=== PATIENT | male | born 1980 | race Caucasian/White ===

== ENCOUNTER 2019-03-19 00:14 | Inpatient (IN) ==
[2019-03-19] MEDS ORDERED: 0.9 % Sodium Chloride 1,000 ML IVC ONE ×4 (00:42→05:49)
[2019-03-19 00:51] LABS: Basophils # 0.1 K/mcL (0.0-0.2); Basophils % 0.8 %; Hematocrit 46.4 % (37.5-50.1); Hemoglobin 16.3 g/dL (12.9-16.9); Immature Granulocytes % 2.6 % (0-4); Lymphocytes % 26.9 %; Mean Corpuscular HGB Conc 35.1 g/dL (31.6-35.5); Mean Corpuscular Hemoglobin 32.4 pg (28.0-33.3); Mean Corpuscular Volume 92.2 fL (83.0-100.0); Mean Platelet Volume 10.6 fL (9.4-12.4); Monocytes # 0.4 K/mcL (0.0-1.3); Monocytes % 4.9 %; Neutrophils # 4.9 K/mcL (1.6-8.9); Nucleated Red Blood Cells 0.4 /100 WBC (0); Platelet Count 246 K/mcL (140-400); Red Blood Count 5.03 M/mcL (4.19-5.50); Red Cell Distribution Width 11.5 % (11.5-14.5); Segmented Neutrophils % 64.8 %; White Blood Count 7.6 K/mcL (4.3-11.1)
[2019-03-19 00:53] LABS: VBG HCO3 30 mEq/L (21-27); VBG PCO2 91 mmHg (41-51); VBG PH 7.13 pH Units (7.32-7.42); VBG PO2 37 mmHg (25-50)
[2019-03-19 01:00] LABS: INR 1.3; Prothrombin Time 15.3 Seconds (9.4-12.1)
[2019-03-19 01:03] LABS: Activated Partial Thrombo Time 28.6 Seconds (26.0-36.0)
[2019-03-19 01:26] LABS: Alanine Aminotransferase 102 Units/L (7-52); Albumin 5.1 g/dL (3.5-5.7); Albumin/Globulin Ratio 1.7 (1.1-2.2); Alkaline Phosphatase 82 Units/L (34-104); Aspartate Amino Transferase 135 Units/L (13-39); BUN/Creatinine Ratio 11 (6-26); Bilirubin,Direct 0.5 mg/dL (0.0-0.2); Bilirubin,Total 1.5 mg/dL (0.3-1.0); Blood Urea Nitrogen 25 mg/dL (6-20); Calcium 9.7 mg/dL (8.6-10.3); Carbon Dioxide 26 mEq/L (23-29); Chloride 100 mEq/L (98-107); Ethanol < 10 mg/dL (Less than 10); Glucose 50 mg/dL (70-105); Osmolality,Calculated 300 (280-300); Potassium 6.2 mEq/L (3.5-5.1); Sodium 144 mEq/L (136-145); Total Protein 8.1 g/dL (6.4-8.9); Troponin I 0.07 ng/mL (< 0.04); eGFR For African Americans 39 (> 60); eGFR For Non-African Americans 32 (> 60)
[2019-03-19 01:34] LABS: Creatine Kinase 2842 Units/L (30-223)
[2019-03-19] MEDS ORDERED: *HR* Rocuronium Bromide 50 MG/5 ML VIAL IVP ONE (01:34)
[2019-03-19] MEDS ORDERED: *HR* Etomidate 40 MG/20 ML VIAL IVP ONE (01:34)
[2019-03-19] MEDS ORDERED: *HR* Dextrose 50 % in Water (Syg) 50 ML SYRINGE IVP ONE ×2 (01:54→02:58)
--- NOTE | 2019-03-19 02:39 | Emergency Department Note ---
Disposition Clinical Impression: Cardiac arrest, Hyperthermia, Hyperkalemia, Acute kidney injury, Hypoglycemia, Seizure-like activity Drug overdose Qualifiers: Encounter type: initial encounter Injury intent: undetermined intent Qualified Code(s): T50.904A - Poisoning by unspecified drugs, medicaments and biological substances, undetermined, initial encounter Rhabdomyolysis Qualifiers: Rhabdomyolysis type: non-traumatic Qualified Code(s): M62.82 - Rhabdomyolysis Disposition: Admitted As Inpatient Condition: Critical Time of Disposition: 03:30 General Adult HPI - General Chief complaint: ED General Medical Stated complaint: overdose Time Seen by Provider: 03/19/19 00:33 Source: EMS Mode of arrival: EMS Limitations: altered mental status Nursing Notes Reviewed: Yes Vital Signs Reviewed: Yes - History of Present Illness HPI Narrative: Patient is a 38-year-old male he is brought in by squad for altered mental status. Squad states that they picked him up from the police station the police had picked him up prior to their arrival proximally 20 minutes for intoxication as he was sitting at the [facility] he became nonverbal and was leaned against a wall and unresponsive, EMS was called upon their arrival they placed the patient in the stretcher noticed that he was very stiff with his arms pulled inward eyes looking straight ahead and continue to be nonverbal. Initially admitted to methamphetamine use. He did have 100% on 4 L nasal cannula placed. Began foaming at the mouth. Upon arrival into the ED on initial assessment patient became apneic, bradied down and lost pulses. ALCS protocol was followed, chest compressions began, patient was intubated with a 6.0 ET tube with visualization of cords and this was later exchanged for a 7.5. After 1 round of compressions patient had pulses. Rhythm was sinus tachycardia. Hypotensive with MAP in the 40's. Prior to coding patient pupils were 4mm bilateral and non-reactive and patient eyes shifted down and to the left. Post-code oxygen saturation at 100%. Arterial line placed in right radial. Continued to be hypotensive. Patient very warm, rectal temp showed 107F. Cooling initiated with ice packs to bridge to [facility] [place]. Patient found to have peaked t-waves on rhythm strip with concerns for rhabdomyolsis given initial rigidity patient treated with 1 gram of calcium chloride through his IO in the right tibia. Initial VBG pH 7.13 and CO2 90's, vent settings VC-AC FiO2 50%, Vt 500, Ti 1.20, RR 14 PEEP 5. Right central femoral line placed after failed left IJ attempt. Good placement on XR. CT Head non-acute. Received a total of 3L NS Bolus. Repeat ABG showed improving pH 7.18 and pCO2 60's. Post-intubation patient had 4mm pupils bilateral and reactive to light. No epi given during code. No shocks administered. Active cooling temperature set to 68C for TTM post cardiac arrest care and hyperthermia. Initial DDx: Drug ingestion, ICH, seizure, sepsis. Patient temperature is improving with cooling currently 104F. Exam significant for multiple track church over extremities. Pain Scale: 0 - Related Data Previous Rx's Medication Instructions Recorded Hydrocodone/Acetaminophen [[place] 1 tab PO Q6H PRN #20 tab 07/12/15 5-325 Tablet] Sulfamethoxazole/Trimeth DS 1 each PO BID #20 tablet 07/12/15 [Bactrim DS] cephALEXin [Keflex] 500 mg PO QID #40 capsule 07/12/15 Ibuprofen [Motrin] 800 mg PO Q8HR #30 tablet 12/23/15 Allergies Allergy/AdvReac Type Severity Reaction Status Date / Time No Known Allergies Allergy Verified 03/19/19 01:04 Limitations: ROS unobtainable due to patients medical condition Past Medical History - Past Medical History Medical history: Reports: no medical history, other Psychiatric history: Reports: no psych history - Social History Smoking Status: Current every day smoker Smokeless Tobacco Status: No Alcohol use: Reports: occasionally Drug use: Reports: none Physical Exam - General Limitations: altered mental status General appearance: obtunded - Head Head exam: atraumatic, normocephalic, normal inspection - Eye Eye exam: Present: mydriasis. Absent: PERRL - ENT ENT exam: mucous membranes moist, TM's normal bilaterally - Neck Neck exam: Present: normal inspection, full ROM, trachea midline - Chest Chest inspection: Present: normal inspection, symmetric chest wall rise - Respiratory Respiratory exam: Present: respiratory distress - Cardiovascular Cardiovascular exam: Present: tachycardia, normal heart sounds - Abdominal Exam Abdominal exam: Present: soft - Extremities Exam Extremities exam: Present: other (extremities are dusky in appearance with several track church all over. ). Absent: normal capillary refill, pedal edema - Neurological Exam Neurological exam: Present: other (Rigid with arms flexed. No eye movement. Mydriasis. Cold and clammy. ) - Expanded Neurological Exam Coma Scale Eye Opening: None Coma Scale Motor Response: None Coma Scale Verbal Response: None Coma Scale Total: 3 - Skin Skin exam: Present: intact, diaphoresis, pallor Course Course Narrative: 3:01 - on reevaluation patient t-waves peaking, short run of V-tach, given amp of calcium with improvement in rhythm and improvement of MAP to 65. Due to improvement given additional amp of CaCl totaling 3. Sugar on arrival was in 60's. Given dextrose. On recheck remains low given an additional amp of D50. Patient MAP now >65 no pressors at this time. 15mg albuterol and Kayexalate ordered for potassium. Patient may need dialysis given continuation of no UOP. 3NS L bolus' since arrival. Head CT and chest x-ray unremarkable. Labs significant for rhabdomyolysis with hyperkalemia and acute renal failure. Patient will be admitted to the ICU for further management. Vital Signs Temperature 107.3 F H 03/19/19 00:20 Pulse Rate 133 03/19/19 00:20 Respiratory Rate 0 03/19/19 00:20 Blood Pressure 81/30 03/19/19 00:20 O2 Sat by Pulse Oximetry 46 03/19/19 00:20 Temperature 102.8 F H 03/19/19 03:01 Pulse Rate 97 03/19/19 03:01 Respiratory Rate 14 03/19/19 03:59 Blood Pressure 89/48 03/19/19 03:01 O2 Sat by Pulse Oximetry 96 03/19/19 03:59 Oxygen Delivery Oxygen Delivery Ventilator Procedures - Arterial Line Size (Gauge): 18 Technique Used: guide wire technique Post-Procedure: line sutured into place Patient Tolerated Procedure: well, no complications Complications: none Site: right, radial - Central Line Placement Right Femoral Central Line Inserted*: Yes Central Line Catheter Replacement*: Yes Central Line Insertion: emergent Patient Placed on Monitor/Pulse Ox: Yes During the Procedure: clinician is wearing sterile gloves, cap, mask,& gown during insertion, sterile field and sterile technique are maintained, patient's face is covered with drape or mask and wearing a cap, everyone in room is wearing a mask Central Line Prep: Chlorhexidine scrub Prep the Procedure Site: apply chloraprep to the skin using a back and forth scrubbing motion, apply chloraprep for 30 seconds (upper body), 1-2 min (femoral sites), drape the patient with a full body drape Ultrasound Used for Placement: Yes Central Line Lumen Inserted: triple Post Procedure: sutured in place, good blood return, all ports aspirated, flushe d, capped, sterile dressing applied, guide wire removed and visualized, dressing is dated Post Procedure X-Ray: tip of catheter in good position Patient Tolerated Procedure: well, no complications Complications: none - Intubation Time out performed: No (emergent; patient apneic) sedative: Etomidate Mg Given: 20 paralytic: Rocuronium Mg Given: 100 Laryngoscope: Emeli ET Tube Size: 6 ET Tube Uncuffed: Yes Tube Secured Depth (cm): 22 Tube Secured Location: teeth Tube Placement Confirmation: visualized tube passing through cords, equal breath sounds bilaterally, no breath sounds over epigastrium, confirmation by capnometry Patient Tolerated Procedure: other (air leak; tube exchanged with a bougie after confirming and bagging the patient. ) Intubation Complications: none Medical Decision Making - Medical Records Medical records reviewed: Yes I reviewed the patient's medical records. - Lab Data Lab results reviewed: Yes I reviewed the patient's lab results. Result diagrams: 03/19/19 04:30 03/19/19 04:00 Lab Results 03/19/19 03/19/19 03/19/19 Range/Units 00:33 00:33 00:33 WBC 7.6 (4.3-11.1) K/mcL RBC 5.03 (4.19-5.50) M/mcL Hgb 16.3 (12.9-16.9) g/dL Hct 46.4 (37.5-50.1) % MCV 92.2 (83.0-100.0) fL MCH 32.4 (28.0-33.3) pg MCHC 35.1 (31.6-35.5) g/dL RDW 11.5 (11.5-14.5) % Plt Count 246 (140-400) K/mcL MPV 10.6 (9.4-12.4) fL Immature Gran % 2.6 (0-4) % Seg Neutrophils % 64.8 % Lymphocytes % 26.9 % Monocytes % 4.9 % Eosinophils % 0.0 % Basophils % 0.8 % Neutrophils # 4.9 (1.6-8.9) K/mcL Lymphocytes # 2.0 (0.6-4.6) K/mcL Monocytes # 0.4 (0.0-1.3) K/mcL Eosinophils # 0.0 (0.0-0.6) K/mcL Basophils # 0.1 (0.0-0.2) K/mcL Nucleated RBCs/100 WBC 0.4 H (0) /100 WBC PT 15.3 H (9.4-12.1) Seconds INR 1.3 APTT 28.6 (26.0-36.0) Seconds Sample Site ABG pH (7.32-7.45) pH Units ABG pCO2 (35-45) mmHg ABG pO2 (85-104) mmHg ABG HCO3 (21-27) mEq/L ABG Total CO2 (20-26) mEq/L ABG O2 Saturation (95-98) % ABG Base Excess (-2 to 3) mEq/L VBG pH (7.32-7.42) pH Units VBG pCO2 (41-51) mmHg VBG pO2 (25-50) mmHg VBG HCO3 (21-27) mEq/L Respiration Rate Blood Gas Modality Inspired O2 (1-15=lpm [id number]=%) Tidal Volume cc PEEP cm H2O Sodium 144 (136-145) mEq/L Potassium 6.2 H (3.5-5.1) mEq/L Chloride 100 (98-107) mEq/L Carbon Dioxide 26 (23-29) mEq/L BUN 25 H (6-20) mg/dL Creatinine 2.33 H (0.70-1.30) mg/dL Est GFR ( Amer) 39 L (> 60) Est GFR (Non-Af Amer) 32 L (> 60) BUN/Creatinine Ratio 11 (6-26) Glucose 50 L (70-105) mg/dL POC Glucose (70-99) mg/dL Calculated Osmolality 300 (280-300) Lactic Acid (0.5-2.2) mmol/L Calcium 9.7 (8.6-10.3) mg/dL Total Bilirubin 1.5 H (0.3-1.0) mg/dL Direct Bilirubin 0.5 H (0.0-0.2) mg/dL Indirect Bilirubin 1.0 (0.0-1.2) mg/dL AST 135 H (13-39) Units/L ALT 102 H (7-52) Units/L Alkaline Phosphatase 82 (34-104) Units/L Creatine Kinase 2842 H (30-223) Units/L Troponin I 0.07 H* (< 0.04) ng/mL Serum Total Protein 8.1 (6.4-8.9) g/dL Albumin 5.1 (3.5-5.7) g/dL Globulin 3.0 (2.4-3.5) g/dL Albumin/Globulin Ratio 1.7 (1.1-2.2) Ethyl Alcohol < 10 (Less than 10) mg/dL Specimen Rejected Person Notif of Crit 03/19/19 03/19/19 03/19/19 Range/Units 00:33 00:35 00:48 WBC (4.3-11.1) K/mcL RBC (4.19-5.50) M/mcL Hgb (12.9-16.9) g/dL Hct (37.5-50.1) % MCV (83.0-100.0) fL MCH (28.0-33.3) pg MCHC (31.6-35.5) g/dL RDW (11.5-14.5) % Plt Count (140-400) K/mcL MPV (9.4-12.4) fL Immature Gran % (0-4) % Seg Neutrophils % % Lymphocytes % % Monocytes % % Eosinophils % % Basophils % % Neutrophils # (1.6-8.9) K/mcL Lymphocytes # (0.6-4.6) K/mcL Monocytes # (0.0-1.3) K/mcL Eosinophils # (0.0-0.6) K/mcL Basophils # (0.0-0.2) K/mcL Nucleated RBCs/100 WBC (0) /100 WBC PT (9.4-12.1) Seconds INR APTT (26.0-36.0) Seconds Sample Site ABG pH (7.32-7.45) pH Units ABG pCO2 (35-45) mmHg ABG pO2 (85-104) mmHg ABG HCO3 (21-27) mEq/L ABG Total CO2 (20-26) mEq/L ABG O2 Saturation (95-98) % ABG Base Excess (-2 to 3) mEq/L VBG pH 7.13 L* (7.32-7.42) pH Units VBG pCO2 91 H* (41-51) mmHg VBG pO2 37 (25-50) mmHg VBG HCO3 30 H (21-27) mEq/L Respiration Rate Blood Gas Modality Inspired O2 (1-15=lpm [id number]=%) Tidal Volume cc PEEP cm H2O Sodium (136-145) mEq/L Potassium (3.5-5.1) mEq/L Chloride (98-107) mEq/L Carbon Dioxide (23-29) mEq/L BUN (6-20) mg/dL Creatinine (0.70-1.30) mg/dL Est GFR ( Amer) (> 60) Est GFR (Non-Af Amer) (> 60) BUN/Creatinine Ratio (6-26) Glucose (70-105) mg/dL POC Glucose 64 L (70-99) mg/dL Calculated Osmolality (280-300) Lactic Acid 8.5 H* (0.5-2.2) mmol/L Calcium (8.6-10.3) mg/dL Total Bilirubin (0.3-1.0) mg/dL Direct Bilirubin (0.0-0.2) mg/dL Indirect Bilirubin (0.0-1.2) mg/dL AST (13-39) Units/L ALT (7-52) Units/L Alkaline Phosphatase (34-104) Units/L Creatine Kinase (30-223) Units/L Troponin I (< 0.04) ng/mL Serum Total Protein (6.4-8.9) g/dL Albumin (3.5-5.7) g/dL Globulin (2.4-3.5) g/dL Albumin/Globulin Ratio (1.1-2.2) Ethyl Alcohol (Less than 10) mg/dL Specimen Rejected Person Notif of Crit FRANK Flannery 03/19/19 03/19/19 03/19/19 Range/Units 02:41 02:50 02:53 WBC (4.3-11.1) K/mcL RBC (4.19-5.50) M/mcL Hgb (12.9-16.9) g/dL Hct (37.5-50.1) % MCV (83.0-100.0) fL MCH (28.0-33.3) pg MCHC (31.6-35.5) g/dL RDW (11.5-14.5) % Plt Count (140-400) K/mcL MPV (9.4-12.4) fL Immature Gran % (0-4) % Seg Neutrophils % % Lymphocytes % % Monocytes % % Eosinophils % % Basophils % % Neutrophils # (1.6-8.9) K/mcL Lymphocytes # (0.6-4.6) K/mcL Monocytes # (0.0-1.3) K/mcL Eosinophils # (0.0-0.6) K/mcL Basophils # (0.0-0.2) K/mcL Nucleated RBCs/100 WBC (0) /100 WBC PT (9.4-12.1) Seconds INR APTT (26.0-36.0) Seconds Sample Site Art Line ABG pH 7.19 L* (7.32-7.45) pH Units ABG pCO2 68 H (35-45) mmHg ABG pO2 80 L (85-104) mmHg ABG HCO3 26 (21-27) mEq/L ABG Total CO2 28 H (20-26) mEq/L ABG O2 Saturation 92 L (95-98) % ABG Base Excess -4 L (-2 to 3) mEq/L VBG pH (7.32-7.42) pH Units VBG pCO2 (41-51) mmHg VBG pO2 (25-50) mmHg VBG HCO3 (21-27) mEq/L Respiration Rate 14 Blood Gas Modality ASSIST CONTROL Inspired O2 50.0 (1-15=lpm [id number]=%) Tidal Volume 500 cc PEEP 5 cm H2O Sodium (136-145) mEq/L Potassium (3.5-5.1) mEq/L Chloride (98-107) mEq/L Carbon Dioxide (23-29) mEq/L BUN (6-20) mg/dL Creatinine (0.70-1.30) mg/dL Est GFR ( Amer) (> 60) Est GFR (Non-Af Amer) (> 60) BUN/Creatinine Ratio (6-26) Glucose (70-105) mg/dL POC Glucose 47 L* 47 L* (70-99) mg/dL Calculated Osmolality (280-300) Lactic Acid (0.5-2.2) mmol/L Calcium (8.6-10.3) mg/dL Total Bilirubin (0.3-1.0) mg/dL Direct Bilirubin (0.0-0.2) mg/dL Indirect Bilirubin (0.0-1.2) mg/dL AST (13-39) Units/L ALT (7-52) Units/L Alkaline Phosphatase (34-104) Units/L Creatine Kinase (30-223) Units/L Troponin I (< 0.04) ng/mL Serum Total Protein (6.4-8.9) g/dL Albumin (3.5-5.7) g/dL Globulin (2.4-3.5) g/dL Albumin/Globulin Ratio (1.1-2.2) Ethyl Alcohol (Less than 10) mg/dL Specimen Rejected Person Notif of Lyndsey FLEMING JENNIFER 03/19/19 03/19/19 Range/Units 03:06 03:26 WBC (4.3-11.1) K/mcL RBC (4.19-5.50) M/mcL Hgb (12.9-16.9) g/dL Hct (37.5-50.1) % MCV (83.0-100.0) fL MCH (28.0-33.3) pg MCHC (31.6-35.5) g/dL RDW (11.5-14.5) % Plt Count (140-400) K/mcL MPV (9.4-12.4) fL Immature Gran % (0-4) % Seg Neutrophils % % Lymphocytes % % Monocytes % % Eosinophils % % Basophils % % Neutrophils # (1.6-8.9) K/mcL Lymphocytes # (0.6-4.6) K/mcL Monocytes # (0.0-1.3) K/mcL Eosinophils # (0.0-0.6) K/mcL Basophils # (0.0-0.2) K/mcL Nucleated RBCs/100 WBC (0) /100 WBC PT (9.4-12.1) Seconds INR APTT (26.0-36.0) Seconds Sample Site ABG pH (7.32-7.45) pH Units ABG pCO2 (35-45) mmHg ABG pO2 (85-104) mmHg ABG HCO3 (21-27) mEq/L ABG Total CO2 (20-26) mEq/L ABG O2 Saturation (95-98) % ABG Base Excess (-2 to 3) mEq/L VBG pH (7.32-7.42) pH Units VBG pCO2 (41-51) mmHg VBG pO2 (25-50) mmHg VBG HCO3 (21-27) mEq/L Respiration Rate Blood Gas Modality Inspired O2 (1-15=lpm [id number]=%) Tidal Volume cc PEEP cm H2O Sodium (136-145) mEq/L Potassium (3.5-5.1) mEq/L Chloride (98-107) mEq/L Carbon Dioxide (23-29) mEq/L BUN (6-20) mg/dL Creatinine (0.70-1.30) mg/dL Est GFR ( Amer) (> 60) Est GFR (Non-Af Amer) (> 60) BUN/Creatinine Ratio (6-26) Glucose (70-105) mg/dL POC Glucose 114 H (70-99) mg/dL Calculated Osmolality (280-300) Lactic Acid (0.5-2.2) mmol/L Calcium (8.6-10.3) mg/dL Total Bilirubin (0.3-1.0) mg/dL Direct Bilirubin (0.0-0.2) mg/dL Indirect Bilirubin (0.0-1.2) mg/dL AST (13-39) Units/L ALT (7-52) Units/L Alkaline Phosphatase (34-104) Units/L Creatine Kinase (30-223) Units/L Troponin I (< 0.04) ng/mL Serum Total Protein (6.4-8.9) g/dL Albumin (3.5-5.7) g/dL Globulin (2.4-3.5) g/dL Albumin/Globulin Ratio (1.1-2.2) Ethyl Alcohol (Less than 10) mg/dL Specimen Rejected Contaminated Person Notif of Crit - Radiology Data Radiology results reviewed: Yes I reviewed the patient's radiology results. Head CT 03/19/19 01:42 IMPRESSION: No acute intracranial abnormality. D/ / Ja Dyer MD / Ja Dyer MD Interpreting Provider: Ja Dyer MD X-Ray 03/19/19 03:01 IMPRESSION: Satisfactory line and catheter placement. D/ / Ja Dyer MD / Ja Dyer MD Interpreting Provider: Ja Dyer MD Chest X-Ray 03/19/19 03:11 IMPRESSION: NG tube placement as above. Advancement by 10 cm recommended. D/ / Ja Dyer MD / Ja Dyer MD Interpreting Provider: Ja Dyer MD - EKG Data EKG #1 EKG attestation: Yes I reviewed and interpreted this EKG. EKG results narrative: EKG done at 00:23 shows sinus tachycardia with a regular rate and widened QRS peaked T waves. EKG #2 EKG attestation: Yes I reviewed and interpreted this EKG. EKG results narrative: EKG done at 00:27 shows sinus tachycardia at a rate of 1 33 bpm. Normal axis. QRS is improved and narrow. Q waves are still peaked. EKG #3 EKG attestation: Yes I reviewed and interpreted this EKG. EKG results narrative: EKG done at 1:24 shows sinus rhythm at a rate of 87 bpm. Normal axis. Peak T waves and widened QRS.
--- NOTE | 2019-03-19 02:46 | Emergency Department Note ---
Disposition Clinical Impression: Cardiac arrest, Hyperthermia, Hyperkalemia, Acute kidney injury, Hypoglycemia, Seizure-like activity Drug overdose Qualifiers: Encounter type: initial encounter Injury intent: undetermined intent Qualified Code(s): T50.904A - Poisoning by unspecified drugs, medicaments and biological substances, undetermined, initial encounter Rhabdomyolysis Qualifiers: Rhabdomyolysis type: non-traumatic Qualified Code(s): M62.82 - Rhabdomyolysis Disposition: Admitted As Inpatient Condition: Critical Time of Disposition: 03:30 General Adult HPI - General Chief complaint: ED General Medical Stated complaint: overdose Time Seen by Provider: 03/19/19 00:33 Source: EMS Mode of arrival: EMS Limitations: altered mental status Nursing Notes Reviewed: Yes Vital Signs Reviewed: Yes - History of Present Illness Pain Scale: 0 - Related Data Previous Rx's Medication Instructions Recorded Hydrocodone/Acetaminophen [[place] 1 tab PO Q6H PRN #20 tab 07/12/15 5-325 Tablet] Sulfamethoxazole/Trimeth DS 1 each PO BID #20 tablet 07/12/15 [Bactrim DS] cephALEXin [Keflex] 500 mg PO QID #40 capsule 07/12/15 Ibuprofen [Motrin] 800 mg PO Q8HR #30 tablet 12/23/15 Allergies Allergy/AdvReac Type Severity Reaction Status Date / Time No Known Allergies Allergy Verified 03/19/19 01:04 Past Medical History - Past Medical History Medical history: Reports: no medical history, other Psychiatric history: Reports: no psych history - Social History Smoking Status: Current every day smoker Smokeless Tobacco Status: No Alcohol use: Reports: occasionally Drug use: Reports: none Physical Exam - General Limitations: altered mental status Course Vital Signs Temperature 107.3 F H 03/19/19 00:20 Pulse Rate 133 03/19/19 00:20 Respiratory Rate 0 03/19/19 00:20 Blood Pressure 81/30 03/19/19 00:20 O2 Sat by Pulse Oximetry 46 03/19/19 00:20 Temperature 102.8 F H 03/19/19 03:01 Pulse Rate 97 03/19/19 03:01 Respiratory Rate 14 03/19/19 03:59 Blood Pressure 89/48 03/19/19 03:01 O2 Sat by Pulse Oximetry 96 03/19/19 03:59 Oxygen Delivery Oxygen Delivery Ventilator Medical Decision Making - Lab Data Lab results reviewed: Yes I reviewed the patient's lab results. Result diagrams: 03/19/19 04:30 03/19/19 04:00 Lab Results 03/19/19 03/19/19 03/19/19 Range/Units 00:33 00:33 00:33 WBC 7.6 (4.3-11.1) K/mcL RBC 5.03 (4.19-5.50) M/mcL Hgb 16.3 (12.9-16.9) g/dL Hct 46.4 (37.5-50.1) % MCV 92.2 (83.0-100.0) fL MCH 32.4 (28.0-33.3) pg MCHC 35.1 (31.6-35.5) g/dL RDW 11.5 (11.5-14.5) % Plt Count 246 (140-400) K/mcL MPV 10.6 (9.4-12.4) fL Immature Gran % 2.6 (0-4) % Seg Neutrophils % 64.8 % Lymphocytes % 26.9 % Monocytes % 4.9 % Eosinophils % 0.0 % Basophils % 0.8 % Neutrophils # 4.9 (1.6-8.9) K/mcL Lymphocytes # 2.0 (0.6-4.6) K/mcL Monocytes # 0.4 (0.0-1.3) K/mcL Eosinophils # 0.0 (0.0-0.6) K/mcL Basophils # 0.1 (0.0-0.2) K/mcL Nucleated RBCs/100 WBC 0.4 H (0) /100 WBC PT 15.3 H (9.4-12.1) Seconds INR 1.3 APTT 28.6 (26.0-36.0) Seconds Sample Site ABG pH (7.32-7.45) pH Units ABG pCO2 (35-45) mmHg ABG pO2 (85-104) mmHg ABG HCO3 (21-27) mEq/L ABG Total CO2 (20-26) mEq/L ABG O2 Saturation (95-98) % ABG Base Excess (-2 to 3) mEq/L VBG pH (7.32-7.42) pH Units VBG pCO2 (41-51) mmHg VBG pO2 (25-50) mmHg VBG HCO3 (21-27) mEq/L Respiration Rate Blood Gas Modality Inspired O2 (1-15=lpm [id number]=%) Tidal Volume cc PEEP cm H2O Sodium 144 (136-145) mEq/L Potassium 6.2 H (3.5-5.1) mEq/L Chloride 100 (98-107) mEq/L Carbon Dioxide 26 (23-29) mEq/L BUN 25 H (6-20) mg/dL Creatinine 2.33 H (0.70-1.30) mg/dL Est GFR ( Amer) 39 L (> 60) Est GFR (Non-Af Amer) 32 L (> 60) BUN/Creatinine Ratio 11 (6-26) Glucose 50 L (70-105) mg/dL POC Glucose (70-99) mg/dL Calculated Osmolality 300 (280-300) Lactic Acid (0.5-2.2) mmol/L Calcium 9.7 (8.6-10.3) mg/dL Total Bilirubin 1.5 H (0.3-1.0) mg/dL Direct Bilirubin 0.5 H (0.0-0.2) mg/dL Indirect Bilirubin 1.0 (0.0-1.2) mg/dL AST 135 H (13-39) Units/L ALT 102 H (7-52) Units/L Alkaline Phosphatase 82 (34-104) Units/L Creatine Kinase 2842 H (30-223) Units/L Troponin I 0.07 H* (< 0.04) ng/mL Serum Total Protein 8.1 (6.4-8.9) g/dL Albumin 5.1 (3.5-5.7) g/dL Globulin 3.0 (2.4-3.5) g/dL Albumin/Globulin Ratio 1.7 (1.1-2.2) Ethyl Alcohol < 10 (Less than 10) mg/dL Specimen Rejected Person Notif of Crit 03/19/19 03/19/19 03/19/19 Range/Units 00:33 00:35 00:48 WBC (4.3-11.1) K/mcL RBC (4.19-5.50) M/mcL Hgb (12.9-16.9) g/dL Hct (37.5-50.1) % MCV (83.0-100.0) fL MCH (28.0-33.3) pg MCHC (31.6-35.5) g/dL RDW (11.5-14.5) % Plt Count (140-400) K/mcL MPV (9.4-12.4) fL Immature Gran % (0-4) % Seg Neutrophils % % Lymphocytes % % Monocytes % % Eosinophils % % Basophils % % Neutrophils # (1.6-8.9) K/mcL Lymphocytes # (0.6-4.6) K/mcL Monocytes # (0.0-1.3) K/mcL Eosinophils # (0.0-0.6) K/mcL Basophils # (0.0-0.2) K/mcL Nucleated RBCs/100 WBC (0) /100 WBC PT (9.4-12.1) Seconds INR APTT (26.0-36.0) Seconds Sample Site ABG pH (7.32-7.45) pH Units ABG pCO2 (35-45) mmHg ABG pO2 (85-104) mmHg ABG HCO3 (21-27) mEq/L ABG Total CO2 (20-26) mEq/L ABG O2 Saturation (95-98) % ABG Base Excess (-2 to 3) mEq/L VBG pH 7.13 L* (7.32-7.42) pH Units VBG pCO2 91 H* (41-51) mmHg VBG pO2 37 (25-50) mmHg VBG HCO3 30 H (21-27) mEq/L Respiration Rate Blood Gas Modality Inspired O2 (1-15=lpm [id number]=%) Tidal Volume cc PEEP cm H2O Sodium (136-145) mEq/L Potassium (3.5-5.1) mEq/L Chloride (98-107) mEq/L Carbon Dioxide (23-29) mEq/L BUN (6-20) mg/dL Creatinine (0.70-1.30) mg/dL Est GFR ( Amer) (> 60) Est GFR (Non-Af Amer) (> 60) BUN/Creatinine Ratio (6-26) Glucose (70-105) mg/dL POC Glucose 64 L (70-99) mg/dL Calculated Osmolality (280-300) Lactic Acid 8.5 H* (0.5-2.2) mmol/L Calcium (8.6-10.3) mg/dL Total Bilirubin (0.3-1.0) mg/dL Direct Bilirubin (0.0-0.2) mg/dL Indirect Bilirubin (0.0-1.2) mg/dL AST (13-39) Units/L ALT (7-52) Units/L Alkaline Phosphatase (34-104) Units/L Creatine Kinase (30-223) Units/L Troponin I (< 0.04) ng/mL Serum Total Protein (6.4-8.9) g/dL Albumin (3.5-5.7) g/dL Globulin (2.4-3.5) g/dL Albumin/Globulin Ratio (1.1-2.2) Ethyl Alcohol (Less than 10) mg/dL Specimen Rejected Person Notif of Crit ER Lindsey Flannery 03/19/19 03/19/19 03/19/19 Range/Units 02:41 02:50 02:53 WBC (4.3-11.1) K/mcL RBC (4.19-5.50) M/mcL Hgb (12.9-16.9) g/dL Hct (37.5-50.1) % MCV (83.0-100.0) fL MCH (28.0-33.3) pg MCHC (31.6-35.5) g/dL RDW (11.5-14.5) % Plt Count (140-400) K/mcL MPV (9.4-12.4) fL Immature Gran % (0-4) % Seg Neutrophils % % Lymphocytes % % Monocytes % % Eosinophils % % Basophils % % Neutrophils # (1.6-8.9) K/mcL Lymphocytes # (0.6-4.6) K/mcL Monocytes # (0.0-1.3) K/mcL Eosinophils # (0.0-0.6) K/mcL Basophils # (0.0-0.2) K/mcL Nucleated RBCs/100 WBC (0) /100 WBC PT (9.4-12.1) Seconds INR APTT (26.0-36.0) Seconds Sample Site Art Line ABG pH 7.19 L* (7.32-7.45) pH Units ABG pCO2 68 H (35-45) mmHg ABG pO2 80 L (85-104) mmHg ABG HCO3 26 (21-27) mEq/L ABG Total CO2 28 H (20-26) mEq/L ABG O2 Saturation 92 L (95-98) % ABG Base Excess -4 L (-2 to 3) mEq/L VBG pH (7.32-7.42) pH Units VBG pCO2 (41-51) mmHg VBG pO2 (25-50) mmHg VBG HCO3 (21-27) mEq/L Respiration Rate 14 Blood Gas Modality ASSIST CONTROL Inspired O2 50.0 (1-15=lpm [id number]=%) Tidal Volume 500 cc PEEP 5 cm H2O Sodium (136-145) mEq/L Potassium (3.5-5.1) mEq/L Chloride (98-107) mEq/L Carbon Dioxide (23-29) mEq/L BUN (6-20) mg/dL Creatinine (0.70-1.30) mg/dL Est GFR ( Amer) (> 60) Est GFR (Non-Af Amer) (> 60) BUN/Creatinine Ratio (6-26) Glucose (70-105) mg/dL POC Glucose 47 L* 47 L* (70-99) mg/dL Calculated Osmolality (280-300) Lactic Acid (0.5-2.2) mmol/L Calcium (8.6-10.3) mg/dL Total Bilirubin (0.3-1.0) mg/dL Direct Bilirubin (0.0-0.2) mg/dL Indirect Bilirubin (0.0-1.2) mg/dL AST (13-39) Units/L ALT (7-52) Units/L Alkaline Phosphatase (34-104) Units/L Creatine Kinase (30-223) Units/L Troponin I (< 0.04) ng/mL Serum Total Protein (6.4-8.9) g/dL Albumin (3.5-5.7) g/dL Globulin (2.4-3.5) g/dL Albumin/Globulin Ratio (1.1-2.2) Ethyl Alcohol (Less than 10) mg/dL Specimen Rejected Person Notif of Lyndsey LONNIEUS RODRIGUEZ 03/19/19 03/19/19 Range/Units 03:06 03:26 WBC (4.3-11.1) K/mcL RBC (4.19-5.50) M/mcL Hgb (12.9-16.9) g/dL Hct (37.5-50.1) % MCV (83.0-100.0) fL MCH (28.0-33.3) pg MCHC (31.6-35.5) g/dL RDW (11.5-14.5) % Plt Count (140-400) K/mcL MPV (9.4-12.4) fL Immature Gran % (0-4) % Seg Neutrophils % % Lymphocytes % % Monocytes % % Eosinophils % % Basophils % % Neutrophils # (1.6-8.9) K/mcL Lymphocytes # (0.6-4.6) K/mcL Monocytes # (0.0-1.3) K/mcL Eosinophils # (0.0-0.6) K/mcL Basophils # (0.0-0.2) K/mcL Nucleated RBCs/100 WBC (0) /100 WBC PT (9.4-12.1) Seconds INR APTT (26.0-36.0) Seconds Sample Site ABG pH (7.32-7.45) pH Units ABG pCO2 (35-45) mmHg ABG pO2 (85-104) mmHg ABG HCO3 (21-27) mEq/L ABG Total CO2 (20-26) mEq/L ABG O2 Saturation (95-98) % ABG Base Excess (-2 to 3) mEq/L VBG pH (7.32-7.42) pH Units VBG pCO2 (41-51) mmHg VBG pO2 (25-50) mmHg VBG HCO3 (21-27) mEq/L Respiration Rate Blood Gas Modality Inspired O2 (1-15=lpm [id number]=%) Tidal Volume cc PEEP cm H2O Sodium (136-145) mEq/L Potassium (3.5-5.1) mEq/L Chloride (98-107) mEq/L Carbon Dioxide (23-29) mEq/L BUN (6-20) mg/dL Creatinine (0.70-1.30) mg/dL Est GFR ( Amer) (> 60) Est GFR (Non-Af Amer) (> 60) BUN/Creatinine Ratio (6-26) Glucose (70-105) mg/dL POC Glucose 114 H (70-99) mg/dL Calculated Osmolality (280-300) Lactic Acid (0.5-2.2) mmol/L Calcium (8.6-10.3) mg/dL Total Bilirubin (0.3-1.0) mg/dL Direct Bilirubin (0.0-0.2) mg/dL Indirect Bilirubin (0.0-1.2) mg/dL AST (13-39) Units/L ALT (7-52) Units/L Alkaline Phosphatase (34-104) Units/L Creatine Kinase (30-223) Units/L Troponin I (< 0.04) ng/mL Serum Total Protein (6.4-8.9) g/dL Albumin (3.5-5.7) g/dL Globulin (2.4-3.5) g/dL Albumin/Globulin Ratio (1.1-2.2) Ethyl Alcohol (Less than 10) mg/dL Specimen Rejected Contaminated Person Notif of Crit - Radiology Data Radiology results reviewed: Yes I reviewed the patient's radiology results. Head CT 03/19/19 01:42 IMPRESSION: No acute intracranial abnormality. D/ / Ja Dyer MD / Ja Dyer MD Interpreting Provider: Ja Dyer MD X-Ray 03/19/19 03:01 IMPRESSION: Satisfactory line and catheter placement. D/ / Ja Dyer MD / Ja Dyer MD Interpreting Provider: Ja Dyer MD Chest X-Ray 03/19/19 03:11 IMPRESSION: NG tube placement as above. Advancement by 10 cm recommended. D/ / Ja Dyer MD / Ja Dyer MD Interpreting Provider: Ja Dyer MD Critical Care Time Critical Care Time: Yes Total Critical Care Time: 120 Attestation: Critical care performed: Time is exclusive of separately billable procedures. Time includes: direct patient care, patient reassessment, coordination of patient care, interpretation of data (laboratory data, radiology data, and respiratory data), review of patient's medical records, medical consultation and documentation of patient care. Procedures included in critical care time: Procedures excluded from critical care time: Central venous catheter placement, arterial line placement, endotracheal intubation, CPR. Attestation Statement - Attestation Attestation: IWander MD, personally evaluated this patient and discussed their management with the resident physician. I reviewed the resident's note and agree with the documented findings, medical decision making, and plan of care. I reviewed the residents documentation and agree with the residents assessment and plan of care. I have personally had face to face time with the patient. I personally supervised and was present for the ventura/critical portions of the following procedures completed by the resident: EKG interpretation, CPR, endotracheal intubation, femoral central venous line placement, right radial arterial line placement. 38-year-old male presents to the emergency department by EMS from the local longterm. Patient was apparently arrested for intoxication and about 20 minutes later he became diaphoretic and unresponsive. EMS reports on their arrival patient was unresponsive and was profusely diaphoretic. He was rigid with some intermittent posturing. On arrival here in the emergency department the patient was profusely diaphoretic. He was on oxygen by nasal cannula. EMS had placed a face mask on patient as they reported that in route here he started foaming at the mouth and spitting. He apparently admitted to police he had used methamphetamine. On examination patient is a well-developed well-nourished male. As noted above patient profusely diaphoretic. Unresponsive to painful stimuli. Patient is rigid with intermittent decerebrate posturing. Pupils are midrange and nonreactive. Breath sounds are equal bilaterally. No wheezes noted. Heart regular with a marked tachycardia. Abdomen is firm with present bowel sounds. Shortly after arrival patient developed increased posturing and appeared to have seizure-like activity. He then became at neck and we started bagging him with a mask. Patient then became bradycardic and developed asystole with no pulse. Chest compressions were started. A pulse was regained at the first pulse check. He did not receive any medications during the cardiac arrest. Patient was intubated orally by Dr. Rodriguez. He received etomidate 20 mg IV and rocuronium 100 mg IV. A [place] catheter was placed. Orogastric tube placed. A right femoral central venous catheter was placed after unsuccessful left IJ attempt. A right radial arterial line placed. Patient was hypotensive. He had multiple changes in his EKG morphology on the monitor. Multiple EKGs obtained. He developed widened QRS complexes and peaked T waves. He was found to have hyperkalemia and acute kidney injury. He was also hypoglycemic and received D50 IV twice. Rectal temperature was 107.3. Patient was placed under a cooling blanket with continuous temperature monitoring. The hospitalist, Dr. Barrow, was consulted and accepted admission of the patient.
[2019-03-19 02:47] LABS: ABG Base Excess -4 mEq/L (-2 to 3); ABG HCO3 26 mEq/L (21-27); ABG Oxygen Saturation 92 % (95-98); ABG PCO2 68 mmHg (35-45); ABG PH 7.19 pH Units (7.32-7.45); ABG PO2 80 mmHg (85-104); ABG TCO2 28 mEq/L (20-26); Blood Gas Modality ASSIST CONTROL; Blood Gas PEEP 5 cm H2O; Blood Gas VT 500 cc
[2019-03-19] MEDS ORDERED: Naloxone 0.4 MG/ML INJ IVP PRN (02:49)
--- NOTE | 2019-03-19 02:54 | Internal Med History&Physical ---
<Jass Gomez - Last Filed: 03/19/19 05:56> Date of Encounter: 03/19/19 Time of Encounter: 02:53 Internal Medicine - H&P: HPI Chief complaint: Unresponsiveness, overdose Admitted From: Emergency Dept History of present illness: Mr. Castaneda is a 38 year old male with an unknown past medical history who is brought in by EMS today due to altered mental status. EMS states that they picked up the patient the police station after he was arrested for intoxication with patient admitting to methamphetamine use. EMS states that the patient was in police custody for approximately 20 minutes when he became nonverbal and unresponsive. Patient given Narcan by Police with little effect. There was noted to be flexor contractions with Reiger's and DECEREBRATE posturing plus diaphoresis while in route. Upon arrival in the ED the patient became pulseless and Chest compressions were initiated and patient was intubated by resident ph ysician and underwent one round of CPR before return of spontaneous circulation was obtained. Patient was then noted be hypotensive and thus right femoral central line was placed. Emergency department physician's note that the patient's pupils have been midline approximately 4 mm and fixed during the duration of his ED stay but at one point they noticed that he did have a down and out appearance to his gaze which was concerning for intracranial pathology. Patient's CT of the head showed no intracranial pathology. Patient was noted to have an initial rectal temperature of 107 with this plus ROSC protocol the patient was initiated on cooling protocol to maintain a core temperature of 36 degrees Celsius. Patient was noted to have hyperkalemia with potassium value of 6.2 with peaked T waves on rhythm strip was given 1 g of calcium chloride plus albuterol, he is also noted to have respiratory acidosis on ABG. Patient's lactic acid is elevated 8.5, his acute kidney injury with creatinine of 2.33, creatine kinase is 2842 with an elevated troponin of 0.07. Upon my initial examination in the emergency department the patient is intubated, chemically sedated and mechanically ventilated. His eyes are open with pupils that are fixed and midrange approximate 4 mm. He does not respond to verbal or painful stimuli there is no posturing present at this time. I am unable to detect a peripheral pulse in the radial or distalis pedis, however the patient is noted to have bounding femoral pulses, cardio pulmonary auscultation is unremarkable abdomen is soft nondistended there are no signs of trauma. Skin is warm, dry and intact. No signs of pedal edema. Patient will be admitted to ICU for further evaluation and management. Assessment and plan: Drug overdose: Pending urine drug screening - Patient has had no urine output to this point. Altered mental status: Patient is sedated, intubated and mechanically ventilated Continue propofol drip Neurology consult placed. Seizures: See above: Ativan 2 mg IVP every hour when necessary for the management of seizure. Continue to monitor closely. Hypotension: Central venous catheter placed in the right femoral vein. Continue Levophed drip to maintain map of 65 or greater. Continue IV fluids. Hyperkalemia: Peaked T waves noted on EKG tracing. Patient given albuterol, calcium chloride, Kayexalate. Continue to monitor with every 2 hour BMP. Rhabdomyolysis: Patient's creatine kinase is 2842 Currently has received 3 L IV fluids Continue to monitor closely Lactic acidemia: See above White blood cell count within normal range Blood/urine cultures placed Initiated vancomycin/Zosyn antibiotic coverage Continue to monitor every 2 hours Elevated troponin: Initial troponin 0.07 without acute ischemic changes noted on EKG. Continue to trend every 3 hours 2. Respiratory acidosis: Continue to monitor closely Past Med Surg Social Fam HX - Past Medical History Medical history: no medical history, other Additional medical history: concussion, broken ribs Psychiatric history: no psych history - Social History Smoking Status: Current every day smoker Smokeless Tobacco Status: No Alcohol use: occasionally Drug use: none Internal Medicine - H&P: Meds Hydrocodone/Acetaminophen [[place] 5-325 Tablet] 1 tab PO Q6H PRN #20 tab 07/12/15 [Rx] Sulfamethoxazole/Trimeth DS [Bactrim DS] 1 each PO BID #20 tablet 07/12/15 [Rx] cephALEXin [Keflex] 500 mg PO QID #40 capsule 07/12/15 [Rx] Ibuprofen [Motrin] 800 mg PO Q8HR #30 tablet 12/23/15 [Rx] Allergy/AdvReac Type Severity Reaction Status Date / Time No Known Allergies Allergy Verified 03/19/19 01:04 ROS unobtainable: due to endotracheal tube, due to mental status All Systems PM: A 10-system review of systems was performed and is negative for pertinent findings except as documented above in the HPI. - Constitutional Vitals: Temp Pulse Resp BP Pulse Ox 104.2 F H 85 14 71/39 95 03/19/19 02:14 03/19/19 02:14 03/19/19 02:14 03/19/19 02:14 03/19/19 02:14 General appearance: Present: A&O X 0 Exam: as per HPI - Head Head exam: Present: atraumatic - Eye Pupils: Present: fixed - Neck Neck exam general surgery: Present: supple, trachea midline - Respiratory Respiratory exam: Present: CTAB (Patient is intubated and mechanically ventilated) - Cardiovascular Cardiovascular exam: Present: RRR, +S1, +S2. Absent: clicks, diastolic murmur, distant heart sounds, gallop, irregular rhythm, JVD, rubs, +S3, +S4, systolic murmur - GI/Abdominal GI/Abdominal exam: Present: normal bowel sounds, soft. Absent: diminished bowel sounds, distended, firm, mass, rigid - Extremities Exam Extremities exam: Present: warm. Absent: cyanotic - Skin Skin exam: Present: dry, intact, normal color. Absent: cyanosis Internal Med - H&P Results - Labs CBC & Chem 7: 03/19/19 04:30 03/19/19 04:00 Labs: Short CBC 03/19/19 Range/Units 00:33 WBC 7.6 (4.3-11.1) K/mcL Hgb 16.3 (12.9-16.9) g/dL Hct 46.4 (37.5-50.1) % Plt Count 246 (140-400) K/mcL Neutrophils # 4.9 (1.6-8.9) K/mcL BMP 03/19/19 00:33 Sodium 144 Potassium 6.2 H Chloride 100 Carbon Dioxide 26 BUN 25 H Creatinine 2.33 H Glucose 50 L Calcium 9.7 Cardiac Enzymes 03/19/19 Range/Units 00:33 Troponin I 0.07 H* (< 0.04) ng/mL Liver Function 03/19/19 Range/Units 00:33 Total Bilirubin 1.5 H (0.3-1.0) mg/dL Direct Bilirubin 0.5 H (0.0-0.2) mg/dL AST 135 H (13-39) Units/L ALT 102 H (7-52) Units/L Alkaline Phosphatase 82 (34-104) Units/L Albumin 5.1 (3.5-5.7) g/dL - ABG Interpretation ABG results: 03/19/19 03/19/19 00:48 02:41 ABG pH 7.19 L* ABG pCO2 68 H ABG pO2 80 L ABG HCO3 26 ABG Total CO2 28 H ABG O2 Saturation 92 L ABG Base Excess -4 L VBG pH 7.13 L* VBG pCO2 91 H* VBG pO2 37 VBG HCO3 30 H - Impressions ITS Impressions Chest X-Ray 03/19/19 00:55 IMPRESSION: No acute pulmonary process. D/ / Ja Dyer MD / Ja Dyer MD Interpreting Provider: Ja Dyer MD Head CT 03/19/19 01:42 IMPRESSION: No acute intracranial abnormality. D/ / Ja Dyer MD / Ja Dyer MD Interpreting Provider: Ja Dyer MD - Time Spent With Patient Total time spent is greater than 50% in coordination of care (as documented) at patient's floor/unit and/or counseling patient: <Daniel Redding A - Last Filed: 03/19/19 07:07> Date of Encounter: 03/19/19 Internal Medicine - H&P: HPI History of present illness: Mr. Castaneda is a 38 year old male All Systems PM: A 10-system review of systems was performed and is negative for pertinent findings except as documented above in the HPI. - Constitutional Vitals: Temp Pulse Resp BP Pulse Ox 102.8 F H 97 14 89/48 96 03/19/19 03:01 03/19/19 03:01 03/19/19 03:59 03/19/19 03:01 03/19/19 03:59 Internal Med - H&P Results - Labs CBC & Chem 7: 03/19/19 04:30 03/19/19 04:00 Labs: Short CBC 03/19/19 03/19/19 Range/Units 00:33 04:30 WBC 7.6 15.0 H D (4.3-11.1) K/mcL Hgb 16.3 16.2 (12.9-16.9) g/dL Hct 46.4 46.2 (37.5-50.1) % Plt Count 246 140 (140-400) K/mcL Neutrophils # 4.9 10.9 H (1.6-8.9) K/mcL BMP 03/19/19 03/19/19 00:33 04:00 Sodium 144 138 Potassium 6.2 H 8.4 H* D Chloride 100 104 Carbon Dioxide 26 17 L BUN 25 H 33 H Creatinine 2.33 H 3.33 H Glucose 50 L 65 L Calcium 9.7 8.6 Cardiac Enzymes 03/19/19 03/19/19 Range/Units 00:33 04:00 Troponin I 0.07 H* 0.24 H* (< 0.04) ng/mL Liver Function 03/19/19 Range/Units 00:33 Total Bilirubin 1.5 H (0.3-1.0) mg/dL Direct Bilirubin 0.5 H (0.0-0.2) mg/dL AST 135 H (13-39) Units/L ALT 102 H (7-52) Units/L Alkaline Phosphatase 82 (34-104) Units/L Albumin 5.1 (3.5-5.7) g/dL Urine 03/19/19 Range/Units 03:55 Urine Color [place] A (Yellow) Urine Clarity Cloudy A (Clear) Urine pH 6.0 (5.0-8.0) pH Units Ur Specific [place] 1.025 (1.010-1.025) Urine Protein >=300 H (Neg-Trace) mg/dL Urine Glucose (UA) Normal (Normal) mg/dL - ABG Interpretation ABG results: 03/19/19 03/19/19 03/19/19 00:48 02:41 05:19 ABG pH 7.19 L* 7.14 L* ABG pCO2 68 H 56 H ABG pO2 80 L 84 L ABG HCO3 26 19 L ABG Total CO2 28 H 21 ABG O2 Saturation 92 L 92 L ABG Base Excess -4 L -11 L VBG pH 7.13 L* VBG pCO2 91 H* VBG pO2 37 VBG HCO3 30 H - Impressions ITS Impressions Chest X-Ray 03/19/19 00:55 IMPRESSION: No acute pulmonary process. D/ / Ja Dyer MD / Ja Dyer MD Interpreting Provider: Ja Dyer MD Head CT 03/19/19 01:42 IMPRESSION: No acute intracranial abnormality. D/ / Ja Dyer MD / Ja Dyer MD Interpreting Provider: Ja Dyer MD X-Ray 03/19/19 03:01 IMPRESSION: Satisfactory line and catheter placement. D/ / Ja Dyer MD / Ja Dyer MD Interpreting Provider: Ja Dyer MD Chest X-Ray 03/19/19 03:11 IMPRESSION: NG tube placement as above. Advancement by 10 cm recommended. D/ / Ja Dyer MD / Ja Dyer MD Interpreting Provider: Ja Dyer MD - Time Spent With Patient Total time spent is greater than 50% in coordination of care (as documented) at patient's floor/unit and/or counseling patient: - Attending Attestation I performed a history and physical examination of the patient and discussed their management with the resident. I reviewed the resident's note and agree with the documented plan of care. In short patient is a 38-year-old male br ought in by squad after patient became unresponsive 20 minutes after being taken into custody concerning for drug overdose. Per EMS, Patient noted to be very stiff displaying decorticate posturing and was unresponsive. Upon arrival into the ED on initial assessment patient became apneic, bradied down and lost pulses. ALCS protocol was followed, chest compressions began, and patient was intubated. Patient remained hypotensive with a systolic blood pressure in the 70s to 80s. 2 I/O lines were placed bilaterally in each lower extremity and patient received 3 L of fluid boluses. Patient was also hypothermic with a temperature of 107.3. Labs significant for leukocytosis, rhabdomyolysis with hyperkalemia initially of 6.2, troponin of 0.07 and acute renal failure. Patient additionally received Kayexalate 30 g via OG tube. Right central femoral line placed after failed left IJ attempt. Initial VBG pH 7.13 and CO2 90's, vent settings VC-AC FiO2 50%, Vt 500, Ti 1.20, RR 14 PEEP 5. Repeat ABG showed improving pH 7.18 and pCO2 60's. Urine toxicology positive for methamphetamines, benzodiazepines, marijuana and Buprenorphine. Etiology of patient's current presentation presumed to be secondary to drug ingestion, though cannot rule out seizure or sepsis. On my assessment, right pupillary reflex minimal. Absent pupillary reflex in the left eye. Continue aggressive fluid hydration in the setting of possible sepsis and rhabdomyolysis. Continue calcium gluconate, albuterol and dextrose insulin as needed. We will start patient on broad-spectrum antibiotics coverage. Addendum: Repeat potassium 8.4. We will place consult to nephrology for emergent dialysis. In the interim continue calcium gluconate, albuterol and insulin/dextrose. Additionally we will give 60 mg of Kayexalate rectally. Over 30 minutes of critical care time was spent in the management of this patient.
[2019-03-19] MEDS ORDERED: Albuterol 2.5 MG/3 ML NEBULIZER IH ONE (03:00)
[2019-03-19] MEDS ORDERED: Dextrose 50 % in Water (Vial) 50 ML in D5% in 0.2% NACL 500 ML IVC SCH (03:15)
[2019-03-19] MEDS ORDERED: Artificial Tears SOLN 15 ML BOTTLE BOTH EYES PRN (03:21)
[2019-03-19] MEDS: Norepinephrine 4 MG in 0.9 % Sodium Chloride 250 ML IVC SCH ×2 (04:00→09:59)
[2019-03-19] MEDS ORDERED: Vancomycin (wt based) 1,000 MG VIAL IVPB SCH (04:00)
[2019-03-19 04:30] LABS: Amphetamine Screen,Urine Positive ng/mL (Cutoff=1000); Barbiturate Screen,Urine Negative ng/mL (Cutoff=200); Benzodiazepines Screen,Urine Positive ng/mL (Cutoff=200); Cannabinoid Screen,Urine Positive ng/mL (Cutoff = 50); Cocaine Screen,Urine Negative ng/mL (Cutoff= 300); Opiate Screen,Urine Negative ng/mL (Cutoff=300); Phencyclidine Screen,Urine Negative ng/mL (Cutoff=25)
[2019-03-19 04:44] LABS: Bilirubin,Urine Small (Negative); Blood,Urine Large (Negative); Clarity,Urine Cloudy (Clear); Color,Urine Orange (Yellow); Glucose,Urine (UA) Normal (Normal); Ketones,Urine Trace mg/dL (Negative); Leukocyte Esterase,Urine Negative (Negative); Nitrite,Urine Negative (Negative); Protein,Urine >=300 mg/dL (Neg-Trace); Specific Gravity,Urine 1.025 (1.010-1.025); Urobilinogen,Urine Normal (Normal)
[2019-03-19 04:48] LABS: Bacteria,Urine Many per hpf (None-Few); Hyaline Casts,Urine Few per lpf (None-Few); Sperm,Urine Present; WBC,Urine 0-3 per hpf (0-3)
[2019-03-19 04:49] LABS: Basophils # 0.1 K/mcL (0.0-0.2); Basophils % 0.3 %; Hematocrit 46.2 % (37.5-50.1); Hemoglobin 16.2 g/dL (12.9-16.9); Immature Granulocytes % 1.7 % (0-4); Lymphocytes # 1.4 K/mcL (0.6-4.6); Lymphocytes % 9.3 %; Mean Corpuscular HGB Conc 35.1 g/dL (31.6-35.5); Mean Corpuscular Volume 91.1 fL (83.0-100.0); Mean Platelet Volume 10.1 fL (9.4-12.4); Monocytes # 2.4 K/mcL (0.0-1.3); Monocytes % 16.2 %; Platelet Count 140 K/mcL (140-400); Red Blood Count 5.07 M/mcL (4.19-5.50); Red Cell Distribution Width 11.9 % (11.5-14.5); Segmented Neutrophils % 72.5 %
[2019-03-19 04:50] LABS: RBC,Urine 50-100 per hpf (0-3)
[2019-03-19] MEDS ORDERED: Insulin Human Regular 5 UNIT, Sodium Bicarbonate 50 MEQ in D10% in Water 500 ML IVC ONE (04:51)
[2019-03-19 04:52] LABS: Neutrophils # 10.9 K/mcL (1.6-8.9)
[2019-03-19 04:52] LABS: BUN/Creatinine Ratio 10 (6-26); Blood Urea Nitrogen 33 mg/dL (6-20); Calcium 8.6 mg/dL (8.6-10.3); Carbon Dioxide 17 mEq/L (23-29); Chloride 104 mEq/L (98-107); Glucose 65 mg/dL (70-105); Osmolality,Calculated 291 (280-300); Potassium 8.4 mEq/L (3.5-5.1); Sodium 138 mEq/L (136-145); eGFR For African Americans 26 (> 60); eGFR For Non-African Americans 21 (> 60)
[2019-03-19 04:53] LABS: Troponin I 0.24 ng/mL (< 0.04)
[2019-03-19] MEDS ORDERED: *HR* Dextrose 50 % in Water (Syg) 50 ML SYRINGE IVP STA (04:55)
[2019-03-19] MEDS ORDERED: D10 IVC ONE ×2 (04:55→05:30)
[2019-03-19] MEDS ORDERED: SODIUM BICARBONATE IVC ONE ×2 (04:55→05:30)
[2019-03-19] MEDS ORDERED: INSULIN HUMAN REGULAR IVC ONE (04:55)
[2019-03-19] MEDS ORDERED: WATER IVC ONE ×10 (04:55→13:10)
[2019-03-19] MEDS ORDERED: Calcium Gluconate 2,000 MG in 0.9 % Sodium Chloride 100 ML IVPB ONE ×2 (05:02→21:36)
[2019-03-19] MEDS: Artificial Tears SOLN 15 ML BOTTLE BOTH EYES SCH ×5 (05:09→20:13)
[2019-03-19 05:17] LABS: Creatine Kinase > 20000 Units/L (30-223)
[2019-03-19 05:22] LABS: Platelet Estimate Normal (Normal)
[2019-03-19 05:29] LABS: ABG Base Excess -11 mEq/L (-2 to 3); ABG HCO3 19 mEq/L (21-27); ABG Oxygen Saturation 92 % (95-98); ABG PCO2 56 mmHg (35-45); ABG PH 7.14 pH Units (7.32-7.45); ABG PO2 84 mmHg (85-104); ABG TCO2 21 mEq/L (20-26); Blood Gas Modality ASSIST CONTROL; Blood Gas PEEP 5 cm H2O; Blood Gas VT 550 cc
[2019-03-19] MEDS ORDERED: Insulin LISPRO 300 UNITS/3 ML VIAL SQ ONE (05:30)
[2019-03-19] MEDS ORDERED: Insulin Human Regular 10 UNIT in 0.9 % Sodium Chloride 10 ML IV ONE (05:48)
[2019-03-19] MEDS ORDERED: ACETYLCYSTEINE IVC ONE ×8 (07:13→13:10)
[2019-03-19] MEDS ORDERED: D5 IVC ONE ×8 (07:13→13:10)
[2019-03-19 07:28] LABS: VBG Ionized Calcium 0.87 mmol/L (1.15-1.35)
[2019-03-19] MEDS ORDERED: Sodium Bicarbonate 150 MEQ in D5% in Water 1,000 ML IVC SCH (07:30)
[2019-03-19] MEDS ORDERED: Calcium Gluconate 1gm/50mL 1 GM/50 ML BAG IVPB ONE (07:32)
[2019-03-19] MEDS ORDERED: *HR* Heparin 5,000 UNIT/ML VIAL ONE (07:48)
[2019-03-19 07:50] LABS: ABG Base Excess -13 mEq/L (-2 to 3); ABG HCO3 17 mEq/L (21-27); ABG Oxygen Saturation 93 % (95-98); ABG PCO2 51 mmHg (35-45); ABG PH 7.13 pH Units (7.32-7.45); ABG PO2 87 mmHg (85-104); ABG TCO2 18 mEq/L (20-26); Blood Gas PEEP 5 cm H2O; Blood Gas VT 500 cc
--- NOTE | 2019-03-19 07:50 | Pulmonology Consult Note ---
<Giorgi Valdovinos W - Last Filed: 03/19/19 11:00> Date of Encounter: 03/19/19 Medications and Allergies Hydrocodone/Acetaminophen [[place] 5-325 Tablet] 1 tab PO Q6H PRN #20 tab 07/12/15 [Rx] Sulfamethoxazole/Trimeth DS [Bactrim DS] 1 each PO BID #20 tablet 07/12/15 [Rx] cephALEXin [Keflex] 500 mg PO QID #40 capsule 07/12/15 [Rx] Ibuprofen [Motrin] 800 mg PO Q8HR #30 tablet 12/23/15 [Rx] Allergy/AdvReac Type Severity Reaction Status Date / Time No Known Allergies Allergy Verified 03/19/19 01:04 All Systems: The remainder of the systems were reviewed and are negative Physical Examination Vital Signs: Vital Signs, Last 4 Hours Temp Pulse Resp BP Pulse Ox 03/19/19 10:30 90/63 03/19/19 10:15 94/66 03/19/19 10:00 107 31 90/64 03/19/19 09:45 90/63 03/19/19 09:44 28 95/67 96 03/19/19 09:30 88/60 03/19/19 09:15 99.3 F 25 93/64 03/19/19 09:05 111 03/19/19 09:00 111 25 91/63 95 03/19/19 08:23 110 23 94/66 93 03/19/19 07:32 98.5 F 03/19/19 07:11 21 93 03/19/19 07:02 105 17 86/62 95 03/19/19 06:45 16 94 Ventilator Settings Ventilator Settings: Ventilator Settings, Last 8 Hours Ventilator Tidal Volume 500 Setting Ventilator Tidal Volume 500 Setting Ventilator Tidal Volume 500 Setting Ventilator Tidal Volume 500 Setting Ventilator Tidal Volume 500 Setting Ventilator Tidal Volume 500 Setting Ventilator Tidal Volume 550 Setting Ventilator Tidal Volume 550 Setting Ventilator Tidal Volume 550 Setting Ventilator Tidal Volume 550 Setting Ventilator Tidal Volume 500 Setting Ventilator Respiratory Rate 22 Setting Ventilator Respiratory Rate 22 Setting Ventilator Respiratory Rate 22 Setting Ventilator Respiratory Rate 22 Setting Ventilator Respiratory Rate 20 Setting Ventilator Respiratory Rate 20 Setting Ventilator Respiratory Rate 14 Setting Ventilator Respiratory Rate 14 Setting Ventilator Respiratory Rate 14 Setting Ventilator Respiratory Rate 14 Setting Actual Respiratory Rate 31 Actual Respiratory Rate 28 Actual Respiratory Rate 25 Actual Respiratory Rate 23 Actual Respiratory Rate 21 Actual Respiratory Rate 17 Actual Respiratory Rate 16 Actual Respiratory Rate 14 Positive End Expiratory 5 Pressure Positive End Expiratory 5 Pressure Positive End Expiratory 5 Pressure Positive End Expiratory 5 Pressure Positive End Expiratory 5 Pressure Positive End Expiratory 5 Pressure Positive End Expiratory 5 Pressure Positive End Expiratory 5 Pressure Positive End Expiratory 5 Pressure Positive End Expiratory 5 Pressure Peak Inspiratory Airway 26 Pressure Peak Inspiratory Airway 19 Pressure Peak Inspiratory Airway 19 Pressure Peak Inspiratory Airway 21 Pressure Peak Inspiratory Airway 19 Pressure Peak Inspiratory Airway 21 Pressure Peak Inspiratory Airway 20 Pressure Peak Inspiratory Airway 21 Pressure Results - Laboratory Findings CBC and BMP: 03/19/19 04:30 03/19/19 09:35 ABG ABG pH 7.13 pH Units (7.32-7.45) L* 03/19/19 07:44 ABG pCO2 51 mmHg (35-45) H 03/19/19 07:44 ABG pO2 87 mmHg (85-104) 03/19/19 07:44 ABG O2 Saturation 93 % (95-98) L 03/19/19 07:44 PT/INR, D-dimer PT 15.3 Seconds (9.4-12.1) H 03/19/19 00:33 Abnormal lab findings: Abnormal lab results WBC 15.0 K/mcL (4.3-11.1) H D 03/19/19 04:30 Neutrophils # 10.9 K/mcL (1.6-8.9) H 03/19/19 04:30 Monocytes # 2.4 K/mcL (0.0-1.3) H 03/19/19 04:30 Nucleated RBCs/100 WBC 0.4 /100 WBC (0) H 03/19/19 00:33 PT 15.3 Seconds (9.4-12.1) H 03/19/19 00:33 ABG pH 7.13 pH Units (7.32-7.45) L* 03/19/19 07:44 ABG pCO2 51 mmHg (35-45) H 03/19/19 07:44 ABG pO2 84 mmHg (85-104) L 03/19/19 05:19 ABG HCO3 17 mEq/L (21-27) L 03/19/19 07:44 ABG Total CO2 18 mEq/L (20-26) L 03/19/19 07:44 ABG O2 Saturation 93 % (95-98) L 03/19/19 07:44 ABG Base Excess -13 mEq/L (-2 to 3) L 03/19/19 07:44 VBG pH 7.13 pH Units (7.32-7.42) L* 03/19/19 00:48 VBG pCO2 91 mmHg (41-51) H* 03/19/19 00:48 VBG HCO3 30 mEq/L (21-27) H 03/19/19 00:48 Potassium 8.4 mEq/L (3.5-5.1) H* D 03/19/19 04:00 Chloride 109 mEq/L (98-107) H 03/19/19 09:35 Carbon Dioxide 19 mEq/L (23-29) L 03/19/19 09:35 BUN 37 mg/dL (6-20) H 03/19/19 09:35 Creatinine 3.04 mg/dL (0.70-1.30) H 03/19/19 09:35 Est GFR ( Amer) 28 (> 60) L 03/19/19 09:35 Est GFR (Non-Af Amer) 23 (> 60) L 03/19/19 09:35 Glucose 127 mg/dL (70-105) H 03/19/19 09:35 POC Glucose 114 mg/dL (70-99) H 03/19/19 03:26 Calculated Osmolality 306 (280-300) H 03/19/19 07:04 Lactic Acid 3.2 mmol/L (0.5-2.2) H 03/19/19 07:04 Calcium 6.4 mg/dL (8.6-10.3) L 03/19/19 09:35 Venous Ioniz Calcium 0.89 mmol/L (1.15-1.35) L 03/19/19 09:59 Phosphorus 6.3 mg/dL (2.7-4.5) H 03/19/19 09:35 Magnesium 3.9 mg/dL (1.6-2.6) H 03/19/19 07:04 Total Bilirubin 1.5 mg/dL (0.3-1.0) H 03/19/19 00:33 Direct Bilirubin 0.5 mg/dL (0.0-0.2) H 03/19/19 00:33 AST 135 Units/L (13-39) H 03/19/19 00:33 ALT 102 Units/L (7-52) H 03/19/19 00:33 Creatine Kinase > 81678 Units/L (30-223) H 03/19/19 09:35 Troponin I 0.41 ng/mL (< 0.04) H* 03/19/19 09:35 Ur Specimen Adequacy See below A 03/19/19 03:55 Urine Color [place] (Yellow) A 03/19/19 03:55 Urine Clarity Cloudy (Clear) A 03/19/19 03:55 Urine Protein >=300 mg/dL (Neg-Trace) H 03/19/19 03:55 Urine Ketones Trace mg/dL (Negative) H 03/19/19 03:55 Urine Blood Large (Negative) H 03/19/19 03:55 Urine Bilirubin Small (Negative) H 03/19/19 03:55 Urine Microscopic RBC 50-100 per hpf (0-3) H 03/19/19 03:55 Urine Bacteria Many per hpf (None-Few) H 03/19/19 03:55 Ur Culture Indicated? YES (NO) A 03/19/19 03:55 Salicylates < 2.5 mg/dL (15.0-30.0) L 03/19/19 08:20 Ur Buprenorphine Scrn Positive ng/mL (Cutoff=5) H 03/19/19 03:55 Acetaminophen < 10 mcg/mL (10-20) L 03/19/19 08:20 Ur Amphetamines Screen Positive ng/mL (Jzxery=9876) H 03/19/19 03:55 U Benzodiazepines Scrn Positive ng/mL (Throwk=116) H 03/19/19 03:55 U Marijuana (THC) Screen Positive ng/mL (Cutoff = 50) H 03/19/19 03:55 Hep Bs Antibody < 3.10 mIU/mL (10.00-) L 03/19/19 08:20 - Microbiology Findings Microbiology Findings: Microbiology, Last 48 Hours 03/19/19 03:55 Urine Culture - Preliminary Urine,Catheterized (Straight) Culture is incubating. 03/19/19 00:33 Blood Culture - Preliminary Peripheral Venipuncture Culture is incubating and being continuously monitored for growth. Final report to follow. 03/19/19 00:52 Blood Culture - Preliminary Peripheral Venipuncture Culture is incubating and being continuously monitored for growth. Final report to follow. - Clinical Findings Intake & Output: Intake & Output 03/18/19 03/19/19 03/19/19 23:59 07:59 15:59 Intake Total 1999 / 3766 1766 / 3766 Output Total 350 / 350 Balance 1650 / 3416 1766 / 3416 Weight 87.7 kg Consult Discharge Plan - Plan Referrals: NONE,PCP [Primary Care Provider] - - Attending Attestation I examined this patient and my medical decision-making was reviewed with the Resident Physician. I agree with the documented findings, disposition and treatment plan as described except to the extent set forth below. We independently had [id number] contact with the patient I spent 40min of Critical Care time with this patient. It involved decision making of high complexity to assess, manipulate, and support vital organ system failure and/or to prevent further life threatening deterioration of the patient's condition. The time involved in the performance of separately reportable procedures was not counted toward critical care time. Patient seen and examined at bedside Labs, radiology, chart personally reviewed. Management was reviewed during multidisciplinary critical care rounds. 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 He is currently not a candidate for spontaneous breathing trial because of critical illness Cards: Shock likely cardiogenic after cardiac arrest limited echo pending troponin elevation likely demand ischemia may need formal cardiology consultation you vasopressor for goal map around 65 GI: GI prophylaxis given; 24hr NAC protocol given for multidrug overdose. Nutrition: Nothing by mouth for now Renal: Acute kidney injury likely secondary to pigment-induced nephropathy and hypotension complicated by mixed metabolic acidosis and rhabdomyolysis and life- threatening hyperkalemia patient will need to the emergent renal replacement therapy nephrology consult. We will start bicarbonate infusion. UOP Monitored, Cont to Trend sCr and monitor Electrolytes. ID: Leukocytosis likely reactionary we will culture patient at this time low threshold for initiation of antibiotics as patient has had aspiration respiratory no clear evidence of this at this time Heme/Onc: DVT prophylaxis given Endo: Glucose Monitored his been persistently hypoglycemic and we will continue glucose infusion for this reason with hourly glucose checks Integ/MSK: Skin Care per routine ICU Nursing Protocol to prevent ulcers. No evidence of compartment syndrome on examination Lines: All lines examined without evidence of infection : Dispo: Monitor in ICU for critical illness CODE: Patient is currently full code. ICU team has been in contact with YAHAIRAK his father and brother. We will plan on no formal up-to-date with family once they arrived to the hospital. Will likely benefit from palliative care consultation if no improvement or worsening over the next 24 hours <Julian Bear - Last Filed: 03/19/19 14:50> Date of Encounter: 03/19/19 Time of Encounter: 07:50 Assessment and Plan (1) Encephalopathy Current Visit: Yes Status: Acute Acute toxic encephalopathy/toxidrome with suspected anoxic brain injury in context of cardiac arrest. Suspected etiology due to drug overdose and metabolic disturbances including hyperkalemia. Currently intubated/sedated on fentanyl/propofol/Precedex. UDS pos for amphetamines, bzds, MJ, buprenorphine. Plan: - Neurology consulted, EEG shows no epileptiform activity - Cont to monitor neuro function and mental status - Started NAC protocol empirically for possible tylenol overdose - Likely will need palliative c/s if no improvement for 24 hours (2) Acute respiratory failure with hypoxia Current Visit: Yes Status: Acute Respiratory failure with respiratory acidosis. Likely with anoxic brain injury. Currently intubated/sedated. Not stable enough to attempt SBT. Plan: - Daily ABGs - Cont to monitor respiratory function and status (3) Hyperkalemia Current Visit: Yes Status: Acute Noted to have potassium of 8.4. Was treated in the ED with albuterol, Ca, insulin, and kayexalate. Plan: - Nephro consulted for emergent hemodialysis - Cont fluids, bicarb gtt and trending BMP every 4 hours - Monitor for EKG changes (4) Cardiac arrest Current Visit: Yes Status: Acute Likely due to metabolic disturbances and potential drug overdose. ROSC achieved after one round of CPR. Plan: - Cont to monitor vitals - Trend troponins, echo ordered for possible ischemic damage (5) Shock Current Visit: Yes Status: Acute Shock likely d/t hypoperfusion in context of metabolic disturbance and poss drug OD. KIEL with elevated LFTs and troponins. Initial WBC of 15. Likely reactive d/t cardiac arrest. Also elevated CK d/t rhabdo. Plan: - Cont to monitor WBCs, Cr, LFTs, and trops - Supportive care with fluids, bicarb gtt, levophed - On empiric abx vanc and zosyn (6) Drug overdose Current Visit: Yes Status: Acute Possible drug OD at presentation. Hx of meth abuse. UDS positive for bup, amphetamines, MJ, bzds. Plan: - Cont to monitor - On NAC protocol for possible APAP OD Qualifiers: Encounter type: initial encounter Injury intent: undetermined intent Qualified Code(s): T50.904A - Poisoning by unspecified drugs, medicaments and biological substances, undetermined, initial encounter (7) Acute kidney injury Current Visit: Yes Status: Acute Likely d/t shock and hypoperfusion. Also with rhabdo and hyperK. Plan: - Nephro consulted for hyperK, will cont with emergent dialysis - Cont MIVFs and monitor UOP - Trend renal function with BMPs - Trend CK (8) Rhabdomyolysis Current Visit: Yes Status: Acute Elevated CK. Currently >20,000. Plan: - Cont fluids - Cont trending CK Qualifiers: Rhabdomyolysis type: non-traumatic Qualified Code(s): M62.82 - Rhabdomyolysis (9) Seizure-like activity Current Visit: Yes Status: Acute Noted seizure-like activity in the ED. Likely due to metabolic disturbances. The patient is not showing myoclonic jerking, but does have oral sucking motion. CT head did not show any acute process. Plan: - Neuro consulted, recommended supportive care, no indications for LP - No seizure activity noted on EEG (10) DVT prophylaxis Current Visit: Yes Status: Acute DVT PPX: hep SQ Analgesia: fentanyl gtt Sedation: propofol and precedex gtt SBT: none Glycemic control: none Bowl regimen: none Activity: none Fluids: MIVF with bicarb gtt Electrolytes: replete as necessary Nutrition: NPO GI ppx: PPI Lines: ET, OG, james, dialysis cath, CVC, art line, 2x PIV Consults: pulm, neuro, nephro, IR Code: FULL Dispo: ICU History of Present Illness Consult date: 03/19/19 Requesting physician: Abdon Lucio Reason for consult: dyspnea Chief complaint: cardiac arrest History of present illness: Patient is a 38-year-old male with no known past medical history who presents with altered mental status. Patient was brought to the emergency department by EMS after he was arrested and taken to the police station for intoxication. He endorsed methamphetamine use. Patient was in police custody for approximately 20 minutes before he became nonverbal and unresponsive. Naloxone was given given but had no effect. In the ED, he appeared to be in decerebrate posturing, and then became pulseless with asystole. Chest compressions were initiated and patient underwent one round of CPR before ROSC was obtained. He was also intubated. Initial vitals were significant for a temperature of 107, labs significant for potassium of 6.2 with peaked T waves. He was given albuterol, calcium, insulin, Kayexalate. Lactic acid of 8.5, KIEL with creatinine of 2.33, creatinine kinase 2842, troponin of 0.07. This morning, patient is unresponsive and intubated/sedated. He is on fentanyl/propofol/Precedex. He does not respond to any verbal or painful stimuli. Patient is hypotensive with systolic blood pressure in the 90s, supported with norepinephrine drip. Was started on vanc/zosyn for empiric coverage. EKG at bedside does not show any changes suggestive of hyperkalemia. Received 3 L of IV fluids for rhabdomyolysis. Patient still had a potassium of 8.4. IR was emergently consulted to place a temporary dialysis catheter. Hemodialysis was started after nephrology was consulted. Past Med Surg Social Fam HX - Past Medical History Medical history: no medical history, other Additional medical history: concussion, broken ribs Psychiatric history: no psych history - Social History Smoking Status: Current every day smoker Smokeless Tobacco Status: No Alcohol use: occasionally Drug use: none ROS unobtainable: due to endotracheal tube, due to mental status All Systems: The remainder of the systems were reviewed and are negative Physical Examination Vital Signs: Vital Signs, Last 4 Hours Temp Pulse Resp BP Pulse Ox 03/19/19 07:32 98.5 F 03/19/19 07:11 21 93 03/19/19 07:02 105 17 86/62 95 03/19/19 06:45 16 94 03/19/19 03:59 14 96 General appearance: no acute distress Eyes: nonicteric ENT: oropharynx moist Neck: supple Effort: normal Inspection: normal Auscultation: bilateral: clear Cardiovascular: regular rate and rhythm Gastrointestinal: normoactive bowel sounds, non-distended Integumentary: normal Extremities: no cyanosis, no edema, no clubbing Musculoskeletal: no deformities, ROM normal unable to assess due to mental status affect normal Ventilator Settings Ventilator Settings: Ventilator Settings, Last 8 Hours Ventilator Tidal Volume 500 Setting Ventilator Tidal Volume 500 Setting Ventilator Tidal Volume 550 Setting Ventilator Tidal Volume 550 Setting Ventilator Tidal Volume 550 Setting Ventilator Tidal Volume 550 Setting Ventilator Tidal Volume 500 Setting Ventilator Tidal Volume 500 Setting Ventilator Tidal Volume 500 Setting Ventilator Respiratory Rate 20 Setting Ventilator Respiratory Rate 20 Setting Ventilator Respiratory Rate 14 Setting Ventilator Respiratory Rate 14 Setting Ventilator Respiratory Rate 14 Setting Ventilator Respiratory Rate 14 Setting Ventilator Respiratory Rate 16 Setting Ventilator Respiratory Rate 14 Setting Actual Respiratory Rate 21 Actual Respiratory Rate 17 Actual Respiratory Rate 16 Actual Respiratory Rate 14 Actual Respiratory Rate 14 Positive End Expiratory 5 Pressure Positive End Expiratory 5 Pressure Positive End Expiratory 5 Pressure Positive End Expiratory 5 Pressure Positive End Expiratory 5 Pressure Positive End Expiratory 5 Pressure Positive End Expiratory 5 Pressure Positive End Expiratory 5 Pressure Peak Inspiratory Airway 19 Pressure Peak Inspiratory Airway 21 Pressure Peak Inspiratory Airway 20 Pressure Peak Inspiratory Airway 21 Pressure Peak Inspiratory Airway 21 Pressure Results - Laboratory Findings CBC and BMP: 03/19/19 04:30 03/19/19 13:25 ABG ABG pH 7.13 pH Units (7.32-7.45) L* 03/19/19 07:44 ABG pCO2 51 mmHg (35-45) H 03/19/19 07:44 ABG pO2 87 mmHg (85-104) 03/19/19 07:44 ABG O2 Saturation 93 % (95-98) L 03/19/19 07:44 PT/INR, D-dimer PT 15.3 Seconds (9.4-12.1) H 03/19/19 00:33 Abnormal lab findings: Abnormal lab results WBC 15.0 K/mcL (4.3-11.1) H D 03/19/19 04:30 Neutrophils # 10.9 K/mcL (1.6-8.9) H 03/19/19 04:30 Monocytes # 2.4 K/mcL (0.0-1.3) H 03/19/19 04:30 Nucleated RBCs/100 WBC 0.4 /100 WBC (0) H 03/19/19 00:33 PT 15.3 Seconds (9.4-12.1) H 03/19/19 00:33 ABG pH 7.13 pH Units (7.32-7.45) L* 03/19/19 07:44 ABG pCO2 51 mmHg (35-45) H 03/19/19 07:44 ABG pO2 84 mmHg (85-104) L 03/19/19 05:19 ABG HCO3 17 mEq/L (21-27) L 03/19/19 07:44 ABG Total CO2 18 mEq/L (20-26) L 03/19/19 07:44 ABG O2 Saturation 93 % (95-98) L 03/19/19 07:44 ABG Base Excess -13 mEq/L (-2 to 3) L 03/19/19 07:44 VBG pH 7.13 pH Units (7.32-7.42) L* 03/19/19 00:48 VBG pCO2 91 mmHg (41-51) H* 03/19/19 00:48 VBG HCO3 30 mEq/L (21-27) H 03/19/19 00:48 Potassium 8.4 mEq/L (3.5-5.1) H* D 03/19/19 04:00 Carbon Dioxide 17 mEq/L (23-29) L 03/19/19 04:00 BUN 33 mg/dL (6-20) H 03/19/19 04:00 Creatinine 3.33 mg/dL (0.70-1.30) H 03/19/19 04:00 Est GFR ( Amer) 26 (> 60) L 03/19/19 04:00 Est GFR (Non-Af Amer) 21 (> 60) L 03/19/19 04:00 Glucose 65 mg/dL (70-105) L 03/19/19 04:00 POC Glucose 114 mg/dL (70-99) H 03/19/19 03:26 Lactic Acid 3.2 mmol/L (0.5-2.2) H 03/19/19 07:04 Venous Ioniz Calcium 0.87 mmol/L (1.15-1.35) L 03/19/19 07:25 Total Bilirubin 1.5 mg/dL (0.3-1.0) H 03/19/19 00:33 Direct Bilirubin 0.5 mg/dL (0.0-0.2) H 03/19/19 00:33 AST 135 Units/L (13-39) H 03/19/19 00:33 ALT 102 Units/L (7-52) H 03/19/19 00:33 Creatine Kinase > 40113 Units/L (30-223) H 03/19/19 04:00 Troponin I 0.24 ng/mL (< 0.04) H* 03/19/19 04:00 Ur Specimen Adequacy See below A 03/19/19 03:55 Urine Color [place] (Yellow) A 03/19/19 03:55 Urine Clarity Cloudy (Clear) A 03/19/19 03:55 Urine Protein >=300 mg/dL (Neg-Trace) H 03/19/19 03:55 Urine Ketones Trace mg/dL (Negative) H 03/19/19 03:55 Urine Blood Large (Negative) H 03/19/19 03:55 Urine Bilirubin Small (Negative) H 03/19/19 03:55 Urine Microscopic RBC 50-100 per hpf (0-3) H 03/19/19 03:55 Urine Bacteria Many per hpf (None-Few) H 03/19/19 03:55 Ur Culture Indicated? YES (NO) A 03/19/19 03:55 Ur Buprenorphine Scrn Positive ng/mL (Cutoff=5) H 03/19/19 03:55 Ur Amphetamines Screen Positive ng/mL (Woextr=8605) H 03/19/19 03:55 U Benzodiazepines Scrn Positive ng/mL (Nhcssd=144) H 03/19/19 03:55 U Marijuana (THC) Screen Positive ng/mL (Cutoff = 50) H 03/19/19 03:55 - Microbiology Findings Microbiology Findings: Microbiology, Last 48 Hours 03/19/19 03:55 Urine Culture - Preliminary Urine,Catheterized (Straight) Culture is incubating. 03/19/19 00:33 Blood Culture - Preliminary Peripheral Venipuncture Culture is incubating and being continuously monitored for growth. Final report to follow. 03/19/19 00:52 Blood Culture - Preliminary Peripheral Venipuncture Culture is incubating and being continuously monitored for growth. Final report to follow. - Clinical Findings Intake & Output: Intake & Output 03/18/19 03/18/19 03/19/19 15:59 23:59 07:59 Intake Total 1999 Output Total 350 / 350 Balance 1650 / 1650 Weight 87.7 kg
[2019-03-19] MEDS ORDERED: Piperacillin/Tazobactam 3.375 GM in 0.9 % Sodium Chloride Mini Bag 100 ML IVPB SCH (08:00)
[2019-03-19] MEDS ORDERED: 0.9 % Sodium Chloride 250 ML IVC PRN (08:04)
[2019-03-19] MEDS ORDERED: 0.9 % Sodium Chloride 1,000 ML PRIME SCH (08:15)
[2019-03-19 08:31] LABS: BUN/Creatinine Ratio 11 (6-26); Blood Urea Nitrogen 39 mg/dL (6-20); Calcium 6.7 mg/dL (8.6-10.3); Carbon Dioxide 19 mEq/L (23-29); Chloride 105 mEq/L (98-107); Glucose 154 mg/dL (70-105); Magnesium 3.9 mg/dL (1.6-2.6); Osmolality,Calculated 306 (280-300); Potassium 5.1 mEq/L (3.5-5.1); Sodium 142 mEq/L (136-145); Troponin I 0.32 ng/mL (< 0.04); eGFR For African Americans 24 (> 60); eGFR For Non-African Americans 20 (> 60)
[2019-03-19] MEDS: Chlorhexidine Rinse 15 ML MOUTHWASH MM SCH ×2 (08:39→20:12)
[2019-03-19] MEDS: Pantoprazole 40 MG VIAL IVP SCH (08:39)
[2019-03-19 08:55] LABS: Acetaminophen < 10 mcg/mL (10-20); Salicylate < 2.5 mg/dL (15.0-30.0)
--- NOTE | 2019-03-19 08:58 | Nephrology Consult Note ---
Date of Encounter: 03/19/19 Time of Encounter: 08:55 Assessment and Plan (1) Acute kidney injury Current Visit: Yes Status: Acute The patient has multifactorial acute kidney injury with shock, drug overdose, likely volume depletion, and significant rhabdomyolysis. Fortunately he is making some urine and does not appear to be oliguric at this time. He has severe hyperkalemia and hemodialysis will be initiated emergently for life- threatening hyperkalemia and acute kidney injury. We will need to assess if he has ongoing need for renal replacement therapy. For his rhabdomyolysis I agree with aggressive hydration as he has metabolic acidosis the use of sodium carbonate and his intravenous fluid will be beneficial. The patient metabolic acidosis as well as hyperkalemia will be addressed with hemodialysis. Avoid unnecessary nephrotoxic agents. Adjust medications for renal function. Negative for this consult we will continue to follow with you. 37 minutes spent in the care of this critically patient. The patient was seen while on dialysis. (2) Drug overdose Current Visit: Yes Status: Acute Patient has multiple substances within his drug screen. We will defer m anagement to primary team and a critical care consultants. Qualifiers: Encounter type: initial encounter Injury intent: undetermined intent Qualified Code(s): T50.904A - Poisoning by unspecified drugs, medicaments and biological substances, undetermined, initial encounter (3) Hyperkalemia Current Visit: Yes Status: Acute (4) Rhabdomyolysis Current Visit: Yes Status: Acute Patient with drug overdose hyperthermia and now rhabdomyolysis. Continue with aggressive hydration. Qualifiers: Rhabdomyolysis type: non-traumatic Qualified Code(s): M62.82 - Rhabdomyolysis (5) Shock Current Visit: Yes Status: Acute Hypovolemic and cardiogenic. His leukocytosis is likely reactive, but will need to evaluate for infectious source as well. Agree with empiric antibiotics as his history is unknown. Patient with drug induced hyperthermia that is improved. Continue with volume replacement along with vasopressors for blood pressure support. (6) Multiple organ failure Current Visit: Yes Status: Acute Patient with acute kidney injury, elevated troponin, seizure like activity and elevated liver enzymes. (7) Hypocalcemia Current Visit: Yes Status: Acute (8) Acidemia Current Visit: Yes Status: Acute Patient with Acidemia with respiratory and metabolic acidosis. Adjust vent settings for the respiratory acidosis and provide bicarbonate either intravenously or via dialysis for the metabolic acidosis. History of Present Illness - Reason for Consult Consult date: 03/19/19 Acute Kidney Injury, hyperkalemia - Chief Complaint KIEL - History of Present Illness Mr. Castaneda is a 38-year-old man with an unknown medical history other than costochondritis in 2016 who presents unresponsive. The patient is currently int ubated, sedated and critically ill. His history was obtained from the admission H&P and ER records. Please refer to them for further details regarding his presentation. [facility] was consulted secondary to severe hyperkalemia and acute kidney injury. His potassium was 8 with EKG changes. Past Med Surg Social Fam HX - Past Medical History Medical history: no medical history, other Additional medical history: concussion, broken ribs Psychiatric history: no psych history - Social History Smoking Status: Current every day smoker Smokeless Tobacco Status: No Alcohol use: occasionally Drug use: none Medications and Allergies Hydrocodone/Acetaminophen [[place] 5-325 Tablet] 1 tab PO Q6H PRN #20 tab 07/12/15 [Rx] Sulfamethoxazole/Trimeth DS [Bactrim DS] 1 each PO BID #20 tablet 07/12/15 [Rx] cephALEXin [Keflex] 500 mg PO QID #40 capsule 07/12/15 [Rx] Ibuprofen [Motrin] 800 mg PO Q8HR #30 tablet 12/23/15 [Rx] Allergy/AdvReac Type Severity Reaction Status Date / Time No Known Allergies Allergy Verified 03/19/19 01:04 Review of Systems ROS unobtainable: due to endotracheal tube, due to mental status Exam - Vital Signs Vital signs: Initial Vital Signs Temp Pulse Resp BP Pulse Ox 107.3 F H 133 0 81/30 46 03/19/19 00:20 03/19/19 00:20 03/19/19 00:20 03/19/19 00:20 03/19/19 00:20 Vital Signs - Last 8 Hours Temp Pulse Resp BP Pulse Ox 03/19/19 08:23 110 23 94/66 93 03/19/19 07:32 98.5 F 03/19/19 07:11 21 93 03/19/19 07:02 105 17 86/62 95 03/19/19 06:45 16 94 03/19/19 03:59 14 96 03/19/19 03:20 14 99 03/19/19 03:01 102.8 F H 97 16 89/48 100 09/17/19 02:45 14 99 03/19/19 02:14 104.2 F H 85 14 71/39 95 03/19/19 01:59 104.3 F H 91 14 76/40 94 03/19/19 01:28 89 14 82/37 96 Intake and Output 03/18/19 03/19/19 03/19/19 23:59 07:59 15:59 Intake Total 1999 Output Total 350 / 350 Balance 1650 / 1650 Intake: IV Fluids 1999 0.9 % Sodium Chloride 1,000 ML 1999 @ 999 mls/hr IVC .Q1H1M ONE Rx# :[id number] Output: Catheter 200 / 200 Gastric Drainage 150 / 150 Other: Weight 87.7 kg Blood Glucose* 114 Patient Weight 03/19/19 23:59 Weight 87.7 kg - General Appearance General appearance: well-developed, well-nourished, sedated on ventilator, intubated EENT: ATNC Neck: supple Respiratory: course breath sounds Additional Comments: Tachycardic, but regular. - Dialysis Access Dialysis Vascular Access: Venous Catheter (Non-tunneled dialysis catheter in the left femoral vein.) Gastrointestinal: normoactive bowel sounds, no tenderness Integumentary: warm and dry Neurologic: obtunded Musculoskeletal: no cyanosis Additional Comments: Unobtainable as the patient is intubated and sedated. Results - Lab Results 03/19/19 04:30 03/19/19 07:04 Most recent lab results 03/19/19 03/19/19 03/19/19 00:33 02:41 04:00 ABG pH 7.19 L* ABG pCO2 68 H ABG pO2 80 L ABG HCO3 26 ABG O2 Saturation 92 L Calcium 9.7 8.6 Magnesium 03/19/19 03/19/19 03/19/19 05:19 07:04 07:44 ABG pH 7.14 L* 7.13 L* ABG pCO2 56 H 51 H ABG pO2 84 L 87 ABG HCO3 19 L 17 L ABG O2 Saturation 92 L 93 L Calcium 6.7 L Magnesium 3.9 H Consult Discharge Plan - Plan Referrals: NONE,PCP [Primary Care Provider] -
[2019-03-19 09:09] LABS: Creatine Kinase > 20000 Units/L (30-223)
--- NOTE | 2019-03-19 09:41 | Event Note ---
Date of Encounter: 03/19/19 Time of Encounter: 07:00 I saw and examined patient early this morning independently and summoned support urgently from interventional radiology and nephrology for emergency dialysis. I discussed the case and reevaluated the patient in collaboration with Dr. Valdovinos. Patient was in local correction and reportedly ingested and/or injected an unknown quantity and type of drugs. He later collapsed about 20 minutes later and EMS was called. He received Narcan at the correction without effect. He was brought to ER where he lost his pulse shortly after arrival. He was resuscitated and ROSC was achieved. However, he exhibited no purposeful neurologic activity. Since then, he has developed rhabdomyolysis, acute kidney failure, hyperkalemia, and exhibits no evidence of purposeful neurologic activity on exam. Currently he is mechanically ventilated, receiving supportive fluid measures, and in the midst of emergency dialysis. Nephrology, neurology, and pulmonology have all been consulted to assist with comanagement of the patient. I have spoken with family member by phone this morning and updated on his status. Exam: General: Intubated, not sedated; no purposeful neurologic activity appreciated HEENT: ETT/OG in place; neck supple Chest: CTA B, NO WRR, Tachycardic, regular rhythm; no appreciable MTR Abdomen: soft, NT, ND, no HSMG; Ext: no CCE; equal pulses; no calf swelling Neuro: absent corneal, gag, and pupillary reflex on my exam Skin: warm and dry Labs reviewed and discussed with Dr. Valdovinos Imp/Plan: 1. Acute Drug overdose: Continue full life-supportive measures; consult pulmonary, nephrology, and neurology. Vent support per pulmonary; dialysis per nephrology; neurology following for assessment of neurologic activity. 2. Hyperkalemia: Emergency dialysis as above. 3. Rhabdomylosis: IVF, bicarb drip, dialysis, nephrology following. 4. Elevated troponin: Likely due to overdose with subsequent arrest; continue supportive measures; trend tropnins; ECHO ordered.
--- NOTE | 2019-03-19 09:47 | Neurology - Consult Note ---
Date of Encounter: 03/19/19 Time of Encounter: 09:10 Assessment and Plan (1) Encephalopathy Current Visit: Yes Status: Acute - Patient presents with unresponsive episode followed by cardiac arrest - Etiology is likely multifactorial including drug overdose, Acute renal failure, hyperkalemia, metabolic acidosis - Also patient was reported to have seizure-like activity in the emergency room which may be result of his metabolic derangements, also consider something like a serotonin syndrome - Currently, patient is not exhibiting myoclonic jerking but does have a oral sucking motion - Nephrology has been consulted for acute renal failure, plan for CRRT - Critical care managing overdose and ventilator settings - Patient also was noted to be tachycardic, febrile at 107 on presentation. WBC of 15 which may be reactive and secondary to drug use. Empiric antibiotics started by primary team. - Lower suspicion for TEST DESK SUPERVISOR infection at this time. - CT head does not show acute process - Patient was in cardiac arrest for approximately 1 min 30 sec which makes me less suspicious of an anoxic brain injury. Still in the differential but metabolic is more likely. Plan - Will obtain EEG today - Recommend continuing supportive care of underlying metabolic problems. - Will not order spinal tap unless continuing to be febrile or worsening leukocytosis - Further recommendations pending EEG and from Dr. Corral - Prognosis appears guarded. (2) Seizure-like activity Current Visit: Yes Status: Acute - Likely secondary to metabolic reasons as above - Not currently demonstrating any seizure-like activity on my examination - We will obtain EEG as above (3) Drug overdose Current Visit: Yes Status: Acute - Management per primary team Qualifiers: Encounter type: initial encounter Injury intent: undetermined intent Qualified Code(s): T50.904A - Poisoning by unspecified drugs, medicaments and biological substances, undetermined, initial encounter History of Present Illness Chief complaint: ams, cardiac arrest HPI: Mr. Castaneda is a 38 year old male with unclear PMHx presents to ED with altered mental status and subsequent cardiac arrest s/p ROSC. Patient was reportedly arrested by the police for suspected intoxication and while at the police station, patient had an episode of decreased consciousness, he became nonverbal and unresponsive, he was leaning against a wall. He was given Narcan by law- enforcement without any improvement of symptoms. He was brought to the emergency room where he subsequently had a cardiac arrest after becoming increasingly bradycardic. Return of spontaneous circulation was achieved after 1 round of CPR and patient was intubated and transferred to intensive care unit. There is no family present at bedside at this time. Vital signs are significant for an initial temperature of 107.3 rectal, heart rate 133, blood pressure 81/30. He was placed on vasopressors, cooling blanket and mechanical ventilation. Patient's laboratory results were initially significant for acute renal failure with potassium as high as 8.4, creatinine of 3.52 and bicarbonate of 19. Lactic acid was elevated at 8.5, creatinine kinase of greater than 20,000, troponin was trended to a high of 0.41. Urine drug screen was positive for buprenorphine, amphetamines, benzodiazepines, marijuana. Head CT showed no acute intracranial abnormality. Chest x-ray and KUB were also appropriate for mechanical support devices. At time of my interview, patient remains intubated and unresponsive on no sedation. Past medical history: Unknown Past surgical history: Unknown Social history: UDS positive for multiple substances Family history: Unknown Past Med Surg Social Fam HX - Past Medical History Medical history: no medical history, other Additional medical history: concussion, broken ribs Psychiatric history: no psych history - Social History Smoking Status: Current every day smoker Smokeless Tobacco Status: No Alcohol use: occasionally Drug use: none Medications and Allergies Hydrocodone/Acetaminophen [[place] 5-325 Tablet] 1 tab PO Q6H PRN #20 tab 07/12/15 [Rx] Sulfamethoxazole/Trimeth DS [Bactrim DS] 1 each PO BID #20 tablet 07/12/15 [Rx] cephALEXin [Keflex] 500 mg PO QID #40 capsule 07/12/15 [Rx] Ibuprofen [Motrin] 800 mg PO Q8HR #30 tablet 12/23/15 [Rx] Allergy/AdvReac Type Severity Reaction Status Date / Time No Known Allergies Allergy Verified 03/19/19 01:04 ROS unobtainable: due to endotracheal tube, due to mental status All Systems: The remainder of the systems were reviewed and are negative Physical Examination - Vital Signs Vital Signs: Initial Vital Signs Temp Pulse Resp BP Pulse Ox 107.3 F H 133 0 81/30 46 03/19/19 00:20 03/19/19 00:20 03/19/19 00:20 03/19/19 00:20 03/19/19 00:20 - Constitutional General appearance: other (Intubated, unresponsive) - Neurologic Sensorimotor examination: other (Unable to determine) Detailed motor examination: other (Unable to determine) Detailed sensory examination: other (Unable to determine) Posture: other (None) Reflexes: Biceps: 1+, Brachioradialis: 1+, Patella: 1+ Mental Status Examination: does not follow commands, cognitive impairment (sucking motion to mouth. otherwise no motor function apprecited. ) Cranial nerve examination: PERRL (2mm, sluggish to react minimally), gag d iminished Cranial Nerve Exam: pupil sluggish to react to light: Left (bilateral ) Results - Laboratory Findings CBC and BMP: 03/19/19 04:30 03/19/19 09:35 Abnormal lab findings: Abnormal lab results WBC 15.0 K/mcL (4.3-11.1) H D 03/19/19 04:30 Neutrophils # 10.9 K/mcL (1.6-8.9) H 03/19/19 04:30 Monocytes # 2.4 K/mcL (0.0-1.3) H 03/19/19 04:30 Nucleated RBCs/100 WBC 0.4 /100 WBC (0) H 03/19/19 00:33 PT 15.3 Seconds (9.4-12.1) H 03/19/19 00:33 ABG pH 7.13 pH Units (7.32-7.45) L* 03/19/19 07:44 ABG pCO2 51 mmHg (35-45) H 03/19/19 07:44 ABG pO2 84 mmHg (85-104) L 03/19/19 05:19 ABG HCO3 17 mEq/L (21-27) L 03/19/19 07:44 ABG Total CO2 18 mEq/L (20-26) L 03/19/19 07:44 ABG O2 Saturation 93 % (95-98) L 03/19/19 07:44 ABG Base Excess -13 mEq/L (-2 to 3) L 03/19/19 07:44 VBG pH 7.13 pH Units (7.32-7.42) L* 03/19/19 00:48 VBG pCO2 91 mmHg (41-51) H* 03/19/19 00:48 VBG HCO3 30 mEq/L (21-27) H 03/19/19 00:48 Potassium 8.4 mEq/L (3.5-5.1) H* D 03/19/19 04:00 Carbon Dioxide 19 mEq/L (23-29) L 03/19/19 07:04 BUN 39 mg/dL (6-20) H 03/19/19 07:04 Creatinine 3.52 mg/dL (0.70-1.30) H 03/19/19 07:04 Est GFR ( Amer) 24 (> 60) L 03/19/19 07:04 Est GFR (Non-Af Amer) 20 (> 60) L 03/19/19 07:04 Glucose 154 mg/dL (70-105) H 03/19/19 07:04 POC Glucose 114 mg/dL (70-99) H 03/19/19 03:26 Calculated Osmolality 306 (280-300) H 03/19/19 07:04 Lactic Acid 3.2 mmol/L (0.5-2.2) H 03/19/19 07:04 Calcium 6.7 mg/dL (8.6-10.3) L 03/19/19 07:04 Venous Ioniz Calcium 0.87 mmol/L (1.15-1.35) L 03/19/19 07:25 Magnesium 3.9 mg/dL (1.6-2.6) H 03/19/19 07:04 Total Bilirubin 1.5 mg/dL (0.3-1.0) H 03/19/19 00:33 Direct Bilirubin 0.5 mg/dL (0.0-0.2) H 03/19/19 00:33 AST 135 Units/L (13-39) H 03/19/19 00:33 ALT 102 Units/L (7-52) H 03/19/19 00:33 Creatine Kinase > 40384 Units/L (30-223) H 03/19/19 07:04 Troponin I 0.32 ng/mL (< 0.04) H* 03/19/19 07:04 Ur Specimen Adequacy See below A 03/19/19 03:55 Urine Color [place] (Yellow) A 03/19/19 03:55 Urine Clarity Cloudy (Clear) A 03/19/19 03:55 Urine Protein >=300 mg/dL (Neg-Trace) H 03/19/19 03:55 Urine Ketones Trace mg/dL (Negative) H 03/19/19 03:55 Urine Blood Large (Negative) H 03/19/19 03:55 Urine Bilirubin Small (Negative) H 03/19/19 03:55 Urine Microscopic RBC 50-100 per hpf (0-3) H 03/19/19 03:55 Urine Bacteria Many per hpf (None-Few) H 03/19/19 03:55 Ur Culture Indicated? YES (NO) A 03/19/19 03:55 Salicylates < 2.5 mg/dL (15.0-30.0) L 03/19/19 08:20 Ur Buprenorphine Scrn Positive ng/mL (Cutoff=5) H 03/19/19 03:55 Acetaminophen < 10 mcg/mL (10-20) L 03/19/19 08:20 Ur Amphetamines Screen Positive ng/mL ([place]=8100) H 03/19/19 03:55 U Benzodiazepines Scrn Positive ng/mL ([place]=969) H 03/19/19 03:55 U Marijuana (THC) Screen Positive ng/mL (Cutoff = 50) H 03/19/19 03:55 Consult Discharge Plan - Plan Referrals: NONE,PCP [Primary Care Provider] -
[2019-03-19 09:52] LABS: Hepatitis B Surface Antibody < 3.10 mIU/mL
[2019-03-19 10:02] LABS: VBG Ionized Calcium 0.89 mmol/L (1.15-1.35)
[2019-03-19 10:03] LABS: Hepatitis B Surface Antigen Nonreactive (Nonreactive)
[2019-03-19 10:20] LABS: Sodium, Urine 71.3 mEq/L
[2019-03-19 10:26] LABS: Albumin 3.5 g/dL (3.5-5.7); Calcium 6.4 mg/dL (8.6-10.3); Phosphorous 6.3 mg/dL (2.7-4.5); Potassium 3.7 mEq/L (3.5-5.1); Troponin I 0.41 ng/mL (< 0.04)
[2019-03-19 11:12] LABS: Complement C3 90 mg/dL (87-200)
--- NOTE | 2019-03-19 11:45 | EEG/EMG/Oth Biometrics Report ---
EEG Procedure Report Date of procedure: 03/19/19 EEG Procedure: Routine EEG Procedure Note: Report: This EEG was acquired with standard international 10-20 electrode placement system with EKG recording. The background activity during this EEG was replaced by low amplitude fast activity intermixed with intermittent high amplitude delta activity likely contaminated by motion artifact. The background activity was reactive to movements. Sleep stages were not identified during this tracing. Excessive EMG activity noted throughout the tracing. There are no electrographic seizures identified during this tracing. There are no epileptiform discharges noted during this tracing. No focal slowing identified. Photic stimulation produced no abnormalities. HV not performed during this study. EKG tracing showed no significant cardiac dysarrhythmia. Impression: This is an abnormal EEG due to presence of mild diffuse background slowing. Clinical Correlation: This EEG is consistent with mild diffuse cerebral dysfunction that can be seen in patients with mild encephalopathy, metabolic/toxic, inflammatory, electrolyte derangement or anoxic/ischemic, or medication effects Clinical correlation suggested.
[2019-03-19 12:00] LABS: Thyroid Stimulating Hormone 1.335 mcIU/mL (0.340-5.600)
[2019-03-19] MEDS: FentaNYL (PF) 1,000 MCG in 0.9 % Sodium Chloride 80 ML IVC SCH ×3 (12:12→22:02)
[2019-03-19] MEDS: Calcium Gluconate 1gm/50mL 1 GM/50 ML BAG IVPB SCH ×4 (12:12→16:15)
[2019-03-19] MEDS: Dexmedetomidine HCl 400 MCG/100 ML MLS IVC SCH ×4 (12:13→23:47)
[2019-03-19 13:17] LABS: ABG Base Excess -5 mEq/L (-2 to 3); ABG HCO3 21 mEq/L (21-27); ABG Oxygen Saturation 95 % (95-98); ABG PCO2 38 mmHg (35-45); ABG PH 7.34 pH Units (7.32-7.45); ABG PO2 80 mmHg (85-104); ABG TCO2 22 mEq/L (20-26); Blood Gas PEEP 8 cm H2O; Blood Gas VT 450 cc
[2019-03-19 13:56] LABS: VBG Ionized Calcium 0.86 mmol/L (1.15-1.35)
[2019-03-19 14:34] LABS: BUN/Creatinine Ratio 12 (6-26); Blood Urea Nitrogen 31 mg/dL (6-20); Calcium 6.9 mg/dL (8.6-10.3); Carbon Dioxide 23 mEq/L (23-29); Chloride 101 mEq/L (98-107); Creatine Kinase > 20000 Units/L (30-223); Glucose 191 mg/dL (70-105); Osmolality,Calculated 302 (280-300); Potassium 3.1 mEq/L (3.5-5.1); Sodium 140 mEq/L (136-145); eGFR For African Americans 33 (> 60); eGFR For Non-African Americans 27 (> 60)
[2019-03-19] MEDS: *HR* Heparin 5,000 UNIT/ML VIAL SQ SCH ×2 (14:37→20:12)
[2019-03-19] MEDS ORDERED: Potassium Chloride 40 MEQ, Lidocaine 1% 2 ML in 0.9 % Sodium Chloride 500 ML IVPB ONE (15:00)
[2019-03-19 15:27] LABS: Albumin 3.7 g/dL (3.5-5.7); Phosphorous 5.1 mg/dL (2.7-4.5)
--- NOTE | 2019-03-19 15:58 | Electrocardiograph Report ---
[address] [place], [place] [address] Test Date: 2019-03-19 Pat Name: Daniel Castaneda Department: 109 Room: [facility] Gender: M Staffing Assistant: LOGAN : [id number] Requested By: Ze Rebolledo Order Number: [id number] Reading MD: Janeen Parish Measurements Intervals [place] Rate: 105 P: 77 WI: 122 QRS: 84 QRSD: 94 T: 55 QT: 333 QTc: 394 Interpretive Statements SINUS TACHYCARDIA ABNORMAL RHYTHM ECG Electronically Signed On 03-19-2019 15:57:02 EDT by Janeen Parish
[2019-03-19] MEDS: Ringers Solution, Lactated 1,000 ML IVC SCH (16:16)
[2019-03-19 17:01] LABS: ABG Base Excess -8 mEq/L (-2 to 3); ABG HCO3 17 mEq/L (21-27); ABG Oxygen Saturation 95 % (95-98); ABG PCO2 32 mmHg (35-45); ABG PH 7.33 pH Units (7.32-7.45); ABG PO2 77 mmHg (85-104); ABG TCO2 18 mEq/L (20-26); Blood Gas PEEP 8 cm H2O; Blood Gas VT 500 cc
[2019-03-19 17:19] LABS: VBG Ionized Calcium 0.95 mmol/L (1.15-1.35)
[2019-03-19 17:55] LABS: BUN/Creatinine Ratio 12 (6-26); Blood Urea Nitrogen 35 mg/dL (6-20); Calcium 7.4 mg/dL (8.6-10.3); Carbon Dioxide 20 mEq/L (23-29); Chloride 103 mEq/L (98-107); Creatine Kinase > 20000 Units/L (30-223); Glucose 193 mg/dL (70-105); Magnesium 2.5 mg/dL (1.6-2.6); Osmolality,Calculated 297 (280-300); Phosphorous 6.2 mg/dL (2.7-4.5); Potassium 3.3 mEq/L (3.5-5.1); Sodium 137 mEq/L (136-145); eGFR For African Americans 29 (> 60); eGFR For Non-African Americans 24 (> 60)
[2019-03-19] MEDS: Piperacillin/Tazobactam 3.375 GM in 0.9 % Sodium Chloride Mini Bag 100 ML IVPB SCH (20:12)
[2019-03-20] MEDS: Ringers Solution, Lactated 1,000 ML IVC SCH ×3 (00:36→20:11)
[2019-03-20] MEDS: Artificial Tears SOLN 15 ML BOTTLE BOTH EYES SCH ×7 (00:38→23:53)
[2019-03-20] MEDS: Norepinephrine 4 MG in 0.9 % Sodium Chloride 250 ML IVC SCH ×2 (00:39→21:58)
--- NOTE | 2019-03-20 02:38 | Event Note ---
Date of Encounter: 03/20/19 Time of Encounter: 01:15 Notified by patient's nurse regarding a new left sided mass developing on the patient's neck that was not present prior to taking the patient down to the CT of his abdomen. On physical exam the mass is soft, seems fluid filled. Bedside ultrasound was performed and was inconclusive. Stat CT soft tissue neck was then ordered. Results showed: IMPRESSION: Asymmetrically enlarged, heterogeneous left sternocleidomastoid muscle with surrounding inflammatory, overall suspicious for intramuscular abscess formation. If there is a history of trauma, intramuscular hematoma would be a consideration. Consider CT neck with contrast for further evaluation. Mild interval worsening of the imaged right apical airspace disease. terminal operations manager surgery was contacted, and results of the imaging were discussed. Concluded that though he does have a developing hematoma/abscess emergent management was not warranted. Patient has a secure airway, and has already been started on antibiotics. Hemoglobin levels have also been stable. Patient's other vital signs are stable. Recommended contacting ENT in the morning for possible drainage. I spoke with the patient's mother regarding our findings. Discussed that we could transfer the patient to a larger facility if required, however at this time, we do not feel this is necessary. Family was comfortable keeping the patient here. We will follow up recommendations from ENT in the morning, and continue to monitor closely.
[2019-03-20] MEDS: Dexmedetomidine HCl 400 MCG/100 ML MLS IVC SCH ×5 (03:40→21:55)
[2019-03-20 04:19] LABS: VBG Ionized Calcium 0.82 mmol/L (1.15-1.35)
[2019-03-20] MEDS ORDERED: Calcium Gluconate 2,000 MG in 0.9 % Sodium Chloride 100 ML IVPB ONE (04:23)
[2019-03-20 04:24] LABS: ABG Base Excess -11 mEq/L (-2 to 3); ABG HCO3 14 mEq/L (21-27); ABG Oxygen Saturation 99 % (95-98); ABG PCO2 30 mmHg (35-45); ABG PH 7.28 pH Units (7.32-7.45); ABG PO2 161 mmHg (85-104); ABG TCO2 15 mEq/L (20-26); Blood Gas Modality ASSIST CONTROL; Blood Gas PEEP 8 cm H2O; Blood Gas VT 500 cc
[2019-03-20 04:42] LABS: Troponin I 0.89 ng/mL (< 0.04)
[2019-03-20 04:45] LABS: Alanine Aminotransferase 1449 Units/L (7-52); Albumin 3.3 g/dL (3.5-5.7); Albumin/Globulin Ratio 1.5 (1.1-2.2); Alkaline Phosphatase 84 Units/L (34-104); Aspartate Amino Transferase > 3000 Units/L (13-39); BUN/Creatinine Ratio 11 (6-26); Bilirubin,Total 1.7 mg/dL (0.3-1.0); Blood Urea Nitrogen 44 mg/dL (6-20); Calcium 6.8 mg/dL (8.6-10.3); Carbon Dioxide 20 mEq/L (23-29); Chloride 99 mEq/L (98-107); Creatine Kinase > 20000 Units/L (30-223); Globulin 2.2 g/dL (2.4-3.5); Glucose 167 mg/dL (70-105); Magnesium 2.6 mg/dL (1.6-2.6); Osmolality,Calculated 295 (280-300); Phosphorous 7.5 mg/dL (2.7-4.5); Potassium 4.5 mEq/L (3.5-5.1); Sodium 135 mEq/L (136-145); Total Protein 5.5 g/dL (6.4-8.9); eGFR For African Americans 20 (> 60); eGFR For Non-African Americans 17 (> 60)
[2019-03-20] MEDS: FentaNYL (PF) 1,000 MCG in 0.9 % Sodium Chloride 80 ML IVC SCH ×4 (04:45→22:59)
[2019-03-20 04:51] LABS: Basophils % 0.2 %; Red Cell Distribution Width 11.9 % (11.5-14.5)
[2019-03-20 04:53] LABS: Hematocrit 47.4 % (37.5-50.1); Hemoglobin 16.7 g/dL (12.9-16.9); Immature Granulocytes % 0.6 % (0-4); Immature Platelets 14.9 % (1.1-6.1); Lymphocytes # 1.2 K/mcL (0.6-4.6); Lymphocytes % 9.3 %; Mean Corpuscular HGB Conc 35.2 g/dL (31.6-35.5); Mean Corpuscular Hemoglobin 31.9 pg (28.0-33.3); Mean Corpuscular Volume 90.5 fL (83.0-100.0); Mean Platelet Volume 12.3 fL (9.4-12.4); Monocytes # 0.9 K/mcL (0.0-1.3); Monocytes % 6.9 %; Red Blood Count 5.24 M/mcL (4.19-5.50); White Blood Count 13.2 K/mcL (4.3-11.1)
[2019-03-20 04:56] LABS: Platelet Count 45 K/mcL (140-400)
[2019-03-20 05:19] LABS: Platelet Estimate Decreased (Normal); Reactive Lymphocytes Present (Not Present)
[2019-03-20] MEDS: *HR* Heparin 5,000 UNIT/ML VIAL SQ SCH (05:32)
--- NOTE | 2019-03-20 06:43 | Pulmonology Progress Note ---
Date of Encounter: 03/20/19 Time of Encounter: 06:45 Assessment and Plan (1) Multiple organ failure Current Visit: Yes Status: Acute I spent 60min of Critical Care time with this patient. It involved decision making of high complexity to assess, manipulate, and support vital organ system failure and/or to prevent further life threatening deterioration of the patient's condition. The time involved in the performance of separately reportable procedures was not counted toward critical care time. Patient seen and examined at bedside Labs, radiology, chart personally reviewed. Management was reviewed during multidisciplinary critical care rounds. CARPET BINDER: Patient presented with metabolic encephalopathy and is post cardiac arrest with the possibility of underlying anoxic brain injury. EEG yesterday was actually notable for only diffuse slowing which may be just related to drug intoxication. I believe it is too early to prognosticate about his CARPET BINDER status but would repeat CT scan of the head today to evaluate for any evidence of anoxic injury. Neurology is following and we appreciate their recommendations. Initial hyperthermia has resolved Pulm: Acute hypoxic respiratory failure intubated on the ventilator he has acceptable gas exchange today and has increased respiratory drive which is likely multifactorial including possibly CARPET BINDER mediated given axonal injury combination of drug intoxication metabolic acidosis and possibly also felt to be less likely pain. We will continue sedation to decrease respiratory rate to prevent alkalosis as well as to facilitate comfort in the event the patient is experiencing pain HEENT: I reviewed the results of CT scan of the neck which shows small fluid collection possibly abscess or hematoma. I consulted the packaging manager on- call doctor Jem and personally discussed the case with him. He favors underlying abscess with myositis possibly related to injection of drugs. Given the clinical situation options include a percutaneous drainage versus surgery although he is unlikely to be a great candidate for either given critical illness. He recommended contrasted CT scan and neck for further evaluation our services will cont to colloaborate on the case and make recommendations as upon emerging evidence. In the short-term will continue antimicrobials including anaerobic coverage Cards: Patient had to cardiogenic shock yesterday but has been able to be weaned off vasopressors a formal echocardiogram has been ordered but is pending review. He is tachycardic which is multifactorial including his underlying acidosis and possible fracture of drug intoxication GI: GI prophylaxis been given while he is on the ventilator. He has a small amount of biliary pneumatosis and evidence of possible ischemic colitis this would fit with the clinical picture of ischemia and will need to be treated conservatively for now if clinical course worsens may need surgery consult. He has evidence of ischemic hepatitis and will need to trend his liver function. There is some possible concern of air around the esophagus I did curbside consult our drastic surgeon who felt that this was more of an incidental finding and not reflect perforation did not advise any further workup. Nutrition: Nothing by mouth for now Renal: Remains Anuric KIEL with ATN s/t Hypotension and pigment induced injury. Persistent metabolic acidosis will require LEAVE COORDINATOR again today. HyperK+ has improved. Nephrology following. UOP Monitored, Cont to Trend sCr and monitor Electrolytes. ID: Patient is on broad-spectrum antibiotics for concern of aspiration pneumonia and possible neck abscess as well as injection with drugs and MRSA infection cultures have been obtained and we will continue to monitor. Will repeat lactate today Heme/Onc: Acute thrombocytopenia which is multifactorial including effects of toxic ingestion dialysis and multiorgan system failure/critical illness cannot rule out low-grade of DIC will need to check fibrinogen. Would continue subcutaneous heparin for now but may need to stop based upon results of indication for transfusions patient is not actively hemorrhaging. Endo: Glucose Monitored and hypo glycemia has improved he is able to be weaned off dextrose infusion Integ/MSK: Skin Care per routine ICU Nursing Protocol to prevent ulcers. He d oes have evidence of rhabdomyolysis which is likely related to amphetamine use but cannot eat exclude myositis from the neck mass. There is no evidence of compartment syndrome on examination. Cont to trend CPK. Lines: All lines examined without evidence of infection : Dispo: Monitor in ICU for critical illness CODE: Full code. I did update several of his family members yesterday including his aunt and cousin and uncle. Plan to discuss case with his mother and father today who should be coming in from out of town.. Overall prognosis is guarded to poor which in large part will be related to underlying neurological function/axonal injury (2) Toxic encephalopathy Current Visit: Yes Status: Acute (3) Anoxic brain injury Current Visit: Yes Status: Suspected (4) Neck mass Current Visit: Yes Status: Acute (5) Drug overdose Current Visit: Yes Status: Acute Qualifiers: Encounter type: initial encounter Injury intent: undetermined intent Qualified Code(s): T50.904A - Poisoning by unspecified drugs, medicaments and biological substances, undetermined, initial encounter (6) Cardiac arrest Current Visit: Yes Status: Acute (7) Acute kidney injury Current Visit: Yes Status: Acute (8) Rhabdomyolysis Current Visit: Yes Status: Acute Qualifiers: Rhabdomyolysis type: non-traumatic Qualified Code(s): M62.82 - Rhabdomyolysis (9) Acute respiratory failure with hypoxia Current Visit: Yes Status: Acute (10) Ischemic hepatitis Current Visit: Yes Status: Acute Subjective Principal diagnosis: Cardiac Arrest Interval history: Overnight and enlarging neck mass was noted by the covering team/nursing staff. This prompted a series of investigations including a CT scan of his neck chest and abdomen with notable features of a fluid collection in the left sternocleidomastoid. Patient remains on the vent and has been generally breathing over the vent but respiratory rate has decreased with increased sedation. There has been no purposeful movements from the patient. He remains and uric but vasopressor requirements have been removed entirely. In fact, has been at times he is hypertensive and tachycardic. Objective PUL Vital signs: Last Vital Signs Temp 97.9 F 03/20/19 04:30 Pulse 105 03/20/19 06:00 Resp 25 03/20/19 06:00 BP 132/105 03/20/19 06:00 Pulse Ox 99 03/20/19 06:00 GEN: The patient is intubated and sedated. HEENT: There is a soft tissue swelling noted in the left neck region there is no surrounding erythema there is some distal track church present below the level of the soft tissue enlargement. There is no bleeding or hematoma/bruising noted in that region. The right side is otherwise normal. Endotracheal tube is noted in satisfactory position Resp: Patient has bilateral breath sounds there is some coarse adventitious sounds noted bilaterally Cardio: Rapid rate but regular rhythm no audible murmur appreciated. Patient has intact distal pulses in all extremities which are easily palpable GI: The abdomen is distended and somewhat firm however is not rigid. No appreciable bowel sounds are present Ext: The feet are cool bilaterally but there is no purplish discoloration and pulses are palpable otherwise all extremities are warm there is symmetric anatomic features in all extremities without any evidence of abnormal swelling Skin: There is some minor superficial scrapes on the lower extremities bilaterally. 2 indwelling central venous catheters are noted in the groin on either side there there does not appear to Be Any Palpable Cord or Superficial Erythema Neuro: The patient does not have any spontaneous movement and there is no response to painful stimuli. He does have pupillary light reflex bilaterally although sluggish it is present and symmetric. There is no corneal reflex present and no gag reflex appreciated. Psych: Sedated Ventilator Settings Ventilator Settings: Ventilator Settings, Last 8 Hours Ventilator Tidal Volume 500 Setting Ventilator Tidal Volume 500 Setting Ventilator Tidal Volume 500 Setting Ventilator Tidal Volume 500 Setting Ventilator Tidal Volume 500 Setting Ventilator Tidal Volume 500 Setting Ventilator Tidal Volume 500 Setting Ventilator Tidal Volume 500 Setting Ventilator Tidal Volume 500 Setting Ventilator Tidal Volume 500 Setting Ventilator Tidal Volume 500 Setting Ventilator Tidal Volume 500 Setting Ventilator Respiratory Rate 24 Setting Ventilator Respiratory Rate 24 Setting Ventilator Respiratory Rate 24 Setting Ventilator Respiratory Rate 24 Setting Ventilator Respiratory Rate 24 Setting Ventilator Respiratory Rate 24 Setting Ventilator Respiratory Rate 24 Setting Ventilator Respiratory Rate 24 Setting Ventilator Respiratory Rate 24 Setting Ventilator Respiratory Rate 24 Setting Ventilator Respiratory Rate 24 Setting Ventilator Respiratory Rate 24 Setting Actual Respiratory Rate 26 Actual Respiratory Rate 25 Actual Respiratory Rate 24 Actual Respiratory Rate 25 Positive End Expiratory 8 Pressure Positive End Expiratory 8 Pressure Positive End Expiratory 8 Pressure Positive End Expiratory 8 Pressure Positive End Expiratory 8 Pressure Positive End Expiratory 8 Pressure Positive End Expiratory 8 Pressure Positive End Expiratory 8 Pressure Positive End Expiratory 8 Pressure Positive End Expiratory 8 Pressure Positive End Expiratory 8 Pressure Positive End Expiratory 8 Pressure Peak Inspiratory Airway 15 Pressure Peak Inspiratory Airway 23 Pressure Peak Inspiratory Airway 19 Pressure Peak Inspiratory Airway 22 Pressure Results - Laboratory Findings CBC and BMP: 03/20/19 11:52 03/20/19 03:45 ABG ABG pH 7.28 pH Units (7.32-7.45) L 03/20/19 04:19 ABG pCO2 30 mmHg (35-45) L 03/20/19 04:19 ABG pO2 161 mmHg (85-104) H 03/20/19 04:19 ABG O2 Saturation 99 % (95-98) H 03/20/19 04:19 PT/INR, D-dimer PT 15.3 Seconds (9.4-12.1) H 03/19/19 00:33 Abnormal lab findings: Abnormal lab results WBC 13.2 K/mcL (4.3-11.1) H 03/20/19 04:18 Plt Count 45 K/mcL (140-400) L D 03/20/19 04:18 Neutrophils # 11.0 K/mcL (1.6-8.9) H 03/20/19 04:18 Monocytes # 2.4 K/mcL (0.0-1.3) H 03/19/19 04:30 Nucleated RBCs/100 WBC 0.4 /100 WBC (0) H 03/19/19 00:33 Reactive Lymphocytes Present (Not Present) A 03/20/19 04:18 Platelet Estimate Decreased (Normal) L 03/20/19 04:18 Immature Plt Fraction 14.9 % (1.1-6.1) H 03/20/19 04:18 PT 15.3 Seconds (9.4-12.1) H 03/19/19 00:33 ABG pH 7.28 pH Units (7.32-7.45) L 03/20/19 04:19 ABG pCO2 30 mmHg (35-45) L 03/20/19 04:19 ABG pO2 161 mmHg (85-104) H 03/20/19 04:19 ABG HCO3 14 mEq/L (21-27) L 03/20/19 04:19 ABG Total CO2 15 mEq/L (20-26) L 03/20/19 04:19 ABG O2 Saturation 99 % (95-98) H 03/20/19 04:19 ABG Base Excess -11 mEq/L (-2 to 3) L 03/20/19 04:19 VBG pH 7.13 pH Units (7.32-7.42) L* 03/19/19 00:48 VBG pCO2 91 mmHg (41-51) H* 03/19/19 00:48 VBG HCO3 30 mEq/L (21-27) H 03/19/19 00:48 Sodium 135 mEq/L (136-145) L 03/20/19 03:45 Potassium 3.3 mEq/L (3.5-5.1) L 03/19/19 16:56 Chloride 109 mEq/L (98-107) H 03/19/19 09:35 Carbon Dioxide 20 mEq/L (23-29) L 03/20/19 03:45 BUN 44 mg/dL (6-20) H 03/20/19 03:45 Creatinine 4.08 mg/dL (0.70-1.30) H 03/20/19 03:45 Est GFR ( Amer) 20 (> 60) L 03/20/19 03:45 Est GFR (Non-Af Amer) 17 (> 60) L 03/20/19 03:45 Glucose 167 mg/dL (70-105) H 03/20/19 03:45 POC Glucose 189 mg/dL (70-99) H 03/19/19 22:59 Calculated Osmolality 302 (280-300) H 03/19/19 13:25 Lactic Acid 3.2 mmol/L (0.5-2.2) H 03/19/19 07:04 Calcium 6.8 mg/dL (8.6-10.3) L 03/20/19 03:45 Venous Ioniz Calcium 0.82 mmol/L (1.15-1.35) L 03/20/19 04:08 Phosphorus 7.5 mg/dL (2.7-4.5) H 03/20/19 03:45 Magnesium 3.9 mg/dL (1.6-2.6) H 03/19/19 07:04 Total Bilirubin 1.7 mg/dL (0.3-1.0) H 03/20/19 03:45 Direct Bilirubin 0.5 mg/dL (0.0-0.2) H 03/19/19 00:33 AST > 3000 Units/L (13-39) H 03/20/19 03:45 ALT 1449 Units/L (7-52) H 03/20/19 03:45 Creatine Kinase > 03815 Units/L (30-223) H 03/20/19 03:45 Troponin I 0.89 ng/mL (< 0.04) H* 03/20/19 03:45 Serum Total Protein 5.5 g/dL (6.4-8.9) L 03/20/19 03:45 Albumin 3.3 g/dL (3.5-5.7) L 03/20/19 03:45 Globulin 2.2 g/dL (2.4-3.5) L 03/20/19 03:45 Ur Specimen Adequacy See below A 03/19/19 03:55 Urine Color [place] (Yellow) A 03/19/19 03:55 Urine Clarity Cloudy (Clear) A 03/19/19 03:55 Urine Protein >=300 mg/dL (Neg-Trace) H 03/19/19 03:55 Urine Ketones Trace mg/dL (Negative) H 03/19/19 03:55 Urine Blood Large (Negative) H 03/19/19 03:55 Urine Bilirubin Small (Negative) H 03/19/19 03:55 Urine Microscopic RBC 50-100 per hpf (0-3) H 03/19/19 03:55 Urine Bacteria Many per hpf (None-Few) H 03/19/19 03:55 Ur Culture Indicated? YES (NO) A 03/19/19 03:55 Salicylates < 2.5 mg/dL (15.0-30.0) L 03/19/19 08:20 Ur Buprenorphine Scrn Positive ng/mL (Cutoff=5) H 03/19/19 03:55 Acetaminophen < 10 mcg/mL (10-20) L 03/19/19 08:20 Ur Amphetamines Screen Positive ng/mL ([id number]=[id number]) H 03/19/19 03:55 U Benzodiazepines Scrn Positive ng/mL (Gctqph=521) H 03/19/19 03:55 U Marijuana (THC) Screen Positive ng/mL (Cutoff = 50) H 03/19/19 03:55 Hep Bs Antibody < 3.10 mIU/mL (10.00-) L 03/19/19 08:20 - Microbiology Findings Microbiology Findings: Microbiology, Last 48 Hours 03/19/19 03:55 Urine Culture - Preliminary Urine,Catheterized (Straight) Culture is incubating. 03/19/19 00:33 Blood Culture - Preliminary Peripheral Venipuncture Culture is incubating and being continuously monitored for growth. Final report to follow. 03/19/19 00:52 Blood Culture - Preliminary Peripheral Venipuncture Culture is incubating and being continuously monitored for growth. Final report to follow. - Diagnostic Findings Chest x-ray: report reviewed, image reviewed CT scan - chest: report reviewed, image reviewed - Clinical Findings Intake & Output: Intake & Output 03/19/19 03/19/19 03/20/19 15:59 23:59 07:59 Intake Total 3313 / 7992 1309 / 7992 1300 / 1300 Output Total 1050 / 1500 100 / 1500 0 / 0 Balance 2263 / 6492 1209 / 6492 1300 / 1300 Weight 92.5 kg Consult Discharge Plan - Plan Referrals: NONE,PCP [Primary Care Provider] -
[2019-03-20] MEDS ORDERED: Isovue-370 500 ML BOTTLE IVP ONE (08:05)
[2019-03-20 08:19] LABS: INR 2.3; Prothrombin Time 25.9 Seconds (9.4-12.1)
--- NOTE | 2019-03-20 09:25 | Neurology Progress Note ---
Date of Encounter: 03/20/19 Time of Encounter: 09:42 Assessment and Plan (1) Encephalopathy Current Visit: Yes Status: Acute - Patient presents with unresponsive episode followed by cardiac arrest - Etiology is likely multifactorial including drug overdose, Acute renal failure, hyperkalemia, metabolic acidosis - Also patient was reported to have seizure-like activity in the emergency room which may be result of his metabolic derangements. - Noted overnight was a possible intramuscular abscess in the SCM which may explain his septic shock/lactic acidosis - Labs appear to be worsening including renal function, new hepatic failure. - Currently, patient is not exhibiting myoclonic jerking but does have a oral sucking motion - Nephrology has been consulted for acute renal failure, underwent HD yesterday - Critical care managing overdose and ventilator settings - Patient also was noted to be tachycardic, febrile at 107 on presentation. WBC of 15 which may be reactive and secondary to drug use. Empiric antibiotics started by primary team. - Lower suspicion for WOMEN'S HEALTH C[employer] NURSE PRACTITIONER infection at this time. - CT head does not show acute process - CT repeats currently pending - EEG shows mild diffuse cerebral dysfunction that can be seen in patients with mild encephalopathy, metabolic/toxic, inflammatory, electrolyte derangement or anoxic/ischemic, or medication effects. Appears consistent with metabolic nature of injury - Patient was in cardiac arrest for approximately 1 min 30 sec which makes me less suspicious of an anoxic brain injury. Still in the differential but metabolic is more likely. Plan - Recommend continuing supportive care of underlying metabolic problems. - Consider repeat EEG in near future to assess for progress. Will not order today as his metabolic derangements do not appear to be improving and EEG will provide little diagnostic value. - Will not order spinal tap unless continuing to be febrile or worsening leukocytosis - Further recommendations from Dr. Corral - Prognosis appears guarded. (2) Seizure-like activity Current Visit: Yes Status: Acute - Likely secondary to metabolic reasons as above - Not currently demonstrating any seizure-like activity on my examination - No evidence of epilepsy on EEG yesterday but this does not exclude - Will continue to monitor (3) Drug overdose Current Visit: Yes Status: Acute - Management per primary team Qualifiers: Encounter type: initial encounter Injury intent: undetermined intent Qualified Code(s): T50.904A - Poisoning by unspecified drugs, medicaments and biological substances, undetermined, initial encounter Subjective Principal diagnosis: Cardiac Arrest Interval history: Patient seen and examined this morning at bedside. He remains intubated and unable to participate in interview. Overnight, mass in neck was noticed and CT scan shows inflammatory changes surrounding SCM suspicious for intramuscular abscess. Objective - Constitutional Vitals: Temp Pulse Resp BP Pulse Ox 100.2 F H 108 24 125/99 98 03/20/19 07:16 03/20/19 09:00 03/20/19 09:10 03/20/19 09:10 03/20/19 09:10 - Head Head exam: Present: atraumatic - Eye Pupils: Present: fixed (minimally reactive to light) - Neurological Exam Sensorimotor examination: Present: other (Unable to determine) Motor Examination: Present: other (Unable to determine) Sensation intact: Present: other (Unable to determine) Posture: Present: other (None) Reflexes: Brachioradialis: 1+, Patella: 0, Achilles: 0 Mental Status Examination: Present: does not follow commands, cognitive impairme nt (sucking motion to mouth. otherwise no motor function apprecited. ) Cranial nerve examination: Present: PERRL (2mm, sluggish to react minimally), gag diminished Cranial Nerve Exam: pupil sluggish to react to light: Left (bilateral ) Results - Laboratory Findings CBC and BMP: 03/20/19 04:18 03/20/19 03:45 Abnormal lab findings: Abnormal lab results WBC 13.2 K/mcL (4.3-11.1) H 03/20/19 04:18 Plt Count 45 K/mcL (140-400) L D 03/20/19 04:18 Neutrophils # 11.0 K/mcL (1.6-8.9) H 03/20/19 04:18 Monocytes # 2.4 K/mcL (0.0-1.3) H 03/19/19 04:30 Nucleated RBCs/100 WBC 0.4 /100 WBC (0) H 03/19/19 00:33 Reactive Lymphocytes Present (Not Present) A 03/20/19 04:18 Platelet Estimate Decreased (Normal) L 03/20/19 04:18 Immature Plt Fraction 14.9 % (1.1-6.1) H 03/20/19 04:18 PT 25.9 Seconds (9.4-12.1) H D 03/20/19 07:35 ABG pH 7.28 pH Units (7.32-7.45) L 03/20/19 04:19 ABG pCO2 30 mmHg (35-45) L 03/20/19 04:19 ABG pO2 161 mmHg (85-104) H 03/20/19 04:19 ABG HCO3 14 mEq/L (21-27) L 03/20/19 04:19 ABG Total CO2 15 mEq/L (20-26) L 03/20/19 04:19 ABG O2 Saturation 99 % (95-98) H 03/20/19 04:19 ABG Base Excess -11 mEq/L (-2 to 3) L 03/20/19 04:19 VBG pH 7.13 pH Units (7.32-7.42) L* 03/19/19 00:48 VBG pCO2 91 mmHg (41-51) H* 03/19/19 00:48 VBG HCO3 30 mEq/L (21-27) H 03/19/19 00:48 Sodium 135 mEq/L (136-145) L 03/20/19 03:45 Potassium 3.3 mEq/L (3.5-5.1) L 03/19/19 16:56 Chloride 109 mEq/L (98-107) H 03/19/19 09:35 Carbon Dioxide 20 mEq/L (23-29) L 03/20/19 03:45 BUN 44 mg/dL (6-20) H 03/20/19 03:45 Creatinine 4.08 mg/dL (0.70-1.30) H 03/20/19 03:45 Est GFR ( Amer) 20 (> 60) L 03/20/19 03:45 Est GFR (Non-Af Amer) 17 (> 60) L 03/20/19 03:45 Glucose 167 mg/dL (70-105) H 03/20/19 03:45 POC Glucose 189 mg/dL (70-99) H 03/19/19 22:59 Calculated Osmolality 302 (280-300) H 03/19/19 13:25 Lactic Acid 2.6 mmol/L (0.5-2.2) H 03/20/19 08:25 Calcium 6.8 mg/dL (8.6-10.3) L 03/20/19 03:45 Venous Ioniz Calcium 0.82 mmol/L (1.15-1.35) L 03/20/19 04:08 Phosphorus 7.5 mg/dL (2.7-4.5) H 03/20/19 03:45 Magnesium 3.9 mg/dL (1.6-2.6) H 03/19/19 07:04 Total Bilirubin 1.7 mg/dL (0.3-1.0) H 03/20/19 03:45 Direct Bilirubin 0.5 mg/dL (0.0-0.2) H 03/19/19 00:33 AST > 3000 Units/L (13-39) H 03/20/19 03:45 ALT 1449 Units/L (7-52) H 03/20/19 03:45 Creatine Kinase > 67965 Units/L (30-223) H 03/20/19 03:45 Troponin I 0.89 ng/mL (< 0.04) H* 03/20/19 03:45 Serum Total Protein 5.5 g/dL (6.4-8.9) L 03/20/19 03:45 Albumin 3.3 g/dL (3.5-5.7) L 03/20/19 03:45 Globulin 2.2 g/dL (2.4-3.5) L 03/20/19 03:45 Ur Specimen Adequacy See below A 03/19/19 03:55 Urine Color [place] (Yellow) A 03/19/19 03:55 Urine Clarity Cloudy (Clear) A 03/19/19 03:55 Urine Protein >=300 mg/dL (Neg-Trace) H 03/19/19 03:55 Urine Ketones Trace mg/dL (Negative) H 03/19/19 03:55 Urine Blood Large (Negative) H 03/19/19 03:55 Urine Bilirubin Small (Negative) H 03/19/19 03:55 Urine Microscopic RBC 50-100 per hpf (0-3) H 03/19/19 03:55 Urine Bacteria Many per hpf (None-Few) H 03/19/19 03:55 Ur Culture Indicated? YES (NO) A 03/19/19 03:55 Salicylates < 2.5 mg/dL (15.0-30.0) L 03/19/19 08:20 Ur Buprenorphine Scrn Positive ng/mL (Cutoff=5) H 03/19/19 03:55 Acetaminophen < 10 mcg/mL (10-20) L 03/19/19 08:20 Ur Amphetamines Screen Positive ng/mL (Clcrkq=4068) H 03/19/19 03:55 U Benzodiazepines Scrn Positive ng/mL (Ygqhyv=848) H 03/19/19 03:55 U Marijuana (THC) Screen Positive ng/mL (Cutoff = 50) H 03/19/19 03:55 Hep Bs Antibody < 3.10 mIU/mL (10.00-) L 03/19/19 08:20 Consult Discharge Plan - Plan Referrals: NONE,PCP [Primary Care Provider] -
[2019-03-20] MEDS ORDERED: Ringers Solution, Lactated 1,000 ML IVC ONE (10:05)
[2019-03-20] MEDS: Piperacillin/Tazobactam 3.375 GM in 0.9 % Sodium Chloride Mini Bag 100 ML IVPB SCH ×2 (10:15→20:12)
[2019-03-20] MEDS: Chlorhexidine Rinse 15 ML MOUTHWASH MM SCH ×2 (10:15→20:12)
[2019-03-20] MEDS: Pantoprazole 40 MG VIAL IVP SCH (10:16)
[2019-03-20] MEDS ORDERED: 0.9 % Sodium Chloride 250 ML ONE (11:13)
[2019-03-20 12:05] LABS: Mean Corpuscular Volume 89.3 fL (83.0-100.0); Red Cell Distribution Width 11.9 % (11.5-14.5)
[2019-03-20 12:07] LABS: Hematocrit 42.6 % (37.5-50.1); Hemoglobin 15.5 g/dL (12.9-16.9); Immature Platelets 19.9 % (1.1-6.1); Mean Corpuscular HGB Conc 36.4 g/dL (31.6-35.5); Mean Corpuscular Hemoglobin 32.5 pg (28.0-33.3); Red Blood Count 4.77 M/mcL (4.19-5.50); White Blood Count 11.3 K/mcL (4.3-11.1)
[2019-03-20 12:08] LABS: Platelet Count 40 K/mcL (140-400)
[2019-03-20 12:21] LABS: INR 2.5; Prothrombin Time 28.8 Seconds (9.4-12.1)
--- NOTE | 2019-03-20 12:22 | Internal Med Progress Note ---
Hospitalist Progress Note - Encounter Date of Encounter: 03/20/19 Time of Encounter: 08:10 - Subjective Interval History: I saw and examined patient independently and discussed aptient collaboratively with Dr. Valdovinos and MDR team. He is intubated, sedated. On my exam, he has no corneal and no gag reflex. Labs reviewed and discussed during MDR rounds. We also discussed with ENT. Head and soft tissue neck CT ordered for ENT review as he may need surgical intervention. We are transfusing platelets, FFP, and administering Vitamin K in preparation for possible surgery. - Exam Vitals: Temp Pulse Resp BP Pulse Ox 97.3 F L 98 24 117/86 99 03/20/19 12:00 03/20/19 12:00 03/20/19 12:00 03/20/19 12:00 03/20/19 12:00 Exam: General: intubated, sedated HEENT: subtle, sluggish pupil response, ETT/OG in place Chest: Coarse rhonchi, rare wheezes, basilar crackles; RRR Abdomen: distended; hypoactive BS; no HSMG Ext: no CCE; pulses 1+; no calf swelling Neuro: absent gag, absent corneal reflexes Skin: dry, intact - Assessment and Plan (1) Multiple organ failure Current Visit: Yes Status: Acute Assessment and Plan: 1. Critical care management per and in collaboration with Dr. Valdovinos. 2. Dialysis per nephrology, vent management per pulmonary, neurology following. 3. Continue life supportive measures. 4. Family meeting today with Dr. Valdovinos to discuss the current/critical status. (2) Toxic encephalopathy Current Visit: Yes Status: Acute Assessment and Plan: 1. Neurology following. 2. Repeat Head CT today; repeat EEG per neurology. 3. Currently sedated on ventilator. (3) Anoxic brain injury Current Visit: Yes Status: Suspected Assessment and Plan: 1. As above. 2. Neurology following. (4) Neck mass Current Visit: Yes Status: Acute Assessment and Plan: 1. ENT consult. 2. CT head and neck. (5) Drug overdose Current Visit: Yes Status: Acute Assessment and Plan: 1. Full support for now as above. (6) Cardiac arrest Current Visit: Yes Status: Acute Assessment and Plan: 1. ROSC achieved in ER. 2. Continue supportive measures for multi-organ failure. 3. Concern for anoxic brain injury; neurology following. (7) Acute kidney injury Current Visit: Yes Status: Acute Assessment and Plan: 1. Nephrology following. 2. HD per nephrology. 3. Hyperkalemia resolved from yesterday. (8) Rhabdomyolysis Current Visit: Yes Status: Acute Assessment and Plan: 1. Trend CK and monitor for compartment syndrome. 2. Dialysis per nephrology. (9) Ischemic hepatitis Current Visit: Yes Status: Acute Assessment and Plan: 1. Trend LFT's. 2. Acetadate infusion complete per protocol. DVT Prophylaxis: EPCD's - Time Spent with Patient Total time spent is greater than 50% in coordination of care (as documented) at patient's floor/unit and/or counseling patient: Plan of Care Discussed with: other (MDR team, Dr. Valdovinos, ENT, Neurology) Internal Medicine: Result - Labs CBC & Chem 7: 03/20/19 11:52 03/20/19 03:45 Labs: Short CBC 03/20/19 03/20/19 Range/Units 04:18 11:52 WBC 13.2 H 11.3 H (4.3-11.1) K/mcL Hgb 16.7 15.5 (12.9-16.9) g/dL Hct 47.4 42.6 (37.5-50.1) % Plt Count 45 L D 40 L (140-400) K/mcL Neutrophils # 11.0 H (1.6-8.9) K/mcL BMP 03/19/19 03/19/19 03/20/19 13:25 16:56 03:45 Sodium 140 137 135 L Potassium 3.1 L 3.3 L 4.5 D Chloride 101 103 99 Carbon Dioxide 23 20 L 20 L BUN 31 H 35 H 44 H Creatinine 2.65 H 2.95 H 4.08 H Glucose 191 H 193 H 167 H Calcium 6.9 L 7.4 L 6.8 L Cardiac Enzymes 03/20/19 Range/Units 03:45 Troponin I 0.89 H* (< 0.04) ng/mL Liver Function 03/19/19 03/20/19 Range/Units 13:25 03:45 Total Bilirubin 1.7 H (0.3-1.0) mg/dL AST > 3000 H (13-39) Units/L ALT 1449 H (7-52) Units/L Alkaline Phosphatase 84 (34-104) Units/L Albumin 3.7 3.3 L (3.5-5.7) g/dL - ABG Interpretation ABG results: ABG ABG pH 7.28 pH Units (7.32-7.45) L 03/20/19 04:19 ABG pCO2 30 mmHg (35-45) L 03/20/19 04:19 ABG pO2 161 mmHg (85-104) H 03/20/19 04:19 ABG O2 Saturation 99 % (95-98) H 03/20/19 04:19 PT/INR, D-dimer PT 25.9 Seconds (9.4-12.1) H D 03/20/19 07:35 - Impressions Impressions Guidance Ultrasound 03/19/19 12:49 FINDINGS/IMPRESSION: Successful ultrasound-guided placement of a left common femoral temporary dialysis catheter as described above. Post procedure abdominal radiograph to follow. D/ / Bryce Baires Interpreting Provider: Bryce Baires Insertion Non-Tunneled Catheter 03/19/19 12:49 FINDINGS/IMPRESSION: Successful ultrasound-guided placement of a left common femoral temporary dialysis catheter as described above. Post procedure abdominal radiograph to follow. D/ / Bryce Baires / Bryce Baires Interpreting Provider: Bryce Baires Abdomen/Pelvis CT 03/20/19 00:17 IMPRESSION: Small and large bowel air-fluid levels suggesting an enterocolitis/diarrheal illness, probably with a component of reactive ileus. No bowel wall thickening or obstruction. Bibasilar airspace disease suspicious for aspiration pneumonitis given dependent distribution. Urinary bladder gas is presumably related to [place] catheterization. Appropriately positioned left femoral approach central venous catheter. D/ / Kervin Yu / Kervin Yu Interpreting Provider: Kervin Yu Chest CT 03/20/19 00:29 IMPRESSION: Bilateral airspace disease consistent with pneumonia, to include aspiration. Portal venous gas in the liver likely due to pneumatosis. Trace focus of gas adjacent to the esophagus favored to represent a small esophageal diverticulum over perforation. If there is clinical concern, consider esophagram with water-soluble contrast when the patient is able to tolerate. Multiple nondisplaced anterior rib fractures bilaterally. D/ / Emmanuel Ponce MD / Emmanuel Ponce MD Interpreting Provider: Emmanuel Ponce MD Soft Tissue Neck CT 03/20/19 02:03 IMPRESSION: Asymmetrically enlarged, heterogeneous left sternocleidomastoid muscle with surrounding inflammatory, overall suspicious for intramuscular abscess formation. If there is a history of trauma, intramuscular hematoma would be a consideration. Consider CT neck with contrast for further evaluation. Mild interval worsening of the imaged right apical airspace disease. D/ / Kervin Yu / Kervin Yu Interpreting Provider: Kervin Yu Soft Tissue Neck CT 03/20/19 10:08 IMPRESSION: Diffuse enlargement of the left sternocleidomastoid muscle with minimal surrounding reticulation of the subcutaneous tissues. This finding most likely represents either an intramuscular hematoma or a diffuse myositis which may be infectious. No focal abscess formation is appreciated. Malignancy is unlikely. Follow-up examination in 4 weeks is suggested to ensure resolution. Bilateral upper lung infiltrates are identified greater on the right likely representing multifocal pneumonia versus inflammatory process. D/ / 03/20/2019 10:23:24 Jony Ye MD / deisy Interpreting Provider: Jony Ye MD Head CT 03/20/19 10:14 IMPRESSION: No acute intracranial abnormality. D/ / 03/20/2019 10:25:38 Ligia Roberson MD / aashish Interpreting Provider: Ligia Roberson MD Consult Discharge Plan - Plan Referrals: NONE,PCP [Primary Care Provider] - __ (5) Drug overdose Qualifiers: Encounter type: initial encounter Injury intent: undetermined intent Qualified Code(s): T50.904A - Poisoning by unspecified drugs, medicaments and biological substances, undetermined, initial encounter (8) Rhabdomyolysis Qualifiers: Rhabdomyolysis type: non-traumatic Qualified Code(s): M62.82 - Rhabdomyolysis
--- NOTE | 2019-03-20 12:45 | ENT - Consult Note ---
Date of Encounter: 03/20/19 Time of Encounter: 12:38 Assessment and Plan (1) Myositis Current Visit: Yes Status: Acute After review of the contrast CT scan, it is likely the patient is experiencing a hematoma versus, more likely, myositis of the left sternocleidomastoid muscle. At this time the patient is currently being treated with IV antibiotics as stated above in the history of present illness, would recommend continuation. I do believe the most likely diagnosis is myositis. However, if the patient's clinical presentation changes, and hematoma is favored, given the patient's current clinical picture (i.e. Thrombocytopenia), would recommend either observation or percutaneous drainage under ultrasound or CT guidance as opposed to surgical evacuation of the hematoma. Since no immediate surgical intervention is indicated at this time, ENT will sign off, but will be available for further evaluation if needed. This plan was discussed with the dictating transcribing machine servicer and the hospitalist. Qualifiers: Myositis type: unspecified type Laterality: left Code(s): M60.9 - Myositis, unspecified History of Present Illness Consult date: 03/20/19 Reason for ENT Consult: neck mass Requesting physician: Giorgi Valdovinos History of present illness: This is a 38-year-old gentleman who was admitted to the ICU after being brought to the emergency department by the EMS after being found unresponsive while under the custody of the police. The patient was brought into the hospital in asystole and underwent CPR and intubation. ENT is being consult for left neck mass, possible abscess of the left sternocleidomastoid. Currently, the patient is unresponsive and is intubated and sedated. History was obtained through chart review. The patient has a known history of methamphetamine abuse, however is unknown at the patient attempted to inject IV drugs into his internal jugular vein. A noncontrast CT was obtained after admission and demonstrated left 2.4 cm fluid collection that was concerning for either hematoma or possible abscess. Urine opiate screen was negative. The patient is hypotensive, thrombocytopenic with platelet level in the 40s, is in acute renal failure, experiencing rhabdomyolysis, and has had fever up to 107.3F, however temperature has also been as low as 95F. The patient has a white blood count at 15. Patient was placed on Vancomycin and Zosyn. Past Med Surg Social Fam HX - Past Medical History Source: old records reviewed Medical history: no medical history, other Additional medical history: concussion, broken ribs Psychiatric history: no psych history - Social History Smoking Status: Current every day smoker Smokeless Tobacco Status: No Alcohol use: occasionally Drug use: none Medications and Allergies Hydrocodone/Acetaminophen [[place] 5-325 Tablet] 1 tab PO Q6H PRN #20 tab 07/12/15 [Rx] Sulfamethoxazole/Trimeth DS [Bactrim DS] 1 each PO BID #20 tablet 07/12/15 [Rx] cephALEXin [Keflex] 500 mg PO QID #40 capsule 07/12/15 [Rx] Ibuprofen [Motrin] 800 mg PO Q8HR #30 tablet 12/23/15 [Rx] Allergy/AdvReac Type Severity Reaction Status Date / Time No Known Allergies Allergy Verified 03/19/19 01:04 ENT - ROS ROS unobtainable: due to endotracheal tube, due to mental status ENT Exam Initial Vital Signs Temp Pulse Resp BP Pulse Ox 107.3 F H 133 0 81/30 46 03/19/19 00:20 03/19/19 00:20 03/19/19 00:20 03/19/19 00:20 03/19/19 00:20 - General physical appearance well developed, well nourished, other (Intubated and sedated) - ENT normal pinna, normal nares, normal mucosa, deviated nasal septum - Neck trachea midline, other (The left sternocleidomastoid muscle is enlarged, there is no palpable fluctuance noted in the skin, there is no significant erythema overlying the sternal cleidomastoid.) - Respiratory other (On mechanical ventilation) - Integumentary other (There are 2 small puncture wounds in the skin overlying the inferior portion of the sternomastoid on the left.) Exam Initial Vital Signs Temp Pulse Resp BP Pulse Ox 107.3 F H 133 0 81/30 46 03/19/19 00:20 03/19/19 00:20 03/19/19 00:20 03/19/19 00:20 03/19/19 00:20 Results - Labs 03/20/19 11:52 03/20/19 11:52 Abnormal lab results WBC 11.3 K/mcL (4.3-11.1) H 03/20/19 11:52 MCHC 36.4 g/dL (31.6-35.5) H 03/20/19 11:52 Plt Count 40 K/mcL (140-400) L 03/20/19 11:52 MPV 13.0 fL (9.4-12.4) H 03/20/19 11:52 Neutrophils # 11.0 K/mcL (1.6-8.9) H 03/20/19 04:18 Monocytes # 2.4 K/mcL (0.0-1.3) H 03/19/19 04:30 Nucleated RBCs/100 WBC 0.4 /100 WBC (0) H 03/19/19 00:33 Reactive Lymphocytes Present (Not Present) A 03/20/19 04:18 Platelet Estimate Decreased (Normal) L 03/20/19 04:18 Immature Plt Fraction 19.9 % (1.1-6.1) H 03/20/19 11:52 PT 28.8 Seconds (9.4-12.1) H 03/20/19 11:52 ABG pH 7.28 pH Units (7.32-7.45) L 03/20/19 04:19 ABG pCO2 30 mmHg (35-45) L 03/20/19 04:19 ABG pO2 161 mmHg (85-104) H 03/20/19 04:19 ABG HCO3 14 mEq/L (21-27) L 03/20/19 04:19 ABG Total CO2 15 mEq/L (20-26) L 03/20/19 04:19 ABG O2 Saturation 99 % (95-98) H 03/20/19 04:19 ABG Base Excess -11 mEq/L (-2 to 3) L 03/20/19 04:19 VBG pH 7.13 pH Units (7.32-7.42) L* 03/19/19 00:48 VBG pCO2 91 mmHg (41-51) H* 03/19/19 00:48 VBG HCO3 30 mEq/L (21-27) H 03/19/19 00:48 Sodium 135 mEq/L (136-145) L 03/20/19 03:45 Potassium 3.3 mEq/L (3.5-5.1) L 03/19/19 16:56 Chloride 109 mEq/L (98-107) H 03/19/19 09:35 Carbon Dioxide 20 mEq/L (23-29) L 03/20/19 03:45 BUN 44 mg/dL (6-20) H 03/20/19 03:45 Creatinine 4.08 mg/dL (0.70-1.30) H 03/20/19 03:45 Est GFR ( Amer) 20 (> 60) L 03/20/19 03:45 Est GFR (Non-Af Amer) 17 (> 60) L 03/20/19 03:45 Glucose 167 mg/dL (70-105) H 03/20/19 03:45 POC Glucose 189 mg/dL (70-99) H 03/19/19 22:59 Calculated Osmolality 302 (280-300) H 03/19/19 13:25 Lactic Acid 2.8 mmol/L (0.5-2.2) H 03/20/19 11:52 Calcium 6.8 mg/dL (8.6-10.3) L 03/20/19 03:45 Venous Ioniz Calcium 0.80 mmol/L (1.15-1.35) L 03/20/19 12:08 Phosphorus 7.5 mg/dL (2.7-4.5) H 03/20/19 03:45 Magnesium 3.9 mg/dL (1.6-2.6) H 03/19/19 07:04 Total Bilirubin 1.7 mg/dL (0.3-1.0) H 03/20/19 03:45 Direct Bilirubin 0.5 mg/dL (0.0-0.2) H 03/19/19 00:33 AST > 3000 Units/L (13-39) H 03/20/19 03:45 ALT 1449 Units/L (7-52) H 03/20/19 03:45 Creatine Kinase > 74611 Units/L (30-223) H 03/20/19 03:45 Troponin I 0.89 ng/mL (< 0.04) H* 03/20/19 03:45 Serum Total Protein 5.5 g/dL (6.4-8.9) L 03/20/19 03:45 Albumin 3.3 g/dL (3.5-5.7) L 03/20/19 03:45 Globulin 2.2 g/dL (2.4-3.5) L 03/20/19 03:45 Ur Specimen Adequacy See below A 03/19/19 03:55 Urine Color Sparkill (Yellow) A 03/19/19 03:55 Urine Clarity Cloudy (Clear) A 03/19/19 03:55 Urine Protein >=300 mg/dL (Neg-Trace) H 03/19/19 03:55 Urine Ketones Trace mg/dL (Negative) H 03/19/19 03:55 Urine Blood Large (Negative) H 03/19/19 03:55 Urine Bilirubin Small (Negative) H 03/19/19 03:55 Urine Microscopic RBC 50-100 per hpf (0-3) H 03/19/19 03:55 Urine Bacteria Many per hpf (None-Few) H 03/19/19 03:55 Ur Culture Indicated? YES (NO) A 03/19/19 03:55 Salicylates < 2.5 mg/dL (15.0-30.0) L 03/19/19 08:20 Ur Buprenorphine Scrn Positive ng/mL (Cutoff=5) H 03/19/19 03:55 Acetaminophen < 10 mcg/mL (10-20) L 03/19/19 08:20 Ur Amphetamines Screen Positive ng/mL (Jdyfbi=1849) H 03/19/19 03:55 U Benzodiazepines Scrn Positive ng/mL (Ryvtoy=557) H 03/19/19 03:55 U Marijuana (THC) Screen Positive ng/mL (Cutoff = 50) H 03/19/19 03:55 Hep Bs Antibody < 3.10 mIU/mL (10.00-) L 03/19/19 08:20 Diabetes panel 03/19/19 03/19/19 03/20/19 Range/Units 13:25 16:56 03:45 Sodium 140 137 135 L (136-145) mEq/L Potassium 3.1 L 3.3 L 4.5 D (3.5-5.1) mEq/L Chloride 101 103 99 (98-107) mEq/L Carbon Dioxide 23 20 L 20 L (23-29) mEq/L BUN 31 H 35 H 44 H (6-20) mg/dL Creatinine 2.65 H 2.95 H 4.08 H (0.70-1.30) mg/dL Glucose 191 H 193 H 167 H (70-105) mg/dL Calcium 6.9 L 7.4 L 6.8 L (8.6-10.3) mg/dL AST > 3000 H (13-39) Units/L ALT 1449 H (7-52) Units/L Alkaline Phosphatase 84 (34-104) Units/L Albumin 3.7 3.3 L (3.5-5.7) g/dL Calcium panel 03/19/19 03/19/19 03/20/19 Range/Units 13:25 16:56 03:45 Calcium 6.9 L 7.4 L 6.8 L (8.6-10.3) mg/dL Phosphorus 5.1 H 6.2 H 7.5 H (2.7-4.5) mg/dL Albumin 3.7 3.3 L (3.5-5.7) g/dL Pituitary panel 03/19/19 03/19/19 03/20/19 Range/Units 13:25 16:56 03:45 Sodium 140 137 135 L (136-145) mEq/L Potassium 3.1 L 3.3 L 4.5 D (3.5-5.1) mEq/L Chloride 101 103 99 (98-107) mEq/L Carbon Dioxide 23 20 L 20 L (23-29) mEq/L BUN 31 H 35 H 44 H (6-20) mg/dL Creatinine 2.65 H 2.95 H 4.08 H (0.70-1.30) mg/dL Glucose 191 H 193 H 167 H (70-105) mg/dL Calcium 6.9 L 7.4 L 6.8 L (8.6-10.3) mg/dL Adrenal panel 03/19/19 03/19/19 03/20/19 Range/Units 13:25 16:56 03:45 Sodium 140 137 135 L (136-145) mEq/L Potassium 3.1 L 3.3 L 4.5 D (3.5-5.1) mEq/L Chloride 101 103 99 (98-107) mEq/L Carbon Dioxide 23 20 L 20 L (23-29) mEq/L BUN 31 H 35 H 44 H (6-20) mg/dL Creatinine 2.65 H 2.95 H 4.08 H (0.70-1.30) mg/dL Glucose 191 H 193 H 167 H (70-105) mg/dL Calcium 6.9 L 7.4 L 6.8 L (8.6-10.3) mg/dL Total Bilirubin 1.7 H (0.3-1.0) mg/dL AST > 3000 H (13-39) Units/L ALT 1449 H (7-52) Units/L Alkaline Phosphatase 84 (34-104) Units/L Albumin 3.7 3.3 L (3.5-5.7) g/dL All other labs normal. - Imaging Additional studies: The noncontrasted CT scan of the neck was reviewed. Impression is as follows: Asymmetrically enlarged, heterogeneous left sternocleidomastoid muscle with surrounding inflammatory, overall suspicious for intramuscular abscess formation. If there is a history of trauma, intramuscular hematoma would be a consideration. Consider CT neck with contrast for further evaluation. Following this a contrasted CT scan of the neck was obtained and this was reviewed as well. Impression is as follows: Diffuse enlargement of the left sternocleidomastoid muscle with minimal surrounding reticulation of the subcutaneous tissues. This finding most likely represents either an intramuscular hematoma or a diffuse myositis which may be infectious. No focal abscess formation is appreciated. Malignancy is unlikely. Follow-up examination in 4 weeks is suggested to ensure resolution. Consult Discharge Plan - Plan Referrals: NONE,PCP [Primary Care Provider] -
[2019-03-20 12:46] LABS: Lymphocytes # 1.5 K/mcL (0.6-4.6); Monocytes # 0.7 K/mcL (0.0-1.3); Neutrophils # 8.7 K/mcL (1.6-8.9)
[2019-03-20 12:47] LABS: Platelet Estimate Marked Decrease (Normal)
[2019-03-20 12:59] LABS: Alanine Aminotransferase 1480 Units/L (7-52); Albumin 2.8 g/dL (3.5-5.7); Albumin/Globulin Ratio 1.5 (1.1-2.2); Alkaline Phosphatase 79 Units/L (34-104); Aspartate Amino Transferase > 3000 Units/L (13-39); BUN/Creatinine Ratio 12 (6-26); Bilirubin,Direct 1.2 mg/dL (0.0-0.2); Bilirubin,Indirect 0.8 mg/dL (0.0-1.2); Blood Urea Nitrogen 51 mg/dL (6-20); Calcium 6.5 mg/dL (8.6-10.3); Carbon Dioxide 22 mEq/L (23-29); Chloride 98 mEq/L (98-107); Creatine Kinase > 20000 Units/L (30-223); Globulin 1.9 g/dL (2.4-3.5); Glucose 120 mg/dL (70-105); Magnesium 2.4 mg/dL (1.6-2.6); Osmolality,Calculated 293 (280-300); Potassium 5.6 mEq/L (3.5-5.1); Sodium 134 mEq/L (136-145); Total Protein 4.7 g/dL (6.4-8.9); eGFR For African Americans 19 (> 60); eGFR For Non-African Americans 15 (> 60)
[2019-03-20 13:02] LABS: ABG Base Excess -10 mEq/L (-2 to 3); ABG HCO3 15 mEq/L (21-27); ABG Oxygen Saturation 99 % (95-98); ABG PCO2 32 mmHg (35-45); ABG PH 7.29 pH Units (7.32-7.45); ABG PO2 132 mmHg (85-104); ABG TCO2 16 mEq/L (20-26); Blood Gas PEEP 8 cm H2O; Blood Gas VT 500 cc
[2019-03-20 13:51] LABS: Acinetobacter baumannii by PCR Not Detected (Not Detect); Candida albicans by PCR Not Detected (Not Detect); Candida glabrata by PCR Not Detected (Not Detect); Candida krusei by PCR Not Detected (Not Detect); Candida parapsilosis by PCR Not Detected (Not Detect); Candida tropicalis by PCR Not Detected (Not Detect); Enterobacter cloacae Cmplx PCR Not Detected (Not Detect); Enterobacteriaceae by PCR Not Detected (Not Detect); Enterococcus by PCR Not Detected (Not Detect); Escherichia coli by PCR Not Detected (Not Detect); Klebsiella oxytoca by PCR Not Detected (Not Detect); Klebsiella pneumoniae by PCR Not Detected (Not Detect); Proteus by PCR Not Detected (Not Detect); Pseudomonas aeruginosa by PCR Not Detected (Not Detect); Serratia marcescens by PCR Not Detected (Not Detect); Staphylococcus aureus by PCR Not Detected (Not Detect); Staphylococcus by PCR DETECTED (Not Detect); Streptococcus agalactiae(B)PCR Not Detected (Not Detect); Streptococcus by PCR Not Detected (Not Detect); Streptococcus pneumoniae PCR Not Detected (Not Detect); Streptococcus pyogenes (A) PCR Not Detected (Not Detect); blaKPC Carbapenem-Resist Gene Not Detected (Not Detect); mecA Methicillin-Resist Gene Not Detected (Not Detect); vanA/B Vancomycin-Resist Genes Not Detected (Not Detect)
[2019-03-20] MEDS ORDERED: 0.9 % Sodium Chloride 250 ML IVC PRN (14:01)
[2019-03-20] MEDS ORDERED: *HR* Heparin 10,000 UNIT/10 ML VIAL IV PRN ×2 (14:01)
[2019-03-20] MEDS ORDERED: 0.9 % Sodium Chloride 1,000 ML PRIME SCH (14:15)
[2019-03-20] MEDS: Calcium Gluconate 1gm/50mL 1 GM/50 ML BAG IVPB SCH ×2 (14:29→15:06)
--- NOTE | 2019-03-20 17:23 | Nephrology Progress Note ---
Date of Encounter: 03/20/19 Time of Encounter: 12:00 - Assessment and Plan (1) Acute kidney injury Current Visit: Yes Status: Acute The patient has multifactorial acute kidney injury with shock, drug overdose, likely volume depletion, and significant rhabdomyolysis. SCr worsening today and given exposure to iv contrast, will proceed with HD today Continue to avoid nephrotoxins if possible Need to establish goals of care with family (2) Drug overdose Current Visit: Yes Status: Acute Qualifiers: Encounter type: initial encounter Injury intent: undetermined intent Qualified Code(s): T50.904A - Poisoning by unspecified drugs, medicaments and biological substances, undetermined, initial encounter (3) Hyperkalemia Current Visit: Yes Status: Acute (4) Rhabdomyolysis Current Visit: Yes Status: Acute Qualifiers: Rhabdomyolysis type: non-traumatic Qualified Code(s): M62.82 - Rhabdomyolysis (5) Shock Current Visit: Yes Status: Acute (6) Multiple organ failure Current Visit: Yes Status: Acute (7) Hypocalcemia Current Visit: Yes Status: Acute (8) Acidemia Current Visit: Yes Status: Acute Subjective Principal diagnosis: Cardiac Arrest Interval history: Interim noted with KIEL, HD dependent, Pt seen and examined intubated and sedated s/p CT with contrast of head and neck for bulging L neck mass Objective - Vital Signs Vital signs: Vital Signs Temp Pulse Resp BP Pulse Ox 03/20/19 17:10 103/78 03/20/19 17:00 110 26 97/76 99 03/20/19 16:55 97/76 03/20/19 16:40 100/74 03/20/19 16:25 103/72 03/20/19 16:10 103/71 03/20/19 16:00 110 26 99/80 99 03/20/19 15:55 110/77 03/20/19 15:40 100.7 F H 23 117/80 03/20/19 15:37 24 110/82 99 03/20/19 15:00 110 26 115/81 98 03/20/19 14:42 100.2 F H 03/20/19 14:11 99.3 F 109 26 114/87 98 03/20/19 14:00 109 26 114/87 98 03/20/19 13:00 104 26 121/92 99 03/20/19 12:40 24 106/82 98 03/20/19 12:11 97.7 F 101 26 117/89 98 03/20/19 12:00 97.3 F L 98 24 117/86 99 03/20/19 11:56 97.3 F L 98 24 110/86 99 03/20/19 11:02 24 109/85 94 03/20/19 11:00 95 26 112/88 99 03/20/19 10:59 97.7 F 03/20/19 10:00 99 24 116/91 100 03/20/19 09:25 25 100 03/20/19 09:10 24 125/99 98 03/20/19 09:00 108 26 130/96 98 03/20/19 08:00 97 25 137/107 97 03/20/19 07:16 100.2 F H 03/20/19 07:13 26 129/103 97 03/20/19 06:00 105 25 132/105 99 03/20/19 05:08 26 129/105 99 03/20/19 05:00 101 24 131/106 98 03/20/19 04:40 101 03/20/19 04:30 97.9 F 03/20/19 04:00 98 24 120/100 97 03/20/19 03:53 25 128/98 96 03/20/19 03:00 97 24 125/101 98 03/20/19 02:00 103 24 129/107 100 03/20/19 01:10 24 117/96 96 03/20/19 01:00 106 24 116/95 98 03/20/19 00:50 106 03/20/19 00:00 108 24 115/93 97 03/19/19 23:57 99.4 F 03/19/19 23:01 25 127/101 99 03/19/19 21:08 26 128/97 98 03/19/19 21:00 97 24 126/103 98 03/19/19 20:51 95.4 F L 03/19/19 20:31 94 03/19/19 20:00 90 24 118/98 98 03/19/19 19:42 26 128/102 95 03/19/19 19:00 85 24 119/99 98 03/19/19 18:11 98.3 F 84 24 120/98 99 Intake and Output 03/20/19 03/20/19 03/20/19 07:59 15:59 23:59 Intake Total 1520 / 6189.5 4489.5 / 6189.5 180 / 6189.5 Output Total 60 / 60 0 / 60 Balance 1460 / 6129.5 4489.5 / 6129.5 180 / 6129.5 Intake: IV Fluids 1520 / 5344.5 3644.5 / 5344.5 180 / 5344.5 Acetadote 8,800 MG In Dextrose 1044 / 1044 5% 1,000 ML @ 64.8 mls/hr IVC ONCE ONE Rx#:[id number] Precedex Premix 400 mcg In 100 200 / 430 200 / 430 30 / 430 ml @ 0.2 MCG/KG/HR 4.385 mls/hr IVC .[id number] [facility] Rx#: [id number] FentaNYL (PF) 1,000 MCG In 0.9 100 / 300 100 / 300 100 / 300 % Sodium Chloride 80 ML @ 50 MCG/HR 5 mls/hr IVC CONT [facility] Rx #:[id number] Diprivan 1,000 mg In 100 ml @ 5 100 / 100 MCG/KG/MIN 2.517 mls/hr IVC . Q24H [facility] Rx#:[id number] Lactated Ringers 1,000 ML @ 999 1000 / 3000 2000 / 3000 mls/hr IVC .Q1H1M ONE Rx#: [id number] Calcium Gluconate 2,000 MG In 0 120 / 120 .9 % Sodium Chloride 100 ML @ 220 mls/hr IVPB ONCE ONE Rx#: [id number] Calcium Gluconate 1gm/50mL 1 gm 50 / 100 50 / 100 In 50 ml @ 100 mls/hr IVPB Q30MIN [facility] Rx#:[id number] AquaMephyton 5 MG In 0.9 % 50.5 / 50.5 Sodium Chloride 50 ML @ 100 mls /hr IVPB ONCE ONE Rx#: [id number] Zosyn 3.375 GM In 0.9 % Sodium 100 / 200 100 / 200 Chloride (Mini-Bag +) 100 ML @ 25 mls/hr IVPB Q12H [facility] Rx#: [id number] Oral 0 / 0 Blood Product 345 / 345 Platelet Ph Acd-A Pasc Lp 1 345 / 345 Unit [id number] Intake, Rinseback and Flushes 500 / 500 Output: Catheter 10 / 10 0 / 10 Gastric Drainage 50 / 50 0 / 50 Other: Blood Glucose* 139 94 Hemodialysis Net Fluid Removed 129 506 (mL) - General Appearance General appearance: Present: well-developed, well-nourished, sedated on ventilator, intubated EENT: Present: ATNC, mucous membranes moist Neck: Present: no JVD, supple (L mass, soft) Respiratory: Present: course breath sounds Cardiology: Present: edema, normal S1, normal S2 Dialysis Vascular Access: Venous Catheter Gastrointestinal: Present: no tenderness, no guarding Integumentary: Present: warm and dry Additional Comments: sedated Musculoskeletal: Present: no deformities Additional Comments: sedated - Lab 03/20/19 11:52 03/20/19 11:52 Most recent lab results 03/20/19 03/20/19 11:52 12:57 ABG pH 7.29 L ABG pCO2 32 L ABG pO2 132 H ABG HCO3 15 L ABG O2 Saturation 99 H Calcium 6.5 L Magnesium 2.4 Consult Discharge Plan - Plan Referrals: NONE,PCP [Primary Care Provider] -
--- NOTE | 2019-03-20 17:50 | Electrocardiograph Report ---
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
--- NOTE | 2019-03-20 17:50 | Electrocardiograph Report ---
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
[2019-03-20 20:24] LABS: Basophils % 0.2 %; Hematocrit 42.1 % (37.5-50.1); Hemoglobin 15.2 g/dL (12.9-16.9); Immature Granulocytes % 1.8 % (0-4); Lymphocytes % 9.6 %; Mean Corpuscular HGB Conc 36.1 g/dL (31.6-35.5); Mean Corpuscular Hemoglobin 32.3 pg (28.0-33.3); Mean Corpuscular Volume 89.6 fL (83.0-100.0); Monocytes # 0.7 K/mcL (0.0-1.3); Monocytes % 6.7 %; Neutrophils # 8.7 K/mcL (1.6-8.9); Red Cell Distribution Width 11.9 % (11.5-14.5); Segmented Neutrophils % 81.7 %; White Blood Count 10.7 K/mcL (4.3-11.1)
[2019-03-20 20:26] LABS: Platelet Count 65 K/mcL (140-400)
[2019-03-20 20:51] LABS: INR 2.3; Prothrombin Time 26.5 Seconds (9.4-12.1)
[2019-03-20 21:01] LABS: Alanine Aminotransferase 1554 Units/L (7-52)
[2019-03-20 21:03] LABS: Platelet Estimate Decreased (Normal)
[2019-03-20 21:24] LABS: VBG Ionized Calcium 0.83 mmol/L (1.15-1.35)
[2019-03-20 21:24] LABS: VBG Ionized Calcium 0.86 mmol/L (1.15-1.35)
[2019-03-20] MEDS: 0.9 % Sodium Chloride 1,000 ML IVC SCH (21:54)
[2019-03-20 22:03] LABS: Albumin 2.8 g/dL (3.5-5.7); Albumin/Globulin Ratio 1.4 (1.1-2.2); Alkaline Phosphatase 81 Units/L (34-104); Aspartate Amino Transferase > 3000 Units/L (13-39); BUN/Creatinine Ratio 11 (6-26); Bilirubin,Direct 1.3 mg/dL (0.0-0.2); Bilirubin,Total 2.3 mg/dL (0.3-1.0); Blood Urea Nitrogen 36 mg/dL (6-20); Calcium 7.1 mg/dL (8.6-10.3); Carbon Dioxide 26 mEq/L (23-29); Chloride 98 mEq/L (98-107); Creatine Kinase > 20000 Units/L (30-223); Glucose 85 mg/dL (70-105); Osmolality,Calculated 288 (280-300); Potassium 4.3 mEq/L (3.5-5.1); Sodium 135 mEq/L (136-145); Total Protein 4.8 g/dL (6.4-8.9); eGFR For African Americans 25 (> 60); eGFR For Non-African Americans 20 (> 60)
[2019-03-21 04:11] LABS: ABG Base Excess -5 mEq/L (-2 to 3); ABG HCO3 19 mEq/L (21-27); ABG Oxygen Saturation 98 % (95-98); ABG PCO2 31 mmHg (35-45); ABG PH 7.39 pH Units (7.32-7.45); ABG PO2 105 mmHg (85-104); ABG TCO2 20 mEq/L (20-26); Blood Gas Modality ASSIST CONTROL; Blood Gas PEEP 8 cm H2O; Blood Gas VT 500 cc
[2019-03-21 04:20] LABS: Hematocrit 39.4 % (37.5-50.1); Hemoglobin 14.5 g/dL (12.9-16.9); Immature Platelets 13.8 % (1.1-6.1); Mean Corpuscular HGB Conc 36.8 g/dL (31.6-35.5); Mean Corpuscular Hemoglobin 32.2 pg (28.0-33.3); Mean Corpuscular Volume 87.4 fL (83.0-100.0); Mean Platelet Volume 12.4 fL (9.4-12.4); Red Blood Count 4.51 M/mcL (4.19-5.50); Red Cell Distribution Width 12.1 % (11.5-14.5); White Blood Count 10.4 K/mcL (4.3-11.1)
[2019-03-21 04:21] LABS: VBG Ionized Calcium 0.77 mmol/L (1.15-1.35)
[2019-03-21 04:23] LABS: Platelet Count 80 K/mcL (140-400)
[2019-03-21 04:25] LABS: Prothrombin Time 22.8 Seconds (9.4-12.1)
[2019-03-21] MEDS: Artificial Tears SOLN 15 ML BOTTLE BOTH EYES SCH ×6 (05:08→23:43)
[2019-03-21 05:17] LABS: Lymphocytes # 0.8 K/mcL (0.6-4.6); Monocytes # 0.4 K/mcL (0.0-1.3); Neutrophils # 8.9 K/mcL (1.6-8.9); Platelet Estimate Decreased (Normal)
[2019-03-21 05:18] LABS: Reactive Lymphocytes Present (Not Present); Toxic Granulation Present (Not Present)
[2019-03-21 05:27] LABS: Alanine Aminotransferase 1492 Units/L (7-52); Albumin 2.7 g/dL (3.5-5.7); Albumin/Globulin Ratio 1.3 (1.1-2.2); Alkaline Phosphatase 72 Units/L (34-104); Aspartate Amino Transferase 2951 Units/L (13-39); BUN/Creatinine Ratio 10 (6-26); Bilirubin,Direct 1.5 mg/dL (0.0-0.2); Bilirubin,Total 2.5 mg/dL (0.3-1.0); Blood Urea Nitrogen 42 mg/dL (6-20); Calcium 6.4 mg/dL (8.6-10.3); Carbon Dioxide 22 mEq/L (23-29); Chloride 99 mEq/L (98-107); Creatine Kinase > 20000 Units/L (30-223); Globulin 2.1 g/dL (2.4-3.5); Glucose 103 mg/dL (70-105); Osmolality,Calculated 291 (280-300); Sodium 135 mEq/L (136-145); Total Protein 4.8 g/dL (6.4-8.9); eGFR For African Americans 19 (> 60); eGFR For Non-African Americans 16 (> 60)
[2019-03-21] MEDS: 0.9 % Sodium Chloride 1,000 ML IVC SCH ×3 (05:52→22:09)
[2019-03-21] MEDS: Dexmedetomidine HCl 400 MCG/100 ML MLS IVC SCH (06:19)
[2019-03-21] MEDS ORDERED: Calcium Gluconate 1gm/50mL 1 GM/50 ML BAG IVPB ONE (06:30)
--- NOTE | 2019-03-21 06:45 | Pulmonology Progress Note ---
Date of Encounter: 03/21/19 Time of Encounter: 06:45 Assessment and Plan (1) Multiple organ failure Current Visit: Yes Status: Acute I spent 60min of Critical Care time with this patient. It involved decision making of high complexity to assess, manipulate, and support vital organ system failure and/or to prevent further life threatening deterioration of the patient's condition. The time involved in the performance of separately reportable procedures was not counted toward critical care time. Patient seen and examined at bedside Labs, radiology, chart personally reviewed. Management was reviewed during multidisciplinary critical care rounds. 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 EEG yesterday was actually notable for only diffuse slowing which may be just related to drug intoxication. I believe it is too early to prognosticate about his STENCIL CUTTER MACHINE status but would repeat CT scan of the head today to evaluate for any evidence of anoxic injury. Neurology is following and we appreciate their recommendations. Initial hyperthermia has resolved Pulm: Acute hypoxic respiratory failure intubated on the ventilator he has acceptable gas exchange today and has increased respiratory drive which is likely multifactorial including possibly STENCIL CUTTER MACHINE mediated given axonal injury combination of drug intoxication metabolic acidosis and possibly also felt to be less likely pain. We will continue sedation to decrease respiratory rate to prevent alkalosis as well as to facilitate comfort in the event the patient is experiencing pain HEENT: I reviewed the results of CT scan of the neck which shows small fluid collection possibly abscess or hematoma. I consulted the general administrator on- call doctor Jem and personally discussed the case with him. He favors underlying abscess with myositis possibly related to injection of drugs. Given the clinical situation options include a percutaneous drainage versus surgery although he is unlikely to be a great candidate for either given critical illness. He recommended contrasted CT scan and neck for further evaluation our services will cont to colloaborate on the case and make recommendations as upon emerging evidence. In the short-term will continue antimicrobials including anaerobic coverage Cards: Patient had to cardiogenic shock yesterday but has been able to be weaned off vasopressors a formal echocardiogram has been ordered but is pending review. He is tachycardic which is multifactorial including his underlying acidosis and possible fracture of drug intoxication GI: GI prophylaxis been given while he is on the ventilator. He has a small amount of biliary pneumatosis and evidence of possible ischemic colitis this would fit with the clinical picture of ischemia and will need to be treated conservatively for now if clinical course worsens may need surgery consult. He has evidence of ischemic hepatitis and will need to trend his liver function. There is some possible concern of air around the esophagus I did curbside consult our drastic surgeon who felt that this was more of an incidental finding and not reflect perforation did not advise any further workup. Nutrition: Nothing by mouth for now Renal: Remains Anuric KIEL with ATN s/t Hypotension and pigment induced injury. 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 HyperK+ has improved. Nephrology following. UOP Monitored, Cont to Trend sCr and monitor Electrolytes. ID: Patient is on broad-spectrum antibiotics for concern of aspiration pneumonia and possible neck abscess as well as injection with drugs and MRSA infection cultures have been obtained and we will continue to monitor. Will repeat lactate today Heme/Onc: Acute thrombocytopenia which is multifactorial including effects of toxic ingestion dialysis and multiorgan system failure/critical illness cannot rule out low-grade of DIC will need to check fibrinogen. Would continue subcutaneous heparin for now but may need to stop based upon results of indication for transfusions patient is not actively hemorrhaging. Endo: Glucose Monitored and hypo glycemia has improved he is able to be weaned off dextrose infusion Integ/MSK: Skin Care per routine ICU Nursing Protocol to prevent ulcers. He d oes have evidence of rhabdomyolysis which is likely related to amphetamine use but cannot eat exclude myositis from the neck mass. There is no evidence of compartment syndrome on examination. Cont to trend CPK. Lines: All lines examined without evidence of infection : Dispo: Monitor in ICU for critical illness CODE: Full code. I did update several of his family members yesterday including his aunt and cousin and uncle. Plan to discuss case with his mother and father today who should be coming in from out of town.. Overall prognosis is guarded to poor which in large part will be related to underlying neurological function/axonal injury (2) Toxic encephalopathy Current Visit: Yes Status: Acute (3) Anoxic brain injury Current Visit: Yes Status: Suspected (4) Neck mass Current Visit: Yes Status: Acute (5) Drug overdose Current Visit: Yes Status: Acute Qualifiers: Encounter type: initial encounter Injury intent: undetermined intent Qualified Code(s): T50.904A - Poisoning by unspecified drugs, medicaments and biological substances, undetermined, initial encounter (6) Cardiac arrest Current Visit: Yes Status: Acute (7) Acute kidney injury Current Visit: Yes Status: Acute (8) Rhabdomyolysis Current Visit: Yes Status: Acute Qualifiers: Rhabdomyolysis type: non-traumatic Qualified Code(s): M62.82 - Rhabdomyolysis (9) Acute respiratory failure with hypoxia Current Visit: Yes Status: Acute (10) Ischemic hepatitis Current Visit: Yes Status: Acute Subjective Principal diagnosis: Cardiac Arrest Interval history: Overnight and enlarging neck mass was noted by the covering team/nursing staff. This prompted a series of investigations including a CT scan of his neck chest and abdomen with notable features of a fluid collection in the left sternocleidomastoid. Patient remains on the vent and has been generally breathing over the vent but respiratory rate has decreased with increased sedation. There has been no purposeful movements from the patient. He remains and uric but vasopressor requirements have been removed entirely. In fact, has been at times he is hypertensive and tachycardic. Objective PUL Vital signs: Last Vital Signs Temp 100.3 F H 03/21/19 04:39 Pulse 99 03/21/19 06:00 Resp 24 03/21/19 06:00 BP 127/76 03/21/19 06:00 Pulse Ox 100 03/21/19 06:00 Ventilator Settings Ventilator Settings: Ventilator Settings, Last 8 Hours Ventilator Tidal Volume 500 Setting Ventilator Tidal Volume 500 Setting Ventilator Tidal Volume 500 Setting Ventilator Tidal Volume 500 Setting Ventilator Tidal Volume 500 Setting Ventilator Tidal Volume 500 Setting Ventilator Tidal Volume 500 Setting Ventilator Tidal Volume 500 Setting Ventilator Tidal Volume 500 Setting Ventilator Tidal Volume 500 Setting Ventilator Tidal Volume 500 Setting Ventilator Tidal Volume 500 Setting Ventilator Tidal Volume 500 Setting Ventilator Respiratory Rate 24 Setting Ventilator Respiratory Rate 24 Setting Ventilator Respiratory Rate 24 Setting Ventilator Respiratory Rate 24 Setting Ventilator Respiratory Rate 24 Setting Ventilator Respiratory Rate 24 Setting Ventilator Respiratory Rate 24 Setting Ventilator Respiratory Rate 24 Setting Ventilator Respiratory Rate 24 Setting Ventilator Respiratory Rate 24 Setting Ventilator Respiratory Rate 24 Setting Ventilator Respiratory Rate 24 Setting Ventilator Respiratory Rate 24 Setting Actual Respiratory Rate 24 Actual Respiratory Rate 24 Actual Respiratory Rate 24 Actual Respiratory Rate 24 Actual Respiratory Rate 25 Actual Respiratory Rate 25 Actual Respiratory Rate 24 Actual Respiratory Rate 24 Actual Respiratory Rate 24 Actual Respiratory Rate 24 Actual Respiratory Rate 24 Actual Respiratory Rate 24 Positive End Expiratory 8 Pressure Positive End Expiratory 8 Pressure Positive End Expiratory 8 Pressure Positive End Expiratory 8 Pressure Positive End Expiratory 8 Pressure Positive End Expiratory 8 Pressure Positive End Expiratory 8 Pressure Positive End Expiratory 8 Pressure Positive End Expiratory 8 Pressure Positive End Expiratory 8 Pressure Positive End Expiratory 8 Pressure Positive End Expiratory 8 Pressure Positive End Expiratory 8 Pressure Peak Inspiratory Airway 22 Pressure Peak Inspiratory Airway 23 Pressure Peak Inspiratory Airway 24 Pressure Peak Inspiratory Airway 23 Pressure Peak Inspiratory Airway 22 Pressure Peak Inspiratory Airway 22 Pressure Peak Inspiratory Airway 21 Pressure Peak Inspiratory Airway 20 Pressure Peak Inspiratory Airway 21 Pressure Peak Inspiratory Airway 21 Pressure Peak Inspiratory Airway 21 Pressure Peak Inspiratory Airway 20 Pressure Results - Laboratory Findings CBC and BMP: 03/21/19 04:00 03/21/19 04:00 ABG ABG pH 7.39 pH Units (7.32-7.45) 03/21/19 04:08 ABG pCO2 31 mmHg (35-45) L 03/21/19 04:08 ABG pO2 105 mmHg (85-104) H 03/21/19 04:08 ABG O2 Saturation 98 % (95-98) 03/21/19 04:08 PT/INR, D-dimer PT 22.8 Seconds (9.4-12.1) H 03/21/19 04:00 Abnormal lab findings: Abnormal lab results WBC 11.3 K/mcL (4.3-11.1) H 03/20/19 11:52 MCHC 36.8 g/dL (31.6-35.5) H 03/21/19 04:00 Plt Count 80 K/mcL (140-400) L 03/21/19 04:00 MPV 13.0 fL (9.4-12.4) H 03/20/19 20:09 Band Neutrophils % 24.0 % (0-4) H 03/21/19 04:00 Metamyelocytes % 4.0 % (0) H 03/20/19 11:52 Myelocytes % 2.0 % (0) H 03/21/19 04:00 Neutrophils # 11.0 K/mcL (1.6-8.9) H 03/20/19 04:18 Monocytes # 2.4 K/mcL (0.0-1.3) H 03/19/19 04:30 Nucleated RBCs/100 WBC 0.4 /100 WBC (0) H 03/19/19 00:33 Reactive Lymphocytes Present (Not Present) A 03/21/19 04:00 Toxic Granulation Present (Not Present) A 03/21/19 04:00 Platelet Estimate Decreased (Normal) L 03/21/19 04:00 Immature Plt Fraction 13.8 % (1.1-6.1) H 03/21/19 04:00 PT 22.8 Seconds (9.4-12.1) H 03/21/19 04:00 Fibrinogen 532 mg/dL (169-393) H 03/21/19 04:00 ABG pH 7.29 pH Units (7.32-7.45) L 03/20/19 12:57 ABG pCO2 31 mmHg (35-45) L 03/21/19 04:08 ABG pO2 105 mmHg (85-104) H 03/21/19 04:08 ABG HCO3 19 mEq/L (21-27) L 03/21/19 04:08 ABG Total CO2 16 mEq/L (20-26) L 03/20/19 12:57 ABG O2 Saturation 99 % (95-98) H 03/20/19 12:57 ABG Base Excess -5 mEq/L (-2 to 3) L 03/21/19 04:08 VBG pH 7.13 pH Units (7.32-7.42) L* 03/19/19 00:48 VBG pCO2 91 mmHg (41-51) H* 03/19/19 00:48 VBG HCO3 30 mEq/L (21-27) H 03/19/19 00:48 Sodium 135 mEq/L (136-145) L 03/21/19 04:00 Potassium 5.6 mEq/L (3.5-5.1) H 03/20/19 11:52 Chloride 109 mEq/L (98-107) H 03/19/19 09:35 Carbon Dioxide 22 mEq/L (23-29) L 03/21/19 04:00 BUN 42 mg/dL (6-20) H 03/21/19 04:00 Creatinine 4.32 mg/dL (0.70-1.30) H 03/21/19 04:00 Est GFR ( Amer) 19 (> 60) L 03/21/19 04:00 Est GFR (Non-Af Amer) 16 (> 60) L 03/21/19 04:00 Glucose 120 mg/dL (70-105) H 03/20/19 11:52 POC Glucose 102 mg/dL (70-99) H 03/20/19 11:01 Calculated Osmolality 302 (280-300) H 03/19/19 13:25 Lactic Acid 2.4 mmol/L (0.5-2.2) H 03/21/19 04:00 Calcium 6.4 mg/dL (8.6-10.3) L 03/21/19 04:00 Venous Ioniz Calcium 0.77 mmol/L (1.15-1.35) L 03/21/19 04:18 Phosphorus 7.5 mg/dL (2.7-4.5) H 03/20/19 03:45 Magnesium 3.9 mg/dL (1.6-2.6) H 03/19/19 07:04 Total Bilirubin 2.5 mg/dL (0.3-1.0) H 03/21/19 04:00 Direct Bilirubin 1.5 mg/dL (0.0-0.2) H 03/21/19 04:00 AST 2951 Units/L (13-39) H 03/21/19 04:00 ALT 1492 Units/L (7-52) H 03/21/19 04:00 Creatine Kinase > 44294 Units/L (30-223) H 03/21/19 04:00 Troponin I 0.89 ng/mL (< 0.04) H* 03/20/19 03:45 Serum Total Protein 4.8 g/dL (6.4-8.9) L 03/21/19 04:00 Albumin 2.7 g/dL (3.5-5.7) L 03/21/19 04:00 Globulin 2.1 g/dL (2.4-3.5) L 03/21/19 04:00 Ur Specimen Adequacy See below A 03/19/19 03:55 Urine Color [place] (Yellow) A 03/19/19 03:55 Urine Clarity Cloudy (Clear) A 03/19/19 03:55 Urine Protein >=300 mg/dL (Neg-Trace) H 03/19/19 03:55 Urine Ketones Trace mg/dL (Negative) H 03/19/19 03:55 Urine Blood Large (Negative) H 03/19/19 03:55 Urine Bilirubin Small (Negative) H 03/19/19 03:55 Urine Microscopic RBC 50-100 per hpf (0-3) H 03/19/19 03:55 Urine Bacteria Many per hpf (None-Few) H 03/19/19 03:55 Ur Culture Indicated? YES (NO) A 03/19/19 03:55 Salicylates < 2.5 mg/dL (15.0-30.0) L 03/19/19 08:20 Ur Buprenorphine Scrn Positive ng/mL (Cutoff=5) H 03/19/19 03:55 Acetaminophen < 10 mcg/mL (10-20) L 03/19/19 08:20 Ur Amphetamines Screen Positive ng/mL (Ielhpq=3087) H 03/19/19 03:55 U Benzodiazepines Scrn Positive ng/mL (Hzyuid=096) H 03/19/19 03:55 U Marijuana (THC) Screen Positive ng/mL (Cutoff = 50) H 03/19/19 03:55 Hep Bs Antibody < 3.10 mIU/mL (10.00-) L 03/19/19 08:20 Staphylococcus sp PCR DETECTED (Not Detect) A 03/19/19 00:52 - Microbiology Findings Microbiology Findings: Microbiology, Last 48 Hours 03/19/19 00:52 Blood Culture - Preliminary Peripheral Venipuncture Gram Positive Cocci 03/19/19 03:55 Urine Culture - Final Urine,Catheterized (Straight) No growth. - Clinical Findings Intake & Output: Intake & Output 03/20/19 03/20/19 03/21/19 15:59 23:59 07:59 Intake Total 4489.5 / 7701.5 1692 / 7701.5 1301.4 / 1301.4 Output Total 0 / 641 531 / 641 55 / 55 Balance 4489.5 / 7060.5 1161 / 7060.5 1246.4 / 1246.4 Weight 101 kg - VTE Documentation of Mechanical Device: Intermittent pneumatic compression device Consult Discharge Plan - Plan Referrals: NONE,PCP [Primary Care Provider] -
--- NOTE | 2019-03-21 07:49 | Pulmonology Progress Note ---
<Julian Bear - Last Filed: 03/21/19 11:20> Date of Encounter: 03/21/19 Time of Encounter: 07:48 Assessment and Plan (1) Encephalopathy Current Visit: Yes Status: Acute Acute toxic encephalopathy/toxidrome with likely anoxic brain injury in context of cardiac arrest. Suspected etiology due to drug overdose and metabolic disturbances including hyperkalemia. Currently intubated/sedated on fentanyl/propofol/Precedex. UDS pos for amphetamines, bzds, MJ, buprenorphine. Plan: - Neurology consulted, EEG shows no epileptiform activity, cont supportive care - Cont to monitor neuro function and mental status - Started NAC protocol empirically for possible tylenol overdose (2) Acute respiratory failure with hypoxia Current Visit: Yes Status: Acute Respiratory failure with respiratory acidosis. Likely anoxic brain injury. Currently intubated/sedated. Not stable enough to attempt SBT. Plan: - Daily ABGs - Cont to monitor respiratory function and status (3) Hyperkalemia Current Visit: Yes Status: Acute Noted to have initial potassium of 8.4. Was treated in the ED with albuterol, Ca, insulin, and kayexalate. Plan: - Nephro consulted for emergent hemodialysis - Cont fluids, bicarb gtt and trending BMP every 8 hours - Monitor for EKG changes (4) Cardiac arrest Current Visit: Yes Status: Acute Likely due to metabolic disturbances and potential drug overdose. ROSC achieved after one round of CPR. Plan: - Cont to monitor vitals - Trend troponins, echo ordered for possible ischemic damage (5) Shock Current Visit: Yes Status: Acute Shock likely d/t hypoperfusion in context of metabolic disturbance and poss drug OD. KIEL with elevated LFTs and troponins. Initial WBC of 15. Likely reactive d/t cardiac arrest. Also elevated CK d/t rhabdo. CT also shows signs of ischemic colitis, biliary pneumatosis. Plan: - Cont to monitor WBCs, Cr, LFTs, and trops - Supportive care with fluids, bicarb gtt, levophed - On empiric abx vanc and zosyn (6) Drug overdose Current Visit: Yes Status: Acute Possible drug OD at presentation. Hx of meth abuse. UDS positive for bup, amphetamines, MJ, bzds. Plan: - Cont to monitor - On NAC protocol for possible APAP OD Qualifiers: Encounter type: initial encounter Injury intent: undetermined intent Qualified Code(s): T50.904A - Poisoning by unspecified drugs, medicaments and biological substances, undetermined, initial encounter (7) Acute kidney injury Current Visit: Yes Status: Acute Likely d/t shock and hypoperfusion. Also with rhabdo and hyperK. Plan: - Nephro consulted for hyperK, will cont with emergent dialysis - Cont MIVFs and monitor UOP - Trend renal function with BMPs - Trend CK (8) Rhabdomyolysis Current Visit: Yes Status: Acute Elevated CK. Currently >20,000. Noted to have neck mass with concern fro hematoma/abscess vs. myositis. CT of the neck was obtained. Plan: - Measurement of intraabdominal pressures - CPK has been persistently elevated despite fluids - Cont fluids - Cont trending CK Qualifiers: Rhabdomyolysis type: non-traumatic Qualified Code(s): M62.82 - Rhabdomyolysis (9) Seizure-like activity Current Visit: Yes Status: Acute Noted seizure-like activity in the ED. Likely due to metabolic disturbances. The patient is not showing myoclonic jerking, but does have oral sucking motion. CT head did not show any acute process. Plan: - Neuro consulted, recommended supportive care, no indications for LP - No seizure activity noted on EEG (10) DVT prophylaxis Current Visit: Yes Status: Acute DVT PPX: hep SQ Analgesia: fentanyl gtt Sedation: propofol and precedex gtt SBT: none Glycemic control: none Bowl regimen: none Activity: none Fluids: MIVF Electrolytes: replete as necessary Nutrition: NPO GI ppx: PPI Lines: ET, OG, james, dialysis cath, CVC, art line, 2x PIV Consults: pulm, neuro, nephro, IR, ENT Code: FULL Dispo: ICU Subjective Principal diagnosis: Cardiac Arrest Interval history: Patient was seen and examined at bedside. No acute events overnight. Patient's ionized calcium was low, and was repleted. Patient is unresponsive to stimuli and does not have any purposeful movements. He continues to have very low urine output. Of note, patient was noted to have a stable hematoma on the left side of his neck. ENT states no intervention necessary at this time. Objective PUL Vital signs: Last Vital Signs Temp 100.3 F H 03/21/19 04:39 Pulse 99 03/21/19 06:00 Resp 24 03/21/19 06:00 BP 127/76 03/21/19 06:00 Pulse Ox 100 03/21/19 06:00 General appearance: no acute distress Eyes: nonicteric ENT: oropharynx moist Neck: supple Effort: normal Auscultation: bilateral: clear Cardiovascular: regular rate and rhythm Gastrointestinal: normoactive bowel sounds, non-distended Integumentary: normal Extremities: no cyanosis, no edema, no clubbing Musculoskeletal: no deformities, ROM normal unable to assess due to mental status (No spontaneous movements, no response painful stimuli, pupillary light reflex bilaterally. No corneal reflex or gag reflex.) Ventilator Settings Ventilator Settings: Ventilator Settings, Last 8 Hours Ventilator Tidal Volume 500 Setting Ventilator Tidal Volume 500 Setting Ventilator Tidal Volume 500 Setting Ventilator Tidal Volume 500 Setting Ventilator Tidal Volume 500 Setting Ventilator Tidal Volume 500 Setting Ventilator Tidal Volume 500 Setting Ventilator Tidal Volume 500 Setting Ventilator Tidal Volume 500 Setting Ventilator Tidal Volume 500 Setting Ventilator Tidal Volume 500 Setting Ventilator Respiratory Rate 24 Setting Ventilator Respiratory Rate 24 Setting Ventilator Respiratory Rate 24 Setting Ventilator Respiratory Rate 24 Setting Ventilator Respiratory Rate 24 Setting Ventilator Respiratory Rate 24 Setting Ventilator Respiratory Rate 24 Setting Ventilator Respiratory Rate 24 Setting Ventilator Respiratory Rate 24 Setting Ventilator Respiratory Rate 24 Setting Ventilator Respiratory Rate 24 Setting Actual Respiratory Rate 24 Actual Respiratory Rate 24 Actual Respiratory Rate 24 Actual Respiratory Rate 24 Actual Respiratory Rate 25 Actual Respiratory Rate 25 Actual Respiratory Rate 24 Actual Respiratory Rate 24 Actual Respiratory Rate 24 Actual Respiratory Rate 24 Positive End Expiratory 8 Pressure Positive End Expiratory 8 Pressure Positive End Expiratory 8 Pressure Positive End Expiratory 8 Pressure Positive End Expiratory 8 Pressure Positive End Expiratory 8 Pressure Positive End Expiratory 8 Pressure Positive End Expiratory 8 Pressure Positive End Expiratory 8 Pressure Positive End Expiratory 8 Pressure Positive End Expiratory 8 Pressure Peak Inspiratory Airway 22 Pressure Peak Inspiratory Airway 23 Pressure Peak Inspiratory Airway 24 Pressure Peak Inspiratory Airway 23 Pressure Peak Inspiratory Airway 22 Pressure Peak Inspiratory Airway 22 Pressure Peak Inspiratory Airway 21 Pressure Peak Inspiratory Airway 20 Pressure Peak Inspiratory Airway 21 Pressure Peak Inspiratory Airway 21 Pressure Results - Laboratory Findings CBC and BMP: 03/21/19 04:00 03/21/19 04:00 ABG ABG pH 7.39 pH Units (7.32-7.45) 03/21/19 04:08 ABG pCO2 31 mmHg (35-45) L 03/21/19 04:08 ABG pO2 105 mmHg (85-104) H 03/21/19 04:08 ABG O2 Saturation 98 % (95-98) 03/21/19 04:08 PT/INR, D-dimer PT 22.8 Seconds (9.4-12.1) H 03/21/19 04:00 Abnormal lab findings: Abnormal lab results WBC 11.3 K/mcL (4.3-11.1) H 03/20/19 11:52 MCHC 36.8 g/dL (31.6-35.5) H 03/21/19 04:00 Plt Count 80 K/mcL (140-400) L 03/21/19 04:00 MPV 13.0 fL (9.4-12.4) H 03/20/19 20:09 Band Neutrophils % 24.0 % (0-4) H 03/21/19 04:00 Metamyelocytes % 4.0 % (0) H 03/20/19 11:52 Myelocytes % 2.0 % (0) H 03/21/19 04:00 Neutrophils # 11.0 K/mcL (1.6-8.9) H 03/20/19 04:18 Monocytes # 2.4 K/mcL (0.0-1.3) H 03/19/19 04:30 Nucleated RBCs/100 WBC 0.4 /100 WBC (0) H 03/19/19 00:33 Reactive Lymphocytes Present (Not Present) A 03/21/19 04:00 Toxic Granulation Present (Not Present) A 03/21/19 04:00 Platelet Estimate Decreased (Normal) L 03/21/19 04:00 Immature Plt Fraction 13.8 % (1.1-6.1) H 03/21/19 04:00 PT 22.8 Seconds (9.4-12.1) H 03/21/19 04:00 Fibrinogen 532 mg/dL (169-393) H 03/21/19 04:00 ABG pH 7.29 pH Units (7.32-7.45) L 03/20/19 12:57 ABG pCO2 31 mmHg (35-45) L 03/21/19 04:08 ABG pO2 105 mmHg (85-104) H 03/21/19 04:08 ABG HCO3 19 mEq/L (21-27) L 03/21/19 04:08 ABG Total CO2 16 mEq/L (20-26) L 03/20/19 12:57 ABG O2 Saturation 99 % (95-98) H 03/20/19 12:57 ABG Base Excess -5 mEq/L (-2 to 3) L 03/21/19 04:08 VBG pH 7.13 pH Units (7.32-7.42) L* 03/19/19 00:48 VBG pCO2 91 mmHg (41-51) H* 03/19/19 00:48 VBG HCO3 30 mEq/L (21-27) H 03/19/19 00:48 Sodium 135 mEq/L (136-145) L 03/21/19 04:00 Potassium 5.6 mEq/L (3.5-5.1) H 03/20/19 11:52 Chloride 109 mEq/L (98-107) H 03/19/19 09:35 Carbon Dioxide 22 mEq/L (23-29) L 03/21/19 04:00 BUN 42 mg/dL (6-20) H 03/21/19 04:00 Creatinine 4.32 mg/dL (0.70-1.30) H 03/21/19 04:00 Est GFR ( Amer) 19 (> 60) L 03/21/19 04:00 Est GFR (Non-Af Amer) 16 (> 60) L 03/21/19 04:00 Glucose 120 mg/dL (70-105) H 03/20/19 11:52 POC Glucose 102 mg/dL (70-99) H 03/20/19 11:01 Calculated Osmolality 302 (280-300) H 03/19/19 13:25 Lactic Acid 2.4 mmol/L (0.5-2.2) H 03/21/19 04:00 Calcium 6.4 mg/dL (8.6-10.3) L 03/21/19 04:00 Venous Ioniz Calcium 0.77 mmol/L (1.15-1.35) L 03/21/19 04:18 Phosphorus 7.5 mg/dL (2.7-4.5) H 03/20/19 03:45 Magnesium 3.9 mg/dL (1.6-2.6) H 03/19/19 07:04 Total Bilirubin 2.5 mg/dL (0.3-1.0) H 03/21/19 04:00 Direct Bilirubin 1.5 mg/dL (0.0-0.2) H 03/21/19 04:00 AST 2951 Units/L (13-39) H 03/21/19 04:00 ALT 1492 Units/L (7-52) H 03/21/19 04:00 Creatine Kinase > 12611 Units/L (30-223) H 03/21/19 04:00 Troponin I 0.89 ng/mL (< 0.04) H* 03/20/19 03:45 Serum Total Protein 4.8 g/dL (6.4-8.9) L 03/21/19 04:00 Albumin 2.7 g/dL (3.5-5.7) L 03/21/19 04:00 Globulin 2.1 g/dL (2.4-3.5) L 03/21/19 04:00 Ur Specimen Adequacy See below A 03/19/19 03:55 Urine Color [place] (Yellow) A 03/19/19 03:55 Urine Clarity Cloudy (Clear) A 03/19/19 03:55 Urine Protein >=300 mg/dL (Neg-Trace) H 03/19/19 03:55 Urine Ketones Trace mg/dL (Negative) H 03/19/19 03:55 Urine Blood Large (Negative) H 03/19/19 03:55 Urine Bilirubin Small (Negative) H 03/19/19 03:55 Urine Microscopic RBC 50-100 per hpf (0-3) H 03/19/19 03:55 Urine Bacteria Many per hpf (None-Few) H 03/19/19 03:55 Ur Culture Indicated? YES (NO) A 03/19/19 03:55 Salicylates < 2.5 mg/dL (15.0-30.0) L 03/19/19 08:20 Ur Buprenorphine Scrn Positive ng/mL (Cutoff=5) H 03/19/19 03:55 Acetaminophen < 10 mcg/mL (10-20) L 03/19/19 08:20 Ur Amphetamines Screen Positive ng/mL (Pezxto=0924) H 03/19/19 03:55 U Benzodiazepines Scrn Positive ng/mL (Xjsxmm=631) H 03/19/19 03:55 U Marijuana (THC) Screen Positive ng/mL (Cutoff = 50) H 03/19/19 03:55 Hep Bs Antibody < 3.10 mIU/mL (10.00-) L 03/19/19 08:20 Staphylococcus sp PCR DETECTED (Not Detect) A 03/19/19 00:52 - Microbiology Findings Microbiology Findings: Microbiology, Last 48 Hours 03/19/19 00:52 Blood Culture - Preliminary Peripheral Venipuncture Gram Positive Cocci 03/19/19 03:55 Urine Culture - Final Urine,Catheterized (Straight) No growth. - Clinical Findings Intake & Output: Intake & Output 03/20/19 03/20/19 03/21/19 15:59 23:59 07:59 Intake Total 4489.5 / 7701.5 1692 / 7701.5 1427.4 / 1427.4 Output Total 0 / 641 531 / 641 55 / 55 Balance 4489.5 / 7060.5 1161 / 7060.5 1372.4 / 1372.4 Weight 101 kg - VTE Documentation of Mechanical Device: Intermittent pneumatic compression device Consult Discharge Plan - Plan Referrals: NONE,PCP [Primary Care Provider] - <Giorgi Valdovinos - Last Filed: 03/21/19 12:40> Date of Encounter: 03/21/19 Assessment and Plan (1) Multiple organ failure Current Visit: Yes Status: Acute (2) Toxic encephalopathy Current Visit: Yes Status: Acute (3) Anoxic brain injury Current Visit: Yes Status: Suspected (4) Neck mass Current Visit: Yes Status: Acute (5) Drug overdose Current Visit: Yes Status: Acute Qualifiers: Encounter type: initial encounter Injury intent: undetermined intent Qualified Code(s): T50.904A - Poisoning by unspecified drugs, medicaments and biological substances, undetermined, initial encounter (6) Cardiac arrest Current Visit: Yes Status: Acute (7) Acute kidney injury Current Visit: Yes Status: Acute (8) Rhabdomyolysis Current Visit: Yes Status: Acute Qualifiers: Rhabdomyolysis type: non-traumatic Qualified Code(s): M62.82 - Rhabdomyolysis (9) Acute respiratory failure with hypoxia Current Visit: Yes Status: Acute (10) Ischemic hepatitis Current Visit: Yes Status: Acute Objective PUL Vital signs: Last Vital Signs Temp 99.9 F H 03/21/19 12:21 Pulse 108 03/21/19 12:00 Resp 24 03/21/19 12:00 BP 148/85 03/21/19 12:00 Pulse Ox 99 03/21/19 12:00 Ventilator Settings Ventilator Settings: Ventilator Settings, Last 8 Hours Ventilator Tidal Volume 500 Setting Ventilator Tidal Volume 500 Setting Ventilator Tidal Volume 500 Setting Ventilator Tidal Volume 500 Setting Ventilator Tidal Volume 500 Setting Ventilator Tidal Volume 500 Setting Ventilator Tidal Volume 500 Setting Ventilator Tidal Volume 500 Setting Ventilator Tidal Volume 500 Setting Ventilator Tidal Volume 500 Setting Ventilator Tidal Volume 500 Setting Ventilator Respiratory Rate 18 Setting Ventilator Respiratory Rate 18 Setting Ventilator Respiratory Rate 18 Setting Ventilator Respiratory Rate 18 Setting Ventilator Respiratory Rate 24 Setting Ventilator Respiratory Rate 24 Setting Ventilator Respiratory Rate 24 Setting Ventilator Respiratory Rate 24 Setting Ventilator Respiratory Rate 24 Setting Ventilator Respiratory Rate 24 Setting Ventilator Respiratory Rate 24 Setting Actual Respiratory Rate 24 Actual Respiratory Rate 28 Actual Respiratory Rate 18 Actual Respiratory Rate 18 Actual Respiratory Rate 24 Actual Respiratory Rate 24 Actual Respiratory Rate 24 Actual Respiratory Rate 24 Actual Respiratory Rate 24 Actual Respiratory Rate 24 Actual Respiratory Rate 24 Positive End Expiratory 8 Pressure Positive End Expiratory 8 Pressure Positive End Expiratory 8 Pressure Positive End Expiratory 8 Pressure Positive End Expiratory 8 Pressure Positive End Expiratory 8 Pressure Positive End Expiratory 8 Pressure Positive End Expiratory 8 Pressure Positive End Expiratory 8 Pressure Positive End Expiratory 8 Pressure Positive End Expiratory 8 Pressure Peak Inspiratory Airway 9 Pressure Peak Inspiratory Airway 9 Pressure Peak Inspiratory Airway 18 Pressure Peak Inspiratory Airway 18 Pressure Peak Inspiratory Airway 9 Pressure Peak Inspiratory Airway 24 Pressure Peak Inspiratory Airway 21 Pressure Peak Inspiratory Airway 22 Pressure Peak Inspiratory Airway 22 Pressure Peak Inspiratory Airway 23 Pressure Peak Inspiratory Airway 24 Pressure Results - Laboratory Findings CBC and BMP: 03/21/19 04:00 03/21/19 04:00 ABG ABG pH 7.39 pH Units (7.32-7.45) 03/21/19 04:08 ABG pCO2 31 mmHg (35-45) L 03/21/19 04:08 ABG pO2 105 mmHg (85-104) H 03/21/19 04:08 ABG O2 Saturation 98 % (95-98) 03/21/19 04:08 PT/INR, D-dimer PT 22.8 Seconds (9.4-12.1) H 03/21/19 04:00 Abnormal lab findings: Abnormal lab results WBC 11.3 K/mcL (4.3-11.1) H 03/20/19 11:52 MCHC 36.8 g/dL (31.6-35.5) H 03/21/19 04:00 Plt Count 80 K/mcL (140-400) L 03/21/19 04:00 MPV 13.0 fL (9.4-12.4) H 03/20/19 20:09 Band Neutrophils % 24.0 % (0-4) H 03/21/19 04:00 Metamyelocytes % 4.0 % (0) H 03/20/19 11:52 Myelocytes % 2.0 % (0) H 03/21/19 04:00 Neutrophils # 11.0 K/mcL (1.6-8.9) H 03/20/19 04:18 Monocytes # 2.4 K/mcL (0.0-1.3) H 03/19/19 04:30 Nucleated RBCs/100 WBC 0.4 /100 WBC (0) H 03/19/19 00:33 Reactive Lymphocytes Present (Not Present) A 03/21/19 04:00 Toxic Granulation Present (Not Present) A 03/21/19 04:00 Platelet Estimate Decreased (Normal) L 03/21/19 04:00 Immature Plt Fraction 13.8 % (1.1-6.1) H 03/21/19 04:00 PT 22.8 Seconds (9.4-12.1) H 03/21/19 04:00 Fibrinogen 532 mg/dL (169-393) H 03/21/19 04:00 ABG pH 7.29 pH Units (7.32-7.45) L 03/20/19 12:57 ABG pCO2 31 mmHg (35-45) L 03/21/19 04:08 ABG pO2 105 mmHg (85-104) H 03/21/19 04:08 ABG HCO3 19 mEq/L (21-27) L 03/21/19 04:08 ABG Total CO2 16 mEq/L (20-26) L 03/20/19 12:57 ABG O2 Saturation 99 % (95-98) H 03/20/19 12:57 ABG Base Excess -5 mEq/L (-2 to 3) L 03/21/19 04:08 VBG pH 7.13 pH Units (7.32-7.42) L* 03/19/19 00:48 VBG pCO2 91 mmHg (41-51) H* 03/19/19 00:48 VBG HCO3 30 mEq/L (21-27) H 03/19/19 00:48 Sodium 135 mEq/L (136-145) L 03/21/19 04:00 Potassium 5.6 mEq/L (3.5-5.1) H 03/20/19 11:52 Chloride 109 mEq/L (98-107) H 03/19/19 09:35 Carbon Dioxide 22 mEq/L (23-29) L 03/21/19 04:00 BUN 42 mg/dL (6-20) H 03/21/19 04:00 Creatinine 4.32 mg/dL (0.70-1.30) H 03/21/19 04:00 Est GFR ( Amer) 19 (> 60) L 03/21/19 04:00 Est GFR (Non-Af Amer) 16 (> 60) L 03/21/19 04:00 Glucose 120 mg/dL (70-105) H 03/20/19 11:52 POC Glucose 102 mg/dL (70-99) H 03/20/19 11:01 Calculated Osmolality 302 (280-300) H 03/19/19 13:25 Lactic Acid 2.4 mmol/L (0.5-2.2) H 03/21/19 04:00 Calcium 6.4 mg/dL (8.6-10.3) L 03/21/19 04:00 Venous Ioniz Calcium 0.77 mmol/L (1.15-1.35) L 03/21/19 04:18 Phosphorus 7.5 mg/dL (2.7-4.5) H 03/20/19 03:45 Magnesium 3.9 mg/dL (1.6-2.6) H 03/19/19 07:04 Total Bilirubin 2.5 mg/dL (0.3-1.0) H 03/21/19 04:00 Direct Bilirubin 1.5 mg/dL (0.0-0.2) H 03/21/19 04:00 AST 2951 Units/L (13-39) H 03/21/19 04:00 ALT 1492 Units/L (7-52) H 03/21/19 04:00 Creatine Kinase > 81173 Units/L (30-223) H 03/21/19 04:00 Troponin I 0.89 ng/mL (< 0.04) H* 03/20/19 03:45 Serum Total Protein 4.8 g/dL (6.4-8.9) L 03/21/19 04:00 Albumin 2.7 g/dL (3.5-5.7) L 03/21/19 04:00 Globulin 2.1 g/dL (2.4-3.5) L 03/21/19 04:00 Ur Specimen Adequacy See below A 03/19/19 03:55 Urine Color [place] (Yellow) A 03/19/19 03:55 Urine Clarity Cloudy (Clear) A 03/19/19 03:55 Urine Protein >=300 mg/dL (Neg-Trace) H 03/19/19 03:55 Urine Ketones Trace mg/dL (Negative) H 03/19/19 03:55 Urine Blood Large (Negative) H 03/19/19 03:55 Urine Bilirubin Small (Negative) H 03/19/19 03:55 Urine Microscopic RBC 50-100 per hpf (0-3) H 03/19/19 03:55 Urine Bacteria Many per hpf (None-Few) H 03/19/19 03:55 Ur Culture Indicated? YES (NO) A 03/19/19 03:55 Salicylates < 2.5 mg/dL (15.0-30.0) L 03/19/19 08:20 Ur Buprenorphine Scrn Positive ng/mL (Cutoff=5) H 03/19/19 03:55 Acetaminophen < 10 mcg/mL (10-20) L 03/19/19 08:20 Ur Amphetamines Screen Positive ng/mL (Nubrzv=5179) H 03/19/19 03:55 U Benzodiazepines Scrn Positive ng/mL (Olugqr=176) H 03/19/19 03:55 U Marijuana (THC) Screen Positive ng/mL (Cutoff = 50) H 03/19/19 03:55 Hep Bs Antibody < 3.10 mIU/mL (10.00-) L 03/19/19 08:20 Staphylococcus sp PCR DETECTED (Not Detect) A 03/19/19 00:52 - Microbiology Findings Microbiology Findings: Microbiology, Last 48 Hours 03/19/19 00:52 Blood Culture - Preliminary Peripheral Venipuncture Gram Positive Cocci 03/19/19 03:55 Urine Culture - Final Urine,Catheterized (Straight) No growth. - Clinical Findings Intake & Output: Intake & Output 03/20/19 03/21/19 03/21/19 23:59 07:59 15:59 Intake Total 1692 / 7701.5 1427.4 / 1456.6 29.2 / 1456.6 Output Total 531 / 641 55 / 55 0 / 55 Balance 1161 / 7060.5 1372.4 / 1401.6 29.2 / 1401.6 Weight 101 kg - Attending Attestation I examined this patient and my medical decision-making was reviewed with the Resident Physician. I agree with the documented findings, disposition and treatment plan as described except to the extent set forth below. We independently had [id number] contact with the patient I spent 38min of Critical Care time with this patient. It involved decision making of high complexity to assess, manipulate, and support vital organ system failure and/or to prevent further life threatening deterioration of the patient's condition. The time involved in the performance of separately reportable procedures was not counted toward critical care time. Patient seen and examined at bedside Labs, radiology, chart personally reviewed. Management was reviewed during multidisciplinary critical care rounds. 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 Additionally patient may have suffered some degree of anoxic brain injury. We will need to continue supportive care for now repeat head CT yesterday was unremarkable. Somewhat encouragingly patient is able to trigger the event breathe over the vent which would not be a consistent finding with brain I suspect a prolonged recovery if there is no severe irreversible brain damage Pulm: Patient presented with hypoxic respiratory failure and is on the vent he has acceptable gas exchange today I have decrease his minute ventilation will c ontinue with ventilator bundle to prevent ventilator associated pneumonia Cards: Blood pressure is been stable has tachycardia is improving. He has a mild lactic acidosis which is multifactorial and likely some of the residual effects of his hepatic injury. Distal pulses are present in the feet he is noted to have somewhat cool extremities but ultrasound Doppler demonstrates a good signal GI: GI prophylaxis while and then to ischemic hepatitis slowly improving. We will measure intra-abdominal pressures to rule out abdominal compartment syndrome Nutrition: Will remain nothing by mouth today but I suspect if intra-abdominal pressures are within normal limits that he could consider advancing diet at least starting trophic enteral nutrition Renal: Persistent rhabdomyolysis which I suspect is related to myositis and amphetamine use. Plan for dialysis today nephrology following. He remains and uric UOP Monitored, Cont to Trend sCr and monitor Electrolytes. ID: He has been treated with broad-spectrum antibiotics for myositis as well as aspiration pneumonia. De-escalate antibiotics based upon culture and sensitivities Heme/Onc: Thrombocytopenia is improving after platelet transfusion still has mild coagulopathy secondary to his liver dysfunction and multiorgan system failure there is no evidence of active hemorrhage Endo: Glucose Monitored Integ/MSK: Skin Care per routine ICU Nursing Protocol to prevent ulcers. Clinical examination there is no evidence of compartment syndrome all the abdomen is firm is still able to be compressed and is not rigid Lines: All lines examined without evidence of infection : Dispo: Monitored in ICU for critical illness CODE: I had an extensive conversation with the ICU team and the patient's family including his mother and father brother and sister and uncle and went over in detail clinical course as it is not prognosis as we see it right now all questions were answered. Overall prognosis appears guarded to poor but will hinge in my estimation primarily on degree of axonal injury
[2019-03-21] MEDS: Pantoprazole 40 MG VIAL IVP SCH (07:59)
[2019-03-21] MEDS: Chlorhexidine Rinse 15 ML MOUTHWASH MM SCH ×2 (07:59→19:36)
[2019-03-21] MEDS: Piperacillin/Tazobactam 3.375 GM in 0.9 % Sodium Chloride Mini Bag 100 ML IVPB SCH ×2 (08:00→19:36)
--- NOTE | 2019-03-21 08:27 | Neurology Progress Note ---
Date of Encounter: 03/21/19 Time of Encounter: 09:06 Assessment and Plan (1) Encephalopathy Current Visit: Yes Status: Acute - Patient presents with unresponsive episode followed by cardiac arrest - Etiology is likely multifactorial including drug overdose, Acute renal failure, hyperkalemia, metabolic acidosis - Also patient was reported to have seizure-like activity in the emergency room which may be result of his metabolic derangements. - Labs appear to be stabilizing including renal function, hepatic failure, lactic acidosis - Currently, patient is not exhibiting myoclonic jerking and reflexes are minimal - Nephrology has been consulted for acute renal failure, underwent HD yesterday - Critical care managing overdose and ventilator settings - Patient also was noted to be tachycardic, febrile at 107 on presentation. WBC of 15 which may be reactive and secondary to drug use. Empiric antibiotics per primary team. - Lower suspicion for [employer] infection at this time. - CT head does not show acute process - Repeat CT head shows no changes. - EEG shows mild diffuse cerebral dysfunction that can be seen in patients with mild encephalopathy, metabolic/toxic, inflammatory, electrolyte derangement or anoxic/ischemic, or medication effects. Appears consistent with metabolic nature of injury - Patient was in cardiac arrest for approximately 1 min 30 sec which makes me less suspicious of an anoxic brain injury. Still in the differential but metabolic is more likely. Plan - Recommend continuing supportive care of underlying metabolic problems. - Consider repeat EEG in near future to assess for progress. Will not order today as his metabolic derangements do not appear to be improving and EEG will provide little diagnostic value. - Further recommendations from Dr. Corral - Prognosis appears guarded. (2) Seizure-like activity Current Visit: Yes Status: Acute - Likely secondary to metabolic reasons as above - Not currently demonstrating any seizure-like activity on my examination - No evidence of epilepsy on EEG yesterday but this does not exclude - Will continue to monitor (3) Drug overdose Current Visit: Yes Status: Acute - Management per primary team Qualifiers: Encounter type: initial encounter Injury intent: undetermined intent Qualified Code(s): T50.904A - Poisoning by unspecified drugs, medicaments and biological substances, undetermined, initial encounter Subjective Principal diagnosis: Cardiac Arrest Interval history: Patient seen and examined this morning at bedside. He remains intubated and unable to participate in interview. No events overnight. Family meeting yesterday with primary team. After discussion with nurse, goals of care remains unchanged at this time. Objective - Constitutional Vitals: Temp Pulse Resp BP Pulse Ox 100.3 F H 96 24 139/81 100 03/21/19 04:39 03/21/19 08:00 03/21/19 08:00 03/21/19 08:00 03/21/19 08:00 General appearance: Present: A&O X 0 (intubated and sedated. ) - Head Head exam: Present: atraumatic, normal inspection (left neck mass in SCM, possible decrease from previous) - Eye Pupils: Present: fixed (equal, non reactive to light. ) - Neurological Exam Sensorimotor examination: Present: other (Unable to determine) Motor Examination: Present: other (Unable to determine) Sensation intact: Present: other (Unable to determine) Posture: Present: other (None) Reflexes: Triceps: 0, Brachioradialis: 1+, Patella: 0, Achilles: 0 Mental Status Examination: Present: does not follow commands, cognitive impairment (no motor function appreciated. Does not respond to stimuli. ) Cranial nerve examination: Absent: PERRL, gag diminished (no gag reflex) - VTE Documentation of Mechanical Device: Intermittent pneumatic compression device Results - Laboratory Findings CBC and BMP: 03/21/19 04:00 03/21/19 04:00 Abnormal lab findings: Abnormal lab results WBC 11.3 K/mcL (4.3-11.1) H 03/20/19 11:52 MCHC 36.8 g/dL (31.6-35.5) H 03/21/19 04:00 Plt Count 80 K/mcL (140-400) L 03/21/19 04:00 MPV 13.0 fL (9.4-12.4) H 03/20/19 20:09 Band Neutrophils % 24.0 % (0-4) H 03/21/19 04:00 Metamyelocytes % 4.0 % (0) H 03/20/19 11:52 Myelocytes % 2.0 % (0) H 03/21/19 04:00 Neutrophils # 11.0 K/mcL (1.6-8.9) H 03/20/19 04:18 Monocytes # 2.4 K/mcL (0.0-1.3) H 03/19/19 04:30 Nucleated RBCs/100 WBC 0.4 /100 WBC (0) H 03/19/19 00:33 Reactive Lymphocytes Present (Not Present) A 03/21/19 04:00 Toxic Granulation Present (Not Present) A 03/21/19 04:00 Platelet Estimate Decreased (Normal) L 03/21/19 04:00 Immature Plt Fraction 13.8 % (1.1-6.1) H 03/21/19 04:00 PT 22.8 Seconds (9.4-12.1) H 03/21/19 04:00 Fibrinogen 532 mg/dL (169-393) H 03/21/19 04:00 ABG pH 7.29 pH Units (7.32-7.45) L 03/20/19 12:57 ABG pCO2 31 mmHg (35-45) L 03/21/19 04:08 ABG pO2 105 mmHg (85-104) H 03/21/19 04:08 ABG HCO3 19 mEq/L (21-27) L 03/21/19 04:08 ABG Total CO2 16 mEq/L (20-26) L 03/20/19 12:57 ABG O2 Saturation 99 % (95-98) H 03/20/19 12:57 ABG Base Excess -5 mEq/L (-2 to 3) L 03/21/19 04:08 VBG pH 7.13 pH Units (7.32-7.42) L* 03/19/19 00:48 VBG pCO2 91 mmHg (41-51) H* 03/19/19 00:48 VBG HCO3 30 mEq/L (21-27) H 03/19/19 00:48 Sodium 135 mEq/L (136-145) L 03/21/19 04:00 Potassium 5.6 mEq/L (3.5-5.1) H 03/20/19 11:52 Chloride 109 mEq/L (98-107) H 03/19/19 09:35 Carbon Dioxide 22 mEq/L (23-29) L 03/21/19 04:00 BUN 42 mg/dL (6-20) H 03/21/19 04:00 Creatinine 4.32 mg/dL (0.70-1.30) H 03/21/19 04:00 Est GFR ( Amer) 19 (> 60) L 03/21/19 04:00 Est GFR (Non-Af Amer) 16 (> 60) L 03/21/19 04:00 Glucose 120 mg/dL (70-105) H 03/20/19 11:52 POC Glucose 102 mg/dL (70-99) H 03/20/19 11:01 Calculated Osmolality 302 (280-300) H 03/19/19 13:25 Lactic Acid 2.4 mmol/L (0.5-2.2) H 03/21/19 04:00 Calcium 6.4 mg/dL (8.6-10.3) L 03/21/19 04:00 Venous Ioniz Calcium 0.77 mmol/L (1.15-1.35) L 03/21/19 04:18 Phosphorus 7.5 mg/dL (2.7-4.5) H 03/20/19 03:45 Magnesium 3.9 mg/dL (1.6-2.6) H 03/19/19 07:04 Total Bilirubin 2.5 mg/dL (0.3-1.0) H 03/21/19 04:00 Direct Bilirubin 1.5 mg/dL (0.0-0.2) H 03/21/19 04:00 AST 2951 Units/L (13-39) H 03/21/19 04:00 ALT 1492 Units/L (7-52) H 03/21/19 04:00 Creatine Kinase > 99420 Units/L (30-223) H 03/21/19 04:00 Troponin I 0.89 ng/mL (< 0.04) H* 03/20/19 03:45 Serum Total Protein 4.8 g/dL (6.4-8.9) L 03/21/19 04:00 Albumin 2.7 g/dL (3.5-5.7) L 03/21/19 04:00 Globulin 2.1 g/dL (2.4-3.5) L 03/21/19 04:00 Ur Specimen Adequacy See below A 03/19/19 03:55 Urine Color Rush (Yellow) A 03/19/19 03:55 Urine Clarity Cloudy (Clear) A 03/19/19 03:55 Urine Protein >=300 mg/dL (Neg-Trace) H 03/19/19 03:55 Urine Ketones Trace mg/dL (Negative) H 09/17/19 03:55 Urine Blood Large (Negative) H 03/19/19 03:55 Urine Bilirubin Small (Negative) H 03/19/19 03:55 Urine Microscopic RBC 50-100 per hpf (0-3) H 03/19/19 03:55 Urine Bacteria Many per hpf (None-Few) H 03/19/19 03:55 Ur Culture Indicated? YES (NO) A 03/19/19 03:55 Salicylates < 2.5 mg/dL (15.0-30.0) L 03/19/19 08:20 Ur Buprenorphine Scrn Positive ng/mL (Cutoff=5) H 03/19/19 03:55 Acetaminophen < 10 mcg/mL (10-20) L 03/19/19 08:20 Ur Amphetamines Screen Positive ng/mL ([id number]) H 03/19/19 03:55 U Benzodiazepines Scrn Positive ng/mL (Bzuplk=611) H 03/19/19 03:55 U Marijuana (THC) Screen Positive ng/mL (Cutoff = 50) H 03/19/19 03:55 Hep Bs Antibody < 3.10 mIU/mL (10.00-) L 03/19/19 08:20 Staphylococcus sp PCR DETECTED (Not Detect) A 03/19/19 00:52 Consult Discharge Plan - Plan Referrals: NONE,PCP [Primary Care Provider] -
[2019-03-21] MEDS ORDERED: *HR* Acetylcysteine 20% 600 MG/3 ML ORAL SYRINGE GTUBE SCH (09:00)
[2019-03-21] MEDS ORDERED: Thiamine (B-1) 100 MG TABLET GTUBE SCH (09:00)
[2019-03-21] MEDS ORDERED: Ascorbic Acid 500 MG TABLET GTUBE SCH (09:00)
[2019-03-21] MEDS ORDERED: Aminoglycoside Consult 1 EACH MC ONE (10:37)
[2019-03-21 11:02] LABS: ANA IgG by ELISA NONE DETECTED (None Detected); Serine Protease-3 Antibody 2 AU/mL (0-19)
[2019-03-21] MEDS ORDERED: 0.9 % Sodium Chloride 500 ML ONE (11:08)
[2019-03-21 13:36] LABS: Hematocrit 37.6 % (37.5-50.1); Hemoglobin 13.7 g/dL (12.9-16.9); Mean Corpuscular HGB Conc 36.4 g/dL (31.6-35.5); Mean Corpuscular Hemoglobin 32.1 pg (28.0-33.3); Mean Corpuscular Volume 88.1 fL (83.0-100.0); Platelet Count 107 K/mcL (140-400); Red Blood Count 4.27 M/mcL (4.19-5.50); Red Cell Distribution Width 12.2 % (11.5-14.5); White Blood Count 10.6 K/mcL (4.3-11.1)
[2019-03-21 13:37] LABS: VBG Ionized Calcium 0.77 mmol/L (1.15-1.35)
[2019-03-21 13:43] LABS: INR 1.7; Prothrombin Time 19.4 Seconds (9.4-12.1)
[2019-03-21 14:13] LABS: Alanine Aminotransferase 1522 Units/L (7-52); Albumin 2.7 g/dL (3.5-5.7); Albumin/Globulin Ratio 1.2 (1.1-2.2); Alkaline Phosphatase 85 Units/L (34-104); Aspartate Amino Transferase 2664 Units/L (13-39); BUN/Creatinine Ratio 11 (6-26); Bilirubin,Direct 1.5 mg/dL (0.0-0.2); Bilirubin,Indirect 0.8 mg/dL (0.0-1.2); Bilirubin,Total 2.3 mg/dL (0.3-1.0); Blood Urea Nitrogen 56 mg/dL (6-20); Calcium 6.5 mg/dL (8.6-10.3); Carbon Dioxide 24 mEq/L (23-29); Chloride 98 mEq/L (98-107); Creatine Kinase > 20000 Units/L (30-223); Globulin 2.2 g/dL (2.4-3.5); Glucose 121 mg/dL (70-105); Osmolality,Calculated 293 (280-300); Potassium 5.3 mEq/L (3.5-5.1); Sodium 133 mEq/L (136-145); Total Protein 4.9 g/dL (6.4-8.9); eGFR For African Americans 16 (> 60); eGFR For Non-African Americans 13 (> 60)
[2019-03-21 15:17] LABS: Lymphocytes # 0.6 K/mcL (0.6-4.6); Monocytes # 0.2 K/mcL (0.0-1.3); Neutrophils # 9.3 K/mcL (1.6-8.9)
[2019-03-21 15:18] LABS: Platelet Estimate Slight Decrease (Normal)
--- NOTE | 2019-03-21 16:47 | Nephrology Progress Note ---
Date of Encounter: 03/21/19 Time of Encounter: 12:00 - Assessment and Plan (1) Acute kidney injury Current Visit: Yes Status: Acute The patient has multifactorial acute kidney injury with shock, drug overdose, likely volume depletion, and significant rhabdomyolysis. SCr worsening today despite HD yesterday with high CPK levels No HD planned today but will continue to reassess need on daily basis Continue to avoid nephrotoxins if possible Full code status noted per familyv after meeting yesterday Prognosis very guarded (2) Drug overdose Current Visit: Yes Status: Acute Per primary team Qualifiers: Encounter type: initial encounter Injury intent: undetermined intent Qualified Code(s): T50.904A - Poisoning by unspecified drugs, medicaments and biological substances, undetermined, initial encounter (3) Hyperkalemia Current Visit: Yes Status: Acute Normalized at 5.0, will monitor (4) Rhabdomyolysis Current Visit: Yes Status: Acute etiology likely due to drug use but no clear signs of muscle damage noted Continue IVF Qualifiers: Rhabdomyolysis type: non-traumatic Qualified Code(s): M62.82 - R habdomyolysis (5) Shock Current Visit: Yes Status: Acute Mostly resolved, off pressor support (6) Multiple organ failure Current Visit: Yes Status: Acute Guarded, per primary and consultants (7) Hypocalcemia Current Visit: Yes Status: Acute Will replete as needed Subjective Principal diagnosis: Cardiac Arrest Interval history: Pt seen and examined remains intubated and sedated with poor UOP. s/p HD yesterday Objective - Vital Signs Vital signs: Vital Signs Temp Pulse Resp BP Pulse Ox 03/21/19 16:09 98.2 F 03/21/19 15:00 108 28 159/94 100 03/21/19 14:00 108 27 164/95 100 03/21/19 13:31 27 148/85 100 03/21/19 13:10 26 148/85 100 03/21/19 13:00 108 27 165/96 100 03/21/19 12:21 99.9 F H 03/21/19 12:00 108 24 148/85 99 03/21/19 11:00 108 28 155/89 99 03/21/19 10:04 97.7 F 03/21/19 10:00 108 25 151/89 99 03/21/19 09:56 18 148/86 100 03/21/19 09:00 98.5 F 103 24 148/86 100 03/21/19 08:00 96 24 139/81 100 03/21/19 07:00 95 24 126/76 100 03/21/19 06:55 24 126/76 100 03/21/19 06:00 99 24 127/76 100 03/21/19 05:02 24 119/76 100 03/21/19 05:00 103 24 118/75 100 03/21/19 04:39 100.3 F H 03/21/19 04:00 108 24 112/72 100 03/21/19 03:19 25 114/74 100 03/21/19 03:00 106 25 110/69 100 03/21/19 02:00 102 24 113/72 100 03/21/19 01:02 24 106/69 100 03/21/19 01:00 94 24 107/70 100 03/21/19 00:00 98.7 F 88 24 110/71 100 03/20/19 23:29 24 106/71 100 03/20/19 23:00 97 24 108/71 100 03/20/19 22:01 24 110/74 100 03/20/19 22:00 103 24 109/73 100 03/20/19 21:00 99.9 F H 106 24 100/68 100 03/20/19 20:00 99.9 F H 108 24 102/71 99 03/20/19 19:38 24 104/71 99 03/20/19 19:00 99.7 F H 107 24 108/79 100 03/20/19 18:55 99.8 F H 22 115/90 03/20/19 18:40 108/79 03/20/19 18:25 104/79 03/20/19 18:10 102/78 03/20/19 18:00 100 F H 109 26 102/84 100 03/20/19 17:55 103/80 03/20/19 17:49 24 97 03/20/19 17:40 106/77 03/20/19 17:25 102/80 03/20/19 17:10 103/78 03/20/19 17:00 110 26 97/76 99 03/20/19 16:55 97/76 Intake and Output 03/21/19 03/21/19 03/21/19 07:59 15:59 23:59 Intake Total 1427.4 / 2556.6 1129.2 / 2556.6 Output Total 55 / 55 0 / 55 Balance 1372.4 / 2501.6 1129.2 / 2501.6 Intake: IV Fluids 1427.4 / 2556.6 1129.2 / 2556.6 0.9 % Sodium Chloride 1,000 ML 1000 / 2000 1000 / 2000 @ 125 mls/hr IVC .Q8H [facility] Rx#: [id number] Precedex Premix 400 mcg In 100 106.0 / 106.0 ml @ 0.2 MCG/KG/HR 4.385 mls/hr IVC .[id number] [facility] Rx#: [id number] FentaNYL (PF) 1,000 MCG In 0.9 90.6 / 90.6 % Sodium Chloride 80 ML @ 50 MCG/HR 5 mls/hr IVC CONT [facility] Rx #:[id number] Diprivan 1,000 mg In 100 ml @ 5 70.8 / 100.0 29.2 / 100.0 MCG/KG/MIN 2.517 mls/hr IVC . Q24H [facility] Rx#:[id number] Calcium Chloride 1,000 MG In 0. 60 / 60 9 % Sodium Chloride 50 ML @ 120 mls/hr IVPB ONCE ONE Rx#: [id number] Zosyn 3.375 GM In 0.9 % Sodium 100 / 200 100 / 200 Chloride (Mini-Bag +) 100 ML @ 25 mls/hr IVPB Q12H [facility] Rx#: [id number] Output: Catheter 5 / 5 0 / 5 Gastric Drainage 50 / 50 Other: Weight 101 kg Blood Glucose* 72 97 94 Patient Weight 03/21/19 23:59 Weight 101 kg - General Appearance General appearance: Present: sedated on ventilator, intubated EENT: Present: ATNC, mucous membranes moist Neck: Present: no JVD, supple Respiratory: Present: course breath sounds Cardiology: Present: no edema, normal S1, normal S2 Dialysis Vascular Access: Venous Catheter (temp line) Gastrointestinal: Present: no tenderness, no guarding Integumentary: Present: warm and dry Additional Comments: sedated, nonresponsive Musculoskeletal: Present: no deformities Additional Comments: sedated, unable to assess - Lab 03/21/19 13:14 03/21/19 13:14 Most recent lab results 03/21/19 03/21/19 04:00 13:14 Calcium 6.4 L 6.5 L Magnesium 2.0 2.0 - VTE Documentation of Mechanical Device: Intermittent pneumatic compression device Consult Discharge Plan - Plan Referrals: NONE,PCP [Primary Care Provider] -
--- NOTE | 2019-03-21 17:14 | Internal Med Progress Note ---
Hospitalist Progress Note - Encounter Date of Encounter: 03/21/19 Time of Encounter: 08:40 - Subjective Interval History: Patient off sedation today, breathing over the ventilator. I do not appreciate any other neurologic activity on exam. Case discussed with MDR team and Dr. Valdovinos collaboratively. I also discussed with neurology. - Exam Vitals: Temp Pulse Resp BP Pulse Ox 98.2 F 108 28 159/94 100 03/21/19 16:09 03/21/19 15:00 03/21/19 15:00 03/21/19 15:00 03/21/19 15:00 Exam: General: Intubated, off sedation, overbreathing the vent HEENT: ETT/OG in place Chest: CTA B, no WRR, RRR, tachycardic Abdomen: distended, tense (less than yesterday) Ext: 2-3 cm hematoma noted on right thigh Neuro: absent corneal and gag reflexes; no response to painful stimuli; absent plantar reflexes - Assessment and Plan (1) Multiple organ failure Current Visit: Yes Status: Acute Assessment and Plan: 1. Discussed on rounds and collaboratively with Dr. Valdovinos. 2. Continue full supportive measures. 3. Intra-abdominal pressure monitoring. 4. Dialysis per nephrolgoy. 5. Daily neurologic exams per neurology. 6. Sedation weaned off this morning. (2) Toxic encephalopathy Current Visit: Yes Status: Acute Assessment and Plan: 1. Likely due to overdose and subsequent cardiac arrest. 2. Ongoing supportive measures as above. (3) Neck mass Current Visit: Yes Status: Acute Assessment and Plan: 1. Monitor clinically. 2. ENT consulted. 3. Continue antibiotics for possible source of infection. (4) Drug overdose Current Visit: Yes Status: Acute Assessment and Plan: 1. Care as above. (5) Rhabdomyolysis Current Visit: Yes Status: Acute Assessment and Plan: 1. IVF per MIV. 2. Dialysis per nephrology. 2. Trend CPK levels and monitor for development of compartment syndrome. (6) Acute respiratory failure with hypoxia Current Visit: Yes Status: Acute Assessment and Plan: 1. Ongoing ventilatory support per Dr. Valdovinos. (7) Ischemic hepatitis Current Visit: Yes Status: Acute Assessment and Plan: 1. Ongoing supportive measures as above. 2. Trend LFT's. Plan of Care Discussed with: other (MDR team, Dr. Valdovinos, neurology) Internal Medicine: Result - Labs CBC & Chem 7: 03/21/19 13:14 03/21/19 13:14 Labs: Short CBC 03/20/19 03/21/19 03/21/19 Range/Units 20: 04:00 13:14 WBC 10.7 10.4 10.6 (4.3-11.1) K/mcL Hgb 15.2 14.5 13.7 (12.9-16.9) g/dL Hct 42.1 39.4 37.6 (37.5-50.1) % Plt Count 65 L D 80 L 107 L (140-400) K/mcL Neutrophils # 8.7 8.9 9.3 H (1.6-8.9) K/mcL BMP 03/20/19 03/21/19 03/21/19 20:09 04:00 13:14 Sodium 135 L 135 L 133 L Potassium 4.3 5.0 5.3 H Chloride 98 99 98 Carbon Dioxide 26 22 L 24 BUN 36 H 42 H 56 H Creatinine 3.42 H 4.32 H 5.00 H Glucose 85 103 121 H Calcium 7.1 L 6.4 L 6.5 L Liver Function 03/20/19 03/21/19 03/21/19 Range/Units 20: 04:00 13:14 Total Bilirubin 2.3 H 2.5 H 2.3 H (0.3-1.0) mg/dL Direct Bilirubin 1.3 H 1.5 H 1.5 H (0.0-0.2) mg/dL AST > 3000 H 2951 H 2664 H (13-39) Units/L ALT 1554 H 1492 H 1522 H (7-52) Units/L Alkaline Phosphatase 81 72 85 (34-104) Units/L Albumin 2.8 L 2.7 L 2.7 L (3.5-5.7) g/dL - ABG Interpretation ABG results: ABG ABG pH 7.39 pH Units (7.32-7.45) 03/21/19 04:08 ABG pCO2 31 mmHg (35-45) L 03/21/19 04:08 ABG pO2 105 mmHg (85-104) H 03/21/19 04:08 ABG O2 Saturation 98 % (95-98) 03/21/19 04:08 PT/INR, D-dimer PT 19.4 Seconds (9.4-12.1) H 03/21/19 13:14 - Impressions Impressions Head CT 03/20/19 10:14 IMPRESSION: No acute intracranial abnormality. D/ / 03/20/2019 10:25:38 Ligia Roberson MD / [email or web address] Interpreting Provider: Ligia Roberson MD - VTE Documentation of Mechanical Device: Intermittent pneumatic compression device Consult Discharge Plan - Plan Referrals: NONE,PCP [Primary Care Provider] - (4) Drug overdose Qualifiers: Encounter type: initial encounter Injury intent: undetermined intent Qualified Code(s): T50.904A - Poisoning by unspecified drugs, medicaments and biological substances, undetermined, initial encounter (5) Rhabdomyolysis Qualifiers: Rhabdomyolysis type: non-traumatic Qualified Code(s): M62.82 - Rhabdomyolysis
[2019-03-21] MEDS ORDERED: Calcium Gluconate 2,000 MG in 0.9 % Sodium Chloride 100 ML IVPB ONE (17:39)
[2019-03-21] MEDS ORDERED: Calcium Gluconate 1gm/50mL 1 GM/50 ML BAG IVPB SCH (18:30)
[2019-03-21] MEDS: Calcium Gluconate 1gm/50mL 1 GM/50 ML BAG IVPB SCH ×2 (18:35→19:07)
[2019-03-21 20:22] LABS: Basophils # 0.1 K/mcL (0.0-0.2); Basophils % 0.5 %; Hematocrit 42.8 % (37.5-50.1); Immature Granulocytes % 1.3 % (0-4); Lymphocytes # 0.8 K/mcL (0.6-4.6); Lymphocytes % 6.7 %; Mean Corpuscular Volume 91.3 fL (83.0-100.0); Mean Platelet Volume 11.6 fL (9.4-12.4); Monocytes # 1.4 K/mcL (0.0-1.3); Monocytes % 11.7 %; Neutrophils # 9.5 K/mcL (1.6-8.9); Platelet Count 102 K/mcL (140-400); Red Blood Count 4.69 M/mcL (4.19-5.50); Red Cell Distribution Width 12.6 % (11.5-14.5); Segmented Neutrophils % 79.8 %; White Blood Count 11.9 K/mcL (4.3-11.1)
[2019-03-21 20:27] LABS: VBG Ionized Calcium 0.72 mmol/L (1.15-1.35)
[2019-03-21 20:33] LABS: INR 1.4; Prothrombin Time 15.9 Seconds (9.4-12.1)
[2019-03-21 20:44] LABS: Platelet Estimate Decreased (Normal)
[2019-03-21 21:06] LABS: Alanine Aminotransferase 1578 Units/L (7-52); Albumin 2.9 g/dL (3.5-5.7); Albumin/Globulin Ratio 1.3 (1.1-2.2); Alkaline Phosphatase 84 Units/L (34-104); Aspartate Amino Transferase 2623 Units/L (13-39); BUN/Creatinine Ratio 11 (6-26); Bilirubin,Direct 1.3 mg/dL (0.0-0.2); Bilirubin,Indirect 0.8 mg/dL (0.0-1.2); Bilirubin,Total 2.1 mg/dL (0.3-1.0); Blood Urea Nitrogen 59 mg/dL (6-20); Calcium 6.5 mg/dL (8.6-10.3); Carbon Dioxide 23 mEq/L (23-29); Chloride 99 mEq/L (98-107); Creatine Kinase > 20000 Units/L (30-223); Globulin 2.3 g/dL (2.4-3.5); Glucose 95 mg/dL (70-105); Osmolality,Calculated 296 (280-300); Potassium 5.5 mEq/L (3.5-5.1); Sodium 135 mEq/L (136-145); Total Protein 5.2 g/dL (6.4-8.9); eGFR For African Americans 15 (> 60); eGFR For Non-African Americans 12 (> 60)
[2019-03-21] MEDS: Norepinephrine 4 MG in 0.9 % Sodium Chloride 250 ML IVC SCH (22:43)
[2019-03-21] MEDS: FentaNYL (PF) 1,000 MCG in 0.9 % Sodium Chloride 80 ML IVC SCH (23:43)
[2019-03-22] MEDS ORDERED: Calcium Chloride 1,000 MG in 0.9 % Sodium Chloride 100 ML IVPB ONE (00:37)
[2019-03-22] MEDS: Cholecalciferol (D-3) 1,000 UNIT (25MCG) TABLET PO SCH ×3 (01:33→20:40)
[2019-03-22] MEDS: Artificial Tears SOLN 15 ML BOTTLE BOTH EYES SCH ×6 (03:23→23:31)
[2019-03-22 03:51] LABS: Basophils % 0.2 %; Hematocrit 35.4 % (37.5-50.1); Immature Granulocytes % 1.2 % (0-4); Lymphocytes # 0.7 K/mcL (0.6-4.6); Lymphocytes % 5.1 %; Mean Corpuscular HGB Conc 36.2 g/dL (31.6-35.5); Mean Corpuscular Hemoglobin 32.4 pg (28.0-33.3); Mean Corpuscular Volume 89.6 fL (83.0-100.0); Mean Platelet Volume 11.4 fL (9.4-12.4); Monocytes % 7.5 %; Neutrophils # 11.7 K/mcL (1.6-8.9); Platelet Count 124 K/mcL (140-400); Red Blood Count 3.95 M/mcL (4.19-5.50); Red Cell Distribution Width 12.4 % (11.5-14.5); White Blood Count 13.6 K/mcL (4.3-11.1)
[2019-03-22 03:53] LABS: VBG Ionized Calcium 0.78 mmol/L (1.15-1.35)
[2019-03-22 03:54] LABS: Hemoglobin 12.8 g/dL (12.9-16.9)
[2019-03-22] MEDS ORDERED: *HR* Midazolam HCl 5 MG/5 ML VIAL IVP ONE (03:58)
[2019-03-22 04:03] LABS: INR 1.3
[2019-03-22 04:15] LABS: Platelet Estimate Decreased (Normal)
[2019-03-22 04:25] LABS: Alanine Aminotransferase 1481 Units/L (7-52); Albumin 2.6 g/dL (3.5-5.7); Albumin/Globulin Ratio 1.1 (1.1-2.2); Alkaline Phosphatase 94 Units/L (34-104); Aspartate Amino Transferase 2450 Units/L (13-39); BUN/Creatinine Ratio 12 (6-26); Bilirubin,Direct 1.1 mg/dL (0.0-0.2); Bilirubin,Indirect 0.7 mg/dL (0.0-1.2); Bilirubin,Total 1.8 mg/dL (0.3-1.0); Blood Urea Nitrogen 73 mg/dL (6-20); Calcium 6.6 mg/dL (8.6-10.3); Carbon Dioxide 19 mEq/L (23-29); Chloride 100 mEq/L (98-107); Creatine Kinase > 20000 Units/L (30-223); Globulin 2.3 g/dL (2.4-3.5); Glucose 109 mg/dL (70-105); Osmolality,Calculated 300 (280-300); Potassium 5.3 mEq/L (3.5-5.1); Sodium 134 mEq/L (136-145); Total Protein 4.9 g/dL (6.4-8.9); eGFR For African Americans 13 (> 60); eGFR For Non-African Americans 11 (> 60)
[2019-03-22 04:41] LABS: ABG Base Excess -7 mEq/L (-2 to 3); ABG HCO3 17 mEq/L (21-27); ABG Oxygen Saturation 97 % (95-98); ABG PCO2 30 mmHg (35-45); ABG PH 7.36 pH Units (7.32-7.45); ABG PO2 88 mmHg (85-104); ABG TCO2 18 mEq/L (20-26); Blood Gas Modality PRVC; Blood Gas PEEP 8 cm H2O; Blood Gas VT 500 cc
[2019-03-22] MEDS ORDERED: Calcium Gluconate 2,000 MG in 0.9 % Sodium Chloride 100 ML IVPB ONE (05:39)
[2019-03-22] MEDS: Dexmedetomidine HCl 400 MCG/100 ML MLS IVC SCH ×5 (06:00→22:00)
[2019-03-22] MEDS ORDERED: Calcium Gluconate 1gm/50mL 2 GM/100 ML BAG IVPB ONE (06:00)
[2019-03-22] MEDS: 0.9 % Sodium Chloride 1,000 ML IVC SCH ×3 (06:00→22:00)
[2019-03-22] MEDS: FentaNYL (PF) 1,000 MCG in 0.9 % Sodium Chloride 80 ML IVC SCH ×2 (06:31→19:00)
--- NOTE | 2019-03-22 08:08 | Pulmonology Progress Note ---
<Julian Bear - Last Filed: 03/22/19 11:51> Date of Encounter: 03/22/19 Time of Encounter: 08:08 Assessment and Plan (1) Encephalopathy Current Visit: Yes Status: Acute Acute toxic encephalopathy/toxidrome with likely anoxic brain injury in context of cardiac arrest. Suspected etiology due to drug overdose and metabolic disturbances including hyperkalemia. Currently intubated/sedated on fentanyl/precedex. UDS pos for amphetamines, bzds, MJ, buprenorphine. On NAC protocol empirically for possible tylenol overdose. Plan: - Neurology consulted, EEG shows no epileptiform activity, cont supportive care - Had episode of bradycardia and HTN (possible Brett response), concern for increased ICP - Follow up CT head along with spine/extremities - Cont to monitor neuro function and mental status - Hemodialysis for hyperkalemia (2) Acute respiratory failure with hypoxia Current Visit: Yes Status: Acute Respiratory failure with respiratory acidosis. Likely anoxic brain injury. Currently intubated/sedated. Not stable enough to attempt SBT. Plan: - Daily ABGs - Cont to monitor respiratory function and status (3) Hyperkalemia Current Visit: Yes Status: Acute Noted to have initial potassium of 8.4. Was treated in the ED with albuterol, Ca, insulin, and kayexalate. Plan: - Nephro consulted for emergent hemodialysis - Cont MIVFs NS 125, trending BMP every 8 hours - Monitor for EKG changes (4) Cardiac arrest Current Visit: Yes Status: Acute Likely due to metabolic disturbances and potential drug overdose. ROSC achieved after one round of CPR. Echo showed LVEF 50%, mild global LV systolic dysfunction, minimal pericardial effusion. Plan: - Cont to monitor vitals - Trend troponins (5) Shock Current Visit: Yes Status: Acute Shock likely d/t hypoperfusion in context of metabolic disturbance and poss drug OD. KIEL with elevated Cr. Initial WBC of 15. Likely reactive d/t cardiac arrest. Also elevated troponins likely d/t cardiac arrest/shock. Also elevated LFTs, likely shock liver. Also elevated CK d/t rhabdo. CT also shows signs of ischemic colitis, biliary pneumatosis. Plan: - Cont to monitor WBCs, Cr, LFTs, and trops - Supportive care with MIVFs - On empiric zosyn, stopped vanc (6) Drug overdose Current Visit: Yes Status: Acute Possible drug OD at presentation. Hx of meth abuse. UDS positive for bup, amphetamines, MJ, bzds. Plan: - Cont to monitor - On NAC protocol for possible APAP OD Qualifiers: Encounter type: initial encounter Injury intent: undetermined intent Qualified Code(s): T50.904A - Poisoning by unspecified drugs, medicaments and biological substances, undetermined, initial encounter (7) Acute kidney injury Current Visit: Yes Status: Acute Likely d/t shock and hypoperfusion. Also with rhabdo and hyperK. Plan: - Nephro consulted for hyperK, will cont with emergent dialysis - Cont MIVFs and monitor UOP - Trend renal function with BMPs - Trend CK (8) Rhabdomyolysis Current Visit: Yes Status: Acute Elevated CK. Currently >20,000. Noted to have neck mass with concern fro hematoma/abscess vs. myositis. CT of the neck showed no abscess. Unlikely malignancy. Plan: - Measurement of intraabdominal pressures, approx 18, low concern for abdominal compartment syndrome - CPK has been persistently elevated despite fluids - Will CT scan brain, spine, extremities for possible source - Cont MIVFs - Cont trending CK Qualifiers: Rhabdomyolysis type: non-traumatic Qualified Code(s): M62.82 - Rhabdomyolysis (9) Seizure-like activity Current Visit: Yes Status: Acute Noted seizure-like activity in the ED. Likely due to metabolic disturbances. Absence of corneal, oculocephalic, pupillary responses; prognosis poor per neuro. CT head did not show any acute process. Plan: - Neuro consulted, recommended supportive care, no indications for LP - Absence of corneal, oculocephalic, pupillary responses; prognosis poor per neuro - No seizure activity noted on EEG - Neuro signed off (10) DVT prophylaxis Current Visit: Yes Status: Acute DVT PPX: hep SQ Analgesia: fentanyl gtt Sedation: propofol and precedex gtt SBT: none Glycemic control: none Bowl regimen: none Activity: none Fluids: MIVF Electrolytes: replete as necessary Nutrition: NPO GI ppx: PPI Lines: ET, OG, james, dialysis cath, CVC, art line, 2x PIV Consults: pulm, neuro, nephro, IR, ENT Code: FULL Dispo: ICU Subjective Principal diagnosis: Cardiac Arrest Interval history: Patient was seen and examined at bedside. Patient's ionized calcium was low overnight at 0.78, and was repleted. Patient is unresponsive to stimuli and does not have any purposeful movements. He continues to have very low urine output. Patient continues to have an elevated CPK. Will CT scan head, spine, and extremities to look for potential source. Will be dialyzed later today. Stopped vanc, NE, propofol today. Objective PUL Vital signs: Last Vital Signs Temp 98.1 F 03/22/19 08:00 Pulse 102 03/22/19 08:00 Resp 22 03/22/19 08:00 BP 144/89 03/22/19 08:00 Pulse Ox 98 03/22/19 08:00 General appearance: no acute distress (intubated/sedated) Eyes: nonicteric ENT: oropharynx moist Neck: supple Effort: normal Auscultation: bilateral: clear Percussion: bilateral: not dull Cardiovascular: regular rate and rhythm Gastrointestinal: normoactive bowel sounds, non-tender (firm abdomen to touch), non-distended Integumentary: normal Extremities: no cyanosis, no edema, no clubbing Musculoskeletal: no deformities, ROM normal unable to assess due to mental status (non-responsive to stimuli) Ventilator Settings Ventilator Settings: Ventilator Settings, Last 8 Hours Ventilator Tidal Volume 500 Setting Ventilator Tidal Volume 500 Setting Ventilator Tidal Volume 500 Setting Ventilator Tidal Volume 500 Setting Ventilator Tidal Volume 500 Setting Ventilator Tidal Volume 500 Setting Ventilator Tidal Volume 500 Setting Ventilator Tidal Volume 500 Setting Ventilator Tidal Volume 500 Setting Ventilator Tidal Volume 500 Setting Ventilator Tidal Volume 500 Setting Ventilator Tidal Volume 500 Setting Ventilator Respiratory Rate 18 Setting Ventilator Respiratory Rate 18 Setting Ventilator Respiratory Rate 18 Setting Ventilator Respiratory Rate 18 Setting Ventilator Respiratory Rate 18 Setting Ventilator Respiratory Rate 18 Setting Ventilator Respiratory Rate 18 Setting Ventilator Respiratory Rate 18 Setting Ventilator Respiratory Rate 18 Setting Ventilator Respiratory Rate 18 Setting Ventilator Respiratory Rate 18 Setting Ventilator Respiratory Rate 18 Setting Actual Respiratory Rate 22 Actual Respiratory Rate 22 Actual Respiratory Rate 22 Actual Respiratory Rate 22 Actual Respiratory Rate 25 Actual Respiratory Rate 31 Actual Respiratory Rate 34 Actual Respiratory Rate 26 Actual Respiratory Rate 27 Actual Respiratory Rate 28 Actual Respiratory Rate 28 Positive End Expiratory 8 Pressure Positive End Expiratory 8 Pressure Positive End Expiratory 8 Pressure Positive End Expiratory 8 Pressure Positive End Expiratory 8 Pressure Positive End Expiratory 8 Pressure Positive End Expiratory 8 Pressure Positive End Expiratory 8 Pressure Positive End Expiratory 8 Pressure Positive End Expiratory 8 Pressure Positive End Expiratory 8 Pressure Positive End Expiratory 8 Pressure Peak Inspiratory Airway 10 Pressure Peak Inspiratory Airway 8.9 Pressure Peak Inspiratory Airway 8.9 Pressure Peak Inspiratory Airway 9.4 Pressure Peak Inspiratory Airway 9 Pressure Peak Inspiratory Airway 11 Pressure Peak Inspiratory Airway 11 Pressure Peak Inspiratory Airway 10 Pressure Peak Inspiratory Airway 9.0 Pressure Peak Inspiratory Airway 9.5 Pressure Peak Inspiratory Airway 10 Pressure Results - Laboratory Findings CBC and BMP: 03/22/19 03:35 03/22/19 03:35 ABG ABG pH 7.36 pH Units (7.32-7.45) 03/22/19 04:38 ABG pCO2 30 mmHg (35-45) L 03/22/19 04:38 ABG pO2 88 mmHg (85-104) 03/22/19 04:38 ABG O2 Saturation 97 % (95-98) 03/22/19 04:38 PT/INR, D-dimer PT 15.0 Seconds (9.4-12.1) H 03/22/19 03:35 Abnormal lab findings: Abnormal lab results WBC 13.6 K/mcL (4.3-11.1) H 03/22/19 03:35 RBC 3.95 M/mcL (4.19-5.50) L 03/22/19 03:35 Hgb 12.8 g/dL (12.9-16.9) L D 03/22/19 03:35 Hct 35.4 % (37.5-50.1) L 03/22/19 03:35 MCHC 36.2 g/dL (31.6-35.5) H 03/22/19 03:35 Plt Count 124 K/mcL (140-400) L 03/22/19 03:35 MPV 13.0 fL (9.4-12.4) H 03/20/19 20:09 Band Neutrophils % 26.0 % (0-4) H 03/21/19 13:14 Metamyelocytes % 4.0 % (0) H 03/21/19 13:14 Myelocytes % 2.0 % (0) H 03/21/19 04:00 Neutrophils # 11.7 K/mcL (1.6-8.9) H 03/22/19 03:35 Monocytes # 1.4 K/mcL (0.0-1.3) H 03/21/19 20:08 Nucleated RBCs/100 WBC 0.4 /100 WBC (0) H 03/19/19 00:33 Reactive Lymphocytes Present (Not Present) A 03/21/19 04:00 Toxic Granulation Present (Not Present) A 03/21/19 04:00 Platelet Estimate Decreased (Normal) L 03/22/19 03:35 Immature Plt Fraction 13.8 % (1.1-6.1) H 03/21/19 04:00 PT 15.0 Seconds (9.4-12.1) H 03/22/19 03:35 Fibrinogen 690 mg/dL (169-393) H 03/22/19 03:35 ABG pH 7.29 pH Units (7.32-7.45) L 03/20/19 12:57 ABG pCO2 30 mmHg (35-45) L 03/22/19 04:38 ABG pO2 105 mmHg (85-104) H 03/21/19 04:08 ABG HCO3 17 mEq/L (21-27) L 03/22/19 04:38 ABG Total CO2 18 mEq/L (20-26) L 03/22/19 04:38 ABG O2 Saturation 99 % (95-98) H 03/20/19 12:57 ABG Base Excess -7 mEq/L (-2 to 3) L 03/22/19 04:38 VBG pH 7.13 pH Units (7.32-7.42) L* 03/19/19 00:48 VBG pCO2 91 mmHg (41-51) H* 03/19/19 00:48 VBG HCO3 30 mEq/L (21-27) H 03/19/19 00:48 Sodium 134 mEq/L (136-145) L 03/22/19 03:35 Potassium 5.3 mEq/L (3.5-5.1) H 03/22/19 03:35 Chloride 109 mEq/L (98-107) H 03/19/19 09:35 Carbon Dioxide 19 mEq/L (23-29) L 03/22/19 03:35 BUN 73 mg/dL (6-20) H 03/22/19 03:35 Creatinine 6.06 mg/dL (0.70-1.30) H 03/22/19 03:35 Est GFR ( Amer) 13 (> 60) L 03/22/19 03:35 Est GFR (Non-Af Amer) 11 (> 60) L 03/22/19 03:35 Glucose 109 mg/dL (70-105) H 03/22/19 03:35 POC Glucose 102 mg/dL (70-99) H 03/20/19 11:01 Calculated Osmolality 302 (280-300) H 03/19/19 13:25 Lactic Acid 2.8 mmol/L (0.5-2.2) H 03/21/19 20:08 Calcium 6.6 mg/dL (8.6-10.3) L 03/22/19 03:35 Venous Ioniz Calcium 0.78 mmol/L (1.15-1.35) L 03/22/19 03:47 Phosphorus 7.5 mg/dL (2.7-4.5) H 03/20/19 03:45 Magnesium 3.9 mg/dL (1.6-2.6) H 03/19/19 07:04 Total Bilirubin 1.8 mg/dL (0.3-1.0) H 03/22/19 03:35 Direct Bilirubin 1.1 mg/dL (0.0-0.2) H 03/22/19 03:35 AST 2450 Units/L (13-39) H 03/22/19 03:35 ALT 1481 Units/L (7-52) H 03/22/19 03:35 Creatine Kinase > 66277 Units/L (30-223) H 03/22/19 03:35 Troponin I 0.89 ng/mL (< 0.04) H* 03/20/19 03:45 Serum Total Protein 4.9 g/dL (6.4-8.9) L 03/22/19 03:35 Albumin 2.6 g/dL (3.5-5.7) L 03/22/19 03:35 Globulin 2.3 g/dL (2.4-3.5) L 03/22/19 03:35 Ur Specimen Adequacy See below A 03/19/19 03:55 Urine Color [place] (Yellow) A 03/19/19 03:55 Urine Clarity Cloudy (Clear) A 03/19/19 03:55 Urine Protein >=300 mg/dL (Neg-Trace) H 03/19/19 03:55 Urine Ketones Trace mg/dL (Negative) H 03/19/19 03:55 Urine Blood Large (Negative) H 03/19/19 03:55 Urine Bilirubin Small (Negative) H 03/19/19 03:55 Urine Microscopic RBC 50-100 per hpf (0-3) H 03/19/19 03:55 Urine Bacteria Many per hpf (None-Few) H 03/19/19 03:55 Ur Culture Indicated? YES (NO) A 03/19/19 03:55 Salicylates < 2.5 mg/dL (15.0-30.0) L 03/19/19 08:20 Ur Buprenorphine Scrn Positive ng/mL (Cutoff=5) H 03/19/19 03:55 Acetaminophen < 10 mcg/mL (10-20) L 03/19/19 08:20 Ur Amphetamines Screen Positive ng/mL (Savonv=0264) H 03/19/19 03:55 U Benzodiazepines Scrn Positive ng/mL (Nyznsn=596) H 03/19/19 03:55 U Marijuana (THC) Screen Positive ng/mL (Cutoff = 50) H 03/19/19 03:55 Hep Bs Antibody < 3.10 mIU/mL (10.00-) L 03/19/19 08:20 Staphylococcus sp PCR DETECTED (Not Detect) A 03/19/19 00:52 - Microbiology Findings Microbiology Findings: Microbiology, Last 48 Hours 03/19/19 00:52 Blood Culture - Preliminary Peripheral Venipuncture Gram Positive Cocci 03/19/19 03:55 Urine Culture - Final Urine,Catheterized (Straight) No growth. - Clinical Findings Intake & Output: Intake & Output 03/21/19 03/22/19 03/22/19 23:59 07:59 15:59 Intake Total 1200 / 4006.6 1304.0 / 1304.0 Output Total 0 / 16 Balance 1180 / 3931.6 1288.0 / 1288.0 0 / 1288.0 Weight 102.7 kg - VTE Documentation of Mechanical Device: Intermittent pneumatic compression device Consult Discharge Plan - Plan Referrals: NONE,PCP [Primary Care Provider] - <Giorgi Valdovinos - Last Filed: 03/22/19 12:26> Date of Encounter: 03/22/19 Assessment and Plan (1) Multiple organ failure Current Visit: Yes Status: Acute (2) Toxic encephalopathy Current Visit: Yes Status: Acute (3) Anoxic brain injury Current Visit: Yes Status: Suspected (4) Neck mass Current Visit: Yes Status: Acute (5) Drug overdose Current Visit: Yes Status: Acute Qualifiers: Encounter type: initial encounter Injury intent: undetermined intent Qualified Code(s): T50.904A - Poisoning by unspecified drugs, medicaments and biological substances, undetermined, initial encounter (6) Cardiac arrest Current Visit: Yes Status: Acute (7) Acute kidney injury Current Visit: Yes Status: Acute (8) Rhabdomyolysis Current Visit: Yes Status: Acute Qualifiers: Rhabdomyolysis type: non-traumatic Qualified Code(s): M62.82 - Rhabdomyolysis (9) Acute respiratory failure with hypoxia Current Visit: Yes Status: Acute (10) Ischemic hepatitis Current Visit: Yes Status: Acute Objective PUL Vital signs: Last Vital Signs Temp 99.6 F 03/22/19 11:28 Pulse 100 03/22/19 12:00 Resp 25 03/22/19 12:00 BP 144/89 03/22/19 12:00 Pulse Ox 99 03/22/19 12:00 Ventilator Settings Ventilator Settings: Ventilator Settings, Last 8 Hours Ventilator Tidal Volume 600 Setting Ventilator Tidal Volume 600 Setting Ventilator Tidal Volume 500 Setting Ventilator Tidal Volume 500 Setting Ventilator Tidal Volume 500 Setting Ventilator Tidal Volume 500 Setting Ventilator Tidal Volume 500 Setting Ventilator Tidal Volume 500 Setting Ventilator Tidal Volume 500 Setting Ventilator Tidal Volume 500 Setting Ventilator Tidal Volume 500 Setting Ventilator Tidal Volume 500 Setting Ventilator Tidal Volume 500 Setting Ventilator Respiratory Rate 18 Setting Ventilator Respiratory Rate 18 Setting Ventilator Respiratory Rate 18 Setting Ventilator Respiratory Rate 18 Setting Ventilator Respiratory Rate 18 Setting Ventilator Respiratory Rate 18 Setting Ventilator Respiratory Rate 18 Setting Ventilator Respiratory Rate 18 Setting Ventilator Respiratory Rate 18 Setting Ventilator Respiratory Rate 18 Setting Ventilator Respiratory Rate 18 Setting Ventilator Respiratory Rate 18 Setting Ventilator Respiratory Rate 18 Setting Actual Respiratory Rate 25 Actual Respiratory Rate 26 Actual Respiratory Rate 26 Actual Respiratory Rate 26 Actual Respiratory Rate 22 Actual Respiratory Rate 22 Actual Respiratory Rate 24 Actual Respiratory Rate 22 Actual Respiratory Rate 22 Actual Respiratory Rate 22 Actual Respiratory Rate 25 Actual Respiratory Rate 31 Positive End Expiratory 8 Pressure Positive End Expiratory 8 Pressure Positive End Expiratory 8 Pressure Positive End Expiratory 8 Pressure Positive End Expiratory 8 Pressure Positive End Expiratory 8 Pressure Positive End Expiratory 8 Pressure Positive End Expiratory 8 Pressure Positive End Expiratory 8 Pressure Positive End Expiratory 8 Pressure Positive End Expiratory 8 Pressure Positive End Expiratory 8 Pressure Positive End Expiratory 8 Pressure Peak Inspiratory Airway 9.1 Pressure Peak Inspiratory Airway 9.1 Pressure Peak Inspiratory Airway 10 Pressure Peak Inspiratory Airway 10 Pressure Peak Inspiratory Airway 11 Pressure Peak Inspiratory Airway 8.9 Pressure Peak Inspiratory Airway 8.9 Pressure Peak Inspiratory Airway 9.4 Pressure Peak Inspiratory Airway 9 Pressure Peak Inspiratory Airway 11 Pressure Results - Laboratory Findings CBC and BMP: 03/22/19 03:35 03/22/19 03:35 ABG ABG pH 7.36 pH Units (7.32-7.45) 03/22/19 04:38 ABG pCO2 30 mmHg (35-45) L 03/22/19 04:38 ABG pO2 88 mmHg (85-104) 03/22/19 04:38 ABG O2 Saturation 97 % (95-98) 03/22/19 04:38 PT/INR, D-dimer PT 15.0 Seconds (9.4-12.1) H 03/22/19 03:35 Abnormal lab findings: Abnormal lab results WBC 13.6 K/mcL (4.3-11.1) H 03/22/19 03:35 RBC 3.95 M/mcL (4.19-5.50) L 03/22/19 03:35 Hgb 12.8 g/dL (12.9-16.9) L D 03/22/19 03:35 Hct 35.4 % (37.5-50.1) L 03/22/19 03:35 MCHC 36.2 g/dL (31.6-35.5) H 03/22/19 03:35 Plt Count 124 K/mcL (140-400) L 03/22/19 03:35 MPV 13.0 fL (9.4-12.4) H 03/20/19 20:09 Band Neutrophils % 26.0 % (0-4) H 03/21/19 13:14 Metamyelocytes % 4.0 % (0) H 03/21/19 13:14 Myelocytes % 2.0 % (0) H 03/21/19 04:00 Neutrophils # 11.7 K/mcL (1.6-8.9) H 03/22/19 03:35 Monocytes # 1.4 K/mcL (0.0-1.3) H 03/21/19 20:08 Nucleated RBCs/100 WBC 0.4 /100 WBC (0) H 03/19/19 00:33 Reactive Lymphocytes Present (Not Present) A 03/21/19 04:00 Toxic Granulation Present (Not Present) A 03/21/19 04:00 Platelet Estimate Decreased (Normal) L 03/22/19 03:35 Immature Plt Fraction 13.8 % (1.1-6.1) H 03/21/19 04:00 PT 15.0 Seconds (9.4-12.1) H 03/22/19 03:35 Fibrinogen 690 mg/dL (169-393) H 03/22/19 03:35 ABG pH 7.29 pH Units (7.32-7.45) L 03/20/19 12:57 ABG pCO2 30 mmHg (35-45) L 03/22/19 04:38 ABG pO2 105 mmHg (85-104) H 03/21/19 04:08 ABG HCO3 17 mEq/L (21-27) L 03/22/19 04:38 ABG Total CO2 18 mEq/L (20-26) L 03/22/19 04:38 ABG O2 Saturation 99 % (95-98) H 03/20/19 12:57 ABG Base Excess -7 mEq/L (-2 to 3) L 03/22/19 04:38 VBG pH 7.13 pH Units (7.32-7.42) L* 03/19/19 00:48 VBG pCO2 91 mmHg (41-51) H* 03/19/19 00:48 VBG HCO3 30 mEq/L (21-27) H 03/19/19 00:48 Sodium 134 mEq/L (136-145) L 03/22/19 03:35 Potassium 5.3 mEq/L (3.5-5.1) H 03/22/19 03:35 Chloride 109 mEq/L (98-107) H 03/19/19 09:35 Carbon Dioxide 19 mEq/L (23-29) L 03/22/19 03:35 BUN 73 mg/dL (6-20) H 03/22/19 03:35 Creatinine 6.06 mg/dL (0.70-1.30) H 03/22/19 03:35 Est GFR ( Amer) 13 (> 60) L 03/22/19 03:35 Est GFR (Non-Af Amer) 11 (> 60) L 03/22/19 03:35 Glucose 109 mg/dL (70-105) H 03/22/19 03:35 POC Glucose 102 mg/dL (70-99) H 03/20/19 11:01 Calculated Osmolality 302 (280-300) H 03/19/19 13:25 Lactic Acid 2.8 mmol/L (0.5-2.2) H 03/21/19 20:08 Calcium 6.6 mg/dL (8.6-10.3) L 03/22/19 03:35 Venous Ioniz Calcium 0.78 mmol/L (1.15-1.35) L 03/22/19 03:47 Phosphorus 7.5 mg/dL (2.7-4.5) H 03/20/19 03:45 Magnesium 3.9 mg/dL (1.6-2.6) H 03/19/19 07:04 Total Bilirubin 1.8 mg/dL (0.3-1.0) H 03/22/19 03:35 Direct Bilirubin 1.1 mg/dL (0.0-0.2) H 03/22/19 03:35 AST 2450 Units/L (13-39) H 03/22/19 03:35 ALT 1481 Units/L (7-52) H 03/22/19 03:35 Creatine Kinase > 33406 Units/L (30-223) H 03/22/19 03:35 Troponin I 0.89 ng/mL (< 0.04) H* 03/20/19 03:45 Serum Total Protein 4.9 g/dL (6.4-8.9) L 03/22/19 03:35 Albumin 2.6 g/dL (3.5-5.7) L 03/22/19 03:35 Globulin 2.3 g/dL (2.4-3.5) L 03/22/19 03:35 Ur Specimen Adequacy See below A 03/19/19 03:55 Urine Color [place] (Yellow) A 03/19/19 03:55 Urine Clarity Cloudy (Clear) A 03/19/19 03:55 Urine Protein >=300 mg/dL (Neg-Trace) H 03/19/19 03:55 Urine Ketones Trace mg/dL (Negative) H 03/19/19 03:55 Urine Blood Large (Negative) H 03/19/19 03:55 Urine Bilirubin Small (Negative) H 03/19/19 03:55 Urine Microscopic RBC 50-100 per hpf (0-3) H 03/19/19 03:55 Urine Bacteria Many per hpf (None-Few) H 03/19/19 03:55 Ur Culture Indicated? YES (NO) A 03/19/19 03:55 Salicylates < 2.5 mg/dL (15.0-30.0) L 03/19/19 08:20 Ur Buprenorphine Scrn Positive ng/mL (Cutoff=5) H 03/19/19 03:55 Acetaminophen < 10 mcg/mL (10-20) L 03/19/19 08:20 Ur Amphetamines Screen Positive ng/mL (Uarqxw=8696) H 03/19/19 03:55 U Benzodiazepines Scrn Positive ng/mL (Yyzkrc=221) H 03/19/19 03:55 U Marijuana (THC) Screen Positive ng/mL (Cutoff = 50) H 03/19/19 03:55 Hep Bs Antibody < 3.10 mIU/mL (10.00-) L 03/19/19 08:20 Staphylococcus sp PCR DETECTED (Not Detect) A 03/19/19 00:52 - Microbiology Findings Microbiology Findings: Microbiology, Last 48 Hours 03/19/19 00:52 Blood Culture - Preliminary Peripheral Venipuncture Staphylococcus capitis - Clinical Findings Intake & Output: Intake & Output 03/21/19 03/22/19 03/22/19 23:59 07:59 15:59 Intake Total 1200 / 4006.6 1404.0 / 1504.0 100 / 1504.0 Output Total 16 / 56 40 / 56 Balance 1180 / 3931.6 1388.0 / 1448.0 60 / 1448.0 Weight 102.7 kg - Attending Attestation I examined this patient and my medical decision-making was reviewed with the Resident Physician. I agree with the documented findings, disposition and treatment plan as described except to the extent set forth below. We independently had [id number] contact with the patient I spent 40min of Critical Care time with this patient. It involved decision making of high complexity to assess, manipulate, and support vital organ system failure and/or to prevent further life threatening deterioration of the patient's condition. The time involved in the performance of separately reportable procedures was not counted toward critical care time. Patient seen and examined at bedside Labs, radiology, chart personally reviewed. Management was reviewed during multidisciplinary critical care rounds. CERTIFIED MEDICAL ASST: Remains deeply encephalopathic he is able to breathe over the vent he is people are light reflex and has been noted to blink by the nursing staff overnight otherwise no spontaneous movements. Has noted periods of increased blood pressure which has responded to infusion of fentanyl suspect there is some degree of painful stimuli response and so will continue fentanyl for this reason. Pulm: Remains on the ventilator acceptable gas exchange today continue vent bundle the prevent pneumonia not a candidate for spontaneous breathing trial because of mental status and critical illness. I suspect patient will need tracheostomy Cards: Blood pressure monitored stable had one episode of bradycardia overnight which quickly resolved. They have been a vagal reflex. There is no change in his neurological status to suspect a herniation but will repeat his head CT today GI: GI prophylaxis given while on vent Nutrition: Start trophic enteral nutrition per dietary recommendations Renal: Profound metabolic drainage is related to acute kidney injury he remains and uric Repeat dialysis today nephrology following UOP Monitored, Cont to Trend sCr and monitor Electrolytes. ID: He is on broad-spectrum antibiotics for aspiration pneumonia. I suspect that the staph in blood is a contaminant. Stop Vancomycin continue Zosyn Heme/Onc: DVT prophylaxis given. Coagulopathy has resolved Endo: Glucose Monitored Integ/MSK: Skin Care per routine ICU Nursing Protocol to prevent ulcers. Patient has severe rhabdomyolysis and persistently elevated CPK levels I clinical examination is not consistent with compartment syndrome however given degree and elevation of the CPK elected to send the patient for a scan of his extremities and spine to rule out any focal abscesses or areas of necrosis that may require surgical evaluation Lines: All lines examined without evidence of infection : Dispo: Monitor in ICU for critical illness CODE: Full
[2019-03-22] MEDS: Piperacillin/Tazobactam 3.375 GM in 0.9 % Sodium Chloride Mini Bag 100 ML IVPB SCH ×2 (09:02→20:40)
[2019-03-22] MEDS: Chlorhexidine Rinse 15 ML MOUTHWASH MM SCH ×2 (09:02→20:40)
[2019-03-22] MEDS: Pantoprazole 40 MG VIAL IVP SCH (09:02)
[2019-03-22] MEDS ORDERED: Isovue-370 500 ML BOTTLE IVP ONE ×3 (09:25→14:06)
[2019-03-22] MEDS ORDERED: *HR* Heparin 10,000 UNIT/10 ML VIAL IV PRN ×2 (11:39)
[2019-03-22] MEDS ORDERED: 0.9 % Sodium Chloride 250 ML IVC PRN (11:39)
[2019-03-22 12:38] LABS: VBG Ionized Calcium 0.78 mmol/L (1.15-1.35)
[2019-03-22 12:48] LABS: Hematocrit 34.3 % (37.5-50.1); Mean Corpuscular Hemoglobin 31.7 pg (28.0-33.3); Mean Corpuscular Volume 90.5 fL (83.0-100.0); Mean Platelet Volume 10.6 fL (9.4-12.4); Monocytes # 0.8 K/mcL (0.0-1.3); Platelet Count 107 K/mcL (140-400); Red Blood Count 3.79 M/mcL (4.19-5.50); Red Cell Distribution Width 12.5 % (11.5-14.5); White Blood Count 11.6 K/mcL (4.3-11.1)
[2019-03-22 12:53] LABS: Albumin 2.5 g/dL (3.5-5.7); Calcium 6.4 mg/dL (8.6-10.3); Potassium 5.8 mEq/L (3.5-5.1)
[2019-03-22 12:55] LABS: INR 1.3; Prothrombin Time 14.5 Seconds (9.4-12.1)
[2019-03-22 13:15] LABS: Alanine Aminotransferase 1425 Units/L (7-52); Albumin 2.5 g/dL (3.5-5.7); Albumin/Globulin Ratio 1.1 (1.1-2.2); Alkaline Phosphatase 94 Units/L (34-104); Aspartate Amino Transferase 2198 Units/L (13-39); BUN/Creatinine Ratio 12 (6-26); Bilirubin,Direct 0.9 mg/dL (0.0-0.2); Bilirubin,Indirect 0.6 mg/dL (0.0-1.2); Bilirubin,Total 1.5 mg/dL (0.3-1.0); Blood Urea Nitrogen 80 mg/dL (6-20); Calcium 6.5 mg/dL (8.6-10.3); Carbon Dioxide 20 mEq/L (23-29); Chloride 100 mEq/L (98-107); Creatine Kinase > 20000 Units/L (30-223); Globulin 2.3 g/dL (2.4-3.5); Glucose 113 mg/dL (70-105); Osmolality,Calculated 305 (280-300); Potassium 5.8 mEq/L (3.5-5.1); Sodium 135 mEq/L (136-145); Total Protein 4.8 g/dL (6.4-8.9); eGFR For African Americans 12 (> 60); eGFR For Non-African Americans 10 (> 60)
[2019-03-22 13:32] LABS: Lymphocytes # 0.8 K/mcL (0.6-4.6); Platelet Estimate Decreased (Normal)
--- NOTE | 2019-03-22 15:24 | Nephrology Progress Note ---
Date of Encounter: 03/22/19 Time of Encounter: 12:00 - Assessment and Plan (1) Acute kidney injury Current Visit: Yes Status: Acute The patient has multifactorial acute kidney injury with shock, drug overdose, likely volume depletion, and significant rhabdomyolysis. s/p HD 2 days ago with no visible signs of renal recovery.will plan another session today with minimal UF Will reassess daily for HD need Continue to avoid nephrotoxins if possible Prognosis very guarded (2) Drug overdose Current Visit: Yes Status: Acute Per primary team Qualifiers: Encounter type: initial encounter Injury intent: undetermined intent Qualified Code(s): T50.904A - Poisoning by unspecified drugs, medicaments and biological substances, undetermined, initial encounter (3) Hyperkalemia Current Visit: Yes Status: Acute Elevated at 5.8, should improve after HD today (4) Rhabdomyolysis Current Visit: Yes Status: Acute Etiology likely due to drug use but no clear signs of muscle damage noted Await generalized CT results Continue IVF Qualifiers: Rhabdomyolysis type: non-traumatic Qualified Code(s): M62.82 - Rhabdomyoly sis (5) Shock Current Visit: Yes Status: Resolved Mostly resolved, off pressor support (6) Multiple organ failure Current Visit: Yes Status: Acute Guarded, per primary and consultants (7) Hypocalcemia Current Visit: Yes Status: Acute Will replete as needed Subjective Principal diagnosis: Cardiac Arrest Interval history: Pt seen and examined remains intubated and sedated with poor UOP. Objective - Vital Signs Vital signs: Vital Signs Temp Pulse Resp BP Pulse Ox 03/22/19 14:00 100 36 164/122 99 03/22/19 13:27 31 97 03/22/19 13:00 100 25 147/101 99 03/22/19 12:00 100 25 144/89 99 03/22/19 11:51 25 157/104 97 03/22/19 11:28 99.6 F 03/22/19 10:00 106 26 152/92 96 03/22/19 09:21 26 91 03/22/19 09:00 105 22 153/93 98 03/22/19 08:09 97.2 F L 03/22/19 08:00 98.1 F 102 22 144/89 98 03/22/19 07:48 24 147/107 99 03/22/19 07:00 98 22 143/89 98 03/22/19 06:04 23 142/88 98 03/22/19 06:00 105 22 142/88 98 03/22/19 05:00 110 25 148/90 97 03/22/19 04:27 99.9 F H 03/22/19 04:18 32 170/97 95 03/22/19 04:00 113 34 184/103 95 03/22/19 03:30 113 03/22/19 03:00 110 26 166/103 97 03/22/19 02:00 106 27 171/102 98 03/22/19 01:23 31 184/109 96 03/22/19 01:00 106 28 177/107 98 03/22/19 00:00 99.1 F 107 27 177/104 98 03/21/19 23:30 107 03/21/19 23:00 109 27 184/105 100 03/21/19 22:19 30 184/105 100 03/21/19 22:00 111 32 186/106 100 03/21/19 21:00 110 35 187/106 100 03/21/19 20:55 28 167/101 100 03/21/19 20:00 107 28 168/102 100 03/21/19 19:30 105 03/21/19 19:00 105 25 163/96 100 03/21/19 18:00 105 26 170/100 100 03/21/19 17:00 111 28 170/100 100 03/21/19 16:09 98.2 F Intake and Output 03/21/19 03/22/19 03/22/19 23:59 07:59 15:59 Intake Total 1200 / 4006.6 1404.0 / 2622.0 1218 / 2622.0 Output Total 20 / 75 16 / 56 40 / 56 Balance 1180 / 3931.6 1388.0 / 2566.0 1178 / 2566.0 Intake: IV Fluids 1200 / 4006.6 1404.0 / 2622.0 1218 / 2622.0 0.9 % Sodium Chloride 1,000 ML 1000 / 3000 1000 / 2000 1000 / 2000 @ 125 mls/hr IVC .Q8H [facility] Rx#: [id number] Precedex Premix 400 mcg In 100 0 / 106.0 94 / 294 200 / 294 ml @ 0.2 MCG/KG/HR 4.385 mls/hr IVC .[id number] [facility] Rx#: [id number] FentaNYL (PF) 1,000 MCG In 0.9 0 / 90.6 100.0 / 118.0 18 / 118.0 % Sodium Chloride 80 ML @ 50 MCG/HR 5 mls/hr IVC CONT [facility] Rx #:[id number] Calcium Chloride 1,000 MG In 0. 110 / 110 9 % Sodium Chloride 100 ML @ 100 mls/hr IVPB ONCE ONE Rx#: [id number] Calcium Gluconate 1gm/50mL 2 gm 100 / 100 100 / 100 In 100 ml @ 100 mls/hr IVPB ONCE ONE Rx#:[id number] Zosyn 3.375 GM In 0.9 % Sodium 100 / 300 Chloride (Mini-Bag +) 100 ML @ 25 mls/hr IVPB Q12H [facility] Rx#: [id number] Output: Catheter 16 / 16 0 / 16 Gastric Drainage 0 / 50 0 / 40 40 / 40 Other: Weight 102.7 kg Blood Glucose* 94 74 101 Patient Weight 03/22/19 23:59 Weight 102.7 kg - General Appearance General appearance: Present: sedated on ventilator, intubated EENT: Present: ATNC, mucous membranes moist Neck: Present: no JVD, supple Respiratory: Present: course breath sounds Cardiology: Present: no edema, normal S1, normal S2 Dialysis Vascular Access: Venous Catheter (temp line) Gastrointestinal: Present: no tenderness, no guarding Integumentary: Present: warm and dry Additional Comments: sedated Musculoskeletal: Present: no deformities Additional Comments: unable to assess due to condition - Lab 03/23/19 04:38 03/23/19 04:38 Most recent lab results 03/22/19 03/22/19 03/22/19 03:35 04:38 12:12 ABG pH 7.36 ABG pCO2 30 L ABG pO2 88 ABG HCO3 17 L ABG O2 Saturation 97 Calcium 6.6 L 6.5 L Phosphorus Magnesium 2.0 2.0 03/22/19 03/22/19 12:12 12:12 ABG pH ABG pCO2 ABG pO2 ABG HCO3 ABG O2 Saturation Calcium 6.4 L Phosphorus 7.0 H 6.9 H Magnesium - VTE Documentation of Mechanical Device: Intermittent pneumatic compression device Consult Discharge Plan - Plan Referrals: NONE,PCP [Primary Care Provider] -
--- NOTE | 2019-03-22 16:05 | Event Note ---
Date of Encounter: 03/22/19 Time of Encounter: 16:01 I called the family meeting to discuss the results of Las[facility] head CT. Results are show significant development of anoxic brain injury with concern for cerebral edema. Given neurological examination from neurology standpoint as well as myself and these findings overall neurological prognosis is extremely poor and unlikely to improve. His very possible that this patient would be in a persistent vegetative state and I suspect that actually neurological prognosis will actually worsen with the cerebral edema to possible herniation/brain . Admitting consistent of the patient's mother Vanesa and stepfather as well as several members of the ICU team including the resident physician Dr Bear and ICU nurse Celestine along with the hospital fiberglass boat assembly supervisor I explained the findings both radiographically and neurologically. While clearly tearful and emotional the family both expressed understanding and when asked what Mr. Castaneda's wishes would be in a situation like this they unanimously suggested that he would not want to be kept alive artificially. Although the parents were not ready to withdraw care at this time pending time to get family and friends to see him they suggested that over the upcoming days and they will transition to comfort measures. They did agree to no further aggressive escalations in care but wanted continue the level of care that he is receiving at this time. In the event of cardiopulmonary resuscitation the parents were in agreement that this should not be performed. His CODE STATUS was changed to reflect this. The patient is unable or incompetent to participate in giving a history and/or making treatment decisions. The discussion was necessary for determining treatment decision. This discussion took place in the [ICU consultation room]. The total meeting time was [20 minutes].
[2019-03-22 20:48] LABS: Hematocrit 34.3 % (37.5-50.1); Hemoglobin 12.1 g/dL (12.9-16.9); Mean Corpuscular HGB Conc 35.3 g/dL (31.6-35.5); Mean Corpuscular Hemoglobin 31.8 pg (28.0-33.3); Mean Corpuscular Volume 90.3 fL (83.0-100.0); Mean Platelet Volume 10.5 fL (9.4-12.4); Platelet Count 103 K/mcL (140-400); Red Cell Distribution Width 12.7 % (11.5-14.5); White Blood Count 12.7 K/mcL (4.3-11.1)
[2019-03-22 20:53] LABS: VBG Ionized Calcium 0.91 mmol/L (1.15-1.35)
[2019-03-22 21:19] LABS: INR 1.1
[2019-03-22 21:22] LABS: Alanine Aminotransferase 1354 Units/L (7-52); Albumin 2.4 g/dL (3.5-5.7); Alkaline Phosphatase 99 Units/L (34-104); Aspartate Amino Transferase 1977 Units/L (13-39); BUN/Creatinine Ratio 11 (6-26); Bilirubin,Direct 0.9 mg/dL (0.0-0.2); Bilirubin,Indirect 0.5 mg/dL (0.0-1.2); Bilirubin,Total 1.4 mg/dL (0.3-1.0); Blood Urea Nitrogen 45 mg/dL (6-20); Carbon Dioxide 26 mEq/L (23-29); Chloride 100 mEq/L (98-107); Creatine Kinase > 20000 Units/L (30-223); Globulin 2.4 g/dL (2.4-3.5); Glucose 109 mg/dL (70-105); Magnesium 1.8 mg/dL (1.6-2.6); Osmolality,Calculated 294 (280-300); Potassium 4.4 mEq/L (3.5-5.1); Sodium 136 mEq/L (136-145); Total Protein 4.8 g/dL (6.4-8.9); eGFR For African Americans 21 (> 60); eGFR For Non-African Americans 17 (> 60)
[2019-03-22 21:37] LABS: Neutrophils # 11.7 K/mcL (1.6-8.9); Platelet Estimate Slight Decrease (Normal)
[2019-03-23] MEDS: Dexmedetomidine HCl 400 MCG/100 ML MLS IVC SCH ×5 (01:44→18:26)
[2019-03-23 04:50] LABS: ABG Base Excess -1 mEq/L (-2 to 3); ABG HCO3 25 mEq/L (21-27); ABG Oxygen Saturation 95 % (95-98); ABG PCO2 44 mmHg (35-45); ABG PH 7.36 pH Units (7.32-7.45); ABG PO2 78 mmHg (85-104); ABG TCO2 26 mEq/L (20-26); Blood Gas Modality ASSIST CONTROL; Blood Gas PEEP 8 cm H2O; Blood Gas VT 500 cc
[2019-03-23] MEDS: Artificial Tears SOLN 15 ML BOTTLE BOTH EYES SCH ×5 (05:03→20:34)
[2019-03-23 05:05] LABS: VBG Ionized Calcium 0.84 mmol/L (1.15-1.35)
[2019-03-23 05:06] LABS: Hemoglobin 11.8 g/dL (12.9-16.9); Red Cell Distribution Width 12.7 % (11.5-14.5)
[2019-03-23 05:08] LABS: Hematocrit 33.9 % (37.5-50.1); Immature Platelets 6.6 % (1.1-6.1); Mean Corpuscular HGB Conc 34.8 g/dL (31.6-35.5); Mean Corpuscular Hemoglobin 32.3 pg (28.0-33.3); Mean Corpuscular Volume 92.9 fL (83.0-100.0); Mean Platelet Volume 11.3 fL (9.4-12.4); Red Blood Count 3.65 M/mcL (4.19-5.50); White Blood Count 11.1 K/mcL (4.3-11.1)
[2019-03-23 05:15] LABS: Platelet Count 99 K/mcL (140-400)
[2019-03-23 05:18] LABS: INR 1.2; Prothrombin Time 13.3 Seconds (9.4-12.1)
[2019-03-23 05:36] LABS: Lymphocytes # 1.1 K/mcL (0.6-4.6); Monocytes # 0.9 K/mcL (0.0-1.3); Neutrophils # 9.1 K/mcL (1.6-8.9)
[2019-03-23 05:37] LABS: Platelet Estimate Slight Decrease (Normal)
[2019-03-23 05:42] LABS: Alanine Aminotransferase 1234 Units/L (7-52); Albumin 2.4 g/dL (3.5-5.7); Alkaline Phosphatase 88 Units/L (34-104); Aspartate Amino Transferase 1761 Units/L (13-39); BUN/Creatinine Ratio 12 (6-26); Bilirubin,Direct 0.7 mg/dL (0.0-0.2); Bilirubin,Indirect 0.4 mg/dL (0.0-1.2); Bilirubin,Total 1.1 mg/dL (0.3-1.0); Blood Urea Nitrogen 55 mg/dL (6-20); Calcium 6.4 mg/dL (8.6-10.3); Carbon Dioxide 24 mEq/L (23-29); Chloride 101 mEq/L (98-107); Creatine Kinase > 20000 Units/L (30-223); Globulin 2.3 g/dL (2.4-3.5); Glucose 105 mg/dL (70-105); Magnesium 1.9 mg/dL (1.6-2.6); Osmolality,Calculated 293 (280-300); Sodium 134 mEq/L (136-145); Total Protein 4.7 g/dL (6.4-8.9); eGFR For African Americans 18 (> 60); eGFR For Non-African Americans 15 (> 60)
[2019-03-23] MEDS: 0.9 % Sodium Chloride 1,000 ML IVC SCH ×2 (05:58→15:20)
[2019-03-23] MEDS: Calcium Gluconate 1gm/50mL 1 GM/50 ML BAG IVPB PRN ×3 (05:59→22:53)
[2019-03-23] MEDS: Pantoprazole 40 MG VIAL IVP SCH (07:34)
[2019-03-23] MEDS: Chlorhexidine Rinse 15 ML MOUTHWASH MM SCH ×2 (07:34→20:33)
[2019-03-23] MEDS: Piperacillin/Tazobactam 3.375 GM in 0.9 % Sodium Chloride Mini Bag 100 ML IVPB SCH ×2 (07:35→20:34)
[2019-03-23] MEDS: Cholecalciferol (D-3) 1,000 UNIT (25MCG) TABLET PO SCH ×2 (07:35→20:34)
--- NOTE | 2019-03-23 07:54 | Pulmonology Progress Note ---
<Julian Bear - Last Filed: 03/23/19 10:00> Date of Encounter: 03/23/19 Time of Encounter: 07:49 Assessment and Plan (1) Encephalopathy Current Visit: Yes Status: Acute Acute toxic encephalopathy/toxidrome with likely anoxic brain injury in context of cardiac arrest. Suspected etiology due to drug overdose and metabolic disturbances including hyperkalemia. Currently intubated/sedated on fentanyl/precedex. UDS pos for amphetamines, bzds, MJ, buprenorphine. On NAC protocol empirically for possible tylenol overdose. Plan: - Neurology consulted, EEG shows no epileptiform activity, cont supportive care - Repeat CT head showed loss of khan white differentiation, anoxic brain injury - Cont to monitor neuro function and mental status, neuro will reassess - Intact pupillary and corneal reflexes, prognosis continues to be poor - Hemodialysis for hyperkalemia - PRN hydralazine for HTN (2) Acute respiratory failure with hypoxia Current Visit: Yes Status: Acute Respiratory failure with respiratory acidosis. With anoxic brain injury. Currently intubated/sedated. Not a candidate for SBT. Plan: - Daily ABGs and metabolic panels - Cont to monitor respiratory function and status (3) Hyperkalemia Current Visit: Yes Status: Acute Noted to have initial potassium of 8.4. Was treated in the ED with albuterol, Ca, insulin, and kayexalate. Plan: - Nephro consulted for hemodialysis - Cont MIVFs NS 125, trending BMP every 8 hours - Monitor for EKG changes (4) Cardiac arrest Current Visit: Yes Status: Acute Likely due to metabolic disturbances and potential drug overdose. ROSC achieved after one round of CPR. Echo showed LVEF 50%, mild global LV systolic dysfunction, minimal pericardial effusion. Plan: - Cont to monitor vitals - Trend troponins (5) Shock Current Visit: Yes Status: Acute Shock likely d/t hypoperfusion in context of metabolic disturbance and poss drug OD. KIEL with elevated Cr. Initial WBC of 15. Likely reactive d/t cardiac arrest. Also elevated troponins likely d/t cardiac arrest/shock. Also elevated LFTs, likely shock liver. Also elevated CK d/t rhabdo. CT also shows signs of ischemic colitis, biliary pneumatosis. Plan: - CT of extremities noted a L psoas abscess/hematoma, poss myositis, cellulitis in UE - Cont to monitor WBCs, Cr, LFTs, and trops - Supportive care with MIVFs - On empiric zosyn, stopped vanc (6) Drug overdose Current Visit: Yes Status: Acute Possible drug OD at presentation. Hx of meth abuse. UDS positive for bup, amphetamines, MJ, bzds. Plan: - Cont to monitor - On NAC protocol for possible APAP OD Qualifiers: Encounter type: initial encounter Injury intent: undetermined intent Qualified Code(s): T50.904A - Poisoning by unspecified drugs, medicaments and biological substances, undetermined, initial encounter (7) Acute kidney injury Current Visit: Yes Status: Acute Likely d/t shock and hypoperfusion. Also with rhabdo and hyperK. Plan: - Nephro consulted for hyperK, will cont with emergent dialysis - Cont MIVFs and monitor UOP - Trend renal function with BMPs - Trend CK (8) Rhabdomyolysis Current Visit: Yes Status: Acute Elevated CK. Currently >20,000. Noted to have neck mass with concern fro hematoma/abscess vs. myositis. CT of the neck showed no abscess. Unlikely malignancy. Plan: - Measurement of intraabdominal pressures, approx 18, low concern for abdominal compartment syndrome - CPK has been persistently elevated despite fluids - Will CT scan brain, spine, extremities for possible source - Cont MIVFs - Cont trending CK Qualifiers: Rhabdomyolysis type: non-traumatic Qualified Code(s): M62.82 - Rhabdomyolysis (9) Seizure-like activity Current Visit: Yes Status: Acute Noted seizure-like activity in the ED. Likely due to metabolic disturbances. Absence of corneal, oculocephalic, pupillary responses; prognosis poor per neuro. CT head did not show any acute process. Plan: - Neuro consulted, recommended supportive care, no indications for LP - Absence of corneal, oculocephalic, pupillary responses; prognosis poor per neuro - No seizure activity noted on EEG (10) DVT prophylaxis Current Visit: Yes Status: Acute DVT PPX: hep SQ Analgesia: fentanyl gtt Sedation: precedex gtt SBT: none Glycemic control: none Bowl regimen: none Activity: none Fluids: MIVF Electrolytes: replete as necessary Nutrition: NPO GI ppx: PPI Lines: ET, OG, james, dialysis cath, CVC, art line, 2x PIV Consults: pulm, neuro, nephro, IR, ENT, nutrition Code: DNR CCA Dispo: ICU Subjective Principal diagnosis: Cardiac Arrest Interval history: Patient was seen and examined at bedside. Patient is unresponsive to stimuli and does not have any purposeful movements. He does have a pupillary reflex and corneal reflex. He continues to have very low urine output. Patient continues to have an elevated CPK. CT scan yesterday showed anoxic brain injury with left psoas abscess/hematoma and possible mysositis. Neurology will reassess neuro function today. Prognosis poor. Discussed with family, changed code status to DNR CCA. Will revisit goals of care with family daily. Objective PUL Vital signs: Last Vital Signs Temp 99.5 F 03/23/19 07:35 Pulse 83 03/23/19 06:00 Resp 25 03/23/19 06:00 BP 147/93 03/23/19 06:00 Pulse Ox 95 03/23/19 06:00 General appearance: no acute distress, comatose Eyes: nonicteric ENT: oropharynx moist Neck: supple Auscultation: bilateral: wheezes, rales Cardiovascular: regular rate and rhythm Gastrointestinal: normoactive bowel sounds, non-tender (rigid abd), non- distended Integumentary: normal Extremities: no cyanosis, no edema, no clubbing Musculoskeletal: no deformities, ROM normal pupils equal and round, unable to assess due to mental status (with intact corneal reflex) Ventilator Settings Ventilator Settings: Ventilator Settings, Last 8 Hours Ventilator Tidal Volume 500 Setting Ventilator Tidal Volume 500 Setting Ventilator Tidal Volume 500 Setting Ventilator Tidal Volume 500 Setting Ventilator Tidal Volume 500 Setting Ventilator Tidal Volume 500 Setting Ventilator Tidal Volume 500 Setting Ventilator Tidal Volume 500 Setting Ventilator Tidal Volume 500 Setting Ventilator Tidal Volume 500 Setting Ventilator Respiratory Rate 18 Setting Ventilator Respiratory Rate 18 Setting Ventilator Respiratory Rate 18 Setting Ventilator Respiratory Rate 18 Setting Ventilator Respiratory Rate 18 Setting Ventilator Respiratory Rate 18 Setting Ventilator Respiratory Rate 18 Setting Ventilator Respiratory Rate 18 Setting Ventilator Respiratory Rate 18 Setting Ventilator Respiratory Rate 18 Setting Actual Respiratory Rate 25 Actual Respiratory Rate 25 Actual Respiratory Rate 22 Actual Respiratory Rate 23 Actual Respiratory Rate 21 Actual Respiratory Rate 23 Actual Respiratory Rate 21 Actual Respiratory Rate 24 Actual Respiratory Rate 24 Positive End Expiratory 8 Pressure Positive End Expiratory 8 Pressure Positive End Expiratory 8 Pressure Positive End Expiratory 8 Pressure Positive End Expiratory 8 Pressure Positive End Expiratory 8 Pressure Positive End Expiratory 8 Pressure Positive End Expiratory 8 Pressure Positive End Expiratory 8 Pressure Positive End Expiratory 8 Pressure Peak Inspiratory Airway 9.3 Pressure Peak Inspiratory Airway 9 Pressure Peak Inspiratory Airway 9 Pressure Peak Inspiratory Airway 23 Pressure Peak Inspiratory Airway 9.2 Pressure Peak Inspiratory Airway 11 Pressure Peak Inspiratory Airway 9.0 Pressure Peak Inspiratory Airway 14 Pressure Peak Inspiratory Airway 9.4 Pressure Results - Laboratory Findings CBC and BMP: 03/23/19 04:38 03/23/19 04:38 ABG ABG pH 7.36 pH Units (7.32-7.45) 03/23/19 04:38 ABG pCO2 44 mmHg (35-45) 03/23/19 04:38 ABG pO2 78 mmHg (85-104) L 03/23/19 04:38 ABG O2 Saturation 95 % (95-98) 03/23/19 04:38 PT/INR, D-dimer PT 13.3 Seconds (9.4-12.1) H 03/23/19 04:38 Abnormal lab findings: Abnormal lab results WBC 12.7 K/mcL (4.3-11.1) H 03/22/19 20:37 RBC 3.65 M/mcL (4.19-5.50) L 03/23/19 04:38 Hgb 11.8 g/dL (12.9-16.9) L 03/23/19 04:38 Hct 33.9 % (37.5-50.1) L 03/23/19 04:38 MCHC 36.2 g/dL (31.6-35.5) H 03/22/19 03:35 Plt Count 99 K/mcL (140-400) L 03/23/19 04:38 MPV 13.0 fL (9.4-12.4) H 03/20/19 20:09 Band Neutrophils % 8.0 % (0-4) H 03/23/19 04:38 Metamyelocytes % 4.0 % (0) H 03/21/19 13:14 Myelocytes % 2.0 % (0) H 03/21/19 04:00 Neutrophils # 9.1 K/mcL (1.6-8.9) H 03/23/19 04:38 Monocytes # 1.4 K/mcL (0.0-1.3) H 03/21/19 20:08 Nucleated RBCs/100 WBC 0.4 /100 WBC (0) H 03/19/19 00:33 Reactive Lymphocytes Present (Not Present) A 03/21/19 04:00 Toxic Granulation Present (Not Present) A 03/21/19 04:00 Platelet Estimate Slight Decrease (Normal) L 03/23/19 04:38 Immature Plt Fraction 6.6 % (1.1-6.1) H 03/23/19 04:38 PT 13.3 Seconds (9.4-12.1) H 03/23/19 04:38 Fibrinogen 629 mg/dL (169-393) H 03/23/19 04:38 ABG pH 7.29 pH Units (7.32-7.45) L 03/20/19 12:57 ABG pCO2 30 mmHg (35-45) L 03/22/19 04:38 ABG pO2 78 mmHg (85-104) L 03/23/19 04:38 ABG HCO3 17 mEq/L (21-27) L 03/22/19 04:38 ABG Total CO2 18 mEq/L (20-26) L 03/22/19 04:38 ABG O2 Saturation 99 % (95-98) H 03/20/19 12:57 ABG Base Excess -7 mEq/L (-2 to 3) L 03/22/19 04:38 VBG pH 7.13 pH Units (7.32-7.42) L* 03/19/19 00:48 VBG pCO2 91 mmHg (41-51) H* 03/19/19 00:48 VBG HCO3 30 mEq/L (21-27) H 03/19/19 00:48 Sodium 134 mEq/L (136-145) L 03/23/19 04:38 Potassium 5.8 mEq/L (3.5-5.1) H 03/22/19 12:12 Potassium 5.8 mEq/L (3.5-5.1) H 03/22/19 12:12 Chloride 109 mEq/L (98-107) H 03/19/19 09:35 Carbon Dioxide 20 mEq/L (23-29) L 03/22/19 12:12 Carbon Dioxide 20 mEq/L (23-29) L 03/22/19 12:12 BUN 55 mg/dL (6-20) H 03/23/19 04:38 Creatinine 4.54 mg/dL (0.70-1.30) H 03/23/19 04:38 Est GFR ( Amer) 18 (> 60) L 03/23/19 04:38 Est GFR (Non-Af Amer) 15 (> 60) L 03/23/19 04:38 Glucose 109 mg/dL (70-105) H 03/22/19 20:37 POC Glucose 103 mg/dL (70-99) H 03/22/19 15:25 Calculated Osmolality 304 (280-300) H 03/22/19 12:12 Calculated Osmolality 305 (280-300) H 03/22/19 12:12 Lactic Acid 2.8 mmol/L (0.5-2.2) H 03/21/19 20:08 Calcium 6.4 mg/dL (8.6-10.3) L 03/23/19 04:38 Venous Ioniz Calcium 0.84 mmol/L (1.15-1.35) L 03/23/19 05:03 Phosphorus 6.4 mg/dL (2.7-4.5) H 03/23/19 04:38 Magnesium 3.9 mg/dL (1.6-2.6) H 03/19/19 07:04 Total Bilirubin 1.1 mg/dL (0.3-1.0) H 03/23/19 04:38 Direct Bilirubin 0.7 mg/dL (0.0-0.2) H 03/23/19 04:38 AST 1761 Units/L (13-39) H 03/23/19 04:38 ALT 1234 Units/L (7-52) H 03/23/19 04:38 Creatine Kinase > 24698 Units/L (30-223) H 03/23/19 04:38 Troponin I 0.89 ng/mL (< 0.04) H* 03/20/19 03:45 Serum Total Protein 4.7 g/dL (6.4-8.9) L 03/23/19 04:38 Albumin 2.4 g/dL (3.5-5.7) L 03/23/19 04:38 Globulin 2.3 g/dL (2.4-3.5) L 03/23/19 04:38 Albumin/Globulin Ratio 1.0 (1.1-2.2) L 03/23/19 04:38 Ur Specimen Adequacy See below A 03/19/19 03:55 Urine Color [place] (Yellow) A 03/19/19 03:55 Urine Clarity Cloudy (Clear) A 03/19/19 03:55 Urine Protein >=300 mg/dL (Neg-Trace) H 03/19/19 03:55 Urine Ketones Trace mg/dL (Negative) H 03/19/19 03:55 Urine Blood Large (Negative) H 03/19/19 03:55 Urine Bilirubin Small (Negative) H 03/19/19 03:55 Urine Microscopic RBC 50-100 per hpf (0-3) H 03/19/19 03:55 Urine Bacteria Many per hpf (None-Few) H 03/19/19 03:55 Ur Culture Indicated? YES (NO) A 03/19/19 03:55 Salicylates < 2.5 mg/dL (15.0-30.0) L 03/19/19 08:20 Ur Buprenorphine Scrn Positive ng/mL (Cutoff=5) H 03/19/19 03:55 Acetaminophen < 10 mcg/mL (10-20) L 03/19/19 08:20 Ur Amphetamines Screen Positive ng/mL (Qnvenv=3687) H 03/19/19 03:55 U Benzodiazepines Scrn Positive ng/mL (Fkkwxy=429) H 03/19/19 03:55 U Marijuana (THC) Screen Positive ng/mL (Cutoff = 50) H 03/19/19 03:55 Hep Bs Antibody < 3.10 mIU/mL (10.00-) L 03/19/19 08:20 Staphylococcus sp PCR DETECTED (Not Detect) A 03/19/19 00:52 - Microbiology Findings Microbiology Findings: Microbiology, Last 48 Hours 03/19/19 00:52 Blood Culture - Preliminary Peripheral Venipuncture Staphylococcus capitis - Clinical Findings Intake & Output: Intake & Output 03/22/19 03/22/19 03/23/19 15:59 23:59 07:59 Intake Total 1918 / 4834.0 1412 / 4834.0 1503 / 1503 Output Total 40 / 766 710 / 766 0 / 0 Balance 1878 / 4068.0 702 / 4068.0 1503 / 1503 Weight 110.8 kg - VTE Documentation of Mechanical Device: Intermittent pneumatic compression device Consult Discharge Plan - Plan Referrals: NONE,PCP [Primary Care Provider] - <Giorgi Valdovinos W - Last Filed: 03/23/19 10:20> Date of Encounter: 03/23/19 Assessment and Plan (1) Multiple organ failure Current Visit: Yes Status: Acute (2) Toxic encephalopathy Current Visit: Yes Status: Acute (3) Anoxic brain injury Current Visit: Yes Status: Suspected (4) Neck mass Current Visit: Yes Status: Acute (5) Drug overdose Current Visit: Yes Status: Acute Qualifiers: Encounter type: initial encounter Injury intent: undetermined intent Qualified Code(s): T50.904A - Poisoning by unspecified drugs, medicaments and biological substances, undetermined, initial encounter (6) Cardiac arrest Current Visit: Yes Status: Acute (7) Acute kidney injury Current Visit: Yes Status: Acute (8) Rhabdomyolysis Current Visit: Yes Status: Acute Qualifiers: Rhabdomyolysis type: non-traumatic Qualified Code(s): M62.82 - Rhabdomyolysis (9) Acute respiratory failure with hypoxia Current Visit: Yes Status: Acute (10) Ischemic hepatitis Current Visit: Yes Status: Acute Objective PUL Vital signs: Last Vital Signs Temp 99.5 F 03/23/19 07:35 Pulse 86 03/23/19 08:00 Resp 24 03/23/19 09:46 BP 149/89 03/23/19 09:46 Pulse Ox 97 03/23/19 09:46 Ventilator Settings Ventilator Settings: Ventilator Settings, Last 8 Hours Ventilator Tidal Volume 500 Setting Ventilator Tidal Volume 500 Setting Ventilator Tidal Volume 500 Setting Ventilator Tidal Volume 500 Setting Ventilator Tidal Volume 500 Setting Ventilator Tidal Volume 500 Setting Ventilator Tidal Volume 500 Setting Ventilator Tidal Volume 500 Setting Ventilator Tidal Volume 500 Setting Ventilator Tidal Volume 500 Setting Ventilator Respiratory Rate 18 Setting Ventilator Respiratory Rate 18 Setting Ventilator Respiratory Rate 18 Setting Ventilator Respiratory Rate 18 Setting Ventilator Respiratory Rate 18 Setting Ventilator Respiratory Rate 18 Setting Ventilator Respiratory Rate 18 Setting Ventilator Respiratory Rate 18 Setting Ventilator Respiratory Rate 18 Setting Ventilator Respiratory Rate 18 Setting Actual Respiratory Rate 24 Actual Respiratory Rate 27 Actual Respiratory Rate 27 Actual Respiratory Rate 24 Actual Respiratory Rate 25 Actual Respiratory Rate 25 Actual Respiratory Rate 22 Actual Respiratory Rate 23 Actual Respiratory Rate 21 Positive End Expiratory 8 Pressure Positive End Expiratory 8 Pressure Positive End Expiratory 8 Pressure Positive End Expiratory 8 Pressure Positive End Expiratory 8 Pressure Positive End Expiratory 8 Pressure Positive End Expiratory 8 Pressure Positive End Expiratory 8 Pressure Positive End Expiratory 8 Pressure Positive End Expiratory 8 Pressure Peak Inspiratory Airway 17 Pressure Peak Inspiratory Airway 16 Pressure Peak Inspiratory Airway 14 Pressure Peak Inspiratory Airway 14 Pressure Peak Inspiratory Airway 9.3 Pressure Peak Inspiratory Airway 9 Pressure Peak Inspiratory Airway 9 Pressure Peak Inspiratory Airway 23 Pressure Peak Inspiratory Airway 9.2 Pressure Results - Laboratory Findings CBC and BMP: 03/23/19 04:38 03/23/19 04:38 ABG ABG pH 7.36 pH Units (7.32-7.45) 03/23/19 04:38 ABG pCO2 44 mmHg (35-45) 03/23/19 04:38 ABG pO2 78 mmHg (85-104) L 03/23/19 04:38 ABG O2 Saturation 95 % (95-98) 03/23/19 04:38 PT/INR, D-dimer PT 13.3 Seconds (9.4-12.1) H 03/23/19 04:38 Abnormal lab findings: Abnormal lab results WBC 12.7 K/mcL (4.3-11.1) H 03/22/19 20:37 RBC 3.65 M/mcL (4.19-5.50) L 03/23/19 04:38 Hgb 11.8 g/dL (12.9-16.9) L 03/23/19 04:38 Hct 33.9 % (37.5-50.1) L 03/23/19 04:38 MCHC 36.2 g/dL (31.6-35.5) H 03/22/19 03:35 Plt Count 99 K/mcL (140-400) L 03/23/19 04:38 MPV 13.0 fL (9.4-12.4) H 03/20/19 20:09 Band Neutrophils % 8.0 % (0-4) H 03/23/19 04:38 Metamyelocytes % 4.0 % (0) H 03/21/19 13:14 Myelocytes % 2.0 % (0) H 03/21/19 04:00 Neutrophils # 9.1 K/mcL (1.6-8.9) H 03/23/19 04:38 Monocytes # 1.4 K/mcL (0.0-1.3) H 03/21/19 20:08 Nucleated RBCs/100 WBC 0.4 /100 WBC (0) H 03/19/19 00:33 Reactive Lymphocytes Present (Not Present) A 03/21/19 04:00 Toxic Granulation Present (Not Present) A 03/21/19 04:00 Platelet Estimate Slight Decrease (Normal) L 03/23/19 04:38 Immature Plt Fraction 6.6 % (1.1-6.1) H 03/23/19 04:38 PT 13.3 Seconds (9.4-12.1) H 03/23/19 04:38 Fibrinogen 629 mg/dL (169-393) H 03/23/19 04:38 ABG pH 7.29 pH Units (7.32-7.45) L 03/20/19 12:57 ABG pCO2 30 mmHg (35-45) L 03/22/19 04:38 ABG pO2 78 mmHg (85-104) L 03/23/19 04:38 ABG HCO3 17 mEq/L (21-27) L 03/22/19 04:38 ABG Total CO2 18 mEq/L (20-26) L 03/22/19 04:38 ABG O2 Saturation 99 % (95-98) H 03/20/19 12:57 ABG Base Excess -7 mEq/L (-2 to 3) L 03/22/19 04:38 VBG pH 7.13 pH Units (7.32-7.42) L* 03/19/19 00:48 VBG pCO2 91 mmHg (41-51) H* 03/19/19 00:48 VBG HCO3 30 mEq/L (21-27) H 03/19/19 00:48 Sodium 134 mEq/L (136-145) L 03/23/19 04:38 Potassium 5.8 mEq/L (3.5-5.1) H 03/22/19 12:12 Potassium 5.8 mEq/L (3.5-5.1) H 03/22/19 12:12 Chloride 109 mEq/L (98-107) H 03/19/19 09:35 Carbon Dioxide 20 mEq/L (23-29) L 03/22/19 12:12 Carbon Dioxide 20 mEq/L (23-29) L 03/22/19 12:12 BUN 55 mg/dL (6-20) H 03/23/19 04:38 Creatinine 4.54 mg/dL (0.70-1.30) H 03/23/19 04:38 Est GFR ( Amer) 18 (> 60) L 03/23/19 04:38 Est GFR (Non-Af Amer) 15 (> 60) L 03/23/19 04:38 Glucose 109 mg/dL (70-105) H 03/22/19 20:37 POC Glucose 103 mg/dL (70-99) H 03/22/19 15:25 Calculated Osmolality 304 (280-300) H 03/22/19 12:12 Calculated Osmolality 305 (280-300) H 03/22/19 12:12 Lactic Acid 2.8 mmol/L (0.5-2.2) H 03/21/19 20:08 Calcium 6.4 mg/dL (8.6-10.3) L 03/23/19 04:38 Venous Ioniz Calcium 0.84 mmol/L (1.15-1.35) L 03/23/19 05:03 Phosphorus 6.4 mg/dL (2.7-4.5) H 03/23/19 04:38 Magnesium 3.9 mg/dL (1.6-2.6) H 03/19/19 07:04 Total Bilirubin 1.1 mg/dL (0.3-1.0) H 03/23/19 04:38 Direct Bilirubin 0.7 mg/dL (0.0-0.2) H 03/23/19 04:38 AST 1761 Units/L (13-39) H 03/23/19 04:38 ALT 1234 Units/L (7-52) H 03/23/19 04:38 Creatine Kinase > 29739 Units/L (30-223) H 03/23/19 04:38 Troponin I 0.89 ng/mL (< 0.04) H* 03/20/19 03:45 Serum Total Protein 4.7 g/dL (6.4-8.9) L 03/23/19 04:38 Albumin 2.4 g/dL (3.5-5.7) L 03/23/19 04:38 Globulin 2.3 g/dL (2.4-3.5) L 03/23/19 04:38 Albumin/Globulin Ratio 1.0 (1.1-2.2) L 03/23/19 04:38 Ur Specimen Adequacy See below A 03/19/19 03:55 Urine Color [place] (Yellow) A 03/19/19 03:55 Urine Clarity Cloudy (Clear) A 03/19/19 03:55 Urine Protein >=300 mg/dL (Neg-Trace) H 03/19/19 03:55 Urine Ketones Trace mg/dL (Negative) H 03/19/19 03:55 Urine Blood Large (Negative) H 03/19/19 03:55 Urine Bilirubin Small (Negative) H 03/19/19 03:55 Urine Microscopic RBC 50-100 per hpf (0-3) H 03/19/19 03:55 Urine Bacteria Many per hpf (None-Few) H 03/19/19 03:55 Ur Culture Indicated? YES (NO) A 03/19/19 03:55 Salicylates < 2.5 mg/dL (15.0-30.0) L 03/19/19 08:20 Ur Buprenorphine Scrn Positive ng/mL (Cutoff=5) H 03/19/19 03:55 Acetaminophen < 10 mcg/mL (10-20) L 03/19/19 08:20 Ur Amphetamines Screen Positive ng/mL (Babfoz=7357) H 03/19/19 03:55 U Benzodiazepines Scrn Positive ng/mL (Nrondx=882) H 03/19/19 03:55 U Marijuana (THC) Screen Positive ng/mL (Cutoff = 50) H 03/19/19 03:55 Hep Bs Antibody < 3.10 mIU/mL (10.00-) L 03/19/19 08:20 Staphylococcus sp PCR DETECTED (Not Detect) A 03/19/19 00:52 - Microbiology Findings Microbiology Findings: Microbiology, Last 48 Hours 03/19/19 00:52 Blood Culture - Final Peripheral Venipuncture Staphylococcus capitis - Clinical Findings Intake & Output: Intake & Output 03/22/19 03/23/19 03/23/19 23:59 07:59 15:59 Intake Total 1412 / 4834.0 1503 / 1729 226 / 1729 Output Total 710 / 766 0 / 0 Balance 702 / 4068.0 1503 / 1729 226 / 1729 Weight 110.8 kg - Attending Attestation I examined this patient and my medical decision-making was reviewed with the Resident Physician. I agree with the documented findings, disposition and treatment plan as described except to the extent set forth below. We independently had [id number] contact with the patient I spent 35 min of Critical Care time with this patient. It involved decision making of high complexity to assess, manipulate, and support vital organ system failure and/or to prevent further life threatening deterioration of the patient's condition. The time involved in the performance of separately reportable procedures was not counted toward critical care time. Patient seen and examined at bedside Labs, radiology, chart personally reviewed. Management was reviewed during multidisciplinary critical care rounds. IDENTIFICATION TECHNICIAN: Severe anoxic brain injury neurological prognosis poor neuro exam today with noted more brisk pupillary light response and the corneal reflex clinically I do not feel that this changes prognosis much discuss with neurology about her prognostication and if any difference as far as if additional time would change prognosis as family considers a transitioning to comfort measures. Pulm: Hypoxic respiratory failure on the fence can not a candidate for spontaneous breathing trial today otherwise acceptable gas exchange Cards: Blood pressure monitored and stable GI: GI prophylaxis while on vent Nutrition: Continue trophic enteral nutrition can advance in the next 24 hours Renal: Acute kidney injury with a metabolic acidosis patient will likely benefit from dialysis on a daily basis for now we will defer to nephrology persistent rhabdomyolysis UOP Monitored, Cont to Trend sCr and monitor Electrolytes. ID: Patient is on broad-spectrum antibiotics for aspiration pneumonia Heme/Onc: DVT prophylaxis given Endo: Glucose Monitored Integ/MSK: Skin Care per routine ICU Nursing Protocol to prevent ulcers. PET scan with notable myositis in the lower extremities possible fluid collection given neurological status would hold off on surgical intervention or evaluation at this time but can be considered if patient's family determines they want to pursue aggressive measures now at last conversation they did not and ultimately I do not think that additional management in this regard would change prognosis will continue supportive care for rhabdomyolysis Lines: All lines examined without evidence of infection : Dispo: Monitor ICU for critical illness CODE: DNAR. Plan for repeat family meeting after formal evaluation by the Neurology service
[2019-03-23] MEDS ORDERED: *HR* Heparin 10,000 UNIT/10 ML VIAL IV PRN (11:05)
[2019-03-23] MEDS ORDERED: 0.9 % Sodium Chloride 250 ML IVC PRN (11:05)
--- NOTE | 2019-03-23 11:09 | Nephrology Progress Note ---
Date of Encounter: 03/23/19 Time of Encounter: 11:00 - Assessment and Plan (1) Acute kidney injury Current Visit: Yes Status: Acute The patient has multifactorial acute kidney injury with shock, drug overdose, likely volume depletion, and significant rhabdomyolysis. s/p HD yesterday, will plan another session today given persistent rhabdo and anuria. Will start UF as needed to prevent Continue to avoid nephrotoxins if possible Prognosis very guarded (2) Drug overdose Current Visit: Yes Status: Acute Per primary team Qualifiers: Encounter type: initial encounter Injury intent: undetermined intent Qualified Code(s): T50.904A - Poisoning by unspecified drugs, medicaments and biological substances, undetermined, initial encounter (3) Hyperkalemia Current Visit: Yes Status: Acute Normalized at 5.0 after HD yesterday, will monitor (4) Rhabdomyolysis Current Visit: Yes Status: Acute etiology likely due to drug use but no clear signs of muscle damage noted Continue IVF Qualifiers: Rhabdomyolysis type: non-traumatic Qualified Code(s): M62.82 - Rhabdomyolysis (5) Shock Current Visit: Yes Status: Resolved Mostly resolved, off pressor support (6) Multiple organ failure Current Visit: Yes Status: Acute Guarded, per primary and consultants (7) Hypocalcemia Current Visit: Yes Status: Acute Will replete as needed Subjective Principal diagnosis: Cardiac Arrest Interval history: Pt seen and examined remains intubated and sedated with poor UOP. s/p HD yesterday Objective - Vital Signs Vital signs: Vital Signs Temp Pulse Resp BP Pulse Ox 03/23/19 10:25 87 24 156/92 96 03/23/19 09:46 24 149/89 97 03/23/19 09:00 87 26 152/92 93 03/23/19 08:14 27 151/93 92 03/23/19 08:00 86 27 152/93 92 03/23/19 07:35 99.5 F 03/23/19 07:00 85 85 150/94 97 03/23/19 06:00 83 25 147/93 95 03/23/19 05:00 82 25 150/95 96 03/23/19 04:00 97.6 F 83 22 147/98 99 03/23/19 03:55 22 98 03/23/19 03:30 82 03/23/19 03:00 81 21 142/93 99 03/23/19 02:00 79 23 146/95 98 03/23/19 01:00 75 21 138/83 96 03/23/19 00:33 21 98 03/23/19 00:00 65 24 141/85 96 03/22/19 23:48 97.0 F L 03/22/19 23:30 73 03/22/19 23:00 70 22 141/82 97 03/22/19 22:33 23 97 03/22/19 22:00 70 22 149/87 97 03/22/19 21:15 97.9 F 03/22/19 21:00 91 22 145/85 96 03/22/19 20:00 87 22 161/90 99 03/22/19 19:56 23 96 03/22/19 19:30 65 03/22/19 19:25 97.9 F 18 171/93 03/22/19 19:20 165/91 03/22/19 19:05 168/92 03/22/19 19:00 61 20 173/95 99 03/22/19 18:50 164/92 03/22/19 18:35 170/97 03/22/19 18:20 152/92 03/22/19 18:05 22 154/93 100 03/22/19 18:00 76 22 151/93 100 03/22/19 17:50 151/90 03/22/19 17:35 153/91 03/22/19 17:20 161/94 03/22/19 17:05 153/93 03/22/19 17:00 61 28 163/97 98 03/22/19 16:50 145/91 03/22/19 16:35 144/91 03/22/19 16:20 146/92 03/22/19 16:06 99.2 F 03/22/19 16:05 150/94 03/22/19 16:00 60 28 164/97 98 03/22/19 15:50 145/90 03/22/19 15:47 26 98 03/22/19 15:35 149/91 03/22/19 15:20 99.2 F 28 149/89 03/22/19 14:00 100 36 164/122 99 03/22/19 13:27 31 97 03/22/19 13:00 100 25 147/101 99 03/22/19 12:00 100 25 144/89 99 03/22/19 11:51 25 157/104 97 03/22/19 11:28 99.6 F Intake and Output 03/22/19 03/23/19 03/23/19 23:59 07:59 15:59 Intake Total 1412 / 4834.0 1503 / 1729 226 / 1729 Output Total 710 / 766 0 / 0 Balance 702 / 4068.0 1503 / 1729 226 / 1729 Intake: IV Fluids 1282 / 4104.0 1450 / 1550 100 / 1550 0.9 % Sodium Chloride 1,000 ML 1000 / 3000 1000 / 1000 @ 125 mls/hr IVC .Q8H [facility] Rx#: [id number] Precedex Premix 400 mcg In 100 200 / 494 200 / 300 100 / 300 ml @ 0.2 MCG/KG/HR 4.385 mls/hr IVC .[id number] [facility] Rx#: [id number] FentaNYL (PF) 1,000 MCG In 0.9 82 / 300.0 100 / 100 % Sodium Chloride 80 ML @ 50 MCG/HR 5 mls/hr IVC CONT [facility] Rx #:[id number] Calcium Gluconate 1gm/50mL 1 gm 50 / 50 In 50 ml @ 50 mls/hr IVPB Q6HR [facility] Rx#:[id number] Zosyn 3.375 GM In 0.9 % Sodium 100 / 100 Chloride (Mini-Bag +) 100 ML @ 25 mls/hr IVPB Q12H [facility] Rx#: [id number] Tube Feeding 130 / 130 53 / 89 36 / 89 Free Water 90 / 90 Output: Urine 0 / 0 Total Dialysis (HD) Output 600 / 600 Catheter 110 / 126 0 / 0 Other: Weight 110.8 kg Blood Glucose* 95 95 95 Hemodialysis Net Fluid Removed 0 (mL) - General Appearance General appearance: Present: sedated on ventilator, intubated EENT: Present: ATNC, mucous membranes moist Neck: Present: no JVD, supple Respiratory: Present: course breath sounds Cardiology: Present: no edema, normal S1, normal S2 Dialysis Vascular Access: Venous Catheter (temp line) Gastrointestinal: Present: no tenderness, no guarding Integumentary: Present: warm and dry Additional Comments: sedated Musculoskeletal: Present: no deformities Additional Comments: unresponsive, unable to assess - Lab 03/23/19 04:38 03/23/19 04:38 Most recent lab results 03/23/19 03/23/19 03/23/19 04:38 04:38 04:38 ABG pH 7.36 ABG pCO2 44 ABG pO2 78 L ABG HCO3 25 ABG O2 Saturation 95 Calcium 6.4 L Phosphorus 6.4 H Magnesium 1.9 - VTE Documentation of Mechanical Device: Intermittent pneumatic compression device Consult Discharge Plan - Plan Referrals: NONE,PCP [Primary Care Provider] -
--- NOTE | 2019-03-23 14:34 | Neurology - Consult Note ---
Date of Encounter: 03/23/19 Time of Encounter: 10:40 Assessment and Plan (1) Anoxic brain injury Current Visit: Yes Status: Suspected This patient who is intubated and is unresponsive since March 19 with minimal change in his overall brainstem function today he noticed to have very weak corneal reflex and at the same time has weak pupillary response but without any gag reflex, he is also breathing over the vent with minimal sedation No withdrawal to the deep pain, and no other spontaneous activity noted Repeat CT scan yesterday did show evidence of loss of khan white matter which is commonly seen with anoxic brain damage At this times though he does have minimal brainstem reflexes, but no significant cortical function were noted EEG did not show any seizure activity At the moment is possible that he may have suffered irreversible brain damage and in likely would be in the vegetative state considering his current findings on neurological examination. The overall prognosis remains very poor for any reasonable recovery Discussed with the mother was present at the bedside she would like to wait for 1-2 more days and to see if there is any significant improvement or any significant changes in his overall neurological status. At the moment suggested that we should continue on current treatment, until family makes a decision regarding prolonged care (2) Acute respiratory failure with hypoxia Current Visit: Yes Status: Acute History of Present Illness HPI: Mr. Castaneda is a 38 year old male who has been intubated followed by cardiac arrest after amphetamine overdose, pt had been evaluated by neurology earlier has to be evaluated the patient because there is some changes in his neurological examination. According to the records pt was brought in by EMS today due to altered mental status. EMS states that they picked up the patient the police station after he was arrested for intoxication with patient admitting to methamphetamine use. EMS states that the patient was in police custody for approximately 20 minutes when he became nonverbal and unresponsive. Patient given Narcan by Police with little effect. There was noted to be flexor contractions with Reiger's and DECEREBRATE posturing plus diaphoresis while in route. Upon arrival in the ED the patient became pulseless and Chest compressions were initiated and patient was intubated by resident physician and underwent one round of CPR before return of spontaneous circulation was obtained. CT of the head showed no intracranial pathology. Later when in the hospital, patient has developed Acute renal failure, hyperkalemia, metabolic acidosis, also reported to have seizure-like activity in the emergency room, later he underwent HD, continued to be critically ill, -initial CT head does not show acute process, bit CT yesterday showed evidence of Edema. - EEG shows diffuse cerebral dysfunction that can be seen in patients with mild encephalopathy, metabolic/toxic, inflammatory, electrolyte derangement or anoxic/ischemic, or medication effects. Appears consistent with metabolic nature of injury - Patient was in cardiac arrest along with overd sose with concern of anoxic brain injury. Today he noted to have minimally responsive pupil as well as positive corneal reflex, he is on minimal sedation and also breathing over the vent but no gag reflexes and no movement noted. Past Med Surg Social Fam HX - Past Medical History Medical history: no medical history, other Additional medical history: concussion, broken ribs Psychiatric history: no psych history - Social History Smoking Status: Current every day smoker Smokeless Tobacco Status: No Alcohol use: occasionally Drug use: none Medications and Allergies Hydrocodone/Acetaminophen [[place] 5-325 Tablet] 1 tab PO Q6H PRN #20 tab 07/12/15 [Rx] Sulfamethoxazole/Trimeth DS [Bactrim DS] 1 each PO BID #20 tablet 07/12/15 [Rx] cephALEXin [Keflex] 500 mg PO QID #40 capsule 07/12/15 [Rx] Ibuprofen [Motrin] 800 mg PO Q8HR #30 tablet 12/23/15 [Rx] Allergy/AdvReac Type Severity Reaction Status Date / Time No Known Allergies Allergy Verified 03/19/19 01:04 ROS unobtainable: due to endotracheal tube All Systems: The remainder of the systems were reviewed and are negative Physical Examination - Vital Signs Vital Signs: Initial Vital Signs Temp Pulse Resp BP Pulse Ox 107.3 F H 133 0 81/30 46 03/19/19 00:20 03/19/19 00:20 03/19/19 00:20 03/19/19 00:20 03/19/19 00:20 - Exam Exam: GENERAL: Comfortable intubated HEENT: Normal LUNGS: CTA HEART: RRR, S1 S2 Audible, no murmur EXTREMITIES: 1 Pedal edema. DETAILED NEUROLOGICAL EXAMINATION: MENTAL STATUS: Unresponsive to verbal stimuli and to deep pain Cranial Nerve Examination: CN - II: Visual Acuity, unable to assess Pupils- size shape reaction to light and accommodation: Very slow but positive CN IX, X: Gag reflex is negative No withdrawal to the deep pain Deep tendon reflexes. Symmetrical bilateral, No evidence of Babinski. No sign of meningeal irritation Gait Examination: Patient intubated and sedated Results - Laboratory Findings CBC and BMP: 03/23/19 04:38 03/23/19 04:38 Abnormal lab findings: Abnormal lab results WBC 12.7 K/mcL (4.3-11.1) H 03/22/19 20:37 RBC 3.65 M/mcL (4.19-5.50) L 03/23/19 04:38 Hgb 11.8 g/dL (12.9-16.9) L 03/23/19 04:38 Hct 33.9 % (37.5-50.1) L 03/23/19 04:38 MCHC 36.2 g/dL (31.6-35.5) H 03/22/19 03:35 Plt Count 99 K/mcL (140-400) L 03/23/19 04:38 MPV 13.0 fL (9.4-12.4) H 03/20/19 20:09 Band Neutrophils % 8.0 % (0-4) H 03/23/19 04:38 Metamyelocytes % 4.0 % (0) H 03/21/19 13:14 Myelocytes % 2.0 % (0) H 03/21/19 04:00 Neutrophils # 9.1 K/mcL (1.6-8.9) H 03/23/19 04:38 Monocytes # 1.4 K/mcL (0.0-1.3) H 03/21/19 20:08 Nucleated RBCs/100 WBC 0.4 /100 WBC (0) H 03/19/19 00:33 Reactive Lymphocytes Present (Not Present) A 03/21/19 04:00 Toxic Granulation Present (Not Present) A 03/21/19 04:00 Platelet Estimate Slight Decrease (Normal) L 03/23/19 04:38 Immature Plt Fraction 6.6 % (1.1-6.1) H 03/23/19 04:38 PT 13.3 Seconds (9.4-12.1) H 03/23/19 04:38 Fibrinogen 629 mg/dL (169-393) H 03/23/19 04:38 ABG pH 7.29 pH Units (7.32-7.45) L 03/20/19 12:57 ABG pCO2 30 mmHg (35-45) L 03/22/19 04:38 ABG pO2 78 mmHg (85-104) L 03/23/19 04:38 ABG HCO3 17 mEq/L (21-27) L 03/22/19 04:38 ABG Total CO2 18 mEq/L (20-26) L 03/22/19 04:38 ABG O2 Saturation 99 % (95-98) H 03/20/19 12:57 ABG Base Excess -7 mEq/L (-2 to 3) L 03/22/19 04:38 VBG pH 7.13 pH Units (7.32-7.42) L* 03/19/19 00:48 VBG pCO2 91 mmHg (41-51) H* 03/19/19 00:48 VBG HCO3 30 mEq/L (21-27) H 03/19/19 00:48 Sodium 134 mEq/L (136-145) L 03/23/19 04:38 Potassium 5.8 mEq/L (3.5-5.1) H 03/22/19 12:12 Potassium 5.8 mEq/L (3.5-5.1) H 03/22/19 12:12 Chloride 109 mEq/L (98-107) H 03/19/19 09:35 Carbon Dioxide 20 mEq/L (23-29) L 03/22/19 12:12 Carbon Dioxide 20 mEq/L (23-29) L 03/22/19 12:12 BUN 55 mg/dL (6-20) H 03/23/19 04:38 Creatinine 4.54 mg/dL (0.70-1.30) H 03/23/19 04:38 Est GFR ( Amer) 18 (> 60) L 03/23/19 04:38 Est GFR (Non-Af Amer) 15 (> 60) L 03/23/19 04:38 Glucose 109 mg/dL (70-105) H 03/22/19 20:37 POC Glucose 103 mg/dL (70-99) H 03/22/19 15:25 Calculated Osmolality 304 (280-300) H 03/22/19 12:12 Calculated Osmolality 305 (280-300) H 03/22/19 12:12 Lactic Acid 2.8 mmol/L (0.5-2.2) H 03/21/19 20:08 Calcium 6.4 mg/dL (8.6-10.3) L 03/23/19 04:38 Venous Ioniz Calcium 0.84 mmol/L (1.15-1.35) L 03/23/19 05:03 Phosphorus 6.4 mg/dL (2.7-4.5) H 03/23/19 04:38 Magnesium 3.9 mg/dL (1.6-2.6) H 03/19/19 07:04 Total Bilirubin 1.1 mg/dL (0.3-1.0) H 03/23/19 04:38 Direct Bilirubin 0.7 mg/dL (0.0-0.2) H 03/23/19 04:38 AST 1761 Units/L (13-39) H 03/23/19 04:38 ALT 1234 Units/L (7-52) H 03/23/19 04:38 Creatine Kinase > 77376 Units/L (30-223) H 03/23/19 04:38 Troponin I 0.89 ng/mL (< 0.04) H* 03/20/19 03:45 Serum Total Protein 4.7 g/dL (6.4-8.9) L 03/23/19 04:38 Albumin 2.4 g/dL (3.5-5.7) L 03/23/19 04:38 Globulin 2.3 g/dL (2.4-3.5) L 03/23/19 04:38 Albumin/Globulin Ratio 1.0 (1.1-2.2) L 03/23/19 04:38 Ur Specimen Adequacy See below A 03/19/19 03:55 Urine Color [place] (Yellow) A 03/19/19 03:55 Urine Clarity Cloudy (Clear) A 03/19/19 03:55 Urine Protein >=300 mg/dL (Neg-Trace) H 03/19/19 03:55 Urine Ketones Trace mg/dL (Negative) H 03/19/19 03:55 Urine Blood Large (Negative) H 03/19/19 03:55 Urine Bilirubin Small (Negative) H 03/19/19 03:55 Urine Microscopic RBC 50-100 per hpf (0-3) H 03/19/19 03:55 Urine Bacteria Many per hpf (None-Few) H 03/19/19 03:55 Ur Culture Indicated? YES (NO) A 03/19/19 03:55 Salicylates < 2.5 mg/dL (15.0-30.0) L 03/19/19 08:20 Ur Buprenorphine Scrn Positive ng/mL (Cutoff=5) H 03/19/19 03:55 Acetaminophen < 10 mcg/mL (10-20) L 03/19/19 08:20 Ur Amphetamines Screen Positive ng/mL (Xyhstd=9016) H 03/19/19 03:55 U Benzodiazepines Scrn Positive ng/mL (Dzytdg=366) H 03/19/19 03:55 U Marijuana (THC) Screen Positive ng/mL (Cutoff = 50) H 03/19/19 03:55 Hep Bs Antibody < 3.10 mIU/mL (10.00-) L 03/19/19 08:20 Staphylococcus sp PCR DETECTED (Not Detect) A 03/19/19 00:52 Consult Discharge Plan - Plan Referrals: NONE,PCP [Primary Care Provider] -
[2019-03-23 14:35] LABS: Basophils # 0.1 K/mcL (0.0-0.2); Basophils % 0.4 %; Hematocrit 34.4 % (37.5-50.1); Hemoglobin 11.8 g/dL (12.9-16.9); Immature Granulocytes % 3.6 % (0-4); Lymphocytes # 0.8 K/mcL (0.6-4.6); Lymphocytes % 6.4 %; Mean Corpuscular HGB Conc 34.3 g/dL (31.6-35.5); Mean Corpuscular Hemoglobin 32.2 pg (28.0-33.3); Mean Corpuscular Volume 93.7 fL (83.0-100.0); Mean Platelet Volume 10.9 fL (9.4-12.4); Monocytes # 0.9 K/mcL (0.0-1.3); Monocytes % 7.8 %; Neutrophils # 9.6 K/mcL (1.6-8.9); Platelet Count 115 K/mcL (140-400); Red Blood Count 3.67 M/mcL (4.19-5.50); Red Cell Distribution Width 12.8 % (11.5-14.5); Segmented Neutrophils % 81.8 %; White Blood Count 11.7 K/mcL (4.3-11.1)
[2019-03-23 14:42] LABS: VBG Base Excess -3 mEq/L; VBG Chloride 106 mEq/L (98-107); VBG Glucose 97 mg/dl (65-95); VBG HCO3 23 mEq/L (21-27); VBG Ionized Calcium 0.88 mmol/L (1.15-1.35); VBG Oxygen Saturation 100 %; VBG PCO2 43 mmHg (41-51); VBG PH 7.32 pH Units (7.32-7.42); VBG PO2 217 mmHg (25-50); VBG Total CO2 24 mEq/L
[2019-03-23 14:44] LABS: INR 1.1; Prothrombin Time 12.8 Seconds (9.4-12.1)
[2019-03-23 15:02] LABS: Platelet Estimate Decreased (Normal)
--- NOTE | 2019-03-23 15:06 | ENT - Progress Note ---
Date of Encounter: 03/23/19 Time of Encounter: 15:00 Subjective Patient reports: no new complaints (Substantial swelling of the left sternocleidomastoid does not appear to be fluctuant fullness and mass effect palpated. To be consistent with findings on CT done March 22 patient has a white count of 11 runs an occasional temperature elevation but were not identifying any acute process in the neck it does appear to be a possible small break in the skin perhaps at an injection site overlying the sternocleidomastoid at the junction of the more normal sternocleidomastoid and the thicker or superior portion) Objective Initial Vital Signs Temp Pulse Resp BP Pulse Ox 107.3 F H 133 0 81/30 46 03/19/19 00:20 03/19/19 00:20 03/19/19 00:03/19/19 00:03/19/19 00:20 - ENT normal pinna, normal nares - Neck no bruits, no lymphadectomy (There is substantial fullness of the left sternocleidomastoid consistent with the findings on CT this does not appear to be fluctuant we will continue to observe this) - Labs 03/23/19 14:13 03/23/19 04:38 Diabetes panel 03/22/19 03/23/19 Range/Units 20:37 04:38 Sodium 136 134 L (136-145) mEq/L Potassium 4.4 5.0 (3.5-5.1) mEq/L Chloride 100 101 (98-107) mEq/L Carbon Dioxide 26 24 (23-29) mEq/L BUN 45 H 55 H (6-20) mg/dL Creatinine 3.92 H 4.54 H (0.70-1.30) mg/dL Glucose 109 H 105 (70-105) mg/dL Calcium 7.0 L 6.4 L (8.6-10.3) mg/dL AST 1977 H 1761 H (13-39) Units/L ALT 1354 H 1234 H (7-52) Units/L Alkaline Phosphatase 99 88 (34-104) Units/L Albumin 2.4 L 2.4 L (3.5-5.7) g/dL Calcium panel 03/22/19 03/22/19 03/23/19 Range/Units 20:37 20:37 04:38 Calcium 7.0 L 6.4 L (8.6-10.3) mg/dL Phosphorus 5.6 H (2.7-4.5) mg/dL Albumin 2.4 L 2.4 L (3.5-5.7) g/dL 03/23/19 Range/Units 04:38 Calcium (8.6-10.3) mg/dL Phosphorus 6.4 H (2.7-4.5) mg/dL Albumin (3.5-5.7) g/dL Pituitary panel 03/22/19 03/23/19 Range/Units 20:37 04:38 Sodium 136 134 L (136-145) mEq/L Potassium 4.4 5.0 (3.5-5.1) mEq/L Chloride 100 101 (98-107) mEq/L Carbon Dioxide 26 24 (23-29) mEq/L BUN 45 H 55 H (6-20) mg/dL Creatinine 3.92 H 4.54 H (0.70-1.30) mg/dL Glucose 109 H 105 (70-105) mg/dL Calcium 7.0 L 6.4 L (8.6-10.3) mg/dL Adrenal panel 03/22/19 03/23/19 Range/Units 20:37 04:38 Sodium 136 134 L (136-145) mEq/L Potassium 4.4 5.0 (3.5-5.1) mEq/L Chloride 100 101 (98-107) mEq/L Carbon Dioxide 26 24 (23-29) mEq/L BUN 45 H 55 H (6-20) mg/dL Creatinine 3.92 H 4.54 H (0.70-1.30) mg/dL Glucose 109 H 105 (70-105) mg/dL Calcium 7.0 L 6.4 L (8.6-10.3) mg/dL Total Bilirubin 1.4 H 1.1 H (0.3-1.0) mg/dL AST 1977 H 1761 H (13-39) Units/L ALT 1354 H 1234 H (7-52) Units/L Alkaline Phosphatase 99 88 (34-104) Units/L Albumin 2.4 L 2.4 L (3.5-5.7) g/dL - VTE Documentation of Mechanical Device: Intermittent pneumatic compression device Consult Discharge Plan - Plan Referrals: NONE,PCP [Primary Care Provider] -
[2019-03-23 15:08] LABS: BUN/Creatinine Ratio 12 (6-26); Blood Urea Nitrogen 68 mg/dL (6-20); Carbon Dioxide 23 mEq/L (23-29); Chloride 99 mEq/L (98-107); Potassium 5.4 mEq/L (3.5-5.1); Sodium 134 mEq/L (136-145); eGFR For African Americans 14 (> 60)
[2019-03-23 15:09] LABS: Alanine Aminotransferase 1196 Units/L (7-52); Albumin 2.4 g/dL (3.5-5.7); Alkaline Phosphatase 98 Units/L (34-104); Aspartate Amino Transferase 1586 Units/L (13-39); Bilirubin,Direct 0.6 mg/dL (0.0-0.2); Bilirubin,Indirect 0.4 mg/dL (0.0-1.2); Calcium 6.5 mg/dL (8.6-10.3); Creatine Kinase > 20000 Units/L (30-223); Globulin 2.5 g/dL (2.4-3.5); Glucose 101 mg/dL (70-105); Osmolality,Calculated 298 (280-300); Phosphorous 5.9 mg/dL (2.7-4.5); Total Protein 4.9 g/dL (6.4-8.9); eGFR For Non-African Americans 12 (> 60)
[2019-03-23 21:45] LABS: Basophils # 0.1 K/mcL (0.0-0.2); Basophils % 0.6 %; Hematocrit 34.5 % (37.5-50.1); Hemoglobin 11.8 g/dL (12.9-16.9); Immature Granulocytes % 5.5 % (0-4); Lymphocytes # 0.5 K/mcL (0.6-4.6); Lymphocytes % 3.8 %; Mean Corpuscular HGB Conc 34.2 g/dL (31.6-35.5); Mean Corpuscular Hemoglobin 32.2 pg (28.0-33.3); Mean Platelet Volume 10.8 fL (9.4-12.4); Monocytes % 7.8 %; Neutrophils # 10.3 K/mcL (1.6-8.9); Platelet Count 112 K/mcL (140-400); Red Blood Count 3.67 M/mcL (4.19-5.50); Red Cell Distribution Width 12.6 % (11.5-14.5); Segmented Neutrophils % 82.3 %; White Blood Count 12.5 K/mcL (4.3-11.1)
[2019-03-23 21:51] LABS: VBG Ionized Calcium 0.91 mmol/L (1.15-1.35)
[2019-03-23 21:53] LABS: INR 1.1; Prothrombin Time 12.9 Seconds (9.4-12.1)
[2019-03-23 22:10] LABS: Dohle Bodies Present (Not Present); Large Platelets Present (Not Present)
[2019-03-23 22:11] LABS: Reactive Lymphocytes Present (Not Present)
[2019-03-23 22:35] LABS: Alanine Aminotransferase 1095 Units/L (7-52); Albumin 2.4 g/dL (3.5-5.7); Alkaline Phosphatase 103 Units/L (34-104); Aspartate Amino Transferase 1364 Units/L (13-39); BUN/Creatinine Ratio 11 (6-26); Bilirubin,Direct 0.6 mg/dL (0.0-0.2); Bilirubin,Indirect 0.4 mg/dL (0.0-1.2); Blood Urea Nitrogen 41 mg/dL (6-20); Calcium 7.1 mg/dL (8.6-10.3); Carbon Dioxide 26 mEq/L (23-29); Chloride 101 mEq/L (98-107); Creatine Kinase > 20000 Units/L (30-223); Globulin 2.5 g/dL (2.4-3.5); Glucose 103 mg/dL (70-105); Magnesium 1.9 mg/dL (1.6-2.6); Osmolality,Calculated 292 (280-300); Potassium 4.4 mEq/L (3.5-5.1); Sodium 136 mEq/L (136-145); Total Protein 4.9 g/dL (6.4-8.9); eGFR For African Americans 23 (> 60); eGFR For Non-African Americans 19 (> 60)
[2019-03-24] MEDS: Artificial Tears SOLN 15 ML BOTTLE BOTH EYES SCH ×6 (00:20→20:17)
[2019-03-24] MEDS: 0.9 % Sodium Chloride 1,000 ML IVC SCH ×3 (00:20→12:44)
[2019-03-24] MEDS: Dexmedetomidine HCl 400 MCG/100 ML MLS IVC SCH ×5 (00:59→20:16)
[2019-03-24] MEDS: *HR* LORazepam 2 MG/ML VIAL IVP PRN (02:33)
[2019-03-24 04:05] LABS: Hematocrit 33.3 % (37.5-50.1); Hemoglobin 11.3 g/dL (12.9-16.9); Mean Corpuscular HGB Conc 33.9 g/dL (31.6-35.5); Mean Corpuscular Volume 94.3 fL (83.0-100.0); Mean Platelet Volume 10.9 fL (9.4-12.4); Platelet Count 113 K/mcL (140-400); Red Blood Count 3.53 M/mcL (4.19-5.50); Red Cell Distribution Width 12.7 % (11.5-14.5); White Blood Count 10.5 K/mcL (4.3-11.1)
[2019-03-24 04:16] LABS: INR 1.1; Prothrombin Time 12.9 Seconds (9.4-12.1)
[2019-03-24 04:23] LABS: VBG Ionized Calcium 0.95 mmol/L (1.15-1.35)
[2019-03-24 04:31] LABS: Lymphocytes # 1.5 K/mcL (0.6-4.6); Monocytes # 0.4 K/mcL (0.0-1.3); Neutrophils # 8.6 K/mcL (1.6-8.9); Platelet Estimate Slight Decrease (Normal)
[2019-03-24 04:40] LABS: ABG Base Excess 1 mEq/L (-2 to 3); ABG HCO3 27 mEq/L (21-27); ABG Oxygen Saturation 98 % (95-98); ABG PCO2 47 mmHg (35-45); ABG PH 7.37 pH Units (7.32-7.45); ABG PO2 111 mmHg (85-104); ABG TCO2 29 mEq/L (20-26); Blood Gas Modality ASSIST CONTROL; Blood Gas PEEP 8 cm H2O; Blood Gas VT 500 cc
[2019-03-24 05:31] LABS: Alanine Aminotransferase 997 Units/L (7-52); Albumin 2.3 g/dL (3.5-5.7); Albumin/Globulin Ratio 0.9 (1.1-2.2); Alkaline Phosphatase 98 Units/L (34-104); Aspartate Amino Transferase 1199 Units/L (13-39); BUN/Creatinine Ratio 12 (6-26); Bilirubin,Direct 0.6 mg/dL (0.0-0.2); Bilirubin,Indirect 0.4 mg/dL (0.0-1.2); Blood Urea Nitrogen 49 mg/dL (6-20); Carbon Dioxide 25 mEq/L (23-29); Chloride 101 mEq/L (98-107); Creatine Kinase > 20000 Units/L (30-223); Globulin 2.5 g/dL (2.4-3.5); Glucose 96 mg/dL (70-105); Magnesium 1.9 mg/dL (1.6-2.6); Osmolality,Calculated 295 (280-300); Phosphorous 5.2 mg/dL (2.7-4.5); Potassium 4.6 mEq/L (3.5-5.1); Sodium 136 mEq/L (136-145); Total Protein 4.8 g/dL (6.4-8.9); eGFR For African Americans 19 (> 60); eGFR For Non-African Americans 16 (> 60)
[2019-03-24] MEDS: Calcium Gluconate 1gm/50mL 1 GM/50 ML BAG IVPB PRN ×3 (05:35→22:03)
--- NOTE | 2019-03-24 08:18 | Pulmonology Progress Note ---
<Julian Bear - Last Filed: 03/24/19 10:08> Date of Encounter: 03/24/19 Time of Encounter: 08:18 Assessment and Plan (1) Encephalopathy Current Visit: Yes Status: Acute Acute toxic encephalopathy/toxidrome with likely anoxic brain injury in context of cardiac arrest. Suspected etiology due to drug overdose and metabolic disturbances including hyperkalemia. Currently intubated/sedated on fentanyl/precedex. UDS pos for amphetamines, bzds, MJ, buprenorphine. On NAC protocol empirically for possible tylenol overdose. Plan: - Neurology consulted, EEG shows no epileptiform activity, cont supportive care - Repeat CT head showed loss of khan white differentiation, anoxic brain injury - Cont to monitor neuro function and mental status - Intact pupillary and corneal reflexes, prognosis continues to be poor - Hemodialysis for hyperkalemia - PRN hydralazine for HTN - Discussed goals of care with family, patient was made DNR CCA - Decided to pursue aggressive care for several days, may consider withdrawing care next week - Will cont to support family on a daily basis (2) Acute respiratory failure with hypoxia Current Visit: Yes Status: Acute Respiratory failure with respiratory acidosis. With anoxic brain injury. Currently intubated/sedated. Not a candidate for SBT. Plan: - Daily ABGs and metabolic panels - Cont to monitor respiratory function and status (3) Hyperkalemia Current Visit: Yes Status: Acute Noted to have initial potassium of 8.4. Was treated in the ED with albuterol, Ca, insulin, and kayexalate. Plan: - Nephro consulted for hemodialysis - Cont MIVFs NS 125, trending BMP every 8 hours - Monitor for EKG changes (4) Cardiac arrest Current Visit: Yes Status: Acute Likely due to metabolic disturbances and potential drug overdose. ROSC achieved after one round of CPR. Echo showed LVEF 50%, mild global LV systolic dysfunction, minimal pericardial effusion. Plan: - Cont to monitor vitals (5) Shock Current Visit: Yes Status: Resolved Shock likely d/t hypoperfusion in context of metabolic disturbance and poss drug OD. KIEL with elevated Cr. Initial WBC of 15. Likely reactive d/t cardiac arrest. Also elevated troponins likely d/t cardiac arrest/shock. Also elevated LFTs, likely shock liver. Also elevated CK d/t rhabdo. CT also shows signs of ischemic colitis, biliary pneumatosis. Plan: - CT of extremities noted a L psoas abscess/hematoma, poss myositis, cellulitis in UE - Cont to monitor WBCs, Cr, LFTs, and trops - Supportive care with MIVFs - On empiric zosyn, stopped vanc (6) Drug overdose Current Visit: Yes Status: Acute Possible drug OD at presentation. Hx of meth abuse. UDS positive for bup, amphetamines, MJ, bzds. Plan: - Cont to monitor - On NAC protocol for possible APAP OD Qualifiers: Encounter type: initial encounter Injury intent: undetermined intent Qualified Code(s): T50.904A - Poisoning by unspecified drugs, medicaments and biological substances, undetermined, initial encounter (7) Acute kidney injury Current Visit: Yes Status: Acute Likely d/t shock and hypoperfusion. Also with rhabdo and hyperK. Plan: - Nephro consulted for hyperK, will cont with emergent dialysis - Cont MIVFs and monitor UOP - Trend renal function with BMPs - Trend CK (8) Rhabdomyolysis Current Visit: Yes Status: Acute Elevated CK. Currently >20,000. Noted to have neck mass with concern fro hematoma/abscess vs. myositis. CT of the neck showed no abscess. Unlikely malignancy. Plan: - Measurement of intraabdominal pressures, approx 18, low concern for abdominal compartment syndrome - CPK has been persistently elevated despite fluids - Will CT scan brain, spine, extremities for possible source - Cont MIVFs - Cont trending CK Qualifiers: Rhabdomyolysis type: non-traumatic Qualified Code(s): M62.82 - Rhabdomyolysis (9) Seizure-like activity Current Visit: Yes Status: Acute Noted seizure-like activity in the ED. Likely due to metabolic disturbances. Absence of corneal, oculocephalic, pupillary responses; prognosis poor per neuro. CT head did not show any acute process. Plan: - Neuro consulted, recommended supportive care, no indications for LP - Absence of corneal, oculocephalic, pupillary responses; prognosis poor per neuro - No seizure activity noted on EEG (10) DVT prophylaxis Current Visit: Yes Status: Acute DVT PPX: hep SQ Analgesia: fentanyl gtt Sedation: precedex gtt SBT: none Glycemic control: none Bowl regimen: none Activity: none Fluids: MIVF Electrolytes: replete as necessary Nutrition: NPO GI ppx: PPI Lines: ET, OG, james, dialysis cath, CVC, art line, 2x PIV Consults: pulm, neuro, nephro, IR, ENT, nutrition Code: DNR CCA Dispo: ICU Subjective Principal diagnosis: Cardiac Arrest Interval history: Patient was seen and examined at bedside. Patient is unresponsive to stimuli and does not have any purposeful movements. He does have a pupillary reflex and corneal reflex. He continues to have very low urine output. Will continue to support family on a daily basis. Dialyzed yesterday. Repleted electrolytes. Objective PUL Vital signs: Last Vital Signs Temp 98.0 F 03/24/19 03:42 Pulse 81 03/24/19 06:00 Resp 19 03/24/19 06:26 BP 158/92 03/24/19 06:26 Pulse Ox 100 03/24/19 06:26 General appearance: no acute distress, comatose Eyes: nonicteric Neck: supple Effort: normal Auscultation: bilateral: clear Cardiovascular: regular rate and rhythm Gastrointestinal: normoactive bowel sounds, non-distended Integumentary: normal Extremities: no cyanosis, no edema, no clubbing Musculoskeletal: no deformities, ROM normal unable to assess due to mental status Ventilator Settings Ventilator Settings: Ventilator Settings, Last 8 Hours Ventilator Tidal Volume 500 Setting Ventilator Tidal Volume 500 Setting Ventilator Tidal Volume 500 Setting Ventilator Tidal Volume 500 Setting Ventilator Tidal Volume 500 Setting Ventilator Tidal Volume 500 Setting Ventilator Tidal Volume 500 Setting Ventilator Tidal Volume 500 Setting Ventilator Tidal Volume 500 Setting Ventilator Tidal Volume 500 Setting Ventilator Respiratory Rate 18 Setting Ventilator Respiratory Rate 18 Setting Ventilator Respiratory Rate 18 Setting Ventilator Respiratory Rate 18 Setting Ventilator Respiratory Rate 18 Setting Ventilator Respiratory Rate 18 Setting Ventilator Respiratory Rate 18 Setting Ventilator Respiratory Rate 18 Setting Ventilator Respiratory Rate 18 Setting Ventilator Respiratory Rate 18 Setting Actual Respiratory Rate 20 Actual Respiratory Rate 21 Actual Respiratory Rate 20 Actual Respiratory Rate 20 Actual Respiratory Rate 19 Actual Respiratory Rate 20 Actual Respiratory Rate 22 Actual Respiratory Rate 21 Actual Respiratory Rate 22 Positive End Expiratory 8 Pressure Positive End Expiratory 8 Pressure Positive End Expiratory 8 Pressure Positive End Expiratory 8 Pressure Positive End Expiratory 8 Pressure Positive End Expiratory 8 Pressure Positive End Expiratory 8 Pressure Positive End Expiratory 8 Pressure Positive End Expiratory 8 Pressure Positive End Expiratory 8 Pressure Peak Inspiratory Airway 20 Pressure Peak Inspiratory Airway 19 Pressure Peak Inspiratory Airway 20 Pressure Peak Inspiratory Airway 18 Pressure Peak Inspiratory Airway 8.8 Pressure Peak Inspiratory Airway 9.2 Pressure Peak Inspiratory Airway 9 Pressure Peak Inspiratory Airway 8.7 Pressure Peak Inspiratory Airway 8.9 Pressure Results - Laboratory Findings CBC and BMP: 03/24/19 03:41 03/24/19 03:41 ABG ABG pH 7.37 pH Units (7.32-7.45) 03/24/19 04:36 ABG pCO2 47 mmHg (35-45) H 03/24/19 04:36 ABG pO2 111 mmHg (85-104) H 03/24/19 04:36 ABG O2 Saturation 98 % (95-98) 03/24/19 04:36 PT/INR, D-dimer PT 12.9 Seconds (9.4-12.1) H 03/24/19 03:41 Abnormal lab findings: Abnormal lab results WBC 12.5 K/mcL (4.3-11.1) H 03/23/19 21:39 RBC 3.53 M/mcL (4.19-5.50) L 03/24/19 03:41 Hgb 11.3 g/dL (12.9-16.9) L 03/24/19 03:41 Hct 33.3 % (37.5-50.1) L 03/24/19 03:41 MCHC 36.2 g/dL (31.6-35.5) H 03/22/19 03:35 Plt Count 113 K/mcL (140-400) L 03/24/19 03:41 MPV 13.0 fL (9.4-12.4) H 03/20/19 20:09 Immature Gran % 5.5 % (0-4) H 03/23/19 21:39 Band Neutrophils % 8.0 % (0-4) H 03/23/19 04:38 Metamyelocytes % 4.0 % (0) H 03/21/19 13:14 Myelocytes % 2.0 % (0) H 03/21/19 04:00 Neutrophils # 10.3 K/mcL (1.6-8.9) H 03/23/19 21:39 Lymphocytes # 0.5 K/mcL (0.6-4.6) L 03/23/19 21:39 Monocytes # 1.4 K/mcL (0.0-1.3) H 03/21/19 20:08 Nucleated RBCs/100 WBC 0.4 /100 WBC (0) H 03/19/19 00:33 Reactive Lymphocytes Present (Not Present) A 03/23/19 21:39 Toxic Granulation Present (Not Present) A 03/21/19 04:00 Dohle Bodies Present (Not Present) A 03/23/19 21:39 Platelet Estimate Slight Decrease (Normal) L 03/24/19 03:41 Large Platelets Present (Not Present) A 03/23/19 21:39 Immature Plt Fraction 6.6 % (1.1-6.1) H 03/23/19 04:38 PT 12.9 Seconds (9.4-12.1) H 03/24/19 03:41 Fibrinogen 713 mg/dL (169-393) H* 03/24/19 03:41 ABG pH 7.29 pH Units (7.32-7.45) L 03/20/19 12:57 ABG pCO2 47 mmHg (35-45) H 03/24/19 04:36 ABG pO2 111 mmHg (85-104) H 03/24/19 04:36 ABG HCO3 17 mEq/L (21-27) L 03/22/19 04:38 ABG Total CO2 29 mEq/L (20-26) H 03/24/19 04:36 ABG O2 Saturation 99 % (95-98) H 03/20/19 12:57 ABG Base Excess -7 mEq/L (-2 to 3) L 03/22/19 04:38 VBG pH 7.13 pH Units (7.32-7.42) L* 03/19/19 00:48 VBG pCO2 91 mmHg (41-51) H* 03/19/19 00:48 VBG pO2 217 mmHg (25-50) H 03/23/19 14:38 VBG HCO3 30 mEq/L (21-27) H 03/19/19 00:48 VBG Hematocrit 35.0 % (37.5-50.1) L 03/23/19 14:38 Sodium 134 mEq/L (136-145) L 03/23/19 14:13 Potassium 5.4 mEq/L (3.5-5.1) H 03/23/19 14:13 Chloride 109 mEq/L (98-107) H 03/19/19 09:35 Carbon Dioxide 20 mEq/L (23-29) L 03/22/19 12:12 Carbon Dioxide 20 mEq/L (23-29) L 03/22/19 12:12 BUN 49 mg/dL (6-20) H 03/24/19 03:41 Creatinine 4.23 mg/dL (0.70-1.30) H 03/24/19 03:41 Est GFR ( Amer) 19 (> 60) L 03/24/19 03:41 Est GFR (Non-Af Amer) 16 (> 60) L 03/24/19 03:41 Glucose 109 mg/dL (70-105) H 03/22/19 20:37 Whole Bld Glucose 97 mg/dl (65-95) H 03/23/19 14:38 POC Glucose 127 mg/dL (70-99) H 03/23/19 11:32 Calculated Osmolality 304 (280-300) H 03/22/19 12:12 Calculated Osmolality 305 (280-300) H 03/22/19 12:12 Lactic Acid 2.8 mmol/L (0.5-2.2) H 03/21/19 20:08 Calcium 7.0 mg/dL (8.6-10.3) L 03/24/19 03:41 Venous Ioniz Calcium 0.95 mmol/L (1.15-1.35) L 03/24/19 04:09 Phosphorus 5.2 mg/dL (2.7-4.5) H 03/24/19 03:41 Magnesium 3.9 mg/dL (1.6-2.6) H 03/19/19 07:04 Total Bilirubin 1.1 mg/dL (0.3-1.0) H 03/23/19 04:38 Direct Bilirubin 0.6 mg/dL (0.0-0.2) H 03/24/19 03:41 AST 1199 Units/L (13-39) H 03/24/19 03:41 ALT 997 Units/L (7-52) H 03/24/19 03:41 Creatine Kinase > 43475 Units/L (30-223) H 03/24/19 03:41 Troponin I 0.89 ng/mL (< 0.04) H* 03/20/19 03:45 Serum Total Protein 4.8 g/dL (6.4-8.9) L 03/24/19 03:41 Albumin 2.3 g/dL (3.5-5.7) L 03/24/19 03:41 Globulin 2.3 g/dL (2.4-3.5) L 03/23/19 04:38 Albumin/Globulin Ratio 0.9 (1.1-2.2) L 03/24/19 03:41 Ur Specimen Adequacy See below A 03/19/19 03:55 Urine Color Bee (Yellow) A 03/19/19 03:55 Urine Clarity Cloudy (Clear) A 03/19/19 03:55 Urine Protein >=300 mg/dL (Neg-Trace) H 03/19/19 03:55 Urine Ketones Trace mg/dL (Negative) H 03/19/19 03:55 Urine Blood Large (Negative) H 03/19/19 03:55 Urine Bilirubin Small (Negative) H 03/19/19 03:55 Urine Microscopic RBC 50-100 per hpf (0-3) H 03/19/19 03:55 Urine Bacteria Many per hpf (None-Few) H 03/19/19 03:55 Ur Culture Indicated? YES (NO) A 03/19/19 03:55 Salicylates < 2.5 mg/dL (15.0-30.0) L 03/19/19 08:20 Ur Buprenorphine Scrn Positive ng/mL (Cutoff=5) H 03/19/19 03:55 Acetaminophen < 10 mcg/mL (10-20) L 03/19/19 08:20 Ur Amphetamines Screen Positive ng/mL (Owuzrb=[id number]) H 03/19/19 03:55 U Benzodiazepines Scrn Positive ng/mL (Kciclm=069) H 03/19/19 03:55 U Marijuana (THC) Screen Positive ng/mL (Cutoff = 50) H 03/19/19 03:55 Hep Bs Antibody < 3.10 mIU/mL (10.00-) L 03/19/19 08:20 Staphylococcus sp PCR DETECTED (Not Detect) A 03/19/19 00:52 - Microbiology Findings Microbiology Findings: Microbiology, Last 48 Hours 03/19/19 00:33 Blood Culture - Final Peripheral Venipuncture No growth. Final report. 03/19/19 00:52 Blood Culture - Final Peripheral Venipuncture Staphylococcus capitis - Clinical Findings Intake & Output: Intake & Output 03/23/19 03/24/19 03/24/19 23:59 07:59 15:59 Intake Total 335 / 3986 1424 / 1424 Output Total 2600 / 2600 Balance -2265 / 1386 1409 / 1409 Weight 109.2 kg - VTE Documentation of Mechanical Device: Intermittent pneumatic compression device Consult Discharge Plan - Plan Referrals: NONE,PCP [Primary Care Provider] - <Giorgi Valdovinos - Last Filed: 03/24/19 11:08> Date of Encounter: 03/24/19 Assessment and Plan (1) Multiple organ failure Current Visit: Yes Status: Acute (2) Toxic encephalopathy Current Visit: Yes Status: Acute (3) Anoxic brain injury Current Visit: Yes Status: Suspected (4) Neck mass Current Visit: Yes Status: Acute (5) Drug overdose Current Visit: Yes Status: Acute Qualifiers: Encounter type: initial encounter Injury intent: undetermined intent Qualified Code(s): T50.904A - Poisoning by unspecified drugs, medicaments and biological substances, undetermined, initial encounter (6) Cardiac arrest Current Visit: Yes Status: Acute (7) Acute kidney injury Current Visit: Yes Status: Acute (8) Rhabdomyolysis Current Visit: Yes Status: Acute Qualifiers: Rhabdomyolysis type: non-traumatic Qualified Code(s): M62.82 - Rhabdomyolysis (9) Acute respiratory failure with hypoxia Current Visit: Yes Status: Acute (10) Ischemic hepatitis Current Visit: Yes Status: Acute Objective PUL Vital signs: Last Vital Signs Temp 99.2 F 03/24/19 08:29 Pulse 82 03/24/19 10:00 Resp 20 03/24/19 10:00 BP 166/94 03/24/19 10:00 Pulse Ox 100 03/24/19 10:00 Ventilator Settings Ventilator Settings: Ventilator Settings, Last 8 Hours Ventilator Tidal Volume 500 Setting Ventilator Tidal Volume 500 Setting Ventilator Tidal Volume 500 Setting Ventilator Tidal Volume 500 Setting Ventilator Tidal Volume 500 Setting Ventilator Tidal Volume 500 Setting Ventilator Tidal Volume 500 Setting Ventilator Respiratory Rate 18 Setting Ventilator Respiratory Rate 18 Setting Ventilator Respiratory Rate 18 Setting Ventilator Respiratory Rate 18 Setting Ventilator Respiratory Rate 18 Setting Ventilator Respiratory Rate 18 Setting Ventilator Respiratory Rate 18 Setting Actual Respiratory Rate 21 Actual Respiratory Rate 20 Actual Respiratory Rate 21 Actual Respiratory Rate 20 Actual Respiratory Rate 20 Actual Respiratory Rate 19 Positive End Expiratory 8 Pressure Positive End Expiratory 8 Pressure Positive End Expiratory 8 Pressure Positive End Expiratory 8 Pressure Positive End Expiratory 8 Pressure Positive End Expiratory 8 Pressure Positive End Expiratory 8 Pressure Peak Inspiratory Airway 14 Pressure Peak Inspiratory Airway 20 Pressure Peak Inspiratory Airway 19 Pressure Peak Inspiratory Airway 20 Pressure Peak Inspiratory Airway 18 Pressure Peak Inspiratory Airway 8.8 Pressure Results - Laboratory Findings CBC and BMP: 03/24/19 03:41 03/24/19 03:41 ABG ABG pH 7.37 pH Units (7.32-7.45) 03/24/19 04:36 ABG pCO2 47 mmHg (35-45) H 03/24/19 04:36 ABG pO2 111 mmHg (85-104) H 03/24/19 04:36 ABG O2 Saturation 98 % (95-98) 03/24/19 04:36 PT/INR, D-dimer PT 12.9 Seconds (9.4-12.1) H 03/24/19 03:41 Abnormal lab findings: Abnormal lab results WBC 12.5 K/mcL (4.3-11.1) H 03/23/19 21:39 RBC 3.53 M/mcL (4.19-5.50) L 03/24/19 03:41 Hgb 11.3 g/dL (12.9-16.9) L 03/24/19 03:41 Hct 33.3 % (37.5-50.1) L 03/24/19 03:41 MCHC 36.2 g/dL (31.6-35.5) H 03/22/19 03:35 Plt Count 113 K/mcL (140-400) L 03/24/19 03:41 MPV 13.0 fL (9.4-12.4) H 03/20/19 20:09 Immature Gran % 5.5 % (0-4) H 03/23/19 21:39 Band Neutrophils % 8.0 % (0-4) H 03/23/19 04:38 Metamyelocytes % 4.0 % (0) H 03/21/19 13:14 Myelocytes % 2.0 % (0) H 03/21/19 04:00 Neutrophils # 10.3 K/mcL (1.6-8.9) H 03/23/19 21:39 Lymphocytes # 0.5 K/mcL (0.6-4.6) L 03/23/19 21:39 Monocytes # 1.4 K/mcL (0.0-1.3) H 03/21/19 20:08 Nucleated RBCs/100 WBC 0.4 /100 WBC (0) H 03/19/19 00:33 Reactive Lymphocytes Present (Not Present) A 03/23/19 21:39 Toxic Granulation Present (Not Present) A 03/21/19 04:00 Dohle Bodies Present (Not Present) A 03/23/19 21:39 Platelet Estimate Slight Decrease (Normal) L 03/24/19 03:41 Large Platelets Present (Not Present) A 03/23/19 21:39 Immature Plt Fraction 6.6 % (1.1-6.1) H 03/23/19 04:38 PT 12.9 Seconds (9.4-12.1) H 03/24/19 03:41 Fibrinogen 713 mg/dL (169-393) H* 03/24/19 03:41 ABG pH 7.29 pH Units (7.32-7.45) L 03/20/19 12:57 ABG pCO2 47 mmHg (35-45) H 03/24/19 04:36 ABG pO2 111 mmHg (85-104) H 03/24/19 04:36 ABG HCO3 17 mEq/L (21-27) L 03/22/19 04:38 ABG Total CO2 29 mEq/L (20-26) H 03/24/19 04:36 ABG O2 Saturation 99 % (95-98) H 03/20/19 12:57 ABG Base Excess -7 mEq/L (-2 to 3) L 03/22/19 04:38 VBG pH 7.13 pH Units (7.32-7.42) L* 03/19/19 00:48 VBG pCO2 91 mmHg (41-51) H* 03/19/19 00:48 VBG pO2 217 mmHg (25-50) H 03/23/19 14:38 VBG HCO3 30 mEq/L (21-27) H 03/19/19 00:48 VBG Hematocrit 35.0 % (37.5-50.1) L 03/23/19 14:38 Sodium 134 mEq/L (136-145) L 03/23/19 14:13 Potassium 5.4 mEq/L (3.5-5.1) H 03/23/19 14:13 Chloride 109 mEq/L (98-107) H 03/19/19 09:35 Carbon Dioxide 20 mEq/L (23-29) L 03/22/19 12:12 Carbon Dioxide 20 mEq/L (23-29) L 03/22/19 12:12 BUN 49 mg/dL (6-20) H 03/24/19 03:41 Creatinine 4.23 mg/dL (0.70-1.30) H 03/24/19 03:41 Est GFR ( Amer) 19 (> 60) L 03/24/19 03:41 Est GFR (Non-Af Amer) 16 (> 60) L 03/24/19 03:41 Glucose 109 mg/dL (70-105) H 03/22/19 20:37 Whole Bld Glucose 97 mg/dl (65-95) H 03/23/19 14:38 POC Glucose 127 mg/dL (70-99) H 03/23/19 11:32 Calculated Osmolality 304 (280-300) H 03/22/19 12:12 Calculated Osmolality 305 (280-300) H 03/22/19 12:12 Lactic Acid 2.8 mmol/L (0.5-2.2) H 03/21/19 20:08 Calcium 7.0 mg/dL (8.6-10.3) L 03/24/19 03:41 Venous Ioniz Calcium 0.95 mmol/L (1.15-1.35) L 03/24/19 04:09 Phosphorus 5.2 mg/dL (2.7-4.5) H 03/24/19 03:41 Magnesium 3.9 mg/dL (1.6-2.6) H 03/19/19 07:04 Total Bilirubin 1.1 mg/dL (0.3-1.0) H 03/23/19 04:38 Direct Bilirubin 0.6 mg/dL (0.0-0.2) H 03/24/19 03:41 AST 1199 Units/L (13-39) H 03/24/19 03:41 ALT 997 Units/L (7-52) H 03/24/19 03:41 Creatine Kinase > 28382 Units/L (30-223) H 03/24/19 03:41 Troponin I 0.89 ng/mL (< 0.04) H* 03/20/19 03:45 Serum Total Protein 4.8 g/dL (6.4-8.9) L 03/24/19 03:41 Albumin 2.3 g/dL (3.5-5.7) L 03/24/19 03:41 Globulin 2.3 g/dL (2.4-3.5) L 03/23/19 04:38 Albumin/Globulin Ratio 0.9 (1.1-2.2) L 03/24/19 03:41 Ur Specimen Adequacy See below A 03/19/19 03:55 Urine Color Bee (Yellow) A 03/19/19 03:55 Urine Clarity Cloudy (Clear) A 03/19/19 03:55 Urine Protein >=300 mg/dL (Neg-Trace) H 03/19/19 03:55 Urine Ketones Trace mg/dL (Negative) H 03/19/19 03:55 Urine Blood Large (Negative) H 03/19/19 03:55 Urine Bilirubin Small (Negative) H 03/19/19 03:55 Urine Microscopic RBC 50-100 per hpf (0-3) H 03/19/19 03:55 Urine Bacteria Many per hpf (None-Few) H 03/19/19 03:55 Ur Culture Indicated? YES (NO) A 03/19/19 03:55 Salicylates < 2.5 mg/dL (15.0-30.0) L 03/19/19 08:20 Ur Buprenorphine Scrn Positive ng/mL (Cutoff=5) H 03/19/19 03:55 Acetaminophen < 10 mcg/mL (10-20) L 03/19/19 08:20 Ur Amphetamines Screen Positive ng/mL (Huroue=9809) H 03/19/19 03:55 U Benzodiazepines Scrn Positive ng/mL (Fiecqr=806) H 03/19/19 03:55 U Marijuana (THC) Screen Positive ng/mL (Cutoff = 50) H 03/19/19 03:55 Hep Bs Antibody < 3.10 mIU/mL (10.00-) L 03/19/19 08:20 Staphylococcus sp PCR DETECTED (Not Detect) A 03/19/19 00:52 - Microbiology Findings Microbiology Findings: Microbiology, Last 48 Hours 03/19/19 00:33 Blood Culture - Final Peripheral Venipuncture No growth. Final report. 03/19/19 00:52 Blood Culture - Final Peripheral Venipuncture Staphylococcus capitis - Clinical Findings Intake & Output: Intake & Output 03/23/19 03/24/19 03/24/19 23:59 07:59 15:59 Intake Total 335 / 3986 1424 / 2584 1160 / 2584 Output Total 2600 / 2600 Balance -2265 / 1386 1409 / 2559 1150 / 2559 Weight 109.2 kg - Attending Attestation I examined this patient and my medical decision-making was reviewed with the Resident Physician. I agree with the documented findings, disposition and treatment plan as described except to the extent set forth below. We independently had [id number] contact with the patient Patient seen and examined at bedside Labs, radiology, chart personally reviewed. Management was reviewed during multidisciplinary critical care rounds. 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 ID: Being treated for aspiration white count is normalized Heme/Onc: DVT prophylaxis given Endo: Glucose Monitored Integ/MSK: Skin Care per routine ICU Nursing Protocol to prevent ulcers. Lines: All lines examined without evidence of infection : Dispo: Monitor in ICU for vent management CODE:DNAR ongoing discussion with family regarding compassionate extubation versus continued aggressive care given underlying neuronal injury we would anticipate patient to be in persistent vegetative state. Family remaining towards de-escalating care early part of this week no change neurologically we will continue to update them and support them through this process.
[2019-03-24] MEDS: Cholecalciferol (D-3) 1,000 UNIT (25MCG) TABLET PO SCH ×2 (09:01→20:16)
[2019-03-24] MEDS: Piperacillin/Tazobactam 3.375 GM in 0.9 % Sodium Chloride Mini Bag 100 ML IVPB SCH ×2 (09:01→20:16)
[2019-03-24] MEDS: Chlorhexidine Rinse 15 ML MOUTHWASH MM SCH ×2 (09:01→20:16)
[2019-03-24] MEDS: Pantoprazole 40 MG VIAL IVP SCH (09:01)
[2019-03-24 13:06] LABS: VBG Ionized Calcium 0.96 mmol/L (1.15-1.35)
[2019-03-24 13:06] LABS: Hemoglobin 11.2 g/dL (12.9-16.9); Mean Corpuscular HGB Conc 33.9 g/dL (31.6-35.5); Mean Corpuscular Hemoglobin 32.4 pg (28.0-33.3); Mean Corpuscular Volume 95.4 fL (83.0-100.0); Mean Platelet Volume 10.9 fL (9.4-12.4); Platelet Count 130 K/mcL (140-400); Red Blood Count 3.46 M/mcL (4.19-5.50); Red Cell Distribution Width 12.9 % (11.5-14.5); White Blood Count 9.3 K/mcL (4.3-11.1)
[2019-03-24 13:47] LABS: BUN/Creatinine Ratio 13 (6-26); Blood Urea Nitrogen 62 mg/dL (6-20); Calcium 7.1 mg/dL (8.6-10.3); Carbon Dioxide 27 mEq/L (23-29); Chloride 101 mEq/L (98-107); Creatine Kinase > 20000 Units/L (30-223); Glucose 109 mg/dL (70-105); Osmolality,Calculated 300 (280-300); Phosphorous 5.6 mg/dL (2.7-4.5); Potassium 4.6 mEq/L (3.5-5.1); Sodium 136 mEq/L (136-145); eGFR For African Americans 16 (> 60); eGFR For Non-African Americans 13 (> 60)
[2019-03-24 13:57] LABS: Lymphocytes # 1.1 K/mcL (0.6-4.6); Monocytes # 0.6 K/mcL (0.0-1.3); Neutrophils # 7.6 K/mcL (1.6-8.9)
[2019-03-24 13:58] LABS: Platelet Estimate Slight Decrease (Normal)
[2019-03-24 20:36] LABS: Basophils % 0.4 %; Hematocrit 33.5 % (37.5-50.1); Hemoglobin 11.2 g/dL (12.9-16.9); Immature Granulocytes % 8.3 % (0-4); Lymphocytes # 0.7 K/mcL (0.6-4.6); Mean Corpuscular HGB Conc 33.4 g/dL (31.6-35.5); Mean Corpuscular Hemoglobin 32.6 pg (28.0-33.3); Mean Corpuscular Volume 97.4 fL (83.0-100.0); Mean Platelet Volume 10.8 fL (9.4-12.4); Monocytes # 0.7 K/mcL (0.0-1.3); Monocytes % 7.3 %; Platelet Count 135 K/mcL (140-400); Red Blood Count 3.44 M/mcL (4.19-5.50); White Blood Count 9.3 K/mcL (4.3-11.1)
[2019-03-24 20:38] LABS: Neutrophils # 7.2 K/mcL (1.6-8.9)
[2019-03-24 20:43] LABS: VBG Ionized Calcium 0.98 mmol/L (1.15-1.35)
[2019-03-24 21:32] LABS: Phosphorous 5.4 mg/dL (2.7-4.5); Potassium 4.6 mEq/L (3.5-5.1)
[2019-03-24 21:39] LABS: VBG Ionized Calcium 0.97 mmol/L (1.15-1.35)
[2019-03-24 22:14] LABS: Platelet Estimate Slight Decrease (Normal)
--- NOTE | 2019-03-24 23:17 | Nephrology Progress Note ---
Date of Encounter: 03/24/19 Time of Encounter: 12:00 - Assessment and Plan (1) Acute kidney injury Current Visit: Yes Status: Acute The patient has multifactorial acute kidney injury with shock, drug overdose, likely volume depletion, and significant rhabdomyolysis. s/p HD yesterday with net UF approx 2kg yesterday, after back to back HD sessions. No HD planned today, lytes WNL Will reassess daily for HD need Continue to avoid nephrotoxins if possible Prognosis very guarded (2) Drug overdose Current Visit: Yes Status: Acute Per primary team Qualifiers: Encounter type: initial encounter Injury intent: undetermined intent Qualified Code(s): T50.904A - Poisoning by unspecified drugs, medicaments and biological substances, undetermined, initial encounter (3) Hyperkalemia Current Visit: Yes Status: Acute Currently resolved, will monitor (4) Rhabdomyolysis Current Visit: Yes Status: Acute Etiology likely due to drug use but no clear signs of muscle damage noted Will stop IVF given persistent anuria and fluid overload Qualifiers: Rhabdomyolysis type: non-traumatic Qualified Code(s): M62.82 - Rh abdomyolysis (5) Shock Current Visit: Yes Status: Resolved Mostly resolved, off pressor support (6) Multiple organ failure Current Visit: Yes Status: Acute Guarded, per primary and consultants (7) Hypocalcemia Current Visit: Yes Status: Acute Will replete as needed Subjective Principal diagnosis: Cardiac Arrest Interval history: Pt seen and examined remains intubated and sedated with poor UOP. Aunt present at bedside, provided update info. Objective - Vital Signs Vital signs: Vital Signs Temp Pulse Resp BP Pulse Ox 03/24/19 23:00 77 18 144/95 100 03/24/19 22:00 77 18 135/92 100 03/24/19 21:58 18 100 03/24/19 21:00 78 18 135/95 100 03/24/19 20:30 80 03/24/19 20:00 81 21 134/92 100 03/24/19 19:58 18 100 03/24/19 19:38 98.8 F 03/24/19 19:00 82 18 141/95 100 03/24/19 18:00 79 19 165/88 100 03/24/19 17:30 21 142/97 100 03/24/19 17:00 81 18 163/88 100 03/24/19 16:00 98.2 F 81 18 174/97 100 03/24/19 15:45 18 139/45 100 03/24/19 15:00 78 20 166/93 100 03/24/19 14:00 78 18 168/94 100 03/24/19 13:27 18 162/89 100 03/24/19 13:09 99.6 F 03/24/19 13:00 84 20 165/91 100 03/24/19 12:00 99.6 F 85 18 163/91 100 03/24/19 11:00 82 20 167/94 100 03/24/19 10:00 82 20 166/94 100 03/24/19 09:35 20 101/92 100 03/24/19 09:00 83 20 162/94 100 03/24/19 08:29 99.2 F 03/24/19 08:00 84 20 158/93 100 03/24/19 07:25 19 156/91 100 03/24/19 07:00 84 19 155/90 100 03/24/19 06:26 19 158/92 100 03/24/19 06:00 81 21 160/93 100 03/24/19 05:00 81 20 159/93 98 03/24/19 04:28 20 165/95 98 03/24/19 04:00 88 19 163/94 98 03/24/19 03:42 98.0 F 03/24/19 03:00 86 20 161/96 96 03/24/19 02:12 22 94 03/24/19 02:00 87 21 160/97 94 03/24/19 01:00 67 22 169/97 92 03/24/19 00:15 21 167/102 100 03/24/19 00:00 84 19 165/101 100 03/23/19 23:59 99.2 F Intake and Output 03/24/19 03/24/19 03/24/19 07:59 15:59 23:59 Intake Total 1424 / 3924 2060 / 3924 440 / 3924 Output Total 15 / 125 10 / 125 100 / 125 Balance 1409 / 3799 2050 / 3799 340 / 3799 Intake: IV Fluids 1400 / 3550 1950 / 3550 200 / 3550 0.9 % Sodium Chloride 1,000 ML 1000 / 2600 1600 / 2600 @ 125 mls/hr IVC .Q8H [facility] Rx#: [id number] Precedex Premix 400 mcg In 100 200 / 500 200 / 500 100 / 500 ml @ 0.2 MCG/KG/HR 4.385 mls/hr IVC .[id number] [facility] Rx#: [id number] FentaNYL (PF) 2,500 MCG In 50 / 150 50 / 150 50 / 150 Empty Bag 1 EACH @ 50 MCG/HR 1 mls/hr IVC CONT [facility] Rx#: [id number] Calcium Gluconate 1gm/50mL 1 gm 50 / 100 50 / 100 In 50 ml @ 50 mls/hr IVPB Q6HR PRN Rx#:[id number] Zosyn 3.375 GM In 0.9 % Sodium 100 / 200 100 / 200 Chloride (Mini-Bag +) 100 ML @ 25 mls/hr IVPB Q12H [facility] Rx#: [id number] Tube Feeding 24 / 184 160 / 184 Free Water Intake Amount 110 / 190 80 / 190 Output: Catheter 15 / 125 10 / 125 100 / 125 Other: Blood Glucose* 88 91 95 - General Appearance General appearance: Present: sedated on ventilator, intubated EENT: Present: ATNC, PERRL, mucous membranes moist Neck: Present: no JVD, supple Additional Comments: good areation ant bilat Cardiology: Present: edema, normal S1, normal S2 Dialysis Vascular Access: Venous Catheter (temp line) Gastrointestinal: Present: no tenderness, no guarding Integumentary: Present: warm and dry Additional Comments: sedated Musculoskeletal: Present: no deformities Additional Comments: sedated - Lab 03/24/19 20:00 03/24/19 20:00 Most recent lab results 03/24/19 03/24/19 12:42 20:00 Calcium 7.1 L 7.0 L Phosphorus 5.6 H 5.4 H Magnesium 2.0 2.0 - VTE Documentation of Mechanical Device: Intermittent pneumatic compression device Consult Discharge Plan - Plan Referrals: NONE,PCP [Primary Care Provider] -
[2019-03-25] MEDS: Artificial Tears SOLN 15 ML BOTTLE BOTH EYES SCH ×6 (00:19→21:10)
[2019-03-25] MEDS: Dexmedetomidine HCl 400 MCG/100 ML MLS IVC SCH ×4 (02:39→21:12)
[2019-03-25 04:15] LABS: Hematocrit 33.7 % (37.5-50.1); Hemoglobin 11.2 g/dL (12.9-16.9); Mean Corpuscular HGB Conc 33.2 g/dL (31.6-35.5); Mean Corpuscular Hemoglobin 32.4 pg (28.0-33.3); Mean Corpuscular Volume 97.4 fL (83.0-100.0); Mean Platelet Volume 10.3 fL (9.4-12.4); Platelet Count 149 K/mcL (140-400); Red Blood Count 3.46 M/mcL (4.19-5.50); Red Cell Distribution Width 12.9 % (11.5-14.5)
[2019-03-25 04:21] LABS: VBG Ionized Calcium 0.95 mmol/L (1.15-1.35)
[2019-03-25 04:41] LABS: ABG Base Excess -1 mEq/L (-2 to 3); ABG HCO3 24 mEq/L (21-27); ABG Oxygen Saturation 99 % (95-98); ABG PCO2 43 mmHg (35-45); ABG PH 7.37 pH Units (7.32-7.45); ABG PO2 121 mmHg (85-104); ABG TCO2 26 mEq/L (20-26); Blood Gas Modality ASSIST CONTROL; Blood Gas PEEP 8 cm H2O; Blood Gas VT 500 cc
[2019-03-25 04:52] LABS: Magnesium 2.1 mg/dL (1.6-2.6); Phosphorous 5.3 mg/dL (2.7-4.5); Potassium 4.6 mEq/L (3.5-5.1)
[2019-03-25 06:18] LABS: Lymphocytes # 0.6 K/mcL (0.6-4.6); Monocytes # 0.4 K/mcL (0.0-1.3)
[2019-03-25 06:19] LABS: Platelet Estimate Slight Decrease (Normal)
[2019-03-25] MEDS: Chlorhexidine Rinse 15 ML MOUTHWASH MM SCH ×2 (08:25→21:11)
[2019-03-25] MEDS: Cholecalciferol (D-3) 1,000 UNIT (25MCG) TABLET PO SCH ×2 (08:25→21:11)
[2019-03-25] MEDS: Pantoprazole 40 MG VIAL IVP SCH (08:25)
[2019-03-25] MEDS: Piperacillin/Tazobactam 3.375 GM in 0.9 % Sodium Chloride Mini Bag 100 ML IVPB SCH (08:25)
[2019-03-25] MEDS: Calcium Gluconate 1gm/50mL 1 GM/50 ML BAG IVPB PRN ×2 (08:27→12:17)
--- NOTE | 2019-03-25 08:51 | Neurology Progress Note ---
Date of Encounter: 03/25/19 Time of Encounter: 07:40 Assessment and Plan (1) Anoxic brain injury Current Visit: Yes Status: Suspected This patient who is intubated and is unresponsive since March 19 with minimal change in his overall brainstem function today he noticed to have very weak corneal reflex and at the same time has weak pupillary response but without any gag reflex, he is also breathing over the vent with minimal sedation No withdrawal to the deep pain, and no other spontaneous activity noted Repeat CT scan yesterday did show evidence of loss of khan white matter which is commonly seen with anoxic brain damage At this times though he does have minimal brainstem reflexes, but no significant cortical function were noted EEG did not show any seizure activity At the moment is possible that he may have suffered irreversible brain damage and in likely would be in the vegetative state considering his current findings on neurological examination. The overall prognosis remains very poor for any reasonable recovery no significant improvement or any significant changes in his overall neurological status. At the moment suggested that we should continue on current treatment, until family makes a decision regarding prolonged care (2) Acute respiratory failure with hypoxia Current Visit: Yes Status: Acute Subjective Principal diagnosis: Cardiac Arrest Interval history: No significant change in overall neurological status patient remain intubated without any significant response to any verbal stimuli minimal brainstem reflexes positive Objective - Constitutional Vitals: Temp Pulse Resp BP Pulse Ox 99.7 F H 84 20 163/96 94 03/25/19 08:03 03/25/19 06:00 03/25/19 07:25 03/25/19 07:25 03/25/19 07:25 General appearance: Present: A&O X 0 (intubated and sedated. ) - Neurological Exam Sensorimotor examination: Present: other (Unable to determine) Motor Examination: Present: other (Limited neurological examination currently patient is intubated on minimum sedation, corneals remains sluggish but positive , pupils are also sluggish but positive, no response to the deep pain ) Sensation intact: Present: other (Unable to determine) Posture: Present: other (None) Mental Status Examination: Present: does not follow commands, cognitive impairment (no motor function appreciated. Does not respond to stimuli. ) Cranial nerve examination: Absent: PERRL, gag diminished (no gag reflex) Cranial Nerve Exam: pupil sluggish to react to light: Left (bilateral ) - VTE Documentation of Mechanical Device: Intermittent pneumatic compression device Results - Laboratory Findings CBC and BMP: 03/25/19 04:04 03/25/19 04:04 Abnormal lab findings: Abnormal lab results WBC 12.5 K/mcL (4.3-11.1) H 03/23/19 21:39 RBC 3.46 M/mcL (4.19-5.50) L 03/25/19 04:04 Hgb 11.2 g/dL (12.9-16.9) L 03/25/19 04:04 Hct 33.7 % (37.5-50.1) L 03/25/19 04:04 MCHC 36.2 g/dL (31.6-35.5) H 03/22/19 03:35 Plt Count 135 K/mcL (140-400) L 03/24/19 20:00 MPV 13.0 fL (9.4-12.4) H 03/20/19 20:09 Immature Gran % 8.3 % (0-4) H 03/24/19 20:00 Band Neutrophils % 6.0 % (0-4) H 03/24/19 12:42 Metamyelocytes % 4.0 % (0) H 03/21/19 13:14 Myelocytes % 2.0 % (0) H 03/21/19 04:00 Neutrophils # 9.0 K/mcL (1.6-8.9) H 03/25/19 04:04 Lymphocytes # 0.5 K/mcL (0.6-4.6) L 03/23/19 21:39 Monocytes # 1.4 K/mcL (0.0-1.3) H 03/21/19 20:08 Nucleated RBCs/100 WBC 0.4 /100 WBC (0) H 03/19/19 00:33 Reactive Lymphocytes Present (Not Present) A 03/23/19 21:39 Toxic Granulation Present (Not Present) A 03/21/19 04:00 Dohle Bodies Present (Not Present) A 03/23/19 21:39 Platelet Estimate Slight Decrease (Normal) L 03/25/19 04:04 Large Platelets Present (Not Present) A 03/23/19 21:39 Immature Plt Fraction 6.6 % (1.1-6.1) H 03/23/19 04:38 PT 12.9 Seconds (9.4-12.1) H 03/24/19 03:41 Fibrinogen 713 mg/dL (169-393) H* 03/24/19 03:41 ABG pH 7.29 pH Units (7.32-7.45) L 03/20/19 12:57 ABG pCO2 47 mmHg (35-45) H 03/24/19 04:36 ABG pO2 121 mmHg (85-104) H 03/25/19 04:38 ABG HCO3 17 mEq/L (21-27) L 03/22/19 04:38 ABG Total CO2 29 mEq/L (20-26) H 03/24/19 04:36 ABG O2 Saturation 99 % (95-98) H 03/25/19 04:38 ABG Base Excess -7 mEq/L (-2 to 3) L 03/22/19 04:38 VBG pH 7.13 pH Units (7.32-7.42) L* 03/19/19 00:48 VBG pCO2 91 mmHg (41-51) H* 03/19/19 00:48 VBG pO2 217 mmHg (25-50) H 03/23/19 14:38 VBG HCO3 30 mEq/L (21-27) H 03/19/19 00:48 VBG Hematocrit 35.0 % (37.5-50.1) L 03/23/19 14:38 Sodium 135 mEq/L (136-145) L 03/25/19 04:04 Potassium 5.4 mEq/L (3.5-5.1) H 03/23/19 14:13 Chloride 109 mEq/L (98-107) H 03/19/19 09:35 Carbon Dioxide 20 mEq/L (23-29) L 03/22/19 12:12 Carbon Dioxide 20 mEq/L (23-29) L 03/22/19 12:12 BUN 78 mg/dL (6-20) H 03/25/19 04:04 Creatinine 5.89 mg/dL (0.70-1.30) H 03/25/19 04:04 Est GFR ( Amer) 13 (> 60) L 03/25/19 04:04 Est GFR (Non-Af Amer) 11 (> 60) L 03/25/19 04:04 Glucose 109 mg/dL (70-105) H 03/24/19 12:42 Whole Bld Glucose 97 mg/dl (65-95) H 03/23/19 14:38 POC Glucose 127 mg/dL (70-99) H 03/23/19 11:32 Calculated Osmolality 303 (280-300) H 03/25/19 04:04 Lactic Acid 2.8 mmol/L (0.5-2.2) H 03/21/19 20:08 Calcium 7.0 mg/dL (8.6-10.3) L 03/25/19 04:04 Venous Ioniz Calcium 0.95 mmol/L (1.15-1.35) L 03/25/19 04:14 Phosphorus 5.3 mg/dL (2.7-4.5) H 03/25/19 04:04 Magnesium 3.9 mg/dL (1.6-2.6) H 03/19/19 07:04 Total Bilirubin 1.1 mg/dL (0.3-1.0) H 03/23/19 04:38 Direct Bilirubin 0.6 mg/dL (0.0-0.2) H 03/24/19 03:41 AST 1199 Units/L (13-39) H 03/24/19 03:41 ALT 997 Units/L (7-52) H 03/24/19 03:41 Creatine Kinase 75696 Units/L (30-223) H 03/25/19 04:04 Troponin I 0.89 ng/mL (< 0.04) H* 03/20/19 03:45 Serum Total Protein 4.8 g/dL (6.4-8.9) L 03/24/19 03:41 Albumin 2.3 g/dL (3.5-5.7) L 03/24/19 03:41 Globulin 2.3 g/dL (2.4-3.5) L 03/23/19 04:38 Albumin/Globulin Ratio 0.9 (1.1-2.2) L 03/24/19 03:41 Ur Specimen Adequacy See below A 03/19/19 03:55 Urine Color Mcclain (Yellow) A 03/19/19 03:55 Urine Clarity Cloudy (Clear) A 03/19/19 03:55 Urine Protein >=300 mg/dL (Neg-Trace) H 03/19/19 03:55 Urine Ketones Trace mg/dL (Negative) H 03/19/19 03:55 Urine Blood Large (Negative) H 03/19/19 03:55 Urine Bilirubin Small (Negative) H 03/19/19 03:55 Urine Microscopic RBC 50-100 per hpf (0-3) H 03/19/19 03:55 Urine Bacteria Many per hpf (None-Few) H 03/19/19 03:55 Ur Culture Indicated? YES (NO) A 03/19/19 03:55 Salicylates < 2.5 mg/dL (15.0-30.0) L 03/19/19 08:20 Ur Buprenorphine Scrn Positive ng/mL (Cutoff=5) H 03/19/19 03:55 Acetaminophen < 10 mcg/mL (10-20) L 03/19/19 08:20 Ur Amphetamines Screen Positive ng/mL (Uruobi=2443) H 03/19/19 03:55 U Benzodiazepines Scrn Positive ng/mL (Pevuvr=895) H 03/19/19 03:55 U Marijuana (THC) Screen Positive ng/mL (Cutoff = 50) H 03/19/19 03:55 Hep Bs Antibody < 3.10 mIU/mL (10.00-) L 03/19/19 08:20 Staphylococcus sp PCR DETECTED (Not Detect) A 03/19/19 00:52 Consult Discharge Plan - Plan Referrals: NONE,PCP [Primary Care Provider] -
--- NOTE | 2019-03-25 09:32 | Pulmonology Progress Note ---
<Leno Luis Markell - Last Filed: 03/25/19 14:43> Date of Encounter: 03/25/19 Time of Encounter: 09:27 Assessment and Plan (1) Encephalopathy Current Visit: Yes Status: Acute Encephalopathy secondary to cardiac arrest - Acute toxic/anoxic encephalopathy. Secondary to cardiac arrest, likely due to drug overdose. Intubated and sedated on fentanyl and precedex. UDS positive for amphetamines, benzos, MJ, and buprenorphine. - Unresponsive since mar 19 - Neurology following - Repeat Ct head shows possible anoxic brain injury with loss of khan white differentiation. - Continue to monitor neuro function and mental staus. - No gag relfex. - Pupils minimally reactive. Corneal reflex intact - Goals of care discussed with family - DNR-CCA - Withdrawal of care under consideration - No significant improvements in overall neurological status (2) Acute respiratory failure with hypoxia Current Visit: Yes Status: Acute Continue full vent support - As above (3) Acute kidney injury Current Visit: Yes Status: Acute KIEL - Nephrology following - Daily dialysis - Likely secondary to shock/hypoperfusion - Remains anuric (4) Cardiac arrest Current Visit: Yes Status: Acute Secondary to drug overdose - ROSC achieved after 1 round of CPR - Unknown downtime - Echo: LVEF 50%, mild global LV systolic dysfunction - Continue to monitor - Correct electrolyte abnormalities (5) Drug overdose Current Visit: Yes Status: Acute Possible OD on presentation - UDS positive for Buprenorphine, amphetamines, MJ, Benzos - Continue to monitor Qualifiers: Encounter type: initial encounter Injury intent: undetermined intent Qualified Code(s): T50.904A - Poisoning by unspecified drugs, medicaments and biological substances, undetermined, initial encounter (6) Rhabdomyolysis Current Visit: Yes Status: Acute Rhabdo - Likely secondary to Drug overdose/seizure-like activity - Remains anuric - Nephrology recommends stopping IVF hydration Qualifiers: Rhabdomyolysis type: non-traumatic Qualified Code(s): M62.82 - Rhabdomyolysis (7) Seizure-like activity Current Visit: Yes Status: Acute EEG showed no seizure activity minimal brainstem reflexes Subjective Principal diagnosis: Cardiac Arrest Interval history: Patient seen and examined. Afebrile. No overnight events. Patient remains unresponsive to stimuli, does not have any purposeful movements. Remains anuric. He has been receiving daily dialysis. Nephrology, neurology, and palliative care are following. Family is aware of poor prognosis. Objective PUL Vital signs: Last Vital Signs Temp 99.7 F H 03/25/19 08:03 Pulse 84 03/25/19 06:00 Resp 20 03/25/19 07:25 BP 163/96 03/25/19 07:25 Pulse Ox 94 03/25/19 07:25 Gen: Vitals noted. No acute distress. Intubated. Sedated on fentanyl and precedex Eyes: Moist conjunctivae. Pupils equal, round, 4-5mm, minimally reactive to light. HENT: Atraumatic, normocephalic. Neck: Trachea midline; supple, no thyromegaly or lymphadenopathy. Cardiac: RRR, no murmurs, rubs or gallops, S1/S2 Pulmonary: Coarse, mechanical breath sounds BL. Abdomen: soft, non-distended, no rigidity or guarding. No masses or hepatosplenomegaly MSK: ROM intact, no joint swelling noted Extremities: Bilateral 1+ extremity anasarca, no cyanosis or clubbing Skin: Normal temperature, turgor and texture; no rash, ulcers or subcutaneous nodules Neuro: Corneal reflex intact. No gag reflex. No response to painful stimuli Psych: Unable to assess Analgesia: fentanyl gtt Sedation: precedex gtt SBT: none Glycemic control: none Bowl regimen: Senna, colace Activity: none Fluids: MIVF Electrolytes: replete as necessary Nutrition: Tube feeds GI ppx: PPI Lines: ET, OG, james, left fem dialysis cath, right fem CVC, right PIV Consults: pulm, neuro, nephro, IR, ENT, nutrition Code: DNR CCA Dispo: ICU Ventilator Settings Ventilator Settings: Ventilator Settings, Last 8 Hours Ventilator Tidal Volume 500 Setting Ventilator Tidal Volume 500 Setting Ventilator Tidal Volume 500 Setting Ventilator Tidal Volume 500 Setting Ventilator Tidal Volume 500 Setting Ventilator Tidal Volume 500 Setting Ventilator Tidal Volume 500 Setting Ventilator Respiratory Rate 18 Setting Ventilator Respiratory Rate 18 Setting Ventilator Respiratory Rate 18 Setting Ventilator Respiratory Rate 18 Setting Ventilator Respiratory Rate 18 Setting Ventilator Respiratory Rate 18 Setting Ventilator Respiratory Rate 18 Setting Actual Respiratory Rate 19 Actual Respiratory Rate 22 Actual Respiratory Rate 22 Actual Respiratory Rate 23 Actual Respiratory Rate 18 Actual Respiratory Rate 22 Actual Respiratory Rate 18 Actual Respiratory Rate 20 Positive End Expiratory 8 Pressure Positive End Expiratory 8 Pressure Positive End Expiratory 8 Pressure Positive End Expiratory 8 Pressure Positive End Expiratory 5 Pressure Positive End Expiratory 8 Pressure Positive End Expiratory 8 Pressure Positive End Expiratory 8 Pressure Positive End Expiratory 8 Pressure Peak Inspiratory Airway 14 Pressure Peak Inspiratory Airway 14 Pressure Peak Inspiratory Airway 10 Pressure Peak Inspiratory Airway 15 Pressure Peak Inspiratory Airway 23 Pressure Peak Inspiratory Airway 11 Pressure Peak Inspiratory Airway 23 Pressure Peak Inspiratory Airway 23 Pressure Results - Laboratory Findings CBC and BMP: 03/25/19 11:40 03/25/19 11:40 ABG ABG pH 7.37 pH Units (7.32-7.45) 03/25/19 04:38 ABG pCO2 43 mmHg (35-45) 03/25/19 04:38 ABG pO2 121 mmHg (85-104) H 03/25/19 04:38 ABG O2 Saturation 99 % (95-98) H 03/25/19 04:38 PT/INR, D-dimer PT 12.9 Seconds (9.4-12.1) H 03/24/19 03:41 Abnormal lab findings: Abnormal lab results WBC 12.5 K/mcL (4.3-11.1) H 03/23/19 21:39 RBC 3.46 M/mcL (4.19-5.50) L 03/25/19 04:04 Hgb 11.2 g/dL (12.9-16.9) L 03/25/19 04:04 Hct 33.7 % (37.5-50.1) L 03/25/19 04:04 MCHC 36.2 g/dL (31.6-35.5) H 03/22/19 03:35 Plt Count 135 K/mcL (140-400) L 03/24/19 20:00 MPV 13.0 fL (9.4-12.4) H 03/20/19 20:09 Immature Gran % 8.3 % (0-4) H 03/24/19 20:00 Band Neutrophils % 6.0 % (0-4) H 03/24/19 12:42 Metamyelocytes % 4.0 % (0) H 03/21/19 13:14 Myelocytes % 2.0 % (0) H 03/21/19 04:00 Neutrophils # 9.0 K/mcL (1.6-8.9) H 03/25/19 04:04 Lymphocytes # 0.5 K/mcL (0.6-4.6) L 03/23/19 21:39 Monocytes # 1.4 K/mcL (0.0-1.3) H 03/21/19 20:08 Nucleated RBCs/100 WBC 0.4 /100 WBC (0) H 03/19/19 00:33 Reactive Lymphocytes Present (Not Present) A 03/23/19 21:39 Toxic Granulation Present (Not Present) A 03/21/19 04:00 Dohle Bodies Present (Not Present) A 03/23/19 21:39 Platelet Estimate Slight Decrease (Normal) L 03/25/19 04:04 Large Platelets Present (Not Present) A 03/23/19 21:39 Immature Plt Fraction 6.6 % (1.1-6.1) H 03/23/19 04:38 PT 12.9 Seconds (9.4-12.1) H 03/24/19 03:41 Fibrinogen 713 mg/dL (169-393) H* 03/24/19 03:41 ABG pH 7.29 pH Units (7.32-7.45) L 03/20/19 12:57 ABG pCO2 47 mmHg (35-45) H 03/24/19 04:36 ABG pO2 121 mmHg (85-104) H 03/25/19 04:38 ABG HCO3 17 mEq/L (21-27) L 03/22/19 04:38 ABG Total CO2 29 mEq/L (20-26) H 03/24/19 04:36 ABG O2 Saturation 99 % (95-98) H 03/25/19 04:38 ABG Base Excess -7 mEq/L (-2 to 3) L 03/22/19 04:38 VBG pH 7.13 pH Units (7.32-7.42) L* 03/19/19 00:48 VBG pCO2 91 mmHg (41-51) H* 03/19/19 00:48 VBG pO2 217 mmHg (25-50) H 03/23/19 14:38 VBG HCO3 30 mEq/L (21-27) H 03/19/19 00:48 VBG Hematocrit 35.0 % (37.5-50.1) L 03/23/19 14:38 Sodium 135 mEq/L (136-145) L 03/25/19 04:04 Potassium 5.4 mEq/L (3.5-5.1) H 03/23/19 14:13 Chloride 109 mEq/L (98-107) H 03/19/19 09:35 Carbon Dioxide 20 mEq/L (23-29) L 03/22/19 12:12 Carbon Dioxide 20 mEq/L (23-29) L 03/22/19 12:12 BUN 78 mg/dL (6-20) H 03/25/19 04:04 Creatinine 5.89 mg/dL (0.70-1.30) H 03/25/19 04:04 Est GFR ( Amer) 13 (> 60) L 03/25/19 04:04 Est GFR (Non-Af Amer) 11 (> 60) L 03/25/19 04:04 Glucose 109 mg/dL (70-105) H 03/24/19 12:42 Whole Bld Glucose 97 mg/dl (65-95) H 03/23/19 14:38 POC Glucose 127 mg/dL (70-99) H 03/23/19 11:32 Calculated Osmolality 303 (280-300) H 03/25/19 04:04 Lactic Acid 2.8 mmol/L (0.5-2.2) H 03/21/19 20:08 Calcium 7.0 mg/dL (8.6-10.3) L 03/25/19 04:04 Venous Ioniz Calcium 0.95 mmol/L (1.15-1.35) L 03/25/19 04:14 Phosphorus 5.3 mg/dL (2.7-4.5) H 03/25/19 04:04 Magnesium 3.9 mg/dL (1.6-2.6) H 03/19/19 07:04 Total Bilirubin 1.1 mg/dL (0.3-1.0) H 03/23/19 04:38 Direct Bilirubin 0.6 mg/dL (0.0-0.2) H 03/24/19 03:41 AST 1199 Units/L (13-39) H 03/24/19 03:41 ALT 997 Units/L (7-52) H 03/24/19 03:41 Creatine Kinase 56604 Units/L (30-223) H 03/25/19 04:04 Troponin I 0.89 ng/mL (< 0.04) H* 03/20/19 03:45 Serum Total Protein 4.8 g/dL (6.4-8.9) L 03/24/19 03:41 Albumin 2.3 g/dL (3.5-5.7) L 03/24/19 03:41 Globulin 2.3 g/dL (2.4-3.5) L 03/23/19 04:38 Albumin/Globulin Ratio 0.9 (1.1-2.2) L 03/24/19 03:41 Ur Specimen Adequacy See below A 03/19/19 03:55 Urine Color Ray (Yellow) A 03/19/19 03:55 Urine Clarity Cloudy (Clear) A 03/19/19 03:55 Urine Protein >=300 mg/dL (Neg-Trace) H 03/19/19 03:55 Urine Ketones Trace mg/dL (Negative) H 03/19/19 03:55 Urine Blood Large (Negative) H 03/19/19 03:55 Urine Bilirubin Small (Negative) H 03/19/19 03:55 Urine Microscopic RBC 50-100 per hpf (0-3) H 03/19/19 03:55 Urine Bacteria Many per hpf (None-Few) H 03/19/19 03:55 Ur Culture Indicated? YES (NO) A 03/19/19 03:55 Salicylates < 2.5 mg/dL (15.0-30.0) L 03/19/19 08:20 Ur Buprenorphine Scrn Positive ng/mL (Cutoff=5) H 03/19/19 03:55 Acetaminophen < 10 mcg/mL (10-20) L 03/19/19 08:20 Ur Amphetamines Screen Positive ng/mL (Rwhukd=7125) H 03/19/19 03:55 U Benzodiazepines Scrn Positive ng/mL (Ffjiry=892) H 03/19/19 03:55 U Marijuana (THC) Screen Positive ng/mL (Cutoff = 50) H 03/19/19 03:55 Hep Bs Antibody < 3.10 mIU/mL (10.00-) L 03/19/19 08:20 Staphylococcus sp PCR DETECTED (Not Detect) A 03/19/19 00:52 - Microbiology Findings Microbiology Findings: Microbiology, Last 48 Hours 03/19/19 00:33 Blood Culture - Final Peripheral Venipuncture No growth. Final report. 03/19/19 00:52 Blood Culture - Final Peripheral Venipuncture Staphylococcus capitis - Clinical Findings Intake & Output: Intake & Output 03/24/19 03/25/19 03/25/19 23:59 07:59 15:59 Intake Total 490 / 3974 371.3 / 371.3 Output Total 100 / 125 60 / 60 Balance 390 / 3849 311.3 / 311.3 Weight 110.5 kg - VTE Documentation of Mechanical Device: Intermittent pneumatic compression device Consult Discharge Plan - Plan Referrals: NONE,PCP [Primary Care Provider] - <Raad Marcos - Last Filed: 03/25/19 22:26> Date of Encounter: 03/25/19 Objective PUL Vital signs: Last Vital Signs Temp 97.9 F 03/25/19 20:19 Pulse 91 03/25/19 22:00 Resp 18 03/25/19 22:00 BP 147/96 03/25/19 22:00 Pulse Ox 98 03/25/19 22:00 Ventilator Settings Ventilator Settings: Ventilator Settings, Last 8 Hours Ventilator Tidal Volume 500 Setting Ventilator Tidal Volume 500 Setting Ventilator Respiratory Rate 18 Setting Ventilator Respiratory Rate 18 Setting Actual Respiratory Rate 18 Actual Respiratory Rate 20 Actual Respiratory Rate 16 Actual Respiratory Rate 16 Actual Respiratory Rate 15 Actual Respiratory Rate 15 Actual Respiratory Rate 33 Actual Respiratory Rate 25 Actual Respiratory Rate 19 Positive End Expiratory 8 Pressure Positive End Expiratory 8 Pressure Positive End Expiratory 8 Pressure Positive End Expiratory 8 Pressure Positive End Expiratory 8 Pressure Positive End Expiratory 8 Pressure Positive End Expiratory 8 Pressure Positive End Expiratory 8 Pressure Peak Inspiratory Airway 31 Pressure Peak Inspiratory Airway 16 Pressure Peak Inspiratory Airway 14 Pressure Peak Inspiratory Airway 15 Pressure Peak Inspiratory Airway 13 Pressure Peak Inspiratory Airway 14 Pressure Results - Laboratory Findings CBC and BMP: 03/25/19 11:40 03/25/19 11:40 ABG ABG pH 7.37 pH Units (7.32-7.45) 03/25/19 04:38 ABG pCO2 43 mmHg (35-45) 03/25/19 04:38 ABG pO2 121 mmHg (85-104) H 03/25/19 04:38 ABG O2 Saturation 99 % (95-98) H 03/25/19 04:38 PT/INR, D-dimer PT 12.9 Seconds (9.4-12.1) H 03/24/19 03:41 Abnormal lab findings: Abnormal lab results WBC 18.3 K/mcL (4.3-11.1) H D 03/25/19 11:40 RBC 3.92 M/mcL (4.19-5.50) L 03/25/19 11:40 Hgb 12.6 g/dL (12.9-16.9) L 03/25/19 11:40 Hct 33.7 % (37.5-50.1) L 03/25/19 04:04 MCHC 36.2 g/dL (31.6-35.5) H 03/22/19 03:35 Plt Count 135 K/mcL (140-400) L 03/24/19 20:00 MPV 13.0 fL (9.4-12.4) H 03/20/19 20:09 Immature Gran % 8.3 % (0-4) H 03/24/19 20:00 Band Neutrophils % 12.0 % (0-4) H 03/25/19 11:40 Metamyelocytes % 1.0 % (0) H 03/25/19 11:40 Myelocytes % 2.0 % (0) H 03/21/19 04:00 Neutrophils # 16.8 K/mcL (1.6-8.9) H 03/25/19 11:40 Lymphocytes # 0.5 K/mcL (0.6-4.6) L 03/23/19 21:39 Monocytes # 1.4 K/mcL (0.0-1.3) H 03/21/19 20:08 Nucleated RBCs/100 WBC 0.4 /100 WBC (0) H 03/19/19 00:33 Reactive Lymphocytes Present (Not Present) A 03/23/19 21:39 Toxic Granulation Present (Not Present) A 03/25/19 11:40 Dohle Bodies Present (Not Present) A 03/23/19 21:39 Platelet Estimate Slight Decrease (Normal) L 03/25/19 04:04 Large Platelets Present (Not Present) A 03/23/19 21:39 Immature Plt Fraction 6.6 % (1.1-6.1) H 03/23/19 04:38 PT 12.9 Seconds (9.4-12.1) H 03/24/19 03:41 Fibrinogen 713 mg/dL (169-393) H* 03/24/19 03:41 ABG pH 7.29 pH Units (7.32-7.45) L 03/20/19 12:57 ABG pCO2 47 mmHg (35-45) H 03/24/19 04:36 ABG pO2 121 mmHg (85-104) H 03/25/19 04:38 ABG HCO3 17 mEq/L (21-27) L 03/22/19 04:38 ABG Total CO2 29 mEq/L (20-26) H 03/24/19 04:36 ABG O2 Saturation 99 % (95-98) H 03/25/19 04:38 ABG Base Excess -7 mEq/L (-2 to 3) L 03/22/19 04:38 VBG pH 7.13 pH Units (7.32-7.42) L* 03/19/19 00:48 VBG pCO2 91 mmHg (41-51) H* 03/19/19 00:48 VBG pO2 217 mmHg (25-50) H 03/23/19 14:38 VBG HCO3 30 mEq/L (21-27) H 03/19/19 00:48 VBG Hematocrit 35.0 % (37.5-50.1) L 03/23/19 14:38 Sodium 135 mEq/L (136-145) L 03/25/19 04:04 Potassium 5.4 mEq/L (3.5-5.1) H 03/23/19 14:13 Chloride 109 mEq/L (98-107) H 03/19/19 09:35 Carbon Dioxide 20 mEq/L (23-29) L 03/22/19 12:12 Carbon Dioxide 20 mEq/L (23-29) L 03/22/19 12:12 BUN 86 mg/dL (6-20) H 03/25/19 11:40 Creatinine 6.56 mg/dL (0.70-1.30) H 03/25/19 11:40 Est GFR ( Amer) 12 (> 60) L 03/25/19 11:40 Est GFR (Non-Af Amer) 10 (> 60) L 03/25/19 11:40 Glucose 109 mg/dL (70-105) H 03/24/19 12:42 Whole Bld Glucose 97 mg/dl (65-95) H 03/23/19 14:38 POC Glucose 117 mg/dL (70-99) H 03/25/19 15:26 Calculated Osmolality 308 (280-300) H 03/25/19 11:40 Lactic Acid 2.8 mmol/L (0.5-2.2) H 03/21/19 20:08 Calcium 7.5 mg/dL (8.6-10.3) L 03/25/19 11:40 Venous Ioniz Calcium 0.96 mmol/L (1.15-1.35) L 03/25/19 12:12 Phosphorus 5.3 mg/dL (2.7-4.5) H 03/25/19 11:40 Magnesium 3.9 mg/dL (1.6-2.6) H 03/19/19 07:04 Total Bilirubin 1.1 mg/dL (0.3-1.0) H 03/23/19 04:38 Direct Bilirubin 0.6 mg/dL (0.0-0.2) H 03/24/19 03:41 AST 1199 Units/L (13-39) H 03/24/19 03:41 ALT 997 Units/L (7-52) H 03/24/19 03:41 Creatine Kinase 81663 Units/L (30-223) H 03/25/19 11:40 Troponin I 0.89 ng/mL (< 0.04) H* 03/20/19 03:45 Serum Total Protein 4.8 g/dL (6.4-8.9) L 03/24/19 03:41 Albumin 2.3 g/dL (3.5-5.7) L 03/24/19 03:41 Globulin 2.3 g/dL (2.4-3.5) L 03/23/19 04:38 Albumin/Globulin Ratio 0.9 (1.1-2.2) L 03/24/19 03:41 Ur Specimen Adequacy See below A 03/19/19 03:55 Urine Color Ray (Yellow) A 03/19/19 03:55 Urine Clarity Cloudy (Clear) A 03/19/19 03:55 Urine Protein >=300 mg/dL (Neg-Trace) H 03/19/19 03:55 Urine Ketones Trace mg/dL (Negative) H 03/19/19 03:55 Urine Blood Large (Negative) H 03/19/19 03:55 Urine Bilirubin Small (Negative) H 03/19/19 03:55 Urine Microscopic RBC 50-100 per hpf (0-3) H 03/19/19 03:55 Urine Bacteria Many per hpf (None-Few) H 03/19/19 03:55 Ur Culture Indicated? YES (NO) A 03/19/19 03:55 Salicylates < 2.5 mg/dL (15.0-30.0) L 03/19/19 08:20 Ur Buprenorphine Scrn Positive ng/mL (Cutoff=5) H 03/19/19 03:55 Acetaminophen < 10 mcg/mL (10-20) L 03/19/19 08:20 Ur Amphetamines Screen Positive ng/mL (Lmsonb=3537) H 03/19/19 03:55 U Benzodiazepines Scrn Positive ng/mL (Pkvvyv=581) H 03/19/19 03:55 U Marijuana (THC) Screen Positive ng/mL (Cutoff = 50) H 03/19/19 03:55 Hep Bs Antibody < 3.10 mIU/mL (10.00-) L 03/19/19 08:20 Staphylococcus sp PCR DETECTED (Not Detect) A 03/19/19 00:52 - Microbiology Findings Microbiology Findings: Microbiology, Last 48 Hours 03/19/19 00:33 Blood Culture - Final Peripheral Venipuncture No growth. Final report. - Clinical Findings Intake & Output: Intake & Output 03/25/19 03/25/19 03/25/19 07:59 15:59 23:59 Intake Total 371.3 / 1049.0 448.7 / 1049.0 229 / 1049.0 Output Total 60 / 175 15 / 175 100 / 175 Balance 311.3 / 874.0 433.7 / 874.0 129 / 874.0 Weight 110.5 kg - Attending Attestation I saw and evaluated this patient and my medical decision-making was reviewed with the Resident Physician. I agree with the documented findings, disposition and treatment plan as described except to the extent set forth below. We independently had [id number] contact with the patient I spent 33 minutes of Critical Care time with this patient. It involved decision making of high complexity to assess, manipulate, and support vital organ system failure and/or to prevent further life threatening deterioration of the patient's condition. The time involved in the performance of separately reportable procedures was not counted toward critical care time. Patient seen and examined at bedside Labs, radiology, chart personally reviewed. Management was reviewed during multidisciplinary critical care rounds. LARD MIXER: Patient is sedated is lightening up the sedation causes severe respiratory distress. Patient has some mild the corneal reflex not much gag or cough reflex patient is not breathing above the vent when did do spontaneous breathing trial patient was breathing on his own Pulm: Patient has acceptable oxygenation and ventilation lung protective status. Cards: Patient is hemodynamically stable without any vasopressors FEN-GI: Diet according to nutrition Renal: Labs and output were reviewed ID: No active infectious disease Heme/Onc: Labs reviewed Endo: Glucose Monitored Integ/MSK: Skin Care per routine ICU Nursing Protocol to prevent ulcers. Lines: All lines examined without evidence of infection : Dispo: critically ill patient family is leaning towards comfort measures later during the week CODE:[id number]
--- NOTE | 2019-03-25 10:54 | Palliative - Consult Note ---
Date of Encounter: 03/25/19 Time of Encounter: 10:43 - Assessment and Plan (1) Advance care planning Current Visit: Yes Status: Acute Assessment and plan: Met with pt's mother Vanesa and father Fernando. Discussed current medical condition, trajectory of illness, treatment options and overall poor prognosis. Explained that pt's mental status have failed to improve, despite correcting his hemodynamical status as well as his electrolytes. Also pt remains anuric, and losing some reflexes that were previously present. Vanesa stated that the family have discussed and decided that pt would not want to be kept alive artificially. They decided for withdrawal of care, but want to wait until tomorrow so some family members can come. Patient has a brother in senior living and family is trying to arrange for him to visit. Emotional support provided. Plan for compassionate extubation tomorrow. (2) Acute kidney injury Current Visit: Yes Status: Acute Assessment and plan: Patient has been receiving daily HD, remains anuric. Nephrology following (3) Encephalopathy Current Visit: Yes Status: Acute Assessment and plan: Patient exhibit no improvement of mental status, despite stable hemodynamics and electrolytes. Not brain . CT showed brain edema. 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 (4) Acute respiratory failure with hypoxia Current Visit: Yes Status: Acute (5) Palliative care by specialist Current Visit: Yes Status: Acute Palliative-CN HPI - Data of Consult Patient: new to practice Consult date: 03/22/19 Requesting Physician: Nando Barrow MD Primary Care Provider: PCP NONE - Consult Narrative Palliative Care/Comfort Measures: Palliative care Reason for consult: goals of care discussion History of present illness: Mr. Castaneda is a 38 year old male with unknown pmh, was brought to the ED from senior living due to unresponsiveness. History from chart review, as no faml present at this time. Patient was allegedly arrested for intoxication and at the police station became unresponsive. On arrival to the ED he went into cardiac arrest, one round of CPR was performed and ROSC was obtained. Patient was intubated ond admitted to ICU. At the time of admission, he was in multi organ failure, with elevated lactate. He has been treated aggressively since admission and is now hemodynamically stable. However he remains HD dependent and mental status faills to improve. Latest CT head on 9/20/19 revealed cerebral edema in setting of anoxic brain injury. Family was met by ICU team and code status was changed to DNRCCA Palliative care consult for further GOC discussion. Patient was intubated, not sedated, not responsive to painful stimuli. No GAG reflex, or pupillary reflex, and corneal reflexes present, occasionally breathing over the vent. CC: Nando Barrow MD - Time Spent with Patient Time: Total time spent is greater than 50% in coordination of care (as documented) at patient's floor/unit and/or counseling patient: Past Med Surg Social Fam HX - Past Medical History Medical history: no medical history, other Additional medical history: concussion, broken ribs Psychiatric history: no psych history - Social History Smoking Status: Current every day smoker Smokeless Tobacco Status: No Alcohol use: occasionally Drug use: none Medications and Allergies Hydrocodone/Acetaminophen [[place] 5-325 Tablet] 1 tab PO Q6H PRN #20 tab 07/12/15 [Rx] Sulfamethoxazole/Trimeth DS [Bactrim DS] 1 each PO BID #20 tablet 07/12/15 [Rx] cephALEXin [Keflex] 500 mg PO QID #40 capsule 07/12/15 [Rx] Ibuprofen [Motrin] 800 mg PO Q8HR #30 tablet 12/23/15 [Rx] Allergy/AdvReac Type Severity Reaction Status Date / Time No Known Allergies Allergy Verified 03/19/19 01:04 ROS unobtainable: due to endotracheal tube, due to mental status Palliative Care-Exam - Constitutional Vitals: Temp Pulse Resp BP Pulse Ox 99.7 F H 107 18 163/89 97 03/25/19 08:03 03/25/19 10:00 03/25/19 10:00 03/25/19 10:00 03/25/19 10:00 Exam: Vitals reviewed General appearance: comatose, Eyes: nonicteric, upils fixed, corneal reflex present EENT: oropharynx moist Neck: supple, fullness of the left sternocleidomastoid Chest: mechanical breath sounds, copious upper airways secretions, lungs clear Cardiovascular: regular rate and rhythm, no murmur, rub, gallop Gastrointestinal: soft, non-tender, non-distended Integumentary: normal, intact Extremities: + edema, no clubbing, normal capillary refill Musculoskeletal: no deformities Neurologic: comatose, +corneal reflex, no gag, overbreathing the vent occasionally Internal Medicine - CN: Reslt - Labs CBC & Chem 7: 03/25/19 11:40 03/25/19 11:40 Labs: Short CBC 03/24/19 03/24/19 03/25/19 Range/Units 12:42 20:00 04:04 WBC 9.3 9.3 10.0 (4.3-11.1) K/mcL Hgb 11.2 L 11.2 L 11.2 L (12.9-16.9) g/dL Hct 33.0 L 33.5 L 33.7 L (37.5-50.1) % Plt Count 130 L 135 L 149 (140-400) K/mcL Neutrophils # 7.6 7.2 9.0 H (1.6-8.9) K/mcL BMP 03/24/19 03/24/19 03/25/19 12:42 20:00 04:04 Sodium 136 134 L 135 L Potassium 4.6 4.6 4.6 Chloride 101 99 100 Carbon Dioxide 27 24 23 BUN 62 H 70 H 78 H Creatinine 4.95 H 5.59 H 5.89 H Glucose 109 H 99 96 Calcium 7.1 L 7.0 L 7.0 L - ABG Interpretation ABG results: ABG ABG pH 7.37 pH Units (7.32-7.45) 03/25/19 04:38 ABG pCO2 43 mmHg (35-45) 03/25/19 04:38 ABG pO2 121 mmHg (85-104) H 03/25/19 04:38 ABG O2 Saturation 99 % (95-98) H 03/25/19 04:38 PT/INR, D-dimer PT 12.9 Seconds (9.4-12.1) H 03/24/19 03:41 Consult Discharge Plan - Plan Referrals: NONE,PCP [Primary Care Provider] - Palliative Quality Palliative Quality: Screen for Code Status: Yes, Screen for Goals of Care: Yes, Screen for Pain: Yes, If Pain Regimen Started, Initiate Bowel Regimen: Yes, Screen for Nausea/Vomitting: Yes Code Status: 03/19/19 02:49 Resuscitation Status: Active [RES] Routine Comment: Resuscitation Status: Full Code 03/22/19 15:51 Resuscitation Status: Active [RES] Routine Comment: Resuscitation Status: DNR-Comfort Care-Arrest Palliative Scale - Palliative Performance Scale How ambulatory is this patient?: Totally bed bound What is patient's level of activity and evidence of disease?: Unable to do any activity, Extensive disease How much oral intake does the patient have?: Normal or reduced (NGT feedings) What is this patient's level of consciousness?: Drowsy or coma with or without confusion Palliative Performance Score: 10 %
[2019-03-25] MEDS ORDERED: CloNIDine Patch 0.1 MG PATCH (WEEKLY) TD SCH (11:15)
[2019-03-25] MEDS ORDERED: *HR* Heparin 10,000 UNIT/10 ML VIAL IV PRN ×2 (11:17)
[2019-03-25] MEDS ORDERED: 0.9 % Sodium Chloride 250 ML IVC PRN (11:17)
[2019-03-25] MEDS: Docusate Oral Soln 100 MG/10 ML UDC GTUBE SCH ×2 (11:47→21:11)
[2019-03-25 12:09] LABS: Hematocrit 38.1 % (37.5-50.1); Hemoglobin 12.6 g/dL (12.9-16.9); Mean Corpuscular HGB Conc 33.1 g/dL (31.6-35.5); Mean Corpuscular Hemoglobin 32.1 pg (28.0-33.3); Mean Corpuscular Volume 97.2 fL (83.0-100.0); Mean Platelet Volume 10.5 fL (9.4-12.4); Platelet Count 266 K/mcL (140-400); Red Blood Count 3.92 M/mcL (4.19-5.50); Red Cell Distribution Width 13.2 % (11.5-14.5)
[2019-03-25 12:14] LABS: VBG Ionized Calcium 0.96 mmol/L (1.15-1.35)
[2019-03-25 12:43] LABS: Calcium 7.5 mg/dL (8.6-10.3); Magnesium 2.1 mg/dL (1.6-2.6); Phosphorous 5.3 mg/dL (2.7-4.5); Potassium 5.1 mEq/L (3.5-5.1)
[2019-03-25 13:04] LABS: White Blood Count 18.3 K/mcL (4.3-11.1)
[2019-03-25 13:10] LABS: Monocytes # 1.3 K/mcL (0.0-1.3); Neutrophils # 16.8 K/mcL (1.6-8.9); Platelet Estimate Normal (Normal)
[2019-03-25 13:11] LABS: Toxic Granulation Present (Not Present)
--- NOTE | 2019-03-25 14:10 | Nephrology Progress Note ---
Date of Encounter: 03/25/19 Time of Encounter: 12:00 - Assessment and Plan (1) Acute kidney injury Current Visit: Yes Status: Acute The patient has multifactorial acute kidney injury with shock, drug overdose, likely volume depletion, and significant rhabdomyolysis. Last HD on monday with no further HD sessions planned at this time till family decides of goals of care (2) Drug overdose Current Visit: Yes Status: Acute Per primary team Qualifiers: Encounter type: initial encounter Injury intent: undetermined intent Qualified Code(s): T50.904A - Poisoning by unspecified drugs, medicaments and bi ological substances, undetermined, initial encounter (3) Hyperkalemia Current Visit: Yes Status: Acute Currently resolved (4) Rhabdomyolysis Current Visit: Yes Status: Acute Etiology likely due to drug use but no clear signs of muscle damage noted Has been improving lately Qualifiers: Rhabdomyolysis type: non-traumatic Qualified Code(s): M62.82 - Rhabdomyolysis (5) Shock Current Visit: Yes Status: Resolved Mostly resolved, off pressor support (6) Multiple organ failure Current Visit: Yes Status: Acute per primary team (7) Hypocalcemia Current Visit: Yes Status: Acute Replete as needed Subjective Principal diagnosis: Cardiac Arrest Interval history: Pt seen and examined remains intubated and sedated with poor UOP. HD today held while family decides on goals of care Objective - Vital Signs Vital signs: Vital Signs Temp Pulse Resp BP Pulse Ox 03/25/19 13:10 16 156/89 97 03/25/19 13:00 91 17 156/89 9 03/25/19 12:13 99.9 F H 03/25/19 12:00 99.9 F H 93 19 157/84 92 03/25/19 11:54 103 03/25/19 11:17 20 176/85 97 03/25/19 11:00 94 21 176/85 96 03/25/19 10:00 107 18 163/89 97 03/25/19 09:33 16 178/93 97 03/25/19 09:00 95 20 178/93 97 03/25/19 08:03 99.7 F H 03/25/19 08:00 99 17 176/91 96 03/25/19 07:25 20 163/96 94 03/25/19 07:00 103 20 163/96 96 03/25/19 06:10 18 92 03/25/19 06:00 84 19 184/103 91 03/25/19 05:00 89 23 165/100 99 03/25/19 04:52 86 03/25/19 04:20 99.2 F 03/25/19 04:10 21 100 03/25/19 04:00 88 22 150/93 99 03/25/19 03:00 83 18 148/89 100 03/25/19 02:00 81 20 147/93 100 03/25/19 01:00 80 18 145/89 100 03/25/19 00:26 81 03/25/19 00:22 98.8 F 03/25/19 00:05 18 100 03/25/19 00:00 79 18 144/96 100 03/24/19 23:00 77 18 144/95 100 03/24/19 22:00 77 18 135/92 100 03/24/19 21:58 18 100 03/24/19 21:00 78 18 135/95 100 03/24/19 20:30 80 03/24/19 20:00 81 21 134/92 100 03/24/19 19:58 18 100 03/24/19 19:38 98.8 F 03/24/19 19:00 82 18 141/95 100 03/24/19 18:00 79 19 165/88 100 03/24/19 17:30 21 142/97 100 03/24/19 17:00 81 18 163/88 100 03/24/19 16:00 98.2 F 81 18 174/97 100 03/24/19 15:45 18 139/45 100 03/24/19 15:00 78 20 166/93 100 Intake and Output 03/24/19 03/25/19 03/25/19 23:59 07:59 15:59 Intake Total 490 / 3974 371.3 / 720.0 348.7 / 720.0 Output Total 100 / 125 60 / 75 15 / 75 Balance 390 / 3849 311.3 / 645.0 333.7 / 645.0 Intake: IV Fluids 250 / 3600 321.3 / 400.0 78.7 / 400.0 Precedex Premix 400 mcg In 100 100 / 500 200.0 / 200.0 ml @ 0.2 MCG/KG/HR 4.385 mls/hr IVC .[id number] [facility] Rx#: [id number] FentaNYL (PF) 2,500 MCG In 50 / 150 21.3 / 50.0 28.7 / 50.0 Empty Bag 1 EACH @ 50 MCG/HR 1 mls/hr IVC CONT [facility] Rx#: [id number] Calcium Gluconate 1gm/50mL 1 gm 100 / 150 50 / 50 In 50 ml @ 50 mls/hr IVPB Q6HR PRN Rx#:[id number] Zosyn 3.375 GM In 0.9 % Sodium 100 / 100 Chloride (Mini-Bag +) 100 ML @ 25 mls/hr IVPB Q12H [facility] Rx#: [id number] Tube Feeding 160 / 184 70 / 70 Free Water 200 / 200 Free Water Intake Amount 80 / 190 50 / 50 Output: Catheter 100 / 125 60 / 75 15 / 75 Other: Weight 110.5 kg Blood Glucose* 95 73 100 Patient Weight 03/25/19 23:59 Weight 110.5 kg - General Appearance General appearance: Present: intubated EENT: Present: ATNC, mucous membranes moist Neck: Present: no JVD, supple Respiratory: Present: course breath sounds Cardiology: Present: edema (generalized), normal S1, normal S2 Dialysis Vascular Access: Venous Catheter (temp line) Gastrointestinal: Present: no tenderness, no guarding Integumentary: Present: warm and dry Additional Comments: nonresponsive Musculoskeletal: Present: no deformities Additional Comments: unable to assess - Lab 03/26/19 04:10 03/26/19 04:10 Most recent lab results 03/25/19 03/25/19 03/25/19 04:04 04:38 11:40 ABG pH 7.37 ABG pCO2 43 ABG pO2 121 H ABG HCO3 24 ABG O2 Saturation 99 H Calcium 7.0 L 7.5 L Phosphorus 5.3 H 5.3 H Magnesium 2.1 2.1 - VTE Documentation of Mechanical Device: Intermittent pneumatic compression device Consult Discharge Plan - Plan Referrals: NONE,PCP [Primary Care Provider] -
[2019-03-25] MEDS: *HR* Heparin 5,000 UNIT/ML VIAL SQ SCH ×2 (14:21→21:11)
[2019-03-26] MEDS: Artificial Tears SOLN 15 ML BOTTLE BOTH EYES SCH ×5 (00:45→14:20)
[2019-03-26] MEDS: Dexmedetomidine HCl 400 MCG/100 ML MLS IVC SCH ×2 (03:30→08:08)
[2019-03-26 04:04] LABS: ABG Base Excess -4 mEq/L (-2 to 3); ABG HCO3 23 mEq/L (21-27); ABG Oxygen Saturation 96 % (95-98); ABG PCO2 47 mmHg (35-45); ABG PO2 93 mmHg (85-104); ABG TCO2 25 mEq/L (20-26); Blood Gas Modality VC; Blood Gas PEEP 8 cm H2O; Blood Gas VT 500 cc
[2019-03-26 04:43] LABS: Hematocrit 37.2 % (37.5-50.1); Hemoglobin 12.1 g/dL (12.9-16.9); Mean Corpuscular HGB Conc 32.5 g/dL (31.6-35.5); Mean Corpuscular Volume 98.4 fL (83.0-100.0); Mean Platelet Volume 10.2 fL (9.4-12.4); Platelet Count 263 K/mcL (140-400); Red Blood Count 3.78 M/mcL (4.19-5.50); Red Cell Distribution Width 13.2 % (11.5-14.5); White Blood Count 14.5 K/mcL (4.3-11.1)
[2019-03-26 04:57] LABS: INR 1.1; Prothrombin Time 12.8 Seconds (9.4-12.1)
[2019-03-26 05:00] LABS: Calcium 7.3 mg/dL (8.6-10.3)
[2019-03-26] MEDS: *HR* Heparin 5,000 UNIT/ML VIAL SQ SCH ×2 (05:06→13:46)
[2019-03-26 05:38] LABS: Lymphocytes # 0.6 K/mcL (0.6-4.6); Neutrophils # 12.9 K/mcL (1.6-8.9); Platelet Estimate Normal (Normal)
[2019-03-26 05:39] LABS: Toxic Granulation Present (Not Present)
--- NOTE | 2019-03-26 07:40 | Pulmonology Progress Note ---
<Leno Luis Markell - Last Filed: 03/26/19 11:25> Date of Encounter: 03/26/19 Time of Encounter: 07:40 Assessment and Plan (1) Encephalopathy Current Visit: Yes Status: Acute Encephalopathy secondary to cardiac arrest - Acute toxic/anoxic encephalopathy. Secondary to cardiac arrest, likely due to drug overdose. Intubated and sedated on fentanyl and precedex. UDS positive for amphetamines, benzos, MJ, and buprenorphine. - Unresponsive since mar 19 - Neurology following - Repeat Ct head shows possible anoxic brain injury with loss of khan white differentiation. - Continue to monitor neuro function and mental staus. - No gag relfex. - Pupils minimally reactive. Corneal reflex intact - Goals of care discussed with family - DNR-CCA - Withdrawal of care under consideration - No significant improvements in overall neurological status - Plan for withdrawal of care today at 2 pm - Family requested repeat EEG before withdrawal of care (2) Acute respiratory failure with hypoxia Current Visit: Yes Status: Acute Acute resp failure - Remains intubated and sedated (3) Acute kidney injury Current Visit: Yes Status: Acute KIEL - Nephrology following - Daily dialysis - Likely secondary to shock/hypoperfusion - Remains anuric (4) Cardiac arrest Current Visit: Yes Status: Acute Secondary to drug overdose - ROSC achieved after 1 round of CPR - Unknown downtime - Echo: LVEF 50%, mild global LV systolic dysfunction - Continue to monitor - Correct electrolyte abnormalities (5) Drug overdose Current Visit: Yes Status: Acute Possible OD on presentation - UDS positive for Buprenorphine, amphetamines, MJ, Benzos - Continue to monitor (6) Rhabdomyolysis Current Visit: Yes Status: Acute Rhabdo - Likely secondary to Drug overdose/seizure-like activity - Remains anuric - Nephrology recommends stopping IVF hydration (7) Seizure-like activity Current Visit: Yes Status: Acute EEG showed no seizure activity - minimal brainstem reflexes Subjective Principal diagnosis: Cardiac Arrest Interval history: Patient seen and examined. Afebrile. No overnight events. Patient has been doing well on a spontaneous breathing trial this morning. Remains anuric. No bowel movements. He has been receiving daily dialysis. Nephrology, neurology, and palliative care are following. Family is aware of poor prognosis. Family is planning for withdrawal of care today, after more family members have a chance to visit. Objective PUL Vital signs: Last Vital Signs Temp 97.6 F 03/26/19 04:16 Pulse 86 03/26/19 07:10 Resp 13 03/26/19 07:34 BP 141/87 03/26/19 07:00 Pulse Ox 100 03/26/19 07:34 Gen: Vitals noted. No acute distress. Intubated. Sedated on fentanyl and precedex Eyes: Moist conjunctivae. Pupils equal, round, 4-5mm, minimally reactive to light. HENT: Atraumatic, normocephalic. Neck: Trachea midline; supple, no thyromegaly or lymphadenopathy. Cardiac: RRR, no murmurs, rubs or gallops, S1/S2 Pulmonary: Coarse, mechanical breath sounds BL. Abdomen: soft, full, no rigidity or guarding. No masses or hepatosplenomegaly MSK: ROM intact, no joint swelling noted Extremities: Diffuse 1+ anasarca, no cyanosis or clubbing Skin: Normal temperature, turgor and texture; no rash, ulcers or subcutaneous nodules Neuro: Corneal reflex intact. No gag reflex. No response to painful stimuli. Psych: Unable to assess Analgesia: fentanyl gtt Sedation: precedex gtt SBT: none Glycemic control: none Bowl regimen: Senna, colace Activity: none Fluids: MIVF Electrolytes: replete as necessary Nutrition: Tube feeds GI ppx: PPI Lines: ET, OG, james, left fem dialysis cath, right fem CVC, right PIV Consults: pulm, neuro, nephro, IR, ENT, nutrition Code: DNR CCA Dispo: ICU Ventilator Settings Ventilator Settings: Ventilator Settings, Last 8 Hours Ventilator Tidal Volume 500 Setting Ventilator Tidal Volume 500 Setting Ventilator Tidal Volume 500 Setting Ventilator Tidal Volume 500 Setting Ventilator Tidal Volume 500 Setting Ventilator Tidal Volume 500 Setting Ventilator Tidal Volume 500 Setting Ventilator Tidal Volume 500 Setting Ventilator Tidal Volume 500 Setting Ventilator Tidal Volume 500 Setting Ventilator Tidal Volume 500 Setting Ventilator Tidal Volume 500 Setting Ventilator Tidal Volume 500 Setting Ventilator Respiratory Rate 18 Setting Ventilator Respiratory Rate 18 Setting Ventilator Respiratory Rate 18 Setting Ventilator Respiratory Rate 18 Setting Ventilator Respiratory Rate 18 Setting Ventilator Respiratory Rate 18 Setting Ventilator Respiratory Rate 18 Setting Ventilator Respiratory Rate 18 Setting Ventilator Respiratory Rate 18 Setting Ventilator Respiratory Rate 18 Setting Ventilator Respiratory Rate 18 Setting Ventilator Respiratory Rate 18 Setting Actual Respiratory Rate 13 Actual Respiratory Rate 13 Actual Respiratory Rate 19 Actual Respiratory Rate 19 Actual Respiratory Rate 20 Actual Respiratory Rate 18 Actual Respiratory Rate 19 Actual Respiratory Rate 21 Actual Respiratory Rate 20 Actual Respiratory Rate 22 Actual Respiratory Rate 19 Actual Respiratory Rate 18 Actual Respiratory Rate 19 Positive End Expiratory 8 Pressure Positive End Expiratory 8 Pressure Positive End Expiratory 8 Pressure Positive End Expiratory 8 Pressure Positive End Expiratory 8 Pressure Positive End Expiratory 8 Pressure Positive End Expiratory 8 Pressure Positive End Expiratory 8 Pressure Positive End Expiratory 8 Pressure Positive End Expiratory 8 Pressure Positive End Expiratory 8 Pressure Positive End Expiratory 8 Pressure Positive End Expiratory 8 Pressure Positive End Expiratory 8 Pressure Peak Inspiratory Airway 14 Pressure Peak Inspiratory Airway 14 Pressure Peak Inspiratory Airway 33 Pressure Peak Inspiratory Airway 25 Pressure Peak Inspiratory Airway 25 Pressure Peak Inspiratory Airway 25 Pressure Peak Inspiratory Airway 23 Pressure Peak Inspiratory Airway 24 Pressure Peak Inspiratory Airway 23 Pressure Peak Inspiratory Airway 26 Pressure Peak Inspiratory Airway 26 Pressure Peak Inspiratory Airway 23 Pressure Peak Inspiratory Airway 24 Pressure Results - Laboratory Findings CBC and BMP: 03/26/19 04:10 03/26/19 04:10 ABG ABG pH 7.30 pH Units (7.32-7.45) L 03/26/19 04:01 ABG pCO2 47 mmHg (35-45) H 03/26/19 04:01 ABG pO2 93 mmHg (85-104) 03/26/19 04:01 ABG O2 Saturation 96 % (95-98) 03/26/19 04:01 PT/INR, D-dimer PT 12.8 Seconds (9.4-12.1) H 03/26/19 04:10 Abnormal lab findings: Abnormal lab results WBC 14.5 K/mcL (4.3-11.1) H 03/26/19 04:10 RBC 3.78 M/mcL (4.19-5.50) L 03/26/19 04:10 Hgb 12.1 g/dL (12.9-16.9) L 03/26/19 04:10 Hct 37.2 % (37.5-50.1) L 03/26/19 04:10 MCHC 36.2 g/dL (31.6-35.5) H 03/22/19 03:35 Plt Count 135 K/mcL (140-400) L 03/24/19 20:00 MPV 13.0 fL (9.4-12.4) H 03/20/19 20:09 Immature Gran % 8.3 % (0-4) H 03/24/19 20:00 Band Neutrophils % 11.0 % (0-4) H 03/26/19 04:10 Metamyelocytes % 1.0 % (0) H 03/25/19 11:40 Myelocytes % 2.0 % (0) H 03/21/19 04:00 Neutrophils # 12.9 K/mcL (1.6-8.9) H 03/26/19 04:10 Lymphocytes # 0.5 K/mcL (0.6-4.6) L 03/23/19 21:39 Monocytes # 1.4 K/mcL (0.0-1.3) H 03/21/19 20:08 Nucleated RBCs/100 WBC 0.4 /100 WBC (0) H 03/19/19 00:33 Reactive Lymphocytes Present (Not Present) A 03/23/19 21:39 Toxic Granulation Present (Not Present) A 03/26/19 04:10 Dohle Bodies Present (Not Present) A 03/23/19 21:39 Platelet Estimate Slight Decrease (Normal) L 03/25/19 04:04 Large Platelets Present (Not Present) A 03/23/19 21:39 Immature Plt Fraction 6.6 % (1.1-6.1) H 03/23/19 04:38 PT 12.8 Seconds (9.4-12.1) H 03/26/19 04:10 Fibrinogen 713 mg/dL (169-393) H* 03/24/19 03:41 ABG pH 7.30 pH Units (7.32-7.45) L 03/26/19 04:01 ABG pCO2 47 mmHg (35-45) H 03/26/19 04:01 ABG pO2 121 mmHg (85-104) H 03/25/19 04:38 ABG HCO3 17 mEq/L (21-27) L 03/22/19 04:38 ABG Total CO2 29 mEq/L (20-26) H 03/24/19 04:36 ABG O2 Saturation 99 % (95-98) H 03/25/19 04:38 ABG Base Excess -4 mEq/L (-2 to 3) L 03/26/19 04:01 VBG pH 7.13 pH Units (7.32-7.42) L* 03/19/19 00:48 VBG pCO2 91 mmHg (41-51) H* 03/19/19 00:48 VBG pO2 217 mmHg (25-50) H 03/23/19 14:38 VBG HCO3 30 mEq/L (21-27) H 03/19/19 00:48 VBG Hematocrit 35.0 % (37.5-50.1) L 03/23/19 14:38 Sodium 134 mEq/L (136-145) L 03/26/19 04:10 Potassium 5.4 mEq/L (3.5-5.1) H 03/23/19 14:13 Chloride 109 mEq/L (98-107) H 03/19/19 09:35 Carbon Dioxide 22 mEq/L (23-29) L 03/26/19 04:10 BUN 103 mg/dL (6-20) H 03/26/19 04:10 Creatinine 7.77 mg/dL (0.70-1.30) H 03/26/19 04:10 Est GFR ( Amer) 10 (> 60) L 03/26/19 04:10 Est GFR (Non-Af Amer) 8 (> 60) L 03/26/19 04:10 Glucose 108 mg/dL (70-105) H 03/26/19 04:10 Whole Bld Glucose 97 mg/dl (65-95) H 03/23/19 14:38 POC Glucose 110 mg/dL (70-99) H 03/25/19 19:15 Calculated Osmolality 311 (280-300) H 03/26/19 04:10 Lactic Acid 2.8 mmol/L (0.5-2.2) H 03/21/19 20:08 Calcium 7.3 mg/dL (8.6-10.3) L 03/26/19 04:10 Venous Ioniz Calcium 0.96 mmol/L (1.15-1.35) L 03/25/19 12:12 Phosphorus 5.3 mg/dL (2.7-4.5) H 03/25/19 11:40 Magnesium 3.9 mg/dL (1.6-2.6) H 03/19/19 07:04 Total Bilirubin 1.1 mg/dL (0.3-1.0) H 03/23/19 04:38 Direct Bilirubin 0.6 mg/dL (0.0-0.2) H 03/24/19 03:41 AST 1199 Units/L (13-39) H 03/24/19 03:41 ALT 997 Units/L (7-52) H 03/24/19 03:41 Creatine Kinase 07014 Units/L (30-223) H 03/25/19 11:40 Troponin I 0.89 ng/mL (< 0.04) H* 03/20/19 03:45 Serum Total Protein 4.8 g/dL (6.4-8.9) L 03/24/19 03:41 Albumin 2.3 g/dL (3.5-5.7) L 03/24/19 03:41 Globulin 2.3 g/dL (2.4-3.5) L 03/23/19 04:38 Albumin/Globulin Ratio 0.9 (1.1-2.2) L 03/24/19 03:41 Ur Specimen Adequacy See below A 03/19/19 03:55 Urine Color [place] (Yellow) A 03/19/19 03:55 Urine Clarity Cloudy (Clear) A 03/19/19 03:55 Urine Protein >=300 mg/dL (Neg-Trace) H 03/19/19 03:55 Urine Ketones Trace mg/dL (Negative) H 03/19/19 03:55 Urine Blood Large (Negative) H 03/19/19 03:55 Urine Bilirubin Small (Negative) H 03/19/19 03:55 Urine Microscopic RBC 50-100 per hpf (0-3) H 03/19/19 03:55 Urine Bacteria Many per hpf (None-Few) H 03/19/19 03:55 Ur Culture Indicated? YES (NO) A 03/19/19 03:55 Salicylates < 2.5 mg/dL (15.0-30.0) L 03/19/19 08:20 Ur Buprenorphine Scrn Positive ng/mL (Cutoff=5) H 03/19/19 03:55 Acetaminophen < 10 mcg/mL (10-20) L 03/19/19 08:20 Ur Amphetamines Screen Positive ng/mL (Mkvmzo=9846) H 03/19/19 03:55 U Benzodiazepines Scrn Positive ng/mL (Qlnusz=672) H 03/19/19 03:55 U Marijuana (THC) Screen Positive ng/mL (Cutoff = 50) H 03/19/19 03:55 Hep Bs Antibody < 3.10 mIU/mL (10.00-) L 03/19/19 08:20 Staphylococcus sp PCR DETECTED (Not Detect) A 03/19/19 00:52 - Clinical Findings Intake & Output: Intake & Output 03/25/19 03/25/19 03/26/19 15:59 23:59 07:59 Intake Total 448.7 / 1162.0 342 / 1162.0 458 / 458 Output Total 15 / 175 100 / 175 0 / 0 Balance 433.7 / 987.0 242 / 987.0 458 / 458 Weight 111.1 kg - VTE Documentation of Mechanical Device: Intermittent pneumatic compression device Consult Discharge Plan - Plan Referrals: NONE,PCP [Primary Care Provider] - <Raad Marcos - Last Filed: 03/26/19 21:27> Date of Encounter: 03/26/19 Objective PUL Vital signs: Last Vital Signs Temp 100.1 F H 03/26/19 20:10 Pulse 102 03/26/19 20:10 Resp 14 03/26/19 20:10 BP 152/82 03/26/19 20:10 Pulse Ox 77 03/26/19 20:10 Results - Laboratory Findings CBC and BMP: 03/26/19 04:10 03/26/19 04:10 ABG ABG pH 7.30 pH Units (7.32-7.45) L 03/26/19 04:01 ABG pCO2 47 mmHg (35-45) H 03/26/19 04:01 ABG pO2 93 mmHg (85-104) 03/26/19 04:01 ABG O2 Saturation 96 % (95-98) 03/26/19 04:01 PT/INR, D-dimer PT 12.8 Seconds (9.4-12.1) H 03/26/19 04:10 Abnormal lab findings: Abnormal lab results WBC 14.5 K/mcL (4.3-11.1) H 03/26/19 04:10 RBC 3.78 M/mcL (4.19-5.50) L 03/26/19 04:10 Hgb 12.1 g/dL (12.9-16.9) L 03/26/19 04:10 Hct 37.2 % (37.5-50.1) L 03/26/19 04:10 MCHC 36.2 g/dL (31.6-35.5) H 03/22/19 03:35 Plt Count 135 K/mcL (140-400) L 03/24/19 20:00 MPV 13.0 fL (9.4-12.4) H 03/20/19 20:09 Immature Gran % 8.3 % (0-4) H 03/24/19 20:00 Band Neutrophils % 11.0 % (0-4) H 03/26/19 04:10 Metamyelocytes % 1.0 % (0) H 03/25/19 11:40 Myelocytes % 2.0 % (0) H 03/21/19 04:00 Neutrophils # 12.9 K/mcL (1.6-8.9) H 03/26/19 04:10 Lymphocytes # 0.5 K/mcL (0.6-4.6) L 03/23/19 21:39 Monocytes # 1.4 K/mcL (0.0-1.3) H 03/21/19 20:08 Nucleated RBCs/100 WBC 0.4 /100 WBC (0) H 03/19/19 00:33 Reactive Lymphocytes Present (Not Present) A 03/23/19 21:39 Toxic Granulation Present (Not Present) A 03/26/19 04:10 Dohle Bodies Present (Not Present) A 03/23/19 21:39 Platelet Estimate Slight Decrease (Normal) L 03/25/19 04:04 Large Platelets Present (Not Present) A 03/23/19 21:39 Immature Plt Fraction 6.6 % (1.1-6.1) H 03/23/19 04:38 PT 12.8 Seconds (9.4-12.1) H 03/26/19 04:10 Fibrinogen 713 mg/dL (169-393) H* 03/24/19 03:41 ABG pH 7.30 pH Units (7.32-7.45) L 03/26/19 04:01 ABG pCO2 47 mmHg (35-45) H 03/26/19 04:01 ABG pO2 121 mmHg (85-104) H 03/25/19 04:38 ABG HCO3 17 mEq/L (21-27) L 03/22/19 04:38 ABG Total CO2 29 mEq/L (20-26) H 03/24/19 04:36 ABG O2 Saturation 99 % (95-98) H 03/25/19 04:38 ABG Base Excess -4 mEq/L (-2 to 3) L 03/26/19 04:01 VBG pH 7.13 pH Units (7.32-7.42) L* 03/19/19 00:48 VBG pCO2 91 mmHg (41-51) H* 03/19/19 00:48 VBG pO2 217 mmHg (25-50) H 03/23/19 14:38 VBG HCO3 30 mEq/L (21-27) H 03/19/19 00:48 VBG Hematocrit 35.0 % (37.5-50.1) L 03/23/19 14:38 Sodium 134 mEq/L (136-145) L 03/26/19 04:10 Potassium 5.4 mEq/L (3.5-5.1) H 03/23/19 14:13 Chloride 109 mEq/L (98-107) H 03/19/19 09:35 Carbon Dioxide 22 mEq/L (23-29) L 03/26/19 04:10 BUN 103 mg/dL (6-20) H 03/26/19 04:10 Creatinine 7.77 mg/dL (0.70-1.30) H 03/26/19 04:10 Est GFR ( Amer) 10 (> 60) L 03/26/19 04:10 Est GFR (Non-Af Amer) 8 (> 60) L 03/26/19 04:10 Glucose 108 mg/dL (70-105) H 03/26/19 04:10 Whole Bld Glucose 97 mg/dl (65-95) H 03/23/19 14:38 POC Glucose 110 mg/dL (70-99) H 03/25/19 19:15 Calculated Osmolality 311 (280-300) H 03/26/19 04:10 Lactic Acid 2.8 mmol/L (0.5-2.2) H 03/21/19 20:08 Calcium 7.3 mg/dL (8.6-10.3) L 03/26/19 04:10 Venous Ioniz Calcium 0.96 mmol/L (1.15-1.35) L 03/25/19 12:12 Phosphorus 5.3 mg/dL (2.7-4.5) H 03/25/19 11:40 Magnesium 3.9 mg/dL (1.6-2.6) H 03/19/19 07:04 Total Bilirubin 1.1 mg/dL (0.3-1.0) H 03/23/19 04:38 Direct Bilirubin 0.6 mg/dL (0.0-0.2) H 03/24/19 03:41 AST 1199 Units/L (13-39) H 03/24/19 03:41 ALT 997 Units/L (7-52) H 03/24/19 03:41 Creatine Kinase 6938 Units/L (30-223) H 03/26/19 04:10 Troponin I 0.89 ng/mL (< 0.04) H* 03/20/19 03:45 Serum Total Protein 4.8 g/dL (6.4-8.9) L 03/24/19 03:41 Albumin 2.3 g/dL (3.5-5.7) L 03/24/19 03:41 Globulin 2.3 g/dL (2.4-3.5) L 03/23/19 04:38 Albumin/Globulin Ratio 0.9 (1.1-2.2) L 03/24/19 03:41 Ur Specimen Adequacy See below A 03/19/19 03:55 Urine Color [place] (Yellow) A 03/19/19 03:55 Urine Clarity Cloudy (Clear) A 03/19/19 03:55 Urine Protein >=300 mg/dL (Neg-Trace) H 03/19/19 03:55 Urine Ketones Trace mg/dL (Negative) H 03/19/19 03:55 Urine Blood Large (Negative) H 03/19/19 03:55 Urine Bilirubin Small (Negative) H 03/19/19 03:55 Urine Microscopic RBC 50-100 per hpf (0-3) H 03/19/19 03:55 Urine Bacteria Many per hpf (None-Few) H 03/19/19 03:55 Ur Culture Indicated? YES (NO) A 03/19/19 03:55 Salicylates < 2.5 mg/dL (15.0-30.0) L 03/19/19 08:20 Ur Buprenorphine Scrn Positive ng/mL (Cutoff=5) H 03/19/19 03:55 Acetaminophen < 10 mcg/mL (10-20) L 03/19/19 08:20 Ur Amphetamines Screen Positive ng/mL (Cnowgm=8531) H 03/19/19 03:55 U Benzodiazepines Scrn Positive ng/mL (Cjwlfi=474) H 03/19/19 03:55 U Marijuana (THC) Screen Positive ng/mL (Cutoff = 50) H 03/19/19 03:55 Hep Bs Antibody < 3.10 mIU/mL (10.00-) L 03/19/19 08:20 Staphylococcus sp PCR DETECTED (Not Detect) A 03/19/19 00:52 - Clinical Findings Intake & Output: Intake & Output 03/26/19 03/26/19 03/26/19 07:59 15:59 23:59 Intake Total 458 / 671 213 / 671 Output Total 0 / 38 38 / 38 Balance 458 / 633 175 / 633 Weight 111.1 kg - Attending Attestation Attending Attestation I saw and evaluated this patient and my medical decision-making was reviewed with the Resident Physician. I agree with the documented findings, disposition and treatment plan as described except to the extent set forth below. We independently had [id number] contact with the patient Patient seen and examined at bedside Labs, radiology, chart personally reviewed. Management was reviewed during multidisciplinary critical care rounds. WOOL BRUSHER: Patient is sedated is lightening up the sedation causes severe respiratory distress. Patient has some mild the corneal reflex not much gag or cough reflex patient is not breathing above the vent when did do spontaneous breathing trial patient was breathing on his own 03/26 patient family is planning on to extubated to comfort measures. Pulm: Patient has acceptable oxygenation and ventilation lung protective status. Cards: Patient is hemodynamically stable without any vasopressors FEN-GI: Diet according to nutrition Renal: Labs and output were reviewed ID: No active infectious disease Heme/Onc: Labs reviewed Endo: Glucose Monitored Integ/MSK: Skin Care per routine ICU Nursing Protocol to prevent ulcers. Lines: All lines examined without evidence of infection : Dispo: patient is going to be transitioned to DNR CC CODE:[id number]
[2019-03-26] MEDS: Chlorhexidine Rinse 15 ML MOUTHWASH MM SCH (08:07)
[2019-03-26] MEDS: Pantoprazole 40 MG VIAL IVP SCH (08:07)
[2019-03-26] MEDS: Cholecalciferol (D-3) 1,000 UNIT (25MCG) TABLET PO SCH (08:07)
[2019-03-26] MEDS: Docusate Oral Soln 100 MG/10 ML UDC GTUBE SCH (08:07)
--- NOTE | 2019-03-26 09:06 | Neurology Progress Note ---
Date of Encounter: 03/26/19 Time of Encounter: 08:20 Assessment and Plan (1) Anoxic brain injury Current Visit: Yes Status: Suspected NO significant change in Neurological status , - Unresponsive since mar 19 - Repeat Ct head shows possible anoxic brain injury - Neurological examination he does have brainstem reflexes positive -Pupils minimally reactive. Corneal reflex intact No gag relfex. He is breathing over the vent EEG consistent with encephalopathy - No significant improvements in overall neurological status since admission prognosis remains poor Family is planning for withdrawal of the care today will follow there wishes (2) Acute respiratory failure with hypoxia Current Visit: Yes Status: Acute Subjective Principal diagnosis: Cardiac Arrest Interval history: No significant change in overall neurological status patient remain intubated without any significant response to any verbal stimuli minimal brainstem reflexes positive. he is on min dosage of sedation as well Objective - Constitutional Vitals: Temp Pulse Resp BP Pulse Ox 97.9 F 92 12 144/85 98 03/26/19 08:00 03/26/19 09:00 03/26/19 09:00 03/26/19 09:00 03/26/19 09:00 General appearance: Present: A&O X 0 (intubated and sedated. ) - Neurological Exam Sensorimotor examination: Present: other (Unable to determine) Motor Examination: Present: other (Limited neurological examination currently patient is intubated on minimum sedation, corneals remains sluggish but positive , pupils are also sluggish but positive, no response to the deep pain ) Sensation intact: Present: other (Unable to determine) Posture: Present: other (None) Mental Status Examination: Present: does not follow commands, cognitive impairment (no motor function appreciated. Does not respond to stimuli. ) Cranial nerve examination: Absent: PERRL, gag diminished (no gag reflex) Cranial Nerve Exam: pupil sluggish to react to light: Left (bilateral ) - VTE Documentation of Mechanical Device: Intermittent pneumatic compression device Results - Laboratory Findings CBC and BMP: 03/26/19 04:10 03/26/19 04:10 Abnormal lab findings: Abnormal lab results WBC 14.5 K/mcL (4.3-11.1) H 03/26/19 04:10 RBC 3.78 M/mcL (4.19-5.50) L 03/26/19 04:10 Hgb 12.1 g/dL (12.9-16.9) L 03/26/19 04:10 Hct 37.2 % (37.5-50.1) L 03/26/19 04:10 MCHC 36.2 g/dL (31.6-35.5) H 03/22/19 03:35 Plt Count 135 K/mcL (140-400) L 03/24/19 20:00 MPV 13.0 fL (9.4-12.4) H 03/20/19 20:09 Immature Gran % 8.3 % (0-4) H 03/24/19 20:00 Band Neutrophils % 11.0 % (0-4) H 03/26/19 04:10 Metamyelocytes % 1.0 % (0) H 03/25/19 11:40 Myelocytes % 2.0 % (0) H 03/21/19 04:00 Neutrophils # 12.9 K/mcL (1.6-8.9) H 03/26/19 04:10 Lymphocytes # 0.5 K/mcL (0.6-4.6) L 03/23/19 21:39 Monocytes # 1.4 K/mcL (0.0-1.3) H 03/21/19 20:08 Nucleated RBCs/100 WBC 0.4 /100 WBC (0) H 03/19/19 00:33 Reactive Lymphocytes Present (Not Present) A 03/23/19 21:39 Toxic Granulation Present (Not Present) A 03/26/19 04:10 Dohle Bodies Present (Not Present) A 03/23/19 21:39 Platelet Estimate Slight Decrease (Normal) L 03/25/19 04:04 Large Platelets Present (Not Present) A 03/23/19 21:39 Immature Plt Fraction 6.6 % (1.1-6.1) H 03/23/19 04:38 PT 12.8 Seconds (9.4-12.1) H 03/26/19 04:10 Fibrinogen 713 mg/dL (169-393) H* 03/24/19 03:41 ABG pH 7.30 pH Units (7.32-7.45) L 03/26/19 04:01 ABG pCO2 47 mmHg (35-45) H 03/26/19 04:01 ABG pO2 121 mmHg (85-104) H 03/25/19 04:38 ABG HCO3 17 mEq/L (21-27) L 03/22/19 04:38 ABG Total CO2 29 mEq/L (20-26) H 03/24/19 04:36 ABG O2 Saturation 99 % (95-98) H 03/25/19 04:38 ABG Base Excess -4 mEq/L (-2 to 3) L 03/26/19 04:01 VBG pH 7.13 pH Units (7.32-7.42) L* 03/19/19 00:48 VBG pCO2 91 mmHg (41-51) H* 03/19/19 00:48 VBG pO2 217 mmHg (25-50) H 03/23/19 14:38 VBG HCO3 30 mEq/L (21-27) H 03/19/19 00:48 VBG Hematocrit 35.0 % (37.5-50.1) L 03/23/19 14:38 Sodium 134 mEq/L (136-145) L 03/26/19 04:10 Potassium 5.4 mEq/L (3.5-5.1) H 03/23/19 14:13 Chloride 109 mEq/L (98-107) H 03/19/19 09:35 Carbon Dioxide 22 mEq/L (23-29) L 03/26/19 04:10 BUN 103 mg/dL (6-20) H 03/26/19 04:10 Creatinine 7.77 mg/dL (0.70-1.30) H 03/26/19 04:10 Est GFR ( Amer) 10 (> 60) L 03/26/19 04:10 Est GFR (Non-Af Amer) 8 (> 60) L 03/26/19 04:10 Glucose 108 mg/dL (70-105) H 03/26/19 04:10 Whole Bld Glucose 97 mg/dl (65-95) H 03/23/19 14:38 POC Glucose 110 mg/dL (70-99) H 03/25/19 19:15 Calculated Osmolality 311 (280-300) H 03/26/19 04:10 Lactic Acid 2.8 mmol/L (0.5-2.2) H 03/21/19 20:08 Calcium 7.3 mg/dL (8.6-10.3) L 03/26/19 04:10 Venous Ioniz Calcium 0.96 mmol/L (1.15-1.35) L 03/25/19 12:12 Phosphorus 5.3 mg/dL (2.7-4.5) H 03/25/19 11:40 Magnesium 3.9 mg/dL (1.6-2.6) H 03/19/19 07:04 Total Bilirubin 1.1 mg/dL (0.3-1.0) H 03/23/19 04:38 Direct Bilirubin 0.6 mg/dL (0.0-0.2) H 03/24/19 03:41 AST 1199 Units/L (13-39) H 03/24/19 03:41 ALT 997 Units/L (7-52) H 03/24/19 03:41 Creatine Kinase 20032 Units/L (30-223) H 03/25/19 11:40 Troponin I 0.89 ng/mL (< 0.04) H* 03/20/19 03:45 Serum Total Protein 4.8 g/dL (6.4-8.9) L 03/24/19 03:41 Albumin 2.3 g/dL (3.5-5.7) L 03/24/19 03:41 Globulin 2.3 g/dL (2.4-3.5) L 03/23/19 04:38 Albumin/Globulin Ratio 0.9 (1.1-2.2) L 03/24/19 03:41 Ur Specimen Adequacy See below A 03/19/19 03:55 Urine Color [place] (Yellow) A 03/19/19 03:55 Urine Clarity Cloudy (Clear) A 03/19/19 03:55 Urine Protein >=300 mg/dL (Neg-Trace) H 03/19/19 03:55 Urine Ketones Trace mg/dL (Negative) H 03/19/19 03:55 Urine Blood Large (Negative) H 03/19/19 03:55 Urine Bilirubin Small (Negative) H 03/19/19 03:55 Urine Microscopic RBC 50-100 per hpf (0-3) H 03/19/19 03:55 Urine Bacteria Many per hpf (None-Few) H 03/19/19 03:55 Ur Culture Indicated? YES (NO) A 03/19/19 03:55 Salicylates < 2.5 mg/dL (15.0-30.0) L 03/19/19 08:20 Ur Buprenorphine Scrn Positive ng/mL (Cutoff=5) H 03/19/19 03:55 Acetaminophen < 10 mcg/mL (10-20) L 03/19/19 08:20 Ur Amphetamines Screen Positive ng/mL ([id number]) H 03/19/19 03:55 U Benzodiazepines Scrn Positive ng/mL (Svtlnx=875) H 03/19/19 03:55 U Marijuana (THC) Screen Positive ng/mL (Cutoff = 50) H 03/19/19 03:55 Hep Bs Antibody < 3.10 mIU/mL (10.00-) L 03/19/19 08:20 Staphylococcus sp PCR DETECTED (Not Detect) A 03/19/19 00:52 Consult Discharge Plan - Plan Referrals: NONE,PCP [Primary Care Provider] -
[2019-03-26] MEDS ORDERED: *HR* Etomidate 20 MG/10 ML AMPUL IVP ONE (10:50)
[2019-03-26] MEDS ORDERED: *HR* Rocuronium Bromide 100 MG/10 ML VIAL IVC ONE (10:50)
--- NOTE | 2019-03-26 11:22 | Internal Med Progress Note ---
Hospitalist Progress Note - Encounter Date of Encounter: 03/26/19 Time of Encounter: 11:19 - Subjective Interval History: Patient remains on ventilator support, but is having spontaneous breathing. Patient continues on hemodialysis Care has been in discussions with patient's family on a daily basis. Family is leaning towards comfort measures. - Exam Vitals: Temp Pulse Resp BP Pulse Ox 97.9 F 97 12 149/92 99 03/26/19 08:00 03/26/19 11:00 03/26/19 11:00 03/26/19 11:00 03/26/19 11:00 Exam: General: Intubated, patient is spontaneously breathing HEENT: ETT/OG in place Chest: CTAB Ht RRR, Abdomen: distended, soft +BS Ext: no edema Neuro: absent corneal and gag reflexes; no response to painful stimuli; absent plantar reflexes, nonresponsive - Assessment and Plan (1) Multiple organ failure Current Visit: Yes Status: Acute Assessment and Plan: Discussed on rounds and collaboratively with Dr. Marcos Remains on ventilator support and hemodialysis He is having spontaneous breathing Ongoing discussions with palliative care (2) Toxic encephalopathy Current Visit: Yes Status: Acute Assessment and Plan: Likely due to overdose and subsequent cardiac arrest, anoxic encephalopathy. Extremely poor prognosis Ongoing supportive measures as above. (3) Neck mass Current Visit: Yes Status: Acute Assessment and Plan: ENT consulted, not felt to be an abscess or in need of surgical intervention, no acute issues, poss related to needle stick -monitor (4) Drug overdose Current Visit: Yes Status: Acute Assessment and Plan: Care as above. (5) Rhabdomyolysis Current Visit: Yes Status: Acute Assessment and Plan: 1. IVF per MIV. 2. Dialysis per nephrology. 2. Trend CPK levels and monitor for development of compartment syndrome. -CK level today 6938 (6) Acute respiratory failure with hypoxia Current Visit: Yes Status: Acute (7) Ischemic hepatitis Current Visit: Yes Status: Acute Assessment and Plan: 1. Ongoing supportive measures as above. 2. Trend LFT's, monitor DVT Prophylaxis: EPCD's - Time Spent with Patient Total time spent is greater than 50% in coordination of care (as documented) at patient's floor/unit and/or counseling patient: Greater than 35 minutes Internal Medicine: Result - Labs CBC & Chem 7: 03/26/19 04:10 03/26/19 04:10 Labs: Short CBC 03/25/19 03/26/19 Range/Units 11:40 04:10 WBC 18.3 H D 14.5 H (4.3-11.1) K/mcL Hgb 12.6 L 12.1 L (12.9-16.9) g/dL Hct 38.1 37.2 L (37.5-50.1) % Plt Count 266 D 263 (140-400) K/mcL Neutrophils # 16.8 H 12.9 H (1.6-8.9) K/mcL BMP 03/25/19 03/26/19 11:40 04:10 Sodium 136 134 L Potassium 5.1 5.0 Chloride 99 99 Carbon Dioxide 25 22 L BUN 86 H 103 H Creatinine 6.56 H 7.77 H Glucose 100 108 H Calcium 7.5 L 7.3 L - ABG Interpretation ABG results: ABG ABG pH 7.30 pH Units (7.32-7.45) L 03/26/19 04:01 ABG pCO2 47 mmHg (35-45) H 03/26/19 04:01 ABG pO2 93 mmHg (85-104) 03/26/19 04:01 ABG O2 Saturation 96 % (95-98) 03/26/19 04:01 PT/INR, D-dimer PT 12.8 Seconds (9.4-12.1) H 03/26/19 04:10 - Impressions Impressions Upper Extremity CT 03/22/19 15:02 IMPRESSION: Nonspecific subcutaneous edema and fluid of the left upper extremity without evidence of focal fluid collection. No evidence of acute muscular abnormality or fluid along the muscular fascial planes. No specific CT evidence of myositis although MRI would be more sensitive. No acute bone or joint abnormality. D/ / 03/22/2019 15:13:10 Enzo Hernandez MD / [email or web address] Interpreting Provider: Enzo Hernandez MD Lower Extremity CT 03/22/19 15:05 IMPRESSION: Enlargement of the left psoas muscle with surrounding inflammatory changes and low-attenuating 2.2 x 3.3 x 2.6 cm intramuscular collection that may represent an intramuscular abscess or hematoma. Mild inflammatory changes of the left sartorius and rectus femoris muscles may represent reactive myositis. No fluid along the muscular fascial planes. Otherwise normal attenuation of the musculature of the left lower extremity. Nonspecific subcutaneous edema involving the left flank, left hip and left lower extremity up to the level of the knee. Small to moderate bilateral knee joint effusions. No evidence of degenerative changes or fracture. Extensive inflammatory changes of the sigmoid colon with wall thickening and possible pneumatosis of the rectum may represent ischemic colitis. This is similar in appearance to prior CT of the abdomen and pelvis from 03/19/2019. Extensive subcutaneous edema of the right lower extremity with mild inflammatory changes of the anterior compartment musculature of the right thigh including the sartorius and rectus femoris muscles that may represent mild myositis. No evidence of intramuscular abscess or hematoma of the right lower extremity. D/ / 03/22/2019 15:30:02 Enzo Hernandez MD / stephania Interpreting Provider: Enzo Hernandez MD Lower Extremity CT 03/22/19 15:05 IMPRESSION: Enlargement of the left psoas muscle with surrounding inflammatory changes and low-attenuating 2.2 x 3.3 x 2.6 cm intramuscular collection that may represent an intramuscular abscess or hematoma. Mild inflammatory changes of the left sartorius and rectus femoris muscles may represent reactive myositis. No fluid along the muscular fascial planes. Otherwise normal attenuation of the musculature of the left lower extremity. Nonspecific subcutaneous edema involving the left flank, left hip and left lower extremity up to the level of the knee. Small to moderate bilateral knee joint effusions. No evidence of degenerative changes or fracture. Extensive inflammatory changes of the sigmoid colon with wall thickening and possible pneumatosis of the rectum may represent ischemic colitis. This is similar in appearance to prior CT of the abdomen and pelvis from 03/19/2019. Extensive subcutaneous edema of the right lower extremity with mild inflammatory changes of the anterior compartment musculature of the right thigh including the sartorius and rectus femoris muscles that may represent mild myositis. No evidence of intramuscular abscess or hematoma of the right lower extremity. D/ / 03/22/2019 15:30:02 Enzo Hernandez MD / stephania Interpreting Provider: Enzo Hernandez MD - VTE Documentation of Mechanical Device: Intermittent pneumatic compression device Consult Discharge Plan - Plan Referrals: NONE,PCP [Primary Care Provider] - (4) Drug overdose Qualifiers: Qualified Code(s): T50.904A - Poisoning by unspecified drugs, medicaments and biological substances, undetermined, initial encounter (5) Rhabdomyolysis Qualifiers: Qualified Code(s): M62.82 - Rhabdomyolysis
--- NOTE | 2019-03-26 11:23 | Palliative Progress Note ---
Date of Encounter: 03/26/19 Time of Encounter: 11:20 - Assessment and plan (1) Advance care planning Current Visit: Yes Status: Acute Assessment and plan: Mother is planning for palliative extubation today at 1400, however she re quested another EEG to confirm that there is no improvement from the previous. EEG in progress now. Palliative care will follow. 1350: patient is off Precedex and fentanyl drip has been reduced from 200 to 25mcg this morning. No changes noted of mental status. EEG showed worsening cerebral dysfunction. Mother is now ready to proceed with extubation. Premedicated with glycopyrrolate and Ativan 2mg, fentanyl drip in place. Patient extubated at 1400, abbundant secretions noted, as well as laboured breathing. Scopolamine patch added, ativan 2 mg and fentanyl drip increased to 100mg. Family at the bedside, emotional support provided. (2) Acute kidney injury Current Visit: Yes Status: Acute Assessment and plan: no HD yesterday, nephrology on the case. Family deciding for deescalation of care. (3) Encephalopathy Current Visit: Yes Status: Acute Assessment and plan: Patient exhibit no improvement of mental status, despite stable hemodynamics and electrolytes. Not brain . CT showed brain edema. 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 EEG in course per mother's request (4) Acute respiratory failure with hypoxia Current Visit: Yes Status: Acute (5) Palliative care by specialist Current Visit: Yes Status: Acute - Time Spent With Patient Total time spent is greater than 50% in coordination of care (as documented) at patient's floor/unit and/or counseling patient: - Subjective Interval history: Pt remains comatose, no response to pain. He has spontaneous blinking movements, but no correlation to corneal stimulation. no pupillary or gag reflex. - Constitutional Vitals: Abnormal lab results WBC 14.5 K/mcL (4.3-11.1) H 03/26/19 04:10 RBC 3.78 M/mcL (4.19-5.50) L 03/26/19 04:10 Hgb 12.1 g/dL (12.9-16.9) L 03/26/19 04:10 Hct 37.2 % (37.5-50.1) L 03/26/19 04:10 MCHC 36.2 g/dL (31.6-35.5) H 03/22/19 03:35 Plt Count 135 K/mcL (140-400) L 03/24/19 20:00 MPV 13.0 fL (9.4-12.4) H 03/20/19 20:09 Immature Gran % 8.3 % (0-4) H 03/24/19 20:00 Band Neutrophils % 11.0 % (0-4) H 03/26/19 04:10 Metamyelocytes % 1.0 % (0) H 03/25/19 11:40 Myelocytes % 2.0 % (0) H 03/21/19 04:00 Neutrophils # 12.9 K/mcL (1.6-8.9) H 03/26/19 04:10 Lymphocytes # 0.5 K/mcL (0.6-4.6) L 03/23/19 21:39 Monocytes # 1.4 K/mcL (0.0-1.3) H 03/21/19 20:08 Nucleated RBCs/100 WBC 0.4 /100 WBC (0) H 03/19/19 00:33 Reactive Lymphocytes Present (Not Present) A 03/23/19 21:39 Toxic Granulation Present (Not Present) A 03/26/19 04:10 Dohle Bodies Present (Not Present) A 03/23/19 21:39 Platelet Estimate Slight Decrease (Normal) L 03/25/19 04:04 Large Platelets Present (Not Present) A 03/23/19 21:39 Immature Plt Fraction 6.6 % (1.1-6.1) H 03/23/19 04:38 PT 12.8 Seconds (9.4-12.1) H 03/26/19 04:10 Fibrinogen 713 mg/dL (169-393) H* 03/24/19 03:41 ABG pH 7.30 pH Units (7.32-7.45) L 03/26/19 04:01 ABG pCO2 47 mmHg (35-45) H 03/26/19 04:01 ABG pO2 121 mmHg (85-104) H 03/25/19 04:38 ABG HCO3 17 mEq/L (21-27) L 03/22/19 04:38 ABG Total CO2 29 mEq/L (20-26) H 03/24/19 04:36 ABG O2 Saturation 99 % (95-98) H 03/25/19 04:38 ABG Base Excess -4 mEq/L (-2 to 3) L 03/26/19 04:01 VBG pH 7.13 pH Units (7.32-7.42) L* 03/19/19 00:48 VBG pCO2 91 mmHg (41-51) H* 03/19/19 00:48 VBG pO2 217 mmHg (25-50) H 03/23/19 14:38 VBG HCO3 30 mEq/L (21-27) H 03/19/19 00:48 VBG Hematocrit 35.0 % (37.5-50.1) L 03/23/19 14:38 Sodium 134 mEq/L (136-145) L 03/26/19 04:10 Potassium 5.4 mEq/L (3.5-5.1) H 03/23/19 14:13 Chloride 109 mEq/L (98-107) H 03/19/19 09:35 Carbon Dioxide 22 mEq/L (23-29) L 03/26/19 04:10 BUN 103 mg/dL (6-20) H 03/26/19 04:10 Creatinine 7.77 mg/dL (0.70-1.30) H 03/26/19 04:10 Est GFR ( Amer) 10 (> 60) L 03/26/19 04:10 Est GFR (Non-Af Amer) 8 (> 60) L 03/26/19 04:10 Glucose 108 mg/dL (70-105) H 03/26/19 04:10 Whole Bld Glucose 97 mg/dl (65-95) H 03/23/19 14:38 POC Glucose 110 mg/dL (70-99) H 03/25/19 19:15 Calculated Osmolality 311 (280-300) H 03/26/19 04:10 Lactic Acid 2.8 mmol/L (0.5-2.2) H 03/21/19 20:08 Calcium 7.3 mg/dL (8.6-10.3) L 03/26/19 04:10 Venous Ioniz Calcium 0.96 mmol/L (1.15-1.35) L 03/25/19 12:12 Phosphorus 5.3 mg/dL (2.7-4.5) H 03/25/19 11:40 Magnesium 3.9 mg/dL (1.6-2.6) H 03/19/19 07:04 Total Bilirubin 1.1 mg/dL (0.3-1.0) H 03/23/19 04:38 Direct Bilirubin 0.6 mg/dL (0.0-0.2) H 03/24/19 03:41 AST 1199 Units/L (13-39) H 03/24/19 03:41 ALT 997 Units/L (7-52) H 03/24/19 03:41 Creatine Kinase 6938 Units/L (30-223) H 03/26/19 04:10 Troponin I 0.89 ng/mL (< 0.04) H* 03/20/19 03:45 Serum Total Protein 4.8 g/dL (6.4-8.9) L 03/24/19 03:41 Albumin 2.3 g/dL (3.5-5.7) L 03/24/19 03:41 Globulin 2.3 g/dL (2.4-3.5) L 03/23/19 04:38 Albumin/Globulin Ratio 0.9 (1.1-2.2) L 03/24/19 03:41 Ur Specimen Adequacy See below A 03/19/19 03:55 Urine Color Sunflower (Yellow) A 03/19/19 03:55 Urine Clarity Cloudy (Clear) A 03/19/19 03:55 Urine Protein >=300 mg/dL (Neg-Trace) H 03/19/19 03:55 Urine Ketones Trace mg/dL (Negative) H 03/19/19 03:55 Urine Blood Large (Negative) H 03/19/19 03:55 Urine Bilirubin Small (Negative) H 03/19/19 03:55 Urine Microscopic RBC 50-100 per hpf (0-3) H 03/19/19 03:55 Urine Bacteria Many per hpf (None-Few) H 03/19/19 03:55 Ur Culture Indicated? YES (NO) A 03/19/19 03:55 Salicylates < 2.5 mg/dL (15.0-30.0) L 03/19/19 08:20 Ur Buprenorphine Scrn Positive ng/mL (Cutoff=5) H 03/19/19 03:55 Acetaminophen < 10 mcg/mL (10-20) L 03/19/19 08:20 Ur Amphetamines Screen Positive ng/mL (Zloqii=7179) H 03/19/19 03:55 U Benzodiazepines Scrn Positive ng/mL (Maghdm=617) H 03/19/19 03:55 U Marijuana (THC) Screen Positive ng/mL (Cutoff = 50) H 03/19/19 03:55 Hep Bs Antibody < 3.10 mIU/mL (10.00-) L 03/19/19 08:20 Staphylococcus sp PCR DETECTED (Not Detect) A 03/19/19 00:52 Exam: Vitals reviewed General appearance: comatose, Eyes: nonicteric, pupils fixed, questionable corneal reflex EENT: oropharynx moist Neck: supple, fullness of the left sternocleidomastoid Chest: mechanical breath sounds, copious upper airways secretions, lungs clear Cardiovascular: regular rate and rhythm, no murmur, rub, gallop Gastrointestinal: soft, non-tender, non-distended Integumentary: normal, intact Extremities: + edema, no clubbing, normal capillary refill Musculoskeletal: no deformities Neurologic: comatose, ? corneal reflex, no pupillary, no gag, verbreathing the vent Palliative Quality Palliative Quality: Screen for Code Status: Yes, Screen for Goals of Care: Yes, Screen for Pain: Yes, If Pain Regimen Started, Initiate Bowel Regimen: Yes, Screen for Nausea/Vomitting: Yes Code Status: 03/19/19 02:49 Resuscitation Status: Active [RES] Routine Comment: Resuscitation Status: Full Code 03/22/19 15:51 Resuscitation Status: Active [RES] Routine Comment: Resuscitation Status: DNR-Comfort Care-Arrest - Labs CBC & Chem 7: 03/26/19 04:10 03/26/19 04:10 Labs: Laboratory Results - last 24 hr 03/25/19 03/25/19 03/25/19 04:05 05:56 07:13 WBC RBC Hgb Hct MCV MCH MCHC RDW Plt Count MPV Seg Neutrophils % Band Neutrophils % Lymphocytes % Monocytes % Metamyelocytes % Neutrophils # Lymphocytes # Monocytes # Toxic Granulation Platelet Estimate PT INR Sample Site ABG pH ABG pCO2 ABG pO2 ABG HCO3 ABG Total CO2 ABG O2 Saturation ABG Base Excess Curtis Test Respiration Rate O2 Delivery Device Blood Gas Modality Inspired O2 Tidal Volume PEEP Sodium Potassium Chloride Carbon Dioxide BUN Creatinine Est GFR ( Amer) Est GFR (Non-Af Amer) BUN/Creatinine Ratio Glucose POC Glucose 73 162 H 89 Calculated Osmolality Calcium Venous Ioniz Calcium Phosphorus Magnesium Creatine Kinase 03/25/19 03/25/19 03/25/19 11:35 11:40 11:40 WBC 18.3 H D RBC 3.92 L Hgb 12.6 L Hct 38.1 MCV 97.2 MCH 32.1 MCHC 33.1 RDW 13.2 Plt Count 266 D MPV 10.5 Seg Neutrophils % 80.0 Band Neutrophils % 12.0 H Lymphocytes % Test Not Performed Monocytes % 7.0 Metamyelocytes % 1.0 H Neutrophils # 16.8 H Lymphocytes # ST[employer]ET [employer] Monocytes # 1.3 Toxic Granulation Present A Platelet Estimate Normal PT INR Sample Site ABG pH ABG pCO2 ABG pO2 ABG HCO3 ABG Total CO2 ABG O2 Saturation ABG Base Excess Curtis Test Respiration Rate O2 Delivery Device Blood Gas Modality Inspired O2 Tidal Volume PEEP Sodium 136 Potassium 5.1 Chloride 99 Carbon Dioxide 25 BUN 86 H Creatinine 6.56 H Est GFR ( Amer) 12 L Est GFR (Non-Af Amer) 10 L BUN/Creatinine Ratio 13 Glucose 100 POC Glucose 100 H Calculated Osmolality 308 H Calcium 7.5 L Venous Ioniz Calcium Phosphorus 5.3 H Magnesium 2.1 Creatine Kinase 80206 H 03/25/19 03/25/19 03/25/19 12:12 15:26 19:15 WBC RBC Hgb Hct MCV MCH MCHC RDW Plt Count MPV Seg Neutrophils % Band Neutrophils % Lymphocytes % Monocytes % Metamyelocytes % Neutrophils # Lymphocytes # Monocytes # Toxic Granulation Platelet Estimate PT INR Sample Site ABG pH ABG pCO2 ABG pO2 ABG HCO3 ABG Total CO2 ABG O2 Saturation ABG Base Excess Curtis Test Respiration Rate O2 Delivery Device Blood Gas Modality Inspired O2 Tidal Volume PEEP Sodium Potassium Chloride Carbon Dioxide BUN Creatinine Est GFR ( Amer) Est GFR (Non-Af Amer) BUN/Creatinine Ratio Glucose POC Glucose 117 H 110 H Calculated Osmolality Calcium Venous Ioniz Calcium 0.96 L Phosphorus Magnesium Creatine Kinase 03/25/19 03/26/19 03/26/19 23:38 04:01 04:10 WBC 14.5 H RBC 3.78 L Hgb 12.1 L Hct 37.2 L MCV 98.4 MCH 32.0 MCHC 32.5 RDW 13.2 Plt Count 263 MPV 10.2 Seg Neutrophils % 78.0 Band Neutrophils % 11.0 H Lymphocytes % 4.0 Monocytes % 7.0 Metamyelocytes % Neutrophils # 12.9 H Lymphocytes # 0.6 Monocytes # 1.0 Toxic Granulation Present A Platelet Estimate Normal PT INR Sample Site R Radial ABG pH 7.30 L ABG pCO2 47 H ABG pO2 93 ABG HCO3 23 ABG Total CO2 25 ABG O2 Saturation 96 ABG Base Excess -4 L Curtis Test N/A Respiration Rate 18 O2 Delivery Device Adult Vent Blood Gas Modality VC Inspired O2 40.0 Tidal Volume 500 PEEP 8 Sodium Potassium Chloride Carbon Dioxide BUN Creatinine Est GFR ( Amer) Est GFR (Non-Af Amer) BUN/Creatinine Ratio Glucose POC Glucose 95 Calculated Osmolality Calcium Venous Ioniz Calcium Phosphorus Magnesium Creatine Kinase 03/26/19 03/26/19 04:10 04:10 WBC RBC Hgb Hct MCV MCH MCHC RDW Plt Count MPV Seg Neutrophils % Band Neutrophils % Lymphocytes % Monocytes % Metamyelocytes % Neutrophils # Lymphocytes # Monocytes # Toxic Granulation Platelet Estimate PT 12.8 H INR 1.1 Sample Site ABG pH ABG pCO2 ABG pO2 ABG HCO3 ABG Total CO2 ABG O2 Saturation ABG Base Excess Curtis Test Respiration Rate O2 Delivery Device Blood Gas Modality Inspired O2 Tidal Volume PEEP Sodium 134 L Potassium 5.0 Chloride 99 Carbon Dioxide 22 L BUN 103 H Creatinine 7.77 H Est GFR ( Amer) 10 L Est GFR (Non-Af Amer) 8 L BUN/Creatinine Ratio 13 Glucose 108 H POC Glucose Calculated Osmolality 311 H Calcium 7.3 L Venous Ioniz Calcium Phosphorus Magnesium Creatine Kinase 6938 H - Impressions Impressions Upper Extremity CT 03/22/19 15:02 IMPRESSION: Nonspecific subcutaneous edema and fluid of the left upper extremity without evidence of focal fluid collection. No evidence of acute muscular abnormality or fluid along the muscular fascial planes. No specific CT evidence of myositis although MRI would be more sensitive. No acute bone or joint abnormality. D/ / 03/22/2019 15:13:10 Enzo Hernandez MD / [email or web address] Interpreting Provider: Enzo Hernandez MD Lower Extremity CT 03/22/19 15:05 IMPRESSION: Enlargement of the left psoas muscle with surrounding inflammatory changes and low-attenuating 2.2 x 3.3 x 2.6 cm intramuscular collection that may represent an intramuscular abscess or hematoma. Mild inflammatory changes of the left sartorius and rectus femoris muscles may represent reactive myositis. No fluid along the muscular fascial planes. Otherwise normal attenuation of the musculature of the left lower extremity. Nonspecific subcutaneous edema involving the left flank, left hip and left lower extremity up to the level of the knee. Small to moderate bilateral knee joint effusions. No evidence of degenerative changes or fracture. Extensive inflammatory changes of the sigmoid colon with wall thickening and possible pneumatosis of the rectum may represent ischemic colitis. This is similar in appearance to prior CT of the abdomen and pelvis from 03/19/2019. Extensive subcutaneous edema of the right lower extremity with mild inflammatory changes of the anterior compartment musculature of the right thigh including the sartorius and rectus femoris muscles that may represent mild myositis. No evidence of intramuscular abscess or hematoma of the right lower extremity. D/ / 03/22/2019 15:30:02 Enzo Hernandez MD / stephania Interpreting Provider: Enzo Hernandez MD Lower Extremity CT 03/22/19 15:05 IMPRESSION: Enlargement of the left psoas muscle with surrounding inflammatory changes and low-attenuating 2.2 x 3.3 x 2.6 cm intramuscular collection that may represent an intramuscular abscess or hematoma. Mild inflammatory changes of the left sartorius and rectus femoris muscles may represent reactive myositis. No fluid along the muscular fascial planes. Otherwise normal attenuation of the musculature of the left lower extremity. Nonspecific subcutaneous edema involving the left flank, left hip and left lower extremity up to the level of the knee. Small to moderate bilateral knee joint effusions. No evidence of degenerative changes or fracture. Extensive inflammatory changes of the sigmoid colon with wall thickening and possible pneumatosis of the rectum may represent ischemic colitis. This is similar in appearance to prior CT of the abdomen and pelvis from 03/19/2019. Extensive subcutaneous edema of the right lower extremity with mild inflammatory changes of the anterior compartment musculature of the right thigh including the sartorius and rectus femoris muscles that may represent mild myositis. No evidence of intramuscular abscess or hematoma of the right lower extremity. D/ / 03/22/2019 15:30:02 Enzo Hernandez MD / stephania Interpreting Provider: Enzo Hernandez MD - ABG Interpretation ABG results: ABG ABG pH 7.30 pH Units (7.32-7.45) L 03/26/19 04:01 ABG pCO2 47 mmHg (35-45) H 03/26/19 04:01 ABG pO2 93 mmHg (85-104) 03/26/19 04:01 ABG O2 Saturation 96 % (95-98) 03/26/19 04:01 PT/INR, D-dimer PT 12.8 Seconds (9.4-12.1) H 03/26/19 04:10 Palliative Scale - Palliative Performance Scale How ambulatory is this patient?: Totally bed bound What is patient's level of activity and evidence of disease?: Unable to do any activity, Extensive disease How much oral intake does the patient have?: Normal or reduced (NGT feedings) What is this patient's level of consciousness?: Drowsy or coma with or without confusion Palliative Performance Score: 10 % Consult Discharge Plan - Plan Referrals: NONE,PCP [Primary Care Provider] -
--- NOTE | 2019-03-26 12:30 | EEG/EMG/Oth Biometrics Report ---
EEG Procedure Report EEG Procedure: Routine EEG Procedure Note: Report: This EEG was acquired with standard international 10-20 electrode placement system with EKG recording. The background activity during this EEG was replaced by very low amplitude fast activity without any true background activity that symptoms be very low in amplitude throughout the recording No significant reactivity noted , Sleep stages were not identified during this tracing. There are no electrographic seizures identified during this tracing. There are no epileptiform discharges noted during this tracing. No focal slowing identified. Photic stimulation produced no abnormalities. HV not performed during this study. EKG tracing showed no significant cardiac dysarrhythmia. Impression: This is an abnormal EEG due to presence of diffuse generalized background slowing. Clinical Correlation: This EEG is consistent with diffuse cerebral dysfunction that can be seen in patients with encephalopathy, metabolic/toxic, inflammatory, electrolyte derangement or anoxic/ischemic, or medication effects ( Overall seems to be worse than the previous study ) Clinical correlation suggested.
[2019-03-26] MEDS ORDERED: Glycopyrrolate 0.2 MG/ML VIAL IVP ONE (13:47)
[2019-03-26] MEDS ORDERED: *HR* FentaNYL (PF) 100 MCG/2 ML VIAL IVP ONE (14:14)
[2019-03-26] MEDS ORDERED: Scopolamine Patch 1.5 MG PATCH.TD72 TD SCH (14:15)
[2019-03-26] MEDS: *HR* LORazepam 2 MG/ML VIAL IVP PRN (14:16)
--- NOTE | 2019-03-26 16:43 | Nephrology Progress Note ---
Date of Encounter: 03/26/19 Time of Encounter: 12:00 - Assessment and Plan (1) Acute kidney injury Current Visit: Yes Status: Acute The patient has multifactorial acute kidney injury with shock, drug overdose, likely volume depletion, and significant rhabdomyolysis. Last HD on monday with no further HD sessions planned at this time Will sign off, please reconsult prn (2) Drug overdose Current Visit: Yes Status: Acute Per primary team Qualifiers: Encounter type: initial encounter Injury intent: undetermined intent Qualified Code(s): T50.904A - Poisoning by unspecified drugs, medicaments and biological substances, undetermined, initial encounter (3) Hyperkalemia Current Visit: Yes Status: Acute Currently resolved (4) Rhabdomyolysis Current Visit: Yes Status: Acute Etiology likely due to drug use but no clear signs of muscle damage noted Has been improving for the past 3 days Qualifiers: Rhabdomyolysis type: non-traumatic Qualified Code(s): M62.82 - Rhabdomyolysis (5) Shock Current Visit: Yes Status: Resolved Mostly resolved, off pressor support (6) Multiple organ failure Current Visit: Yes Status: Acute per primary team (7) Hypocalcemia Current Visit: Yes Status: Acute Replete as needed Subjective Principal diagnosis: Cardiac Arrest Interval history: Pt seen and examined remains intubated and sedated with poor UOP. HD hled yesterday while family decided on goal of care, palliative extubation today mehdi nned Objective - Vital Signs Vital signs: Vital Signs Temp Pulse Resp BP Pulse Ox 03/26/19 13:00 96 14 155/88 99 03/26/19 12:00 98 13 153/86 99 03/26/19 11:46 13 98 03/26/19 11:38 98.0 F 03/26/19 11:00 97 12 149/92 99 03/26/19 10:00 95 13 141/86 100 03/26/19 09:23 13 98 03/26/19 09:00 92 12 144/85 98 03/26/19 08:00 97.9 F 03/26/19 07:34 13 100 03/26/19 07:10 86 03/26/19 07:00 91 13 141/87 100 03/26/19 06:00 88 19 134/82 100 03/26/19 05:08 19 134/82 100 03/26/19 05:00 87 20 134/82 100 03/26/19 04:30 89 18 137/84 100 03/26/19 04:16 97.6 F 03/26/19 04:00 81 03/26/19 03:00 83 19 138/83 100 03/26/19 02:59 21 136/84 100 03/26/19 02:00 83 19 135/84 100 03/26/19 01:07 22 147/99 99 03/26/19 01:00 83 20 147/99 99 03/26/19 00:30 85 18 145/91 99 03/26/19 00:14 98.1 F 03/25/19 23:48 19 146/90 98 03/25/19 23:30 82 19 146/90 99 03/25/19 22:00 91 18 147/96 98 03/25/19 21:00 92 15 140/84 97 03/25/19 20:19 97.9 F 03/25/19 20:03 16 131/82 96 03/25/19 20:00 95 16 147/88 96 03/25/19 19:00 100 18 141/79 96 03/25/19 18:00 110 20 157/88 96 03/25/19 17:50 33 172/103 98 03/25/19 17:00 105 21 172/103 98 Intake and Output 03/26/19 03/26/19 03/26/19 07:59 15:59 23:59 Intake Total 458 / 671 213 / 671 Output Total 0 38 / 38 Balance 458 / 633 175 / 633 Intake: IV Fluids 250 / 463 213 / 463 Precedex Premix 400 mcg In 100 100 / 261 161 / 261 ml @ 0.2 MCG/KG/HR 4.385 mls/hr IVC .[id number] YU Rx#: [id number] FentaNYL (PF) 2,500 MCG In 50 / 102 52 / 102 Empty Bag 1 EACH @ 50 MCG/HR 1 mls/hr IVC CONT YU Rx#: [id number] Zosyn 3.375 GM In 0.9 % Sodium 100 / 100 Chloride (Mini-Bag +) 100 ML @ 25 mls/hr IVPB Q12H YU Rx#: [id number] Tube Feeding 208 / 208 Output: Catheter 0 38 / 38 Gastric Drainage 0 / 0 Other: Weight 111.1 kg Blood Glucose* 108 Patient Weight 03/26/19 23:59 Weight 111.1 kg - General Appearance General appearance: Present: intubated EENT: Present: ATNC, mucous membranes moist Neck: Present: no JVD, supple Respiratory: Present: course breath sounds Cardiology: Present: edema (generalized), normal S1, normal S2 Dialysis Vascular Access: Venous Catheter (temp line) Gastrointestinal: Present: no tenderness, no guarding Integumentary: Present: warm and dry Additional Comments: nonresponsive Musculoskeletal: Present: no deformities Additional Comments: unable to assess - Lab 03/26/19 04:10 03/26/19 04:10 Most recent lab results 03/26/19 04:10 Calcium 7.3 L - VTE Documentation of Mechanical Device: Intermittent pneumatic compression device Consult Discharge Plan - Plan Referrals: NONE,PCP [Primary Care Provider] -
[2019-03-26] MEDS ORDERED: Artificial Tears SOLN 15 ML BOTTLE BOTH EYES PRN (17:02)
[2019-03-26] MEDS ORDERED: Dexmedetomidine HCl 400 MCG/100 ML MLS IVC SCH (17:02)
[2019-03-26] MEDS ORDERED: 0.9 % Sodium Chloride 250 ML IVC PRN (17:02)
[2019-03-26] MEDS ORDERED: Naloxone 0.4 MG/ML INJ IVP PRN (17:02)
[2019-03-26] MEDS ORDERED: *HR* LORazepam 2 MG/ML VIAL IVP PRN ×2 (17:02→18:49)
[2019-03-26] MEDS ORDERED: 0.9 % Sodium Chloride 1,000 ML PRIME SCH (17:02)
[2019-03-26] MEDS ORDERED: FentaNYL (PF) 1,000 MCG in 0.9 % Sodium Chloride 80 ML IVC SCH (18:00)
[2019-03-26] MEDS ORDERED: Atropine Sulfate 1% 40 DROP/2 ML BOTTLE SL PRN (18:48)
[2019-03-26] MEDS ORDERED: Artificial Tears SOLN 15 ML BOTTLE BOTH EYES SCH (20:00)
[2019-03-26 20:11] VITALS: BP 152/82
[2019-03-26] MEDS ORDERED: Chlorhexidine Rinse 15 ML MOUTHWASH MM SCH (21:00)
[2019-03-26] MEDS ORDERED: Docusate Oral Soln 100 MG/10 ML UDC GTUBE SCH (21:00)
--- NOTE | 2019-03-26 23:31 | Death Note ---
Discharge Sum: Summary - Date and Time Date of admission: 03/19/19 03:33 Date of : 03/26/19 Time of : 20:40 - Summary Details: I was called to the patients bedside to pronounce that patient Daniel Castaneda has . No spontaneous movements were present. There was no response to verbal or tactile stimuli. Pupils were mid dilated and fixed. No breath sounds were appreciated over either lung field. No carotid pulses were palpable. The heart sounds were auscultated over the entire precordium. The patient is pronounced on this day 03/26/2019 at 2040 hrs and witnessed by the nurse. Family members were present at bedside. Data Processing Specialist was notified and will be taken up as a case for review. [facility] [employer] and postmortem services were offered. Not a candidate for organ donation. The patients status was recently changed to DNR CC with terminal extubation performed prior to his transfer to the floor from the ICU. The patients major medical illness was multiorgan dysfunction in the setting of illicit substance overdose. [place] [facility] [place] attending [place] service will be notified of the expiration in the morning and certificate will need to be signed. HENRRY MD - Additional Data Confirmation of as documented by pronouncing clinician: no pulse, no respirations, no heart sounds, pupils fixed and dilated Family: at bedside Attending/PCP notified?: No Attending physician: Nando Barorw MD Was code activated?: No Autopsy requested?: Yes waste examiner notified?: Yes Organ bank notified?: Yes Advance directives: Yes Hospice patient?: No Discharge Sum: Diag - PCOD Probable Cause of : Cardiac arrest Discharge Sum: Prov - Provider Primary care physician: PCP NONE Admitting clinician: Daniel Redding Attending physician on admission: Angel Epps Consults: 03/19/19 02:50 Consult to Neurology [CONS] Stat Consulting Provider: Neurology [facility] Reason for Consult: Seizures, Posturing, Coded with ROSC S/P OD Time Notified: 02:50 Call Completed: No 03/19/19 06:48 Consult to Nephrology [CONS] Stat Consulting Provider: Kidney Carolann/MERCEDES/JEFFRY/PERLITA Reason for Consult: Worsening hyperkalemia with a potassium greater than 8 in the setting of severe rhabdomyolysis in patient found unresponsive status post several rounds of CPR currently unresponsive on ventilator Call Completed: No 03/19/19 07:01 Consult to Interventional Radiology [CONS] Stat Consulting Provider: Radiology Interventional Cols Reason for Consult: temp dialysis catheter Call Completed: Yes Consult to Pulmonology [CONS] Routine Consulting Provider: Pulm [facility] Reason for Consult: ICU management/vent managment Call Completed: Yes 03/19/19 08:15 Consult to Dialysis [CONS] ONCE 03/19/19 11:26 Consult to Interpret Exam [CONS] Routine Consulting Provider: Jay Corral Consult to Interpret Exam: Interpret EEG 03/20/19 02:27 Consult to ENT [CONS] Stat Consulting Provider: ENT [facility] Reason for Consult: Sternocleidomastoid abscess versus hematoma Time Notified: 02:27 Call Completed: No 03/20/19 14:15 Consult to Dialysis [CONS] ONCE 03/21/19 11:53 Consult to Nutrition [CONS] Routine Comment: Consulting Provider: NUTRITION Reason for Dietary Consult: Tube Feed Start & Manage 03/21/19 15:19 Consult to Counterperson [CONS] Routine Reason for SW Consult: POA for parents to recieve pt belongings. 03/22/19 11:45 Consult to Dialysis [CONS] ONCE 03/22/19 15:53 Consult to Palliative Care [CONS] Routine Comment: Consulting Provider: Palliative Care Carolann Reason for Consult: Anoxic brain injury s/p cardiac arrest and drug overdose, poor neuro prognosis. Call Completed: Yes 03/23/19 11:15 Consult to Dialysis [CONS] ONCE 03/25/19 11:30 Consult to Dialysis [CONS] ONCE 03/26/19 12:24 Consult to Interpret Exam [CONS] Routine Consulting Provider: Rachel Hartman I Consult to Interpret Exam: Interpret EEG Pronouncing clinician: Nando Barrow
--- NOTE | 2019-03-26 23:33 | Death Note ---
Pronouncement Note - Date and Time of Date of : 03/26/19 Time of : 20:40 - PCOD Preliminary cause of : Cardiac arrest - Summary Additional details: I was called to the patients bedside to pronounce that patient Daniel Castaneda has . No spontaneous movements were present. There was no response to verbal or tactile stimuli. Pupils were mid dilated and fixed. No breath sounds were appreciated over either lung field. No carotid pulses were palpable. The heart sounds were auscultated over the entire precordium. The patient is pronounced on this day 03/26/2019 at 2040 hrs and witnessed by the nurse. Family members were present at bedside. Multimedia Project Manager was notified and will be taken up as a case for review. Program Officer and postmortem services were offered. Not a candidate for organ donation. The patients status was recently changed to DNR CC with terminal extubation performed prior to his transfer to the floor from the ICU. The patients major medical illness was multiorgan dysfunction in the setting of illicit substance overdose. The body [place] [facility] [place] the attending on service will be notified of the expiration in the morning and certificate will need to be signed. HENRRY LEMUS. - Additional Data Confirmation of : no pulse, no respirations, no heart sounds, pupils fixed and dilated Family: at bedside Attending/PCP notified?: No Attending physician: Nando Barrow MD Was code activated?: No Autopsy requested?: Yes entry examiner notified?: Yes Organ bank notified?: Yes Advance directives: No
[2019-03-27] MEDS ORDERED: Pantoprazole 40 MG VIAL IVP SCH (09:00)
[2019-03-29] MEDS ORDERED: Scopolamine Patch 1.5 MG PATCH.TD72 TD SCH (14:00)
== END 2019-03-26 23:45 | disposition expired | DRG 917 ==
LOC: EMEROOARM 00:14 → ICNU 03:30 → 2ANU 03-26 19:59
PROVIDERS: ADMIT Internal Medicine; ATTEND Internal Medicine